=== PATIENT | female | born 1970 | race African-American/Black ===

== ENCOUNTER → 2017-07-08 | Outpatient (CLI) | payer OTHER ==
--- NOTE | 2017-07-09 09:06 | Diagnostic Imaging Report ---
Indication: Low back pain Technique: CT scan of the abdomen and pelvis was performed from the diaphragms to the symphysis pubis with intravenous contrast material only per specific request of the ordering physician.. 5 mm sections were generated. Axial, coronal, and sagittal images are presented. Dose: Total Dose Length Product - DLP [address] Dose Index - CTDIvol(s) 19.75 mGy. Automated exposure control was utilized for dose reduction. Comparison: None Findings: The liver is normal. Gallbladder is unremarkable. There is a focal low density lesion in the spleen measuring 1.2 cm, not further characterized. The pancreas is unremarkable. Adrenal glands appear normal. The kidneys are unremarkable. Aorta and inferior vena cava are normal caliber. Retroperitoneum is free of adenopathy. The appendix is normal. The bowel is otherwise normal. The uterus is considerably enlarged, measuring approximately 10 x 15 x 12 cm.. Multiple rim calcified masses are noted throughout the uterus consistent with calcified fibroids. The ovaries are difficult to identify. The remainder of the study is normal. Degenerative changes noted in the spine.. Impression: Enlarged uterus with multiple calcified fibroids. Normal appendix. Minimal degenerative change in the spine. Otherwise negative. The CT scanner at [facility] is accredited by the [employer] and the scans are performed using protocols designed to limit radiation exposure to as low as reasonably achievable to attain images of sufficient resolution adequate for diagnostic evaluation.
== END | disposition home or self-care (01) ==
LOC: CAT 13:01
DX: M54.5 Low back pain (principal); N85.2 Hypertrophy of uterus; D25.9 Leiomyoma of uterus, unspecified
CPT/HCPCS: 74177; Q9967

== ENCOUNTER 2018-11-20 19:47 | Observation (INO) | payer MEDICARE, OTHER ==
[~2018-11-20] VITALS: Ht 162.6 cm; Wt 104.8 kg
--- NOTE | 2018-11-20 22:15 | NUR ---
NURSE NOTES: RECEIVED REPORT FROM [facility]. PT CAME WITH EMS ON [facility]. PT IS AWAKE, AAOX4, ON ROOM AIR, NO ACUTE DISTRESS NOTED. PT C/O PAIN 10/10 ON RIGHT SIDE OF BODY. ORIENTED PT TO ROOM. SKIN IS INTACT. IV NOTED ON R FA 20G INTACT AND PATENT. RECEIVED ADMISSION ORDERS FROM . BED IS LOCKED AT THE LOWEST POSITION, BED ALARMS ACTIVE, SIDE RAILS UP X2 AND CALL LIGHT IS WITHIN REACH.
[2018-11-21] VITALS: BP 152/88
[2018-11-21] MEDS ORDERED: SERTRALINE HCL100 MG PO (01:04)
[2018-11-21] MEDS ORDERED: NORVASC10 MG ORAL (01:04)
[2018-11-21] MEDS ORDERED: HYDROCHLOROTHIA25 MG ORAL (01:04)
[2018-11-21] MEDS ORDERED: TRAZODONE HCL150 MG ORAL (01:04)
[2018-11-21] MEDS ORDERED: CLONAZEPAM1 M1 PO (01:04)
[2018-11-21] MEDS ORDERED: CLONIDINE HCL0.1 MG PO (01:04)
[2018-11-21] MEDS ORDERED: PROVENTIL HFA6.7 G1 IH (01:04)
[2018-11-21] MEDS ORDERED: METFORMIN HCL850 M1 ORAL (01:04)
[2018-11-21] MEDS ORDERED: LIPITOR80 MG ORAL (01:04)
[2018-11-21] MEDS ORDERED: METOPROLOL TART50 MG ORAL (01:04)
[2018-11-21] MEDS ORDERED: SYMBICORT2 PUFF1 INH (01:04)
[2018-11-21] MEDS ORDERED: GLUCOTROL5 MG ORAL (01:04)
[2018-11-21] MEDS ORDERED: BENADRYL25 M3 PO (01:04)
[2018-11-21] MEDS ORDERED: Albuterol 90mcg Inhaler 8gm INH PRN (01:15)
[2018-11-21] MEDS ORDERED: Hydromorphone 0.5mg/0.5ml inj IVP PRN (01:15)
[2018-11-21] MEDS ORDERED: TraZODone 50mg tab ORAL PRN (01:15)
[2018-11-21] MEDS: HYDROmorphone 1mg/ml Carpuject IVP PRN ×7 (01:33→22:48)
[2018-11-21] MEDS: DiphenhydrAMINE 50mg/ml Inj IVP PRN ×6 (02:22→22:47)
[2018-11-21 04:00] VITALS: BP 137/67
[2018-11-21 06:16] LABS: HEMATOCRIT 37.2 % (37.0-47.0); HEMOGLOBIN 11.4 G/DL (12.0-16.0); MEAN CORPUSCULAR VOLUME 72 FL (80-99); PLATELET COUNT 299 K/UL (150-450); RED BLOOD COUNT 5.15 M/UL (4.20-5.40)
[2018-11-21] MEDS ORDERED: GlipiZIDE 5mg tab ORAL SCH (06:30)
[2018-11-21] MEDS: Dexamethasone 4mg/ml vial IVP SCH ×3 (06:33→21:21)
[2018-11-21 06:37] LABS: INR 0.9 (0.9-1.1)
[2018-11-21 06:39] LABS: ANION GAP 14 mmol/L (5-15); BLOOD UREA NITROGEN 18 mg/dL (7-18); CALCIUM 9.6 MG/DL (8.5-10.1); CARBON DIOXIDE 24 MMOL/L (21-32); CHLORIDE 97 MMOL/L (98-107); CREATININE 0.9 MG/DL (0.55-1.30); PHOSPHORUS 2.8 MG/DL (2.5-4.9); POTASSIUM 4.2 MMOL/L (3.5-5.1); SODIUM 135 MMOL/L (136-145)
[2018-11-21 08:00] VITALS: BP 132/92
--- NOTE | 2018-11-21 08:05 | NUR ---
HAND-OFF: Report given to STEVEN CORTEZ.
[2018-11-21] MEDS: NovoLOG Insulin Flexpen SUBQ SCH ×4 (08:08→21:25)
--- NOTE | 2018-11-21 08:11 | NUR ---
NURSE NOTES: received report from Shalonda,STEVEN. xu in bed. alert. oriented. verbally responsive, no respiratory distress noted on room air. no pain at this time. IV on RFA intact. flushed. fall risk. skin intact. the bed in the lowest position. call light within reach. will provide plan of care.
[2018-11-21] MEDS: Atorvastatin 20mg tab ORAL SCH (09:00)
[2018-11-21] MEDS: Sertraline 50mg tab ORAL SCH (09:01)
[2018-11-21] MEDS: Metoprolol Tartrate 50mg tab ORAL SCH ×2 (09:01→21:26)
[2018-11-21 12:00] VITALS: BP 135/83
--- NOTE | 2018-11-21 12:02 | NUR ---
NURSE NOTES: seen by Dr. Naidu and received order pepcid 20mg po Daily. change of order of dilaudid. d/c previous ordrer. n/o dilaudid 1.5mg IVP PRN Q4hrs for severe pain. order noted and carried out.
--- NOTE | 2018-11-21 12:14 | NUR ---
NURSE NOTES: patient does not have order of DVT prophylaxis and MG level 1.7 this morning. notified cole Hmuphrey and received order of heparin 5000 SQ q12hrs for DVT ppx. Magnesium sulfate IVPB 1gm x2. order noted and carried out.
--- NOTE | 2018-11-21 12:38 | NUR ---
NURSE NOTES: received order from ana laura Martin to give benadryl 25mg IVP with dilaudid now.
--- NOTE | 2018-11-21 12:38 | NUR ---
NURSE NOTES: patient got administered dilaudid 1mg IVP at 1045 for pain. seen by Dr[address] galvan. patient c/o sever pain even after medication. received new order from Dr. galvan change dosage to 1.5mg IVP PRN Q4hrs for severe pain and ok to administer now as ordered.
--- NOTE | 2018-11-21 12:43 | Consultation ---
History of Present Illness General Date patient seen: Nov 21, 2018 Present Illness HPI 48 year old female with hx of DM, HTN, CAD, s/p stents was taken to [facility] with CC of right sided weakness, and headache. She was seen by stroke team at [facility] who ruled out acute CVA. there is a report of -spine MRI in the chart as well stating that she might have spinal stenosis. Allergies: Coded Allergies: IODINE AND IODIDE CONTAINING PRODUC (Verified Allergy, Severe, Anaphylaxis , 11/21/18) OLANZAPINE (Verified Allergy, Severe, Anaphylaxis, 11/21/18) THROAT SWELLING ASPIRIN (Verified Allergy, Intermediate, Hives, 11/21/18) BENZTROPINE (Verified Allergy, Intermediate, Hives, 11/21/18) ERYTHROMYCIN BASE (Verified Allergy, Intermediate, Hives, 11/21/18) KETOROLAC (Verified Allergy, Intermediate, Hives, 11/21/18) LOSARTAN (Verified Allergy, Intermediate, 11/21/18) ANGIOEDEMA NITROGLYCERIN (Verified Allergy, Intermediate, Hives, 11/21/18) PSEUDOEPHEDRINE (Verified Allergy, Intermediate, Hives, 11/21/18) SULFA (SULFONAMIDE ANTIBIOTICS) (Verified Allergy, Intermediate, Hives, 03/02) TERFENADINE (Verified Allergy, Intermediate, Hives, 11/21/18) TRAMADOL (Verified Allergy, Intermediate, Rash, 11/21/18) Medication History Scheduled Amlodipine Besylate (Norvasc), 10 MG ORAL DAILY, (Reported) Atorvastatin (Lipitor), 40 MG ORAL DAILY, (Reported) Budesonide/Formoterol Fumarate (Symbicort 160-4.5 Mcg Inhaler), 2 PUFFS INH BID, (Reported) Clonazepam (Clonazepam), 1 MG PO BID, (Reported) Diphenhydramine HCl (Benadryl), 75 MG PO DAILY, (Reported) Glipizide* (Glucotrol*), 5 MG ORAL BID, (Reported) Hydrochlorothiazide* (Hydrochlorothiazide*), 25 MG ORAL DAILY, (Reported) Metformin Hcl* (Metformin Hcl*), 850 MG ORAL BID, (Reported) Metoprolol Tartrate* (Metoprolol Tartrate*), 50 MG ORAL BID, (Reported) Sertraline Hcl* (Zoloft*), 150 MG PO DAILY, (Reported) Scheduled PRN Albuterol Sulfate (Proventil Hfa), 90 MCG IH Q4HR PRN for Shortness of Breath, ( Reported) Clonidine Hcl (Clonidine Hcl), 0.1 MG PO Q6HR PRN for For High Blood Pressure, ( Reported) Trazodone* (Trazodone*), 150 MG ORAL BEDTIME PRN for Restlessness, (Reported) Patient History Healthcare decision maker Resuscitation status Full Code Advanced Directive on File Past Medical/Surgical History Past Medical/Surgical History: (1) History of heart artery stent (2) COPD (chronic obstructive pulmonary disease) (3) Fibrosis of uterus (4) CAD (coronary artery disease) (5) History of TIA (transient ischemic attack) (6) Diabetes mellitus Physical Exam General Appearance: WD/WN, mild distress HEENT: normocephalic, atraumatic Neck: non-tender, supple Respiratory/Chest: chest wall non-tender, lungs clear, normal breath sounds Breasts: no masses Cardiovascular/Chest: normal peripheral pulses Abdomen: normal bowel sounds Genitourinary/Rectal: normal genital exam Extremities: normal range of motion Skin Exam: normal pigmentation Last 24 Hour Vital Signs Date Time Temp Pulse Resp B/P (MAP) Pulse Ox O2 Delivery O2 Flow Rate FiO2 11/21/18 12:00 99.0 87 16 135/83 (100) 98 11/21/18 09:24 92 20 98 Room Air 21 11/21/18 09:22 92 19 98 Room Air 21 11/21/18 09:20 92 19 98 Room Air 21 11/21/18 09:01 106 132/92 11/21/18 09:00 106 132/92 11/21/18 09:00 Room Air 11/21/18 08:00 98.5 106 17 132/92 (105) 99 11/21/18 04:00 98.1 82 18 137/67 (90) 99 11/21/18 00:00 98.2 90 20 152/88 (109) 99 11/20/18 23:14 Room Air Intake and Output 11/20/18 11/21/18 19:00 07:00 Intake Total 780 ml Balance 780 ml Intake Oral 780 ml # Voids 3 Laboratory Tests Test 11/21/18 05:40 White Blood Count 9.0 K/UL (4.8-10.8) Red Blood Count 5.15 M/UL (4.20-5.40) Hemoglobin 11.4 G/DL (12.0-16.0) L Hematocrit 37.2 % (37.0-47.0) Mean Corpuscular Volume 72 FL (80-99) L Mean Corpuscular Hemoglobin 22.2 PG (27.0-31.0) L Mean Corpuscular Hemoglobin Concent 30.8 G/DL (32.0-36.0) L Red Cell Distribution Width 16.0 % (11.6-14.8) H Platelet Count 299 K/UL (150-450) Mean Platelet Volume 7.3 FL (6.5-10.1) Neutrophils (%) (Auto) % (45.0-75.0) Lymphocytes (%) (Auto) % (20.0-45.0) Monocytes (%) (Auto) % (1.0-10.0) Eosinophils (%) (Auto) % (0.0-3.0) Basophils (%) (Auto) % (0.0-2.0) Prothrombin Time 9.6 SEC (9.30-11.50) Prothromb Time International Ratio 0.9 (0.9-1.1) Activated Partial Thromboplast Time 26 SEC (23-33) Sodium Level 135 MMOL/L (136-145) L Potassium Level 4.2 MMOL/L (3.5-5.1) Chloride Level 97 MMOL/L (98-107) L Carbon Dioxide Level 24 MMOL/L (21-32) Anion Gap 14 mmol/L (5-15) Blood Urea Nitrogen 18 mg/dL (7-18) Creatinine 0.9 MG/DL (0.55-1.30) Estimat Glomerular Filtration Rate > 60 mL/min (>60) Glucose Level 325 MG/DL (74-106) H Calcium Level 9.6 MG/DL (8.5-10.1) Phosphorus Level 2.8 MG/DL (2.5-4.9) Magnesium Level 1.7 MG/DL (1.8-2.4) L Height (Feet): 5 Height (Inches): 4.00 Weight (Pounds): 231 Medications Current Medications Medications (Trade) Dose Ordered Sig/Raymond Route PRN Reason Start Time Stop Time Status Last Admin Dose Admin Albuterol Sulfate (Proventil MDI) 2 puff Q4H PRN INH Shortness of Breath 11/21/18 01:15 12/21/18 01:14 Amlodipine Besylate (Norvasc) 10 mg DAILY ORAL 11/21/18 09:00 12/21/18 08:59 11/21/18 09:00 Atorvastatin Calcium (Lipitor) 40 mg DAILY ORAL 11/21/18 09:00 12/21/18 08:59 11/21/18 09:00 Budesonide/ Formoterol Fumarate (Symbicort 160/ 4.5) 2 puff BIDRT INH 11/21/18 10:00 12/21/18 09:59 11/21/18 09:22 Clonazepam (KlonoPIN) 1 mg Q12HR ORAL 11/21/18 09:00 11/28/18 08:59 11/21/18 09:01 Clonidine HCl (Catapres Tab) 0.1 mg Q6H PRN ORAL For High Blood Pressure 11/21/18 01:45 12/21/18 01:44 Dexamethasone Sodium Phosphate (Decadron 4mg/ml vial) 4 mg Q8HR IVP 11/21/18 06:00 12/21/18 05:59 11/21/18 06:33 Dextrose (Dextrose 50%) 25 ml Q30M PRN IV Hypoglycemia 11/21/18 01:15 12/21/18 01:14 Dextrose (Dextrose 50%) 50 ml Q30M PRN IV Hypoglycemia 11/21/18 01:15 12/21/18 01:14 Diphenhydramine HCl (Benadryl) 25 mg Q4H PRN IVP Itching 11/21/18 02:00 12/21/18 01:59 11/21/18 10:53 Famotidine (Pepcid) 20 mg DAILY ORAL 11/22/18 09:00 12/22/18 08:59 Famotidine (Pepcid) 20 mg ONCE ORAL 11/21/18 12:30 11/21/18 13:30 Heparin Sodium (Porcine) (Heparin 5000 units/ml) 5,000 units EVERY 12 HOURS SUBQ 11/21/18 21:00 12/21/18 20:59 Hydrochlorothiazide (Hydrodiuril) 25 mg DAILY ORAL 11/21/18 09:00 12/21/18 08:59 11/21/18 09:01 Hydromorphone HCl (Dilaudid) 0.5 mg Q4H PRN IVP Moderate Pain (Pain Scale 4-6) 11/21/18 01:15 11/28/18 01:14 Hydromorphone HCl (Dilaudid) 1.5 mg Q4H PRN IVP Severe Pain (Pain Scale 7-10) 11/21/18 13:15 11/28/18 01:14 Insulin Aspart (NovoLOG) BEFORE MEALS AND HS SUBQ 11/21/18 06:30 12/21/18 06:29 11/21/18 12:01 Magnesium Sulfate 100 ml @ 100 mls/hr Q1H IVPB 11/21/18 12:15 11/21/18 14:14 Metformin HCl (Glucophage) 850 mg BID@0630,1630 ORAL 11/21/18 06:30 12/21/18 06:29 11/21/18 06:33 Metoprolol Tartrate (Lopressor) 50 mg BID@0900,2100 ORAL 11/21/18 09:00 12/21/18 08:59 11/21/18 09:01 Ondansetron HCl (Zofran) 4 mg Q4H PRN IVP Nausea & Vomiting 11/21/18 01:15 12/21/18 01:14 11/21/18 09:07 Sertraline HCl (Zoloft) 150 mg DAILY ORAL 11/21/18 09:00 12/21/18 08:59 11/21/18 09:01 Trazodone HCl (Desyrel) 150 mg BEDTIME PRN ORAL Restlessness 11/21/18 01:15 12/21/18 01:14 Assessment/Plan Problem List: (1) Right sided weakness ICD Codes: R53.1 - Weakness SNOMED: 615999704 (2) COPD (chronic obstructive pulmonary disease) ICD Codes: J44.9 - Chronic obstructive pulmonary disease, unspecified SNOMED: 79583348 (3) Gonorrhea ICD Codes: A54.9 - Gonococcal infection, unspecified SNOMED: 24505058 (4) Spinal stenosis ICD Codes: M48.00 - Spinal stenosis, site unspecified SNOMED: 08900222 (5) History of heart artery stent ICD Codes: Z95.5 - Presence of coronary angioplasty implant and graft SNOMED: 00188599, 199832315 (6) Fibrosis of uterus ICD Codes: N85.8 - Other specified noninflammatory disorders of uterus SNOMED: 15826856 (7) CAD (coronary artery disease) ICD Codes: I25.10 - Atherosclerotic heart disease of [place] coronary artery without angina pectoris SNOMED: 11978005 (8) History of TIA (transient ischemic attack) ICD Codes: Z86.73 - Personal history of transient ischemic attack (TIA), and cerebral infarction without residual deficits SNOMED: 092326656 (9) Diabetes mellitus ICD Codes: E11.9 - Type 2 diabetes mellitus without complications SNOMED: 43826729 (10) History of hypertension ICD Codes: Z86.79 - Personal history of other diseases of the circulatory system SNOMED: 507333739 Assessment/Plan: Neuro evaluation pain management sliding scale diabetic diet monitor BP dvt prophylaxis ID evaluation for STD management Jaswinedr Naidu MD Nov 21, 2018 12:43
[2018-11-21] MEDS ORDERED: cefTRIAXone 1 GM in D5W 55 ML IVPB ONE (14:00)
[2018-11-21] MEDS ORDERED: metroNIDAZOLE 500mg tab ORAL SCH (14:00)
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
[2018-11-21] MEDS ORDERED: Fluconazole 100mg tab ORAL SCH (15:55)
[2018-11-21 16:00] VITALS: BP 139/79
[2018-11-21] MEDS ORDERED: Azithromycin 250mg tab ORAL SCH (16:00)
--- NOTE | 2018-11-21 17:58 | NUR ---
NURSE NOTES: patient Blood sugar was 402@1630. given novolog 14units as sliding scale and notified Dr. de leon. Dr will come to see the patient soon.
--- NOTE | 2018-11-21 18:30 | NUR ---
NURSE NOTES: seen by Dr. de leon and Dr. Salvador.
--- NOTE | 2018-11-21 18:35 | History & Physical ---
History and Physical History & Physicial Hebert Littlejohn MD Nov 21, 2018 18:35
--- NOTE | 2018-11-21 19:14 | NUR ---
CASE MANAGEMENT: REVIEW 48Y/F PRESENTED TO ED FROM HOME CC: RIGHT SIDED WEAKNESS . HEADACHE IS: SPINAL STENOSIS . COPD . CAD . DM T 99.0 HR 106 RR 19 BP 132/92 SAT 98% ROOM AIR NA 135 CHLOR 97 GLUCOSE 325 IS: AZITHROMYCIN PO X1 DIFLUCAN PO X1 CEFTRIAXONE IV X1 PATIENT ADMITTED TO MED/SURG UNIT 11/21/2018 DCP: PATIENT IS FROM HOME
--- NOTE | 2018-11-21 19:37 | NUR ---
HAND-OFF: Report given to STEVEN Humphries.
--- NOTE | 2018-11-21 19:38 | NUR ---
NURSE NOTES: Received patient in no apparent distress. A&OX4. IV site patent and intact. Remind patient collect urine sample. Bed in lowest position. Call light within reach. Will continue to monitor.
[2018-11-21 20:00] VITALS: BP 121/70
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
[2018-11-21] MEDS ORDERED: Levemir Flexpen SUBQ SCH (21:00)
[2018-11-21] MEDS: Heparin 5000 units/ml inj SUBQ SCH (21:23)
--- NOTE | 2018-11-21 21:45 | Consultation ---
DATE OF CONSULTATION: 11/21/2018 ENDOCRINOLOGY CONSULTATION CONSULTING PHYSICIAN: Arnel Guerra M.D. REFERRING PHYSICIAN: Hebert Littlejohn M.D. REASON FOR CONSULTATION: Diabetes management. HISTORY OF PRESENT ILLNESS: The patient is a 48-year-old female, , morbidly obese, with past medical history of diabetes, hypertension, coronary artery disease status post stent placement who was taken to [facility] in [facility] with chief complaint of right-sided weakness and headache. The patient was seen by Stroke Team at [facility] to rule out acute CVA and a spine MRI was done which showed cervical spine stenosis with cord compression. The patient was given dexamethasone which raised the glucose significantly. I was called to manage diabetes. Glucose is over 300 mg/dL without evidence of diabetic ketoacidosis. PAST MEDICAL HISTORY: 1. Diabetes. 2. Hypertension. 3. Coronary disease status post stent. 4. Neck pain. PAST SURGICAL HISTORY: None. FAMILY HISTORY: Diabetes. SOCIAL HISTORY: Denies active smoking, alcohol, or drug use. REVIEW OF SYSTEMS: A 12-point system was performed. The pertinent positives and negatives are mentioned in history of present illness. ALLERGIES: Allergies to medications are many: 1. Iodine. 2. Olanzapine. 3. Aspirin. 4. Benztropine. 5. Erythromycin. 6. Ketoralac. 7. Losartan. 8. Nitroglycerin. 9. Pseudoephedrine. 10. Sulfa. 11. Tramadol. LABORATORY VALUES: Sodium 135, potassium 4.2, chloride 97, bicarbonate 24, BUN 18, creatinine 0.9, glucose 325. WBC 9, hemoglobin 11, hematocrit 37, platelets of 299. PHYSICAL EXAMINATION: VITAL SIGNS: Blood pressure is 139/79, respiratory rate of 16, pulse rate of 78, temperature of 98. HEENT: Pupils reactive to light. Sclerae anicteric. NECK: No JVD. HEART: Regular. LUNGS: Clear. ABDOMEN: Positive bowel sounds. EXTREMITIES: No clubbing, cyanosis, or edema. DIAGNOSES: 1. Diabetes exacerbated by steroids. 2. Cervical spine stenosis. 3. Hypertension. PLAN: 1. Continue metformin 1000 mg b.i.d. 2. Add Levemir 24 units at bedtime. 3. Add NovoLog 8 units before each meal. 4. Diabetic diet. 5. NovoLog sliding scale before meals and at bedtime. 6. Further adjustment according to blood glucose values. 7. We will follow the patient during the hospital stay. Thank you, Dr. Littlejohn, for the courtesy of this consultation. Arnel Guerra M.D. DR: Jessie JOB#: [id number] CC: SOO
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
[2018-11-21 23:27] LABS: APPEARANCE,URINE CLEAR; BILIRUBIN, URINE NEGATIVE (NEGATIVE); COLOR,URINE PALE YELLOW; GLUCOSE, URINE (UA) 4+ (NEGATIVE); KETONES,URINE NEGATIVE (NEGATIVE); LEUKOCYTE ESTERASE ,URINE NEGATIVE (NEGATIVE); NITRITE,URINE NEGATIVE (NEGATIVE); PH,URINE 6 (4.5-8.0); PROTEIN,URINE NEGATIVE (NEGATIVE); UROBILINOGEN,URINE NORMAL MG/DL (0.0-1.0)
--- NOTE | 2018-11-21 23:59 | NUR ---
NURSE NOTES: Patient c/o itching, requested increase dose of Benadryl. Patient asking to have muscle relaxant medication. Call and left message to Dr. Littlejohn. Waiting a call back.
[2018-11-22] VITALS: BP 139/87
[2018-11-22] MEDS ORDERED: Cyclobenzaprine 10mg Tab ORAL PRN (01:15)
--- NOTE | 2018-11-22 01:16 | NUR ---
NURSE NOTES: Obtained order of increase Benadryl 50mg, Flexeril 10mg BID po prn, Nystatin cream for vaginal itching.
[2018-11-22] MEDS: DiphenhydrAMINE 50mg/ml Inj IVP PRN ×3 (03:03→13:25)
[2018-11-22] MEDS: HYDROmorphone 1mg/ml Carpuject IVP PRN ×3 (03:04→13:28)
[2018-11-22 04:00] VITALS: BP 153/92
[2018-11-22] MEDS ORDERED: NovoLOG Insulin Flexpen SUBQ SCH ×2 (06:30→11:50)
[2018-11-22] MEDS ORDERED: metFORMIN 500mg tab ORAL SCH (06:30)
[2018-11-22] MEDS: NovoLOG Insulin Flexpen SUBQ SCH ×2 (06:32→12:06)
--- NOTE | 2018-11-22 06:58 | General Progress Note ---
Assessment/Plan Problem List: (1) Spinal stenosis ICD Codes: M48.00 - Spinal stenosis, site unspecified SNOMED: 53685752 (2) Diabetes mellitus ICD Codes: E11.9 - Type 2 diabetes mellitus without complications SNOMED: 54428090 (3) History of TIA (transient ischemic attack) ICD Codes: Z86.73 - Personal history of transient ischemic attack (TIA), and cerebral infarction without residual deficits SNOMED: 856235715 (4) CAD (coronary artery disease) ICD Codes: I25.10 - Atherosclerotic heart disease of [place] coronary artery without angina pectoris SNOMED: 71276490 (5) Abnormal thyroid blood test ICD Codes: R79.89 - Other specified abnormal findings of blood chemistry SNOMED: 554180362, 358946445400047 Assessment/Plan: low TSH is most likely due to steroid effect no need for thyroid medications repeat TSH, free T4 in 2 weeks increase Levemir to 30 units qhs increase Novolog to 10 units ac tid continue NISS ac / hs continue Metformin 1000 mg bid Subjective Allergies: Coded Allergies: IODINE AND IODIDE CONTAINING PRODUC (Verified Allergy, Severe, Anaphylaxis , 11/21/18) OLANZAPINE (Verified Allergy, Severe, Anaphylaxis, 11/21/18) THROAT SWELLING ASPIRIN (Verified Allergy, Intermediate, Hives, 11/21/18) BENZTROPINE (Verified Allergy, Intermediate, Hives, 11/21/18) ERYTHROMYCIN BASE (Verified Allergy, Intermediate, Hives, 11/21/18) Tolerates Azithromycin KETOROLAC (Verified Allergy, Intermediate, Hives, 11/21/18) LOSARTAN (Verified Allergy, Intermediate, 11/21/18) ANGIOEDEMA NITROGLYCERIN (Verified Allergy, Intermediate, Hives, 11/21/18) PSEUDOEPHEDRINE (Verified Allergy, Intermediate, Hives, 11/21/18) SULFA (SULFONAMIDE ANTIBIOTICS) (Verified Allergy, Intermediate, Hives, 03/02) TERFENADINE (Verified Allergy, Intermediate, Hives, 11/21/18) TRAMADOL (Verified Allergy, Intermediate, Rash, 11/21/18) All Systems: reviewed and negative except above Subjective events noted Item Value Date Time Bedside Blood Glucose 275 mg/dl H 11/22/18 0633 Bedside Blood Glucose 253 mg/dl H 11/21/18 2125 Bedside Blood Glucose 402 mg/dl H 11/21/18 1714 Bedside Blood Glucose 300 mg/dl H 11/21/18 1201 Bedside Blood Glucose 300 mg/dl H 11/21/18 0808 Objective Last 24 Hour Vital Signs Date Time Temp Pulse Resp B/P (MAP) Pulse Ox O2 Delivery O2 Flow Rate FiO2 11/22/18 04:00 97.9 74 18 153/92 (112) 98 11/22/18 00:00 97.9 71 18 139/87 (104) 98 11/21/18 21:26 87 121/70 11/21/18 21:23 87 18 98 Room Air 21 11/21/18 21:20 87 18 98 Room Air 21 11/21/18 21:00 Room Air 11/21/18 20:00 97.7 87 17 121/70 (87) 99 11/21/18 16:00 98.0 78 16 139/79 (99) 97 11/21/18 12:00 99.0 87 16 135/83 (100) 98 11/21/18 09:24 92 20 98 Room Air 11/21/18 09:22 92 19 98 Room Air 11/21/18 09:20 92 19 98 Room Air 21 11/21/18 09:01 106 132/92 11/21/18 09:00 106 132/92 11/21/18 09:00 Room Air 11/21/18 08:00 98.5 106 17 132/92 (105) 99 Intake and Output 11/21/18 11/22/18 19:00 07:00 Intake Total 600 ml 1000 ml Balance 600 ml 1000 ml Intake Oral 400 ml 1000 ml IV Total 200 ml # Voids 3 Laboratory Tests 11/21/18 23:00: Urine Color Pale yellow, Urine Appearance Clear, Urine pH 6, Urine Specific [place] 1.010, Urine Protein Negative, Urine Glucose (UA) 4+H, Urine Ketones Negative, Urine Blood Negative, Urine Nitrite Negative, Urine Bilirubin Negative , Urine Urobilinogen Normal, Urine Leukocyte Esterase Negative, Chlamydia trachomatis RNA [Pending], Neisseria gonorrhoeae RNA [Pending] Height (Feet): 5 Height (Inches): 4.00 Weight (Pounds): 231 General Appearance: no apparent distress Neck: normal alignment Cardiovascular: normal rate Respiratory/Chest: lungs clear Abdomen: normal bowel sounds Pelvis: normal external exam Objective Current Medications Medications (Trade) Dose Ordered Sig/Raymond Route PRN Reason Start Time Stop Time Status Last Admin Dose Admin Albuterol Sulfate (Proventil MDI) 2 puff Q4H PRN INH Shortness of Breath 11/21/18 01:15 12/21/18 01:14 Amlodipine Besylate (Norvasc) 10 mg DAILY ORAL 11/21/18 09:00 12/21/18 08:59 11/21/18 09:00 Atorvastatin Calcium (Lipitor) 40 mg DAILY ORAL 11/21/18 09:00 12/21/18 08:59 11/21/18 09:00 Budesonide/ Formoterol Fumarate (Symbicort 160/ 4.5) 2 puff BIDRT INH 11/21/18 10:00 12/21/18 09:59 11/21/18 21:20 Clonazepam (KlonoPIN) 1 mg Q12HR ORAL 11/21/18 09:00 11/28/18 08:59 11/21/18 21:21 Clonidine HCl (Catapres Tab) 0.1 mg Q6H PRN ORAL For High Blood Pressure 11/21/18 01:45 12/21/18 01:44 Cyclobenzaprine HCl (Flexeril) 10 mg BIDPRN PRN ORAL Muscle Spasm 11/22/18 01:15 12/22/18 01:14 11/22/18 01:37 Dexamethasone Sodium Phosphate (Decadron 4mg/ml vial) 4 mg Q12HR IVP 11/21/18 21:00 12/21/18 05:59 11/21/18 21:21 Dextrose (Dextrose 50%) 25 ml Q30M PRN IV Hypoglycemia 11/21/18 18:30 12/21/18 18:29 Dextrose (Dextrose 50%) 50 ml Q30M PRN IV Hypoglycemia 11/21/18 18:30 12/21/18 18:29 Diphenhydramine HCl (Benadryl) 50 mg Q4H PRN IVP Itching 11/22/18 02:00 12/21/18 01:59 11/22/18 03:03 Famotidine (Pepcid) 20 mg DAILY ORAL 11/22/18 09:00 12/22/18 08:59 Heparin Sodium (Porcine) (Heparin 5000 units/ml) 5,000 units EVERY 12 HOURS SUBQ 11/21/18 21:00 12/21/18 20:59 11/21/18 21:23 Hydrochlorothiazide (Hydrodiuril) 25 mg DAILY ORAL 11/21/18 09:00 12/21/18 08:59 11/21/18 09:01 Hydromorphone HCl (Dilaudid) 0.5 mg Q4H PRN IVP Moderate Pain (Pain Scale 4-6) 11/21/18 01:15 11/28/18 01:14 Hydromorphone HCl (Dilaudid) 1.5 mg Q4H PRN IVP Severe Pain (Pain Scale 7-10) 11/21/18 13:15 11/28/18 01:14 11/22/18 03:04 Insulin Aspart (NovoLOG) BEFORE MEALS AND HS SUBQ 11/21/18 06:30 12/21/18 06:29 11/22/18 06:32 Insulin Aspart (NovoLOG) 8 units NOVOTIAC SUBQ 11/22/18 06:30 12/22/18 06:29 11/22/18 06:33 Insulin Detemir (Levemir) 24 units BEDTIME SUBQ 11/21/18 21:00 12/21/18 20:59 11/21/18 21:24 Magnesium Oxide (Mag-Ox 400mg) 400 mg THREE TIMES A DAY ORAL 11/22/18 09:00 12/22/18 08:59 Metformin HCl (Glucophage) 1,000 mg BID@0630,1630 ORAL 11/22/18 06:30 12/21/18 06:29 11/22/18 06:31 Metoprolol Tartrate (Lopressor) 50 mg BID@0900,2100 ORAL 11/21/18 09:00 12/21/18 08:59 11/21/18 21:26 Ondansetron HCl (Zofran) 4 mg Q4H PRN IVP Nausea & Vomiting 11/21/18 01:15 12/21/18 01:14 11/22/18 03:13 Sertraline HCl (Zoloft) 150 mg DAILY ORAL 11/21/18 09:00 12/21/18 08:59 11/21/18 09:01 Trazodone HCl (Desyrel) 150 mg BEDTIME PRN ORAL Restlessness 11/21/18 01:15 12/21/18 01:14 Arnel Guerra MD Nov 22, 2018 06:58
--- NOTE | 2018-11-22 07:37 | NUR ---
HAND-OFF: Report given to Miranda HARRIS.
--- NOTE | 2018-11-22 07:38 | NUR ---
NURSE NOTES: Patient alert x4, on room air, no sign of distress and shortness of breath; no sing of chest pain; NO IV ACCESS; will try to get IV access on patient; side rails up x2, breaks engaged, bed at lowest position; will keep monitoring.
[2018-11-22 08:00] VITALS: BP 126/62
[2018-11-22] MEDS: Metoprolol Tartrate 50mg tab ORAL SCH (08:41)
[2018-11-22] MEDS: Sertraline 50mg tab ORAL SCH (08:41)
[2018-11-22] MEDS: Atorvastatin 20mg tab ORAL SCH (08:41)
[2018-11-22] MEDS: Magnesium Oxide 400mg tab ORAL SCH ×2 (08:41→12:05)
[2018-11-22] MEDS: Heparin 5000 units/ml inj SUBQ SCH (08:43)
[2018-11-22] MEDS: Dexamethasone 4mg/ml vial IVP SCH (09:18)
--- NOTE | 2018-11-22 10:30 | NUR ---
Social Service Note Patient requested to speak with SW regarding transportation home. Patient states she would like to go to [facility] upon discharge. SW explained the process of transfer to another hospital. Patient states she doesn't have a PCP. SW inquired if patient required assistance in making a follow up appointment of patient's choice. Patient lives in [address] [address]. Patient declined SW assistance and stated she would make her own follow up arrangements and seek medical care elsewhere. SW will continue to be available as needed.
[2018-11-22] MEDS ORDERED: DIURIL25 MG ORAL (11:42)
[2018-11-22] MEDS ORDERED: CYCLOBENZAPRINE10 MG ORAL (11:42)
[2018-11-22] MEDS ORDERED: NORVASC10 MG ORAL (11:42)
[2018-11-22] MEDS ORDERED: DESYREL50 MG ORAL (11:42)
[2018-11-22] MEDS ORDERED: LEVEMIR FL100 UNIT/1 SUBQ (11:42)
[2018-11-22] MEDS ORDERED: GLUCOPHAGE500 MG ORAL (11:42)
[2018-11-22] MEDS ORDERED: LIPITOR20 MG ORAL (11:42)
[2018-11-22] MEDS ORDERED: ZOLOFT50 MG ORAL (11:42)
[2018-11-22] MEDS ORDERED: METOPROLOL TART50 MG ORAL (11:42)
[2018-11-22] MEDS ORDERED: ALBUTEROL SULF8.5 GM INH (11:42)
--- NOTE | 2018-11-22 11:45 | Pulmonology Progress Note ---
Assessment/Plan Problems: (1) Right sided weakness (2) COPD (chronic obstructive pulmonary disease) (3) Gonorrhea (4) Spinal stenosis (5) History of heart artery stent (6) Fibrosis of uterus (7) CAD (coronary artery disease) (8) History of TIA (transient ischemic attack) (9) Diabetes mellitus (10) History of hypertension Assessment/Plan neuro evaluation appreciated pt wants to go to [facility] symptomatic treatment monitor BP sliding scale, diabetic diet. dvt prophylaxis pt.ot evaluation. Subjective ROS Limited/Unobtainable: No Constitutional: Reports: no symptoms HEENT: Repors: no symptoms Respiratory: Reports: no symptoms Allergies: Coded Allergies: IODINE AND IODIDE CONTAINING PRODUC (Verified Allergy, Severe, Anaphylaxis , 11/21/18) OLANZAPINE (Verified Allergy, Severe, Anaphylaxis, 11/21/18) THROAT SWELLING ASPIRIN (Verified Allergy, Intermediate, Hives, 11/21/18) BENZTROPINE (Verified Allergy, Intermediate, Hives, 11/21/18) ERYTHROMYCIN BASE (Verified Allergy, Intermediate, Hives, 11/21/18) Tolerates Azithromycin KETOROLAC (Verified Allergy, Intermediate, Hives, 11/21/18) LOSARTAN (Verified Allergy, Intermediate, 11/21/18) ANGIOEDEMA NITROGLYCERIN (Verified Allergy, Intermediate, Hives, 11/21/18) PSEUDOEPHEDRINE (Verified Allergy, Intermediate, Hives, 11/21/18) SULFA (SULFONAMIDE ANTIBIOTICS) (Verified Allergy, Intermediate, Hives, 03/02) TERFENADINE (Verified Allergy, Intermediate, Hives, 11/21/18) TRAMADOL (Verified Allergy, Intermediate, Rash, 11/21/18) Objective Last 24 Hour Vital Signs Date Time Temp Pulse Resp B/P (MAP) Pulse Ox O2 Delivery O2 Flow Rate FiO2 11/22/18 10:02 98.1 11/22/18 09:00 Room Air 11/22/18 08:41 84 126/62 11/22/18 08:41 84 126/62 11/22/18 08:00 98.1 84 18 126/62 (83) 97 11/22/18 07:22 Room Air 21 11/22/18 07:22 Room Air 21 11/22/18 04:00 97.9 74 18 153/92 (112) 98 11/22/18 00:00 97.9 71 18 139/87 (104) 98 11/21/18 21:26 87 121/70 11/21/18 21:23 87 18 98 Room Air 21 11/21/18 21:20 87 18 98 Room Air 21 11/21/18 21:00 Room Air 11/21/18 20:00 97.7 87 17 121/70 (87) 99 11/21/18 16:00 98.0 78 16 139/79 (99) 97 11/21/18 12:00 99.0 87 16 135/83 (100) 98 Intake and Output 11/21/18 11/22/18 19:00 07:00 Intake Total 600 ml 1000 ml Balance 600 ml 1000 ml Intake Oral 400 ml 1000 ml IV Total 200 ml # Voids 3 General Appearance: WD/WN HEENT: normocephalic, atraumatic Respiratory/Chest: chest wall non-tender, lungs clear Cardiovascular: normal peripheral pulses, normal rate Abdomen: normal bowel sounds, soft, non tender Genitourinary: normal external genitalia Skin: no rash Laboratory Tests 11/21/18 23:00: Urine Color Pale yellow, Urine Appearance Clear, Urine pH 6, Urine Specific [place] 1.010, Urine Protein Negative, Urine Glucose (UA) 4+H, Urine Ketones Negative, Urine Blood Negative, Urine Nitrite Negative, Urine Bilirubin Negative , Urine Urobilinogen Normal, Urine Leukocyte Esterase Negative, Chlamydia trachomatis RNA [Pending], Neisseria gonorrhoeae RNA [Pending] 11/22/18 08:05: Total Protein (PEP) [Pending], Albumin (PEP) [Pending], Globulin (PEP) [Pending] , Albumin/Globulin Ratio [Pending], Olxzm-6-Odzvrahyf [Pending], Alpha-2- Globulins [Pending], Beta Globulins [Pending], Beta Gamma Globulin [Pending], PEP Abnormal Protein Bands [Pending], Protein Electrophoresis Interpret [Pending ], Vitamin D 25-Hydroxy [Pending], 25-Hydroxy Vitamin D2 [Pending], 25-Hydroxy Vitamin D3 [Pending], Rapid Plasma Reagin [Pending], HIV (1&2) Antibody Rapid Negative Current Medications Medications (Trade) Dose Ordered Sig/Raymond Route PRN Reason Start Time Stop Time Status Last Admin Dose Admin Albuterol Sulfate (Proventil MDI) 2 puff Q4H PRN INH Shortness of Breath 11/21/18 01:15 12/21/18 01:14 Amlodipine Besylate (Norvasc) 10 mg DAILY ORAL 11/21/18 09:00 12/21/18 08:59 11/22/18 08:41 Atorvastatin Calcium (Lipitor) 40 mg DAILY ORAL 11/21/18 09:00 12/21/18 08:59 11/22/18 08:41 Budesonide/ Formoterol Fumarate (Symbicort 160/ 4.5) 2 puff BIDRT INH 11/21/18 10:00 12/21/18 09:59 11/21/18 21:20 Clonazepam (KlonoPIN) 1 mg Q12HR ORAL 11/21/18 09:00 11/28/18 08:59 11/22/18 08:41 Clonidine HCl (Catapres Tab) 0.1 mg Q6H PRN ORAL For High Blood Pressure 11/21/18 01:45 12/21/18 01:44 Cyclobenzaprine HCl (Flexeril) 10 mg BIDPRN PRN ORAL Muscle Spasm 11/22/18 01:15 12/22/18 01:14 11/22/18 01:37 Dexamethasone Sodium Phosphate (Decadron 4mg/ml vial) 4 mg Q12HR IVP 11/21/18 21:00 12/21/18 05:59 11/22/18 09:18 Dextrose (Dextrose 50%) 25 ml Q30M PRN IV Hypoglycemia 11/21/18 18:30 12/21/18 18:29 Dextrose (Dextrose 50%) 50 ml Q30M PRN IV Hypoglycemia 11/21/18 18:30 12/21/18 18:29 Diphenhydramine HCl (Benadryl) 50 mg Q4H PRN IVP Itching 11/22/18 02:00 12/21/18 01:59 11/22/18 09:19 Famotidine (Pepcid) 20 mg DAILY ORAL 11/22/18 09:00 12/22/18 08:59 11/22/18 08:41 Heparin Sodium (Porcine) (Heparin 5000 units/ml) 5,000 units EVERY 12 HOURS SUBQ 11/21/18 21:00 12/21/18 20:59 11/22/18 08:43 Hydrochlorothiazide (Hydrodiuril) 25 mg DAILY ORAL 11/21/18 09:00 12/21/18 08:59 11/22/18 08:41 Hydromorphone HCl (Dilaudid) 0.5 mg Q4H PRN IVP Moderate Pain (Pain Scale 4-6) 11/21/18 01:15 11/28/18 01:14 Hydromorphone HCl (Dilaudid) 1.5 mg Q4H PRN IVP Severe Pain (Pain Scale 7-10) 11/21/18 13:15 11/28/18 01:14 11/22/18 09:32 Insulin Aspart (NovoLOG) BEFORE MEALS AND HS SUBQ 11/21/18 06:30 12/21/18 06:29 11/22/18 06:32 Insulin Aspart (NovoLOG) 10 units NOVOTIAC SUBQ 11/22/18 11:50 12/22/18 06:29 Insulin Detemir (Levemir) 30 units BEDTIME SUBQ 11/22/18 21:00 12/21/18 20:59 Magnesium Oxide (Mag-Ox 400mg) 400 mg THREE TIMES A DAY ORAL 11/22/18 09:00 12/22/18 08:59 11/22/18 08:41 Metformin HCl (Glucophage) 1,000 mg BID@0630,1630 ORAL 11/22/18 06:30 12/21/18 06:29 11/22/18 06:31 Metoprolol Tartrate (Lopressor) 50 mg BID@0900,2100 ORAL 11/21/18 09:00 12/21/18 08:59 11/22/18 08:41 Ondansetron HCl (Zofran) 4 mg Q4H PRN IVP Nausea & Vomiting 11/21/18 01:15 12/21/18 01:14 11/22/18 09:49 Sertraline HCl (Zoloft) 150 mg DAILY ORAL 11/21/18 09:00 12/21/18 08:59 11/22/18 08:41 Trazodone HCl (Desyrel) 150 mg BEDTIME PRN ORAL Restlessness 11/21/18 01:15 12/21/18 01:14 Jaswinder Naidu MD Nov 22, 2018 11:44
[2018-11-22 12:00] VITALS: BP 143/84
--- NOTE | 2018-11-22 15:16 | Internal Med Progress Note ---
Subjective Physician Name Hebert Littlejohn Attending Physician Hebert Littlejohn MD Current Medications Medications (Trade) Dose Ordered Sig/Raymond Route PRN Reason Start Time Stop Time Status Last Admin Dose Admin Albuterol Sulfate (Proventil MDI) 2 puff Q4H PRN INH Shortness of Breath 11/21/18 01:15 12/21/18 01:14 Amlodipine Besylate (Norvasc) 10 mg DAILY ORAL 11/21/18 09:00 12/21/18 08:59 11/22/18 08:41 Atorvastatin Calcium (Lipitor) 40 mg DAILY ORAL 11/21/18 09:00 12/21/18 08:59 11/22/18 08:41 Budesonide/ Formoterol Fumarate (Symbicort 160/ 4.5) 2 puff BIDRT INH 11/21/18 10:00 12/21/18 09:59 11/21/18 21:20 Clonazepam (KlonoPIN) 1 mg Q12HR ORAL 11/21/18 09:00 11/28/18 08:59 11/22/18 08:41 Clonidine HCl (Catapres Tab) 0.1 mg Q6H PRN ORAL For High Blood Pressure 11/21/18 01:45 12/21/18 01:44 Cyclobenzaprine HCl (Flexeril) 10 mg BIDPRN PRN ORAL Muscle Spasm 11/22/18 01:15 12/22/18 01:14 11/22/18 01:37 Dexamethasone Sodium Phosphate (Decadron 4mg/ml vial) 4 mg Q12HR IVP 11/21/18 21:00 12/21/18 05:59 11/22/18 09:18 Dextrose (Dextrose 50%) 25 ml Q30M PRN IV Hypoglycemia 11/21/18 18:30 12/21/18 18:29 Dextrose (Dextrose 50%) 50 ml Q30M PRN IV Hypoglycemia 11/21/18 18:30 12/21/18 18:29 Diphenhydramine HCl (Benadryl) 50 mg Q4H PRN IVP Itching 11/22/18 02:00 12/21/18 01:59 11/22/18 13:25 Famotidine (Pepcid) 20 mg DAILY ORAL 11/22/18 09:00 12/22/18 08:59 11/22/18 08:41 Heparin Sodium (Porcine) (Heparin 5000 units/ml) 5,000 units EVERY 12 HOURS SUBQ 11/21/18 21:00 12/21/18 20:59 11/22/18 08:43 Hydrochlorothiazide (Hydrodiuril) 25 mg DAILY ORAL 11/21/18 09:00 12/21/18 08:59 11/22/18 08:41 Hydromorphone HCl (Dilaudid) 0.5 mg Q4H PRN IVP Moderate Pain (Pain Scale 4-6) 11/21/18 01:15 11/28/18 01:14 Hydromorphone HCl (Dilaudid) 1.5 mg Q4H PRN IVP Severe Pain (Pain Scale 7-10) 11/21/18 13:15 11/28/18 01:14 11/22/18 13:28 Insulin Aspart (NovoLOG) BEFORE MEALS AND HS SUBQ 11/21/18 06:30 12/21/18 06:29 11/22/18 12:06 Insulin Aspart (NovoLOG) 10 units NOVOTIAC SUBQ 11/22/18 11:50 12/22/18 06:29 11/22/18 12:07 Insulin Detemir (Levemir) 30 units BEDTIME SUBQ 11/22/18 21:00 12/21/18 20:59 Magnesium Oxide (Mag-Ox 400mg) 400 mg THREE TIMES A DAY ORAL 11/22/18 09:00 12/22/18 08:59 11/22/18 12:05 Metformin HCl (Glucophage) 1,000 mg BID@0630,1630 ORAL 11/22/18 06:30 12/21/18 06:29 11/22/18 06:31 Metoprolol Tartrate (Lopressor) 50 mg BID@0900,2100 ORAL 11/21/18 09:00 12/21/18 08:59 11/22/18 08:41 Ondansetron HCl (Zofran) 4 mg Q4H PRN IVP Nausea & Vomiting 11/21/18 01:15 12/21/18 01:14 11/22/18 13:26 Sertraline HCl (Zoloft) 150 mg DAILY ORAL 11/21/18 09:00 12/21/18 08:59 11/22/18 08:41 Trazodone HCl (Desyrel) 150 mg BEDTIME PRN ORAL Restlessness 11/21/18 01:15 12/21/18 01:14 Allergies: Coded Allergies: IODINE AND IODIDE CONTAINING PRODUC (Verified Allergy, Severe, Anaphylaxis , 11/21/18) OLANZAPINE (Verified Allergy, Severe, Anaphylaxis, 11/21/18) THROAT SWELLING ASPIRIN (Verified Allergy, Intermediate, Hives, 11/21/18) BENZTROPINE (Verified Allergy, Intermediate, Hives, 11/21/18) ERYTHROMYCIN BASE (Verified Allergy, Intermediate, Hives, 11/21/18) Tolerates Azithromycin KETOROLAC (Verified Allergy, Intermediate, Hives, 11/21/18) LOSARTAN (Verified Allergy, Intermediate, 11/21/18) ANGIOEDEMA NITROGLYCERIN (Verified Allergy, Intermediate, Hives, 11/21/18) PSEUDOEPHEDRINE (Verified Allergy, Intermediate, Hives, 11/21/18) SULFA (SULFONAMIDE ANTIBIOTICS) (Verified Allergy, Intermediate, Hives, 03/02) TERFENADINE (Verified Allergy, Intermediate, Hives, 11/21/18) TRAMADOL (Verified Allergy, Intermediate, Rash, 11/21/18) Subjective awake, alert, responsive, NAD, Ambulating in hallway without any cane or Walker. Objective Last Vital Signs Date Time Temp Pulse Resp B/P (MAP) Pulse Ox O2 Delivery O2 Flow Rate FiO2 11/22/18 13:58 99.0 11/22/18 12:00 79 20 143/84 (103) 98 11/22/18 09:00 Room Air 11/22/18 07:22 21 Laboratory Tests Test 11/21/18 23:00 11/22/18 08:05 Urine Color Pale yellow Urine Appearance Clear Urine pH 6 (4.5-8.0) Urine Specific Hazel 1.010 (1.005-1.035) Urine Protein Negative (NEGATIVE) Urine Glucose (UA) 4+ (NEGATIVE) H Urine Ketones Negative (NEGATIVE) Urine Blood Negative (NEGATIVE) Urine Nitrite Negative (NEGATIVE) Urine Bilirubin Negative (NEGATIVE) Urine Urobilinogen Normal MG/DL (0.0-1.0) Urine Leukocyte Esterase Negative (NEGATIVE) Chlamydia trachomatis RNA Pending Neisseria gonorrhoeae RNA Pending Total Protein (PEP) Pending Albumin (PEP) Pending Globulin (PEP) Pending Albumin/Globulin Ratio Pending Iltef-9-Aznqvoqki Pending Wljtk-5-Nnmgcxglj Pending Beta Globulins Pending Beta Gamma Globulin Pending PEP Abnormal Protein Bands Pending Protein Electrophoresis Interpret Pending Vitamin D 25-Hydroxy Pending 25-Hydroxy Vitamin D2 Pending 25-Hydroxy Vitamin D3 Pending Rapid Plasma Reagin Pending HIV (1&2) Antibody Rapid Negative (NEGATIVE) Intake and Output 11/21/18 11/22/18 19:00 07:00 Intake Total 600 ml 1000 ml Balance 600 ml 1000 ml Intake Oral 400 ml 1000 ml IV Total 200 ml # Voids 3 Objective GENERAL: The patient is awake, responsive, and in no acute distress. HEAD AND NECK: Pupils are reactive to light. Extraocular movements are intact. Neck was supple. No JVD. LUNGS: Good air entry. No wheezing or rales. HEART: S1 and S2. Regular rhythm. No gallops. ABDOMEN: Soft, nondistended, and nontender. Morbid obese. No rebound tenderness. No fluid shift. EXTREMITIES: No cyanosis, clubbing, or edema. NEUROLOGIC: Cranial nerves II through XII grossly intact. Motor is 5/5 in all extremities. The patient has a right arm and leg minimally weakness than left side. No pronator shift. Gait is intact. RECTAL/GENITOURINARY: Refused and deferred. PSYCHIATRIC: Mood is anxious. Assessment/Plan Assessment/Plan LABORATORY DATA: Laboratory from [facility] from 11/19/2018, WBC of 6.1, hemoglobin 11, hematocrit 36, and platelets 309,000. Sodium 138, potassium 3.9, chloride 103, bicarbonate 22, BUN 20, and creatinine is 0.66. INR 0.8. Troponin less than 0.02. CT of the head, "stroke" on 11/19/2018. No significant abnormality. MRI of the brain, no acute infarction. MRA of the brain and neck on 11/19/2018, no flow-limiting stenosis, aneurysm, or dissection of the head and neck. MRI of the cervical spine showed the spinal stenosis with mild cord compression. MRI of C-spine on 11/20/2018 showed the cervical vertebral body are well aligned and the vertebral heights are well maintained. There is no acute fracture. No marrow replaced lesion identified. Degenerative signal involving the intervertebral disc throughout the cervical spine. There is [id number] loss of disc height from C4-C5 through C1 through C2 level accompanied by the discogenic marrow signal, severe loss of the disc height, acute changes of the corresponding vertebral endplate, loss of the disc height, and endplate discogenic marrow signal changes to the lesser degree noted at the C3-4. The spinal cord is normal in signal characterized at the craniocervical junction is within normal limits. The paravertebral soft tissue structures are unremarkable. Conclusion was severe multilevel cervical spondylosis and the finding of the C4-C5 and C6-C7 level have the worsening of the antrum. MRI of the brain and brain stem was no significant acute intracranial abnormality. Chest x-ray showed the lungs are clear. No pleural effusion. The cardiomediastinal silhouette is normal. ASSESSMENT: 1. Sudden right-sided weakness, most likely secondary to the severe multilevel cervical spondylitic lesion with broad disc ossification complex. 2. Diabetic type 2. 3. Hypertension. 4. Morbid obesity. 5. Dyslipidemia. 6. Coronary artery disease with history of stent placement. PLAN: On medical floor under observation. wean off Decadron. Follow up with Dr. aNidu from Pulmonary Critical Care and Infectious Disease consultation with Dr. Schmitt, and Dr. Guerra, in endocrine consultation. Discussed with the Neurosurgery at [facility]. Consider discharge the patient home today and F/U with the [facility] [place] at [facility]. Hebert Littlejohn M.D. Hebert Littlejohn MD Nov 22, 2018 15:16
--- NOTE | 2018-11-22 15:36 | NUR ---
NURSE NOTES: Patient discharged around 0320, patient was stable upon discharge; IV access and name tag removed upon discharge; MD's prescription for medications given to patient; printed material give; belonging lists crossed matched and patient and discharging nurse signed the paper. patient provided with 2 tokens. patient left the floor ambulating.
[2018-11-22] MEDS ORDERED: Levemir Flexpen SUBQ SCH (21:00)
--- NOTE | 2018-11-26 12:27 | NUR ---
*-* INSURANCE *-* ALL CLINICALS AND REVIEWS HAVE BEEN FAXED TO: [employer] F:[phone]
--- NOTE | 2018-11-28 09:29 | NUR ---
*-* INSURANCE *-* ALL CLINICALS AND REVIEWS HAVE BEEN FAXED TO:. [facility] F:[phone]
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
== END 2018-11-22 15:14 | disposition home or self-care (01) ==
LOC: 4E 22:05 → INTOOBSV 22:05
DX: M48.02 Spinal stenosis, cervical region (principal); G99.2 Myelopathy in diseases classified elsewhere; F25.9 Schizoaffective disorder, unspecified; I10 Essential (primary) hypertension; R20.8 Other disturbances of skin sensation
CPT/HCPCS: 36415 ×2; 80048; 81003; 82306; 82607; 82746; 83036; 83735; 84100; 84165; 84443; 85025; 85610; 85651; 85730; 86592; 86703; 87491; 87590; 94640 ×2; 94664; J0696; J1100 ×2; J1170 ×2; J1200 ×2; J1644 ×2; J1815; J2405 ×2; S5561; G0378

== ENCOUNTER 2019-02-06 15:20 | Emergency (ER) | payer MEDICARE, OTHER ==
[~2019-02-06] VITALS: Ht 162.6 cm; Wt 104.3 kg
[~2019-02-06 15:20] MED LIST: ALBUTEROL SULF8.5 GM INH; BENADRYL25 M3 PO; CLONAZEPAM1 M1 PO; CLONIDINE HCL0.1 MG PO; CYCLOBENZAPRINE10 MG ORAL; DESYREL50 MG ORAL; DIURIL25 MG ORAL; GLUCOPHAGE500 MG ORAL; GLUCOTROL5 MG ORAL; HYDROCHLOROTHIA25 MG ORAL; LEVEMIR FL100 UNIT/1 SUBQ; LIPITOR20 MG ORAL; LIPITOR80 MG ORAL; METFORMIN HCL850 M1 ORAL; METOPROLOL TART50 MG ORAL; NORVASC10 MG ORAL; PROVENTIL HFA6.7 G1 IH; SERTRALINE HCL100 MG PO; SYMBICORT2 PUFF1 INH; TRAZODONE HCL150 MG ORAL; ZOLOFT50 MG ORAL
--- NOTE | 2019-02-06 15:35 | NUR ---
ED Nurse Note: Patient walked into ED from home c/o diarrhea and having black stool for 2 days. patient also reports pelvic pain, as well as vaginal pain, rectal pain. patient is alert awake x4 ambulatory, breathing unlabored and even, speaking in full sentences.
--- NOTE | 2019-02-06 16:04 | Emergency Room Report ---
History of Present Illness General Chief Complaint: Diarrhea Source: Patient Present Illness HPI Disclaimer: Please note that this report is being documented using DRAGON technology. This can lead to erroneous entry secondary to incorrect interpretation by the dictating instrument. HPI: 48-year-old female with a history of CAD status post stenting x3 on Plavix , hypertension, hyperlipidemia, obesity, diabetes, TIA x3, COPD, asthma, GERD presents for evaluation of abdominal pain, vomiting, diarrhea, dysuria and dark stools. Symptoms began 3 to 4 days ago. Noted loose stools that were streaked with bright red blood and then a very dark jet black color. She then developed lower abdominal cramping and nonbloody emesis for the past 2 days. Denies fever , chills but notes fatigue. Denies shortness of breath or chest pain. She is complaining of lower pelvic pain and dysuria without hematuria. Denies vaginal bleeding or vaginal discharge. LMP was 3 weeks ago. Denies history of hemorrhoids. Denies pain with defecation. PMH: CAD, hypertension, hyperlipidemia, obesity, diabetes, TIA, COPD, asthma, GERD PSH: Stenting x3 Allergies: Aspirin, erythromycin, contrast dye, Toradol Social Hx: Former smoker, denies alcohol or drug use Allergies: Coded Allergies: IODINE AND IODIDE CONTAINING PRODUC (Verified Allergy, Severe, Anaphylaxis , 11/21/18) OLANZAPINE (Verified Allergy, Severe, Anaphylaxis, 11/21/18) THROAT SWELLING ASPIRIN (Verified Allergy, Intermediate, Hives, 11/21/18) BENZTROPINE (Verified Allergy, Intermediate, Hives, 11/21/18) ERYTHROMYCIN BASE (Verified Allergy, Intermediate, Hives, 11/21/18) Tolerates Azithromycin KETOROLAC (Verified Allergy, Intermediate, Hives, 11/21/18) LOSARTAN (Verified Allergy, Intermediate, 11/21/18) ANGIOEDEMA NITROGLYCERIN (Verified Allergy, Intermediate, Hives, 11/21/18) PSEUDOEPHEDRINE (Verified Allergy, Intermediate, Hives, 11/21/18) SULFA (SULFONAMIDE ANTIBIOTICS) (Verified Allergy, Intermediate, Hives, 03/02) TERFENADINE (Verified Allergy, Intermediate, Hives, 11/21/18) TRAMADOL (Verified Allergy, Intermediate, Rash, 11/21/18) Patient History Now: No Nursing Documentation-PMH Past Medical History: No History, Except For Hx Cardiac Problems: Yes Hx Hypertension: Yes Hx Asthma: Yes Hx COPD: Yes Hx Diabetes: Yes Hx Cancer: No Hx Gastrointestinal Problems: No Hx Neurological Problems: Yes Hx Transient Ischemic Attacks: Yes Hx Headaches: Yes Review of Systems All Other Systems: negative except mentioned in HPI Physical Exam Vital Signs Date Time Temp Pulse Resp B/P (MAP) Pulse Ox O2 Delivery O2 Flow Rate FiO2 02/06/19 15:28 98.4 115 19 113/77 (89) 99 Room Air General: Awake and alert, no acute distress HEENT: NC/AT. EOMI. PERRLA. Dry mucous membranes Neck: Supple, trachea midline Chest Wall: No tenderness, no deformity Cardiovascular: Tachycardic. S1 and S2 normal. No murmur appreciated Resp: Normal work of breathing. No cough, wheezing or crackles appreciated Abdomen: Abdomen is soft, nondistended, obese abdomen. Tender in the suprapubic region. No rebound. Cannot appreciate any masses. Brown formed stool in the rectal vault, no melena, no bright red bleeding. There is a small external hemorrhoid at the 4 o'clock position which is nonbleeding and nonthrombosed. FOBT is negative for occult blood Skin: Intact. No abrasions, laceration or rash over the exposed skin MSK: Normal tone and bulk. Moving all extremities. No obvious deformity. Neuro: Awake and alert. Mentating appropriately. Medical Decision Making Diagnostic Impression: Primary Impression: Abdominal pain, vomiting, and diarrhea ER Course Is a 48-year-old female with multiple comorbidities currently on Plavix for stent placed earlier this year presents for evaluation of abdominal pain, vomiting, diarrhea and melena for the past 3 days. Differential includes but is not limited to viral syndrome, gastroenteritis, GERD, peptic ulcer, cholecystitis, appendicitis, pyelonephritis, cystitis, urethritis, diverticulosis, diverticulitis. FOBT is negative for occult blood and the patient has formed stool in the colon. We will start IV fluids, antiemetics and check labs including urinalysis. Vital signs are stable. She is in no acute distress. Disposition depending on patient clinical condition and lab results. Laboratory Tests Test 02/06/19 17:15 02/06/19 18:23 White Blood Count 8.8 K/UL (4.8-10.8) Red Blood Count 4.57 M/UL (4.20-5.40) Hemoglobin 10.4 G/DL (12.0-16.0) L Hematocrit 34.2 % (37.0-47.0) L Mean Corpuscular Volume 75 FL (80-99) L Mean Corpuscular Hemoglobin 22.8 PG (27.0-31.0) L Mean Corpuscular Hemoglobin Concent 30.5 G/DL (32.0-36.0) L Red Cell Distribution Width 13.9 % (11.6-14.8) Platelet Count 196 K/UL (150-450) Mean Platelet Volume 7.2 FL (6.5-10.1) Neutrophils (%) (Auto) 72.2 % (45.0-75.0) Lymphocytes (%) (Auto) 22.6 % (20.0-45.0) Monocytes (%) (Auto) 3.6 % (1.0-10.0) Eosinophils (%) (Auto) 0.4 % (0.0-3.0) Basophils (%) (Auto) 1.2 % (0.0-2.0) Prothrombin Time 9.5 SEC (9.30-11.50) Prothrombin Time INR 0.9 (0.9-1.1) PTT 24 SEC (23-33) Sodium Level 136 MMOL/L (136-145) Potassium Level 4.0 MMOL/L (3.5-5.1) Chloride Level 102 MMOL/L (98-107) Carbon Dioxide Level 23 MMOL/L (21-32) Anion Gap 12 mmol/L (5-15) Blood Urea Nitrogen 21 mg/dL (7-18) H Creatinine 0.8 MG/DL (0.55-1.30) Estimate Glomerular Filtration Rate > 60 mL/min (>60) Glucose Level 238 MG/DL (74-106) H Calcium Level 8.7 MG/DL (8.5-10.1) Total Bilirubin 0.2 MG/DL (0.2-1.0) Aspartate Amino Transferase (AST) 14 U/L (15-37) L Alanine Aminotransferase (ALT) 21 U/L (12-78) Alkaline Phosphatase 75 U/L (46-116) Total Protein 6.1 G/DL (6.4-8.2) L Albumin 3.3 G/DL (3.4-5.0) L Globulin 2.8 g/dL Albumin/Globulin Ratio 1.2 (1.0-2.7) Lipase 283 U/L (73-393) Urine Color Pale yellow Urine Appearance Clear Urine pH 5 (4.5-8.0) Urine Specific [place] 1.020 (1.005-1.035) Urine Protein Negative (NEGATIVE) Urine Glucose (UA) 4+ (NEGATIVE) H Urine Ketones Negative (NEGATIVE) Urine Blood Negative (NEGATIVE) Urine Nitrite Negative (NEGATIVE) Urine Bilirubin Negative (NEGATIVE) Urine Urobilinogen Normal MG/DL (0.0-1.0) Urine Leukocyte Esterase Negative (NEGATIVE) Urine HCG, Qualitative Negative (NEGATIVE) Last Vital Signs Date Time Temp Pulse Resp B/P (MAP) Pulse Ox O2 Delivery O2 Flow Rate FiO2 02/06/19 15:28 98.4 115 19 113/77 (89) 99 Room Air Status: improved Reevaluation Impression Labs show slight anemia with a hemoglobin of 10.4 which is slightly microcytic with an MCV of 75. Electro lites are within normal limits. Renal function is normal with a creatinine 0.8. Glucose is elevated consistent with her diabetes but liver function studies are within normal limits. Urine does not appear infectious. The patient is feeling better and has not had no further episodes of vomiting or diarrhea while in the emergency department. Likely, this is a viral syndrome which should resolve in the next few days. She will be discharged home with Zofran. We discussed reasons to return to the emergency department as well as need to follow-up with her PMD within the next week for reevaluation. She understands and agrees with the treatment plan was discharged home. Disposition: HOME, SELF-CARE Condition: Improved Scripts Ondansetron Odt* (ZOFRAN ODT*) 4 Mg Tab.rapdis 4 MG BC EVERY 6 HOURS PRN for Nausea & Vomiting, #20 TAB 0 Refills Prov: Neal Batista MD 02/06/19 Neal Batista MD Feb 06, 2019 16:04
[2019-02-06] MEDS ORDERED: Morphine Sulfate 4mg/ml Inj (IV USE ONLY) IVP ONE (16:30)
--- NOTE | 2019-02-06 17:10 | NUR ---
ED Nurse Note: chemical lab supervisor on the bedside to draw lab
[2019-02-06] MEDS ORDERED: DiphenhydrAMINE 50mg/ml Inj IVP ONE (17:30)
[2019-02-06] MEDS ORDERED: Albuterol/Ipratropium 3ml neb HHN ONE (17:30)
[2019-02-06 17:35] LABS: BASOPHILS % (AUTO) 1.2 % (0.0-2.0); EOSINOPHILS % (AUTO) 0.4 % (0.0-3.0); HEMATOCRIT 34.2 % (37.0-47.0); HEMOGLOBIN 10.4 G/DL (12.0-16.0); LYMPHOCYTES % (AUTO) 22.6 % (20.0-45.0); MEAN CORPUSCULAR VOLUME 75 FL (80-99); MONOCYTES % (AUTO) 3.6 % (1.0-10.0); NEUTROPHILS % (AUTO) 72.2 % (45.0-75.0); PLATELET COUNT 196 K/UL (150-450); RED BLOOD COUNT 4.57 M/UL (4.20-5.40); RED CELL DISTRIBUTION WIDTH 13.9 % (11.6-14.8); WHITE BLOOD COUNT 8.8 K/UL (4.8-10.8)
[2019-02-06 17:43] LABS: INR 0.9 (0.9-1.1)
[2019-02-06 17:48] LABS: ANION GAP 12 mmol/L (5-15); BLOOD UREA NITROGEN 21 mg/dL (7-18); CALCIUM 8.7 MG/DL (8.5-10.1); CARBON DIOXIDE 23 MMOL/L (21-32); CHLORIDE 102 MMOL/L (98-107); CREATININE 0.8 MG/DL (0.55-1.30); SODIUM 136 MMOL/L (136-145)
[2019-02-06 17:52] LABS: ALANINE AMINOTRANSFERASE 21 U/L (12-78); ALBUMIN 3.3 G/DL (3.4-5.0); ALBUMIN/GLOBULIN RATIO 1.2 (1.0-2.7); ALKALINE PHOSPHATASE 75 U/L (46-116); ASPARTATE AMINO TRANSFERASE 14 U/L (15-37); BILIRUBIN,TOTAL 0.2 MG/DL (0.2-1.0)
--- NOTE | 2019-02-06 18:29 | NUR ---
ED Nurse Note: Urine sent to lab
[2019-02-06 18:37] LABS: APPEARANCE,URINE CLEAR; BILIRUBIN, URINE NEGATIVE (NEGATIVE); COLOR,URINE PALE YELLOW; GLUCOSE, URINE (UA) 4+ (NEGATIVE); KETONES,URINE NEGATIVE (NEGATIVE); LEUKOCYTE ESTERASE ,URINE NEGATIVE (NEGATIVE); NITRITE,URINE NEGATIVE (NEGATIVE); PH,URINE 5 (4.5-8.0); PROTEIN,URINE NEGATIVE (NEGATIVE); UROBILINOGEN,URINE NORMAL MG/DL (0.0-1.0)
[2019-02-06 18:48] VITALS: BP 106/69
--- NOTE | 2019-02-06 19:03 | NUR ---
HAND-OFF: Report given to Gabrielle HARRIS. notified to Dr. Batista that patient is asking for more pain medications.
--- NOTE | 2019-02-06 19:06 | NUR ---
ED Nurse Note: Received report from Mariah HARRIS. Patient seen sleeping in bed. No SOB. breathing even and unlabored. No c/o pain or any discomfort at this time. VSS.
[2019-02-06 19:11] VITALS: BP 112/78
[2019-02-06] MEDS ORDERED: ONDANSETRON ODT4 MG BC (19:37)
[2019-02-06] MEDS ORDERED: Morphine Sulfate 2mg/ml Inj(IV/IM USE ONLY) IVP ONE (19:45)
[2019-02-06 20:15] VITALS: BP 118/70
[2019-02-06 20:17] VITALS: BP 118/70
--- NOTE | 2019-02-06 20:17 | NUR ---
ED Nurse Note: Pt cleared by ERMD for discharge. DC instructions/prescription was given and explained to pt and verbalized understanding of teachings. All medical deviecs such as ID band and Iv line removed. Pt is AAO x4, ambulatory and left with all personal belongings.
== END 2019-02-06 20:17 | disposition home or self-care (01) ==
LOC: EMR 16:16
DX: R10.9 Unspecified abdominal pain (principal); R11.10 Vomiting, unspecified; R19.7 Diarrhea, unspecified; D64.9 Anemia, unspecified; E11.65 Type 2 diabetes mellitus with hyperglycemia; Z86.73 Personal history of transient ischemic attack (TIA), and cerebral infarction without residual deficits; I10 Essential (primary) hypertension; J44.9 Chronic obstructive pulmonary disease, unspecified; I25.10 Atherosclerotic heart disease of native coronary artery without angina pectoris; Z95.5 Presence of coronary angioplasty implant and graft; Z79.02 Long term (current) use of antithrombotics/antiplatelets; E78.5 Hyperlipidemia, unspecified; K21.9 Gastro-esophageal reflux disease without esophagitis; E66.9 Obesity, unspecified; Z68.39 Body mass index [BMI] 39.0-39.9, adult; Z88.6 Allergy status to analgesic agent; Z88.1 Allergy status to other antibiotic agents; Z91.041 Radiographic dye allergy status; Z88.2 Allergy status to sulfonamides; Z88.8 Allergy status to other drugs, medicaments and biological substances
CPT/HCPCS: 36415; 80053; 81003; 81025; 83690; 85025; 85610; 85730; 94640; 96361; 96374; 96375; 96376; 99284; J1200; J2270; J2405; J7620

== ENCOUNTER 2019-05-24 23:05 | Inpatient (IN) | payer MEDICARE, OTHER ==
[~2019-05-24] VITALS: Ht 162.6 cm; Wt 107.0 kg
[~2019-05-24 23:05] MED LIST changes: +ACETAMINOPHEN-1 EAC1 ORAL; +ACETAMINOPHEN-1 EAC2 ORAL; +ONDANSETRON ODT4 MG BC
--- NOTE | 2019-05-24 23:33 | NUR ---
ED Nurse Note: pt walked in c/o short of breath for past hour. pt states she has Hx COPD and CHF, used to be smoker but denies smoking anymore. noted pt audible wheezing with labored breathing and tachypnea. LS= mild wheezing noted at this time. pt also reports pain in chest, stefan legs and back pain at this time but denies nausea. ERMD at the bedside. safety measures in place, will cont monitor. sinus rhythm on diagnostic cardiac sonographer.
--- NOTE | 2019-05-24 23:49 | Emergency Room Report ---
History of Present Illness General Chief Complaint: Upper Respiratory Illness Source: Patient Present Illness HPI 48-year-old female presents with acute shortness of breath over the past 2 days with cough, wheezing, no aggravating or alleviating factor severity is moderate , constant she endorses some chest tightness, no pressure, severity is moderate and constant patient denies any fevers or chills, patient has a history of CHF, and COPD, no nausea no vomiting no fevers, no abdominal pain but she does endorse a lot of chest congestion. Allergies: Coded Allergies: IODINE AND IODIDE CONTAINING PRODUC (Verified Allergy, Severe, Anaphylaxis , 11/21/18) OLANZAPINE (Verified Allergy, Severe, Anaphylaxis, 11/21/18) THROAT SWELLING PROCHLORPERAZINE (Unverified Allergy, Severe, Shortness of Breath, ) ASPIRIN (Verified Allergy, Intermediate, Hives, 11/21/18) BENZTROPINE (Verified Allergy, Intermediate, Hives, 11/21/18) ERYTHROMYCIN BASE (Verified Allergy, Intermediate, Hives, 11/21/18) Tolerates Azithromycin KETOROLAC (Verified Allergy, Intermediate, Hives, 11/21/18) LOSARTAN (Verified Allergy, Intermediate, 11/21/18) ANGIOEDEMA NITROGLYCERIN (Verified Allergy, Intermediate, Hives, 11/21/18) PSEUDOEPHEDRINE (Verified Allergy, Intermediate, Hives, 11/21/18) SULFA (SULFONAMIDE ANTIBIOTICS) (Verified Allergy, Intermediate, Hives, 03/02) TERFENADINE (Verified Allergy, Intermediate, Hives, 11/21/18) TRAMADOL (Verified Allergy, Intermediate, Rash, 11/21/18) Patient History Past Medical History: see triage record Social History: Reports: smoking - Former smoker Last Menstrual Period: none Reviewed Nursing Documentation: PMH: Agreed; PSxH: Agreed Nursing Documentation-PMH Hx Cardiac Problems: Yes Hx Hypertension: Yes Hx Asthma: Yes Hx COPD: Yes Hx Diabetes: Yes Hx Cancer: No Hx Gastrointestinal Problems: No Hx Neurological Problems: Yes Hx Transient Ischemic Attacks: Yes - x4 Hx Headaches: Yes Review of Systems All Other Systems: negative except mentioned in HPI Physical Exam Vital Signs Date Time Temp Pulse Resp B/P (MAP) Pulse Ox O2 Delivery O2 Flow Rate FiO2 05/24/19 23:20 98.1 88 15 178/98 (124) 100 Room Air Sp02 EP Interpretation: reviewed, normal General Appearance: alert, mild distress Head: normocephalic, atraumatic Eyes: bilateral eye PERRL, bilateral eye EOMI ENT: uvula midline, moist mucus membranes Neck: supple, thyroid normal, supple/symm/no masses Respiratory: accessory muscle use, rales, wheezing Cardiovascular #1: normal peripheral pulses, regular rate, rhythm, no edema, no gallop, no murmur Gastrointestinal: non tender, soft, no guarding, no rebound Musculoskeletal: normal inspection Neurologic: alert, oriented x3 Psychiatric: mood/affect normal Skin: no rash, warm/dry Medical Decision Making Diagnostic Impression: Primary Impression: COPD exacerbation ER Course 48-year-old female presented with shortness of breath, chest tightness, differential diagnosis includes COPD exacerbation, CHF exacerbation, ACS Patient given duo nebs, steroids with significant improvement in breathing additionally patient improved with Lasix administration patient with possible mixed picture, patient admitted to Dr. Littlejohn for evaluation and management. Laboratory Tests Test 05/24/19 23:50 White Blood Count 6.5 K/UL (4.8-10.8) Red Blood Count 4.96 M/UL (4.20-5.40) Hemoglobin 11.0 G/DL (12.0-16.0) L Hematocrit 35.3 % (37.0-47.0) L Mean Corpuscular Volume 71 FL (80-99) L Mean Corpuscular Hemoglobin 22.2 PG (27.0-31.0) L Mean Corpuscular Hemoglobin Concent 31.2 G/DL (32.0-36.0) L Red Cell Distribution Width 16.3 % (11.6-14.8) H Platelet Count 246 K/UL (150-450) Mean Platelet Volume 8.3 FL (6.5-10.1) Neutrophils (%) (Auto) 68.9 % (45.0-75.0) Lymphocytes (%) (Auto) 22.8 % (20.0-45.0) Monocytes (%) (Auto) 6.4 % (1.0-10.0) Eosinophils (%) (Auto) 0.9 % (0.0-3.0) Basophils (%) (Auto) 1.0 % (0.0-2.0) Sodium Level 138 MMOL/L (136-145) Potassium Level 4.2 MMOL/L (3.5-5.1) Chloride Level 103 MMOL/L (98-107) Carbon Dioxide Level 26 MMOL/L (21-32) Anion Gap 9 mmol/L (5-15) Blood Urea Nitrogen 16 mg/dL (7-18) Creatinine 0.9 MG/DL (0.55-1.30) Estimate Glomerular Filtration Rate > 60 mL/min (>60) Glucose Level 358 MG/DL (74-106) H Calcium Level 9.0 MG/DL (8.5-10.1) Total Bilirubin 0.2 MG/DL (0.2-1.0) Aspartate Amino Transferase (AST) 25 U/L (15-37) Alanine Aminotransferase (ALT) 34 U/L (12-78) Alkaline Phosphatase 118 U/L (46-116) H Troponin I 0.000 ng/mL (0.000-0.056) Pro-B-Type Natriuretic Peptide 341 pg/mL (0-125) H Total Protein 7.2 G/DL (6.4-8.2) Albumin 3.3 G/DL (3.4-5.0) L Globulin 3.9 g/dL Albumin/Globulin Ratio 0.8 (1.0-2.7) L Lipase 236 U/L (73-393) Human Chorionic Gonadotropin, Quant 4 mIU/mL (1-6) EKG Diagnostic Results EKG Time: 23:20 EP Interpretation: NSR, rate 83, QTc 437, left axis deviation, no acute ST elevations Rhythm Strip Diag. Results Rhythm Strip Time: 23:49 EP Interpretation: yes Rate: 73 Rhythm: NSR, no PVC's, no ectopy Chest X-Ray Diagnostic Results Chest X-Ray Diagnostic Results : Chest X-Ray Ordered: Yes # of Views/Limited/Complete: 1 View Indication: Shortness of Breath EP Interpretation: Yes Interpretation: no consolidation, no effusion, no pneumothorax, no acute cardiopulmonary disease Impression: No acute disease Electronically Signed by: Deejay Palmer MD Last Vital Signs Date Time Temp Pulse Resp B/P (MAP) Pulse Ox O2 Delivery O2 Flow Rate FiO2 05/24/19 23:20 98.1 88 15 178/98 (124) 100 Room Air Disposition: ADMITTED INPATIENT Condition: Stable Deejay Palmer MD May 24, 2019 23:49
--- NOTE | 2019-05-24 23:50 | NUR ---
ED Nurse Note: blood specimen obtained and sent to lab. pt tolerated well.
[2019-05-24] MEDS: Albuterol ud Inhalation HHN SCH (23:57)
[2019-05-24] MEDS: Ipratropium 0.02% Inh Soln 2.5ml UD HHN SCH (23:57)
[2019-05-25] VITALS (7 sets, daily range): BP systolic 135–186; BP diastolic 70–110
[2019-05-25] MEDS ORDERED: Morphine Sulfate 4mg/ml Inj (IV USE ONLY) IVP ONE
[2019-05-25] MEDS ORDERED: DiphenhydrAMINE 50mg/ml Inj IVP ONE
--- NOTE | 2019-05-25 | Diagnostic Imaging Report ---
EXAM: XR Chest, 1 View CLINICAL HISTORY: SOB TECHNIQUE: Frontal view of the chest. Comparison: 04/08/2019 FINDINGS: Lungs: No consolidation or mass. Pleural space: No acute findings Heart: Unchanged. Bones/joints: No acute findings. IMPRESSION: No acute cardiopulmonary process.
[2019-05-25 00:06] LABS: EOSINOPHILS % (AUTO) 0.9 % (0.0-3.0); HEMATOCRIT 35.3 % (37.0-47.0); LYMPHOCYTES % (AUTO) 22.8 % (20.0-45.0); MEAN CORPUSCULAR VOLUME 71 FL (80-99); MONOCYTES % (AUTO) 6.4 % (1.0-10.0); NEUTROPHILS % (AUTO) 68.9 % (45.0-75.0); PLATELET COUNT 246 K/UL (150-450); RED BLOOD COUNT 4.96 M/UL (4.20-5.40); RED CELL DISTRIBUTION WIDTH 16.3 % (11.6-14.8); WHITE BLOOD COUNT 6.5 K/UL (4.8-10.8)
[2019-05-25] MEDS: Ipratropium 0.02% Inh Soln 2.5ml UD HHN SCH ×2 (00:06→00:11)
[2019-05-25] MEDS: Albuterol ud Inhalation HHN SCH ×2 (00:06→00:11)
[2019-05-25 00:17] LABS: ANION GAP 9 mmol/L (5-15); BLOOD UREA NITROGEN 16 mg/dL (7-18); CARBON DIOXIDE 26 MMOL/L (21-32); CHLORIDE 103 MMOL/L (98-107); CREATININE 0.9 MG/DL (0.55-1.30); POTASSIUM 4.2 MMOL/L (3.5-5.1); SODIUM 138 MMOL/L (136-145)
[2019-05-25 00:28] LABS: ALANINE AMINOTRANSFERASE 34 U/L (12-78); ALBUMIN 3.3 G/DL (3.4-5.0); ALBUMIN/GLOBULIN RATIO 0.8 (1.0-2.7); ALKALINE PHOSPHATASE 118 U/L (46-116); ASPARTATE AMINO TRANSFERASE 25 U/L (15-37); BILIRUBIN,TOTAL 0.2 MG/DL (0.2-1.0)
--- NOTE | 2019-05-25 00:28 | NUR ---
ED Nurse Note: pt provided with bedside commode and extra warm blankets. pt advised to notify staff if need assist, pt verbalized understanding.
--- NOTE | 2019-05-25 01:10 | NUR ---
ED Nurse Note: pt sleeping at this time, no sx distress noted, vss, will cont monitor. safety measures in place.
[2019-05-25] MEDS ORDERED: HYDRALAZINE HCL50 MG ORAL (01:59)
[2019-05-25] MEDS ORDERED: BANOPHEN25 MG PO (01:59)
[2019-05-25] MEDS ORDERED: ACETAMINOPHEN500 M5 ORAL (02:00)
[2019-05-25] MEDS ORDERED: DOCUSATE SODIU100 MG ORAL (02:01)
[2019-05-25] MEDS ORDERED: SYMBICORT 16010.2 G1 IH (02:01)
--- NOTE | 2019-05-25 02:20 | NUR ---
ED Nurse Note: pt admitted to tele RM 205 and transferred via fei, RN and electrocardiogram technician present during transport, pt sinus rhythm on core baker, report was given to STEVEN Yost and endorsed care, vss, iv intact and patent, med reconciliation done and sent to pharmacy, belongings sent w/ pt w/ completed list and pt decline to send valuables to safe and states she would like to keep them with her, pt reports breathing and pain is better.
--- NOTE | 2019-05-25 02:20 | NUR ---
NURSE NOTES: Transferred patient from ED, via gurney, by STEVEN Perez, in stable condition, AOx4, on O2 n/c @2 L, VSS, denies pain at this time, IV on left AC g22, asymptomatic, intact, belonging list checked&signed, bed low&locked, side rails upx2, call light within reach. Patient ambulates with steady gait. Dr. Littlejohn called for admission orders, awaiting call back. Will continue to monitor and reassess
[2019-05-25] MEDS ORDERED: LORazepam Inj 2mg/ml 1ml IV PRN (06:15)
[2019-05-25] MEDS ORDERED: Promethazine/Codeine 5ml UD ORAL PRN (06:15)
[2019-05-25] MEDS ORDERED: Albuterol/Ipratropium 3ml neb HHN PRN (06:15)
[2019-05-25] MEDS: Solu-MEDROL 125mg Inj IV SCH ×4 (06:42→17:54)
--- NOTE | 2019-05-25 07:10 | Consultation ---
History of Present Illness General Date patient seen: May 25, 2019 Chief Complaint: Upper Respiratory Illness Present Illness HPI 48-year-old female with pmhx of HTN, DM, COPD, CAD, spinal stenosis with 2 cardiac stents presented to ER with CC of productive cough of yellow sputum and chest pain. She says that she is also complaining of some edema in both her legs. . No fever no chills. Pt is admitted to telemetry for further management. Allergies: Coded Allergies: IODINE AND IODIDE CONTAINING PRODUC (Verified Allergy, Severe, Anaphylaxis , 11/21/18) OLANZAPINE (Verified Allergy, Severe, Anaphylaxis, 11/21/18) THROAT SWELLING PROCHLORPERAZINE (Unverified Allergy, Severe, Shortness of Breath, ) ASPIRIN (Verified Allergy, Intermediate, Hives, 11/21/18) BENZTROPINE (Verified Allergy, Intermediate, Hives, 11/21/18) ERYTHROMYCIN BASE (Verified Allergy, Intermediate, Hives, 11/21/18) Tolerates Azithromycin KETOROLAC (Verified Allergy, Intermediate, Hives, 11/21/18) LOSARTAN (Verified Allergy, Intermediate, 11/21/18) ANGIOEDEMA NITROGLYCERIN (Verified Allergy, Intermediate, Hives, 11/21/18) PSEUDOEPHEDRINE (Verified Allergy, Intermediate, Hives, 11/21/18) SULFA (SULFONAMIDE ANTIBIOTICS) (Verified Allergy, Intermediate, Hives, 03/02) TERFENADINE (Verified Allergy, Intermediate, Hives, 11/21/18) TRAMADOL (Verified Allergy, Intermediate, Rash, 11/21/18) Medication History Scheduled Acetaminophen (Acetaminophen), 500 MG ORAL Q4H, (Reported) Amlodipine Besylate (Norvasc), 10 MG ORAL DAILY Atorvastatin Calcium* (Lipitor*), 40 MG ORAL DAILY Budesonide/Formoterol Fumarate (Symbicort 160-4.5 Mcg Inhaler), 2 PUFFS INH BID, (Reported) Diphenhydramine HCl (Benadryl), 25 MG PO EVERY 8 HOURS Docusate Sodium* (Docusate Sodium*), 100 MG ORAL THREE TIMES A DAY, (Reported) Glipizide* (Glucotrol*), 5 MG ORAL BID, (Reported) Hydralazine Hcl* (Hydralazine Hcl*), 50 MG ORAL EVERY 8 HOURS, (Reported) Hydrochlorothiazide (Hydrochlorothiazide), 25 MG ORAL DAILY Insulin Detemir (Levemir Flexpen), 30 UNITS SUBQ BEDTIME Metformin Hcl* (Metformin Hcl*), 850 MG ORAL BID, (Reported) Metoprolol Tartrate* (Metoprolol Tartrate*), 50 MG ORAL BID@0900,2100 Sertraline Hcl* (Zoloft*), 150 MG ORAL DAILY Scheduled PRN Acetaminophen With Codeine (T#3) (Tylenol #3 Tab*), 1 TAB ORAL Q4H PRN Acetaminophen With Codeine (T#4) (Tylenol #4 Tab*), 1 TAB ORAL Q6H PRN Albuterol Sulfate* (Albuterol Sulfate Mdi*), 2 PUFF INH Q4H PRN Clonidine Hcl (Clonidine Hcl), 0.1 MG PO Q6HR PRN for For High Blood Pressure, ( Reported) Miscellaneous Medications Budesonide/Formoterol Fumarate (Symbicort 160-4.5 Mcg Inhaler), 1 PUFF IH, ( Reported) Diphenhydramine Hcl (Banophen), 25 MG PO, (Reported) Patient History Healthcare decision maker Resuscitation status Advanced Directive on File No Past Medical/Surgical History Past Medical/Surgical History: (1) History of heart artery stent (2) Moderate pulmonary arterial systolic hypertension (3) Morbid obesity (4) COPD (chronic obstructive pulmonary disease) (5) CAD (coronary artery disease) (6) History of TIA (transient ischemic attack) (7) Diabetes mellitus (8) Spinal stenosis Physical Exam General Appearance: WD/WN, overweight, obese Lines, tubes and drains: peripheral HEENT: normocephalic, atraumatic Neck: non-tender, normal alignment Respiratory/Chest: chest wall non-tender, lungs clear Breasts: no masses Cardiovascular/Chest: normal peripheral pulses Abdomen: normal bowel sounds, non tender Genitourinary/Rectal: normal genital exam, normal rectal exam Extremities: normal range of motion, non-tender Skin Exam: normal pigmentation Neurologic: it application administrator II-XII grossly normal Last 24 Hour Vital Signs Date Time Temp Pulse Resp B/P (MAP) Pulse Ox O2 Delivery O2 Flow Rate FiO2 05/25/19 04:12 97.5 75 18 155/93 (113) 98 05/25/19 04:00 67 05/25/19 03:01 Nasal Cannula 2.0 05/25/19 02:35 74 05/25/19 02:20 98.4 76 18 156/86 98 Room Air 05/25/19 01:44 98.2 86 20 163/70 98 Room Air 05/25/19 00:40 98.4 05/25/19 00:30 89 22 Room Air 05/25/19 00:29 98.1 89 22 173/110 100 Room Air 05/25/19 00:07 84 22 100 Room Air 21 77 22 100 05/24/19 23:57 75 18 100 Room Air 21 76 19 98 05/24/19 23:20 98.1 88 15 178/98 (124) 100 Room Air Intake and Output 05/24/19 05/25/19 18:59 06:59 Intake Total 590 ml Output Total 2 ml Balance 588 ml Intake Oral 540 ml IV Total 50 ml Output Urine Total 2 ml # Voids 6 # Bowel Movements 1 Laboratory Tests Test 05/24/19 23:50 White Blood Count 6.5 K/UL (4.8-10.8) Red Blood Count 4.96 M/UL (4.20-5.40) Hemoglobin 11.0 G/DL (12.0-16.0) L Hematocrit 35.3 % (37.0-47.0) L Mean Corpuscular Volume 71 FL (80-99) L Mean Corpuscular Hemoglobin 22.2 PG (27.0-31.0) L Mean Corpuscular Hemoglobin Concent 31.2 G/DL (32.0-36.0) L Red Cell Distribution Width 16.3 % (11.6-14.8) H Platelet Count 246 K/UL (150-450) Mean Platelet Volume 8.3 FL (6.5-10.1) Neutrophils (%) (Auto) 68.9 % (45.0-75.0) Lymphocytes (%) (Auto) 22.8 % (20.0-45.0) Monocytes (%) (Auto) 6.4 % (1.0-10.0) Eosinophils (%) (Auto) 0.9 % (0.0-3.0) Basophils (%) (Auto) 1.0 % (0.0-2.0) Sodium Level 138 MMOL/L (136-145) Potassium Level 4.2 MMOL/L (3.5-5.1) Chloride Level 103 MMOL/L (98-107) Carbon Dioxide Level 26 MMOL/L (21-32) Anion Gap 9 mmol/L (5-15) Blood Urea Nitrogen 16 mg/dL (7-18) Creatinine 0.9 MG/DL (0.55-1.30) Estimat Glomerular Filtration Rate > 60 mL/min (>60) Glucose Level 358 MG/DL (74-106) H Calcium Level 9.0 MG/DL (8.5-10.1) Total Bilirubin 0.2 MG/DL (0.2-1.0) Aspartate Amino Transf (AST/SGOT) 25 U/L (15-37) Alanine Aminotransferase (ALT/SGPT) 34 U/L (12-78) Alkaline Phosphatase 118 U/L (46-116) H Troponin I 0.000 ng/mL (0.000-0.056) Pro-B-Type Natriuretic Peptide 341 pg/mL (0-125) H Total Protein 7.2 G/DL (6.4-8.2) Albumin 3.3 G/DL (3.4-5.0) L Globulin 3.9 g/dL Albumin/Globulin Ratio 0.8 (1.0-2.7) L Lipase 236 U/L (73-393) Human Chorionic Gonadotropin, Quant 4 mIU/mL (1-6) Height (Feet): 5 Height (Inches): 4.00 Weight (Pounds): 230 Medications Current Medications Medications (Trade) Dose Ordered Sig/Raymond Route PRN Reason Start Time Stop Time Status Last Admin Dose Admin Albuterol/ Ipratropium (Albuterol/ Ipratropium) 3 ml Q4H PRN HHN dyspnea 05/25/19 06:15 05/30/19 06:14 Amlodipine Besylate (Norvasc) 10 mg DAILY ORAL 05/25/19 09:00 06/24/19 08:59 Dextrose (Dextrose 50%) 25 ml Q30M PRN IV Hypoglycemia 05/25/19 06:15 06/24/19 06:14 Dextrose (Dextrose 50%) 50 ml Q30M PRN IV Hypoglycemia 05/25/19 06:15 06/24/19 06:14 Heparin Sodium (Porcine) (Heparin 5000 units/ml) 5,000 units EVERY 12 HOURS SUBQ 05/25/19 09:00 06/24/19 08:59 Hydralazine HCl (Apresoline) 50 mg EVERY 8 HOURS ORAL 05/25/19 14:00 06/24/19 13:59 Hydrochlorothiazide (Hydrodiuril) 25 mg DAILY ORAL 05/25/19 09:00 06/24/19 08:59 Insulin Aspart (NovoLOG) BEFORE MEALS AND HS SUBQ 05/25/19 06:30 06/24/19 06:29 Lorazepam (Ativan 2mg/ml 1ml) 0.5 mg Q4H PRN IV For Anxiety 05/25/19 06:15 06/01/19 06:14 Methylprednisolone Sodium Succinate (Solu-MEDROL) 60 mg EVERY 6 HOURS IV 05/25/19 06:15 06/24/19 06:14 05/25/19 06:42 Metoprolol Tartrate (Lopressor) 50 mg BID@0900,2100 ORAL 05/25/19 09:00 06/24/19 08:59 Ondansetron HCl (Zofran) 4 mg Q6H PRN IVP Nausea & Vomiting 05/25/19 06:15 06/24/19 06:14 Piperacillin Sod/ Tazobactam Sod 3.375 gm/Dextrose 55 ml @ 13.75 mls/ hr EVERY 8 HOURS IVPB 05/25/19 08:00 06/01/19 07:59 Promethazine HCl/ Codeine (Phenergan with Codeine) 5 ml Q6H PRN ORAL cough 05/25/19 06:15 06/24/19 06:14 Sertraline HCl (Zoloft) 150 mg DAILY ORAL 05/25/19 09:00 06/24/19 08:59 Temazepam (Restoril) 15 mg HSPRN PRN ORAL Insomnia 05/25/19 06:15 06/01/19 06:14 Theophylline (Luis-Dur) 100 mg EVERY 12 HOURS ORAL 05/25/19 09:00 06/24/19 08:59 Assessment/Plan Problem List: (1) ACS (acute coronary syndrome) ICD Codes: I24.9 - Acute ischemic heart disease, unspecified SNOMED: 531767861 (2) COPD exacerbation ICD Codes: J44.1 - Chronic obstructive pulmonary disease with (acute) exacerbation SNOMED: 415054108 (3) History of TIA (transient ischemic attack) ICD Codes: Z86.73 - Personal history of transient ischemic attack (TIA), and cerebral infarction without residual deficits SNOMED: 737013023 (4) Acute bronchitis ICD Codes: J20.9 - Acute bronchitis, unspecified SNOMED: 20799569 (5) Moderate pulmonary arterial systolic hypertension ICD Codes: I27.21 - Secondary pulmonary arterial hypertension SNOMED: 48107564 (6) COPD (chronic obstructive pulmonary disease) ICD Codes: J44.9 - Chronic obstructive pulmonary disease, unspecified SNOMED: 25311929 (7) History of heart artery stent ICD Codes: Z95.5 - Presence of coronary angioplasty implant and graft SNOMED: 22068662, 263998452 (8) History of hypertension ICD Codes: Z86.79 - Personal history of other diseases of the circulatory system SNOMED: 367121993 (9) Diabetes mellitus ICD Codes: E11.9 - Type 2 diabetes mellitus without complications SNOMED: 93120296 (10) Morbid obesity ICD Codes: E66.01 - Morbid (severe) obesity due to excess calories SNOMED: 866572599 Assessment/Plan: respiratory treatment check sputum iv abx/ steroids symptomatic treatment sliding scale diabetic diet pt had recent Echo showing normal EF and moderated pulmonary HtN DVT prophylaxis. Jaswinder Naidu MD May 25, 2019 07:10
--- NOTE | 2019-05-25 07:34 | NUR ---
HAND-OFF: Report given to STEVEN Lau, patient in stable condition, plan of care endorsed.F/u with pharmacy regarding insulin pen
--- NOTE | 2019-05-25 07:41 | NUR ---
NURSE NOTES: Received report from STEVEN Yost. Pt in bed, awake, talkative, asking for pain medications, MD Naidu ordered medications, orders entered and waiting for Pharmacy verification, RN discussed plan of care with pt, bed in lowest position, call light within reach. Insulin due at 0630, no insulin pen available from Pharmacy
[2019-05-25] MEDS: NovoLOG Insulin Flexpen SUBQ SCH ×4 (07:47→21:51)
[2019-05-25] MEDS ORDERED: Piperacillin/Tazobactam 3.375 GM in D5W 55 ML IVPB SCH (08:00)
[2019-05-25] MEDS: DiphenhydrAMINE 50mg/ml Inj IVP PRN ×4 (08:40→22:01)
[2019-05-25] MEDS: Morphine Sulfate 4mg/ml Inj (IV USE ONLY) IVP PRN ×4 (08:43→22:00)
[2019-05-25] MEDS: Zosyn 3.375gm q8h **Extended infusion IVPB SCH ×4 (08:44→17:53)
[2019-05-25] MEDS: Sertraline 50mg tab ORAL SCH (08:46)
[2019-05-25] MEDS: Theophylline ER 100mg ORAL SCH ×2 (08:46→21:00)
[2019-05-25] MEDS: Metoprolol Tartrate 50mg tab ORAL SCH ×2 (08:47→21:47)
[2019-05-25] MEDS: Heparin 5000 units/ml inj SUBQ SCH ×2 (08:54→21:00)
--- NOTE | 2019-05-25 11:59 | NUR ---
NURSE NOTES: Pt was given Morphine 5mg IVP and Benadryl 50mg IVP at 0840, at reassessment pt state there was not change to pain level or decrease in itching. at 1150 pt as Addendum: 05/25/19 at 1204 by TA PACHECO RN NURSE NOTES: at 1150 pt asking for breakthrough pain medications and additional anti-itching medication. Pt is calm, in relaxed position, voice at normal volume, no s/s of pain or itching. RN notified Dr. Naidu of pt's request for additional medications
[2019-05-25] MEDS: HydrALAZINE 50mg tab ORAL SCH ×2 (13:22→21:48)
--- NOTE | 2019-05-25 15:34 | History & Physical ---
History and Physical History & Physicial Dictated for Int Med-DR Lozoya no. [id number] Peewee Logan MD May 25, 2019 15:34
--- NOTE | 2019-05-25 16:40 | NUR ---
NURSE NOTES: Spoke with Dr. Logan regarding pt HTN, stated he will order some medication for pt
--- NOTE | 2019-05-25 19:12 | NUR ---
HAND-OFF: Report given to STEVEN Yost.
--- NOTE | 2019-05-25 19:12 | NUR ---
NURSE NOTES: Received patient from STEVEN Lau, in stable condition, AOx4, on O2 n/c @2 L, VSS, denies pain at this time, IV on left AC g22,and right forearm g24 asymptomatic, intact, bed low&locked, side rails upx2, call light within reach. Patient ambulates with steady gait. Will continue to monitor and reassess
--- NOTE | 2019-05-25 19:45 | History and Physical Report ---
DATE OF ADMISSION: 05/25/2019 CHIEF COMPLAINT: The patient is a 48-year-old female, who presents with a chief complaint of shortness of breath. HISTORY OF PRESENT ILLNESS: The patient was admitted to [facility] in March of 2019. Please see history and physical and discharge summary dictated at that time. The patient presented to [facility] emergency room complaining of a two-day history of cough and wheezing. The patient also was experiencing chest tightness. The patient presented to [facility] emergency room. The patient was admitted with acute chronic obstructive pulmonary disease exacerbation. PAST MEDICAL HISTORY: Significant for, 1. Type 2 diabetes. 2. Hypertension. 3. Hypercholesterolemia. 4. Coronary artery disease, status post 2 stents placed in 2017. 5. Chronic obstructive pulmonary disease. 6. Asthma. 7. Depression. 8. Schizoaffective disorder. 9. Cervical spine stenosis with myelopathy. 10. Cerebrovascular disease, status post transient ischemic attack. PAST SURGICAL HISTORY: Significant for: 1. Total abdominal hysterectomy for uterine fibroids. 2. section. CURRENT MEDICATIONS: 1. Tylenol 650 mg p.o. q.6 hours p.r.n. 2. Tylenol No. 3 with codeine tablet p.o. q.4 hours p.r.n. 3. Albuterol sulfate HFA 2 puffs p.o. q.i.d. p.r.n. 4. Amlodipine 10 mg p.o. daily. 5. Lipitor 40 mg p.o. at bedtime. 6. Symbicort 160/4.5 two puffs p.o. twice daily. 7. Clonidine 0.1 mg p.o. q.6 hours p.r.n. 8. Glipizide 5 mg p.o. twice daily. 9. Hydralazine 50 mg p.o. q.8 hours. 10. Hydrochlorothiazide 25 mg p.o. daily. 11. Levemir 30 units subcutaneously at bedtime. 12. Metformin 850 mg p.o. twice daily. 13. Metoprolol 50 mg p.o. twice daily. 14. Zoloft 150 mg p.o. daily. ALLERGIES: 1. Aspirin. 2. Benztropine. 3. Erythromycin. 4. Iodine. 5. Ketorolac. 6. Losartan. 7. Nitroglycerin. 8. Olanzapine. 9. Prochlorperazine. 10. Pseudoephedrine. 11. Sulfa drugs. 12. Terfenadine. 13. Tramadol. SOCIAL HISTORY: The patient is single and lives alone. The patient admits to tobacco use of 1/2 pack per day. The patient denies alcohol use. PHYSICAL EXAMINATION: VITAL SIGNS: Temperature 98.4, respirations 20, pulse 86, blood pressure 163/70, and oxygen saturation 98% on room air. GENERAL: The patient is a well-developed and well-nourished obese female, in moderate respiratory distress. HEENT: Eyes, pupils are equal and responsive to light and accommodation. Extraocular movements are intact. NECK: Supple without lymphadenopathy. CHEST: Lungs are clear to auscultation bilaterally without wheezes or rales. CARDIOVASCULAR: Regular rhythm and rate. S1 and S2 are normal without murmurs, rubs, or gallops. ABDOMEN: Soft, nontender, and nondistended with positive bowel sounds. No evidence of hepatosplenomegaly. Currently, no rebound or guarding noted. EXTREMITIES: Negative for clubbing, cyanosis, or edema. RECTAL/GENITAL: Not performed. NEUROLOGIC: Cranial nerves II through XII are grossly intact without focal deficits. Motor strength is 5/5 bilaterally. Deep tendon reflexes is 2+ plantar. LABORATORY STUDIES: WBC 6.5, hemoglobin 11.0, hematocrit 35.3, platelets 246,000. Sodium 138, potassium 4.2, chloride 103, CO2 26, BUN 16, creatinine 0.9, and glucose 358. Troponin 0.0. BNP elevated at 341. Chest x-ray was reported as no acute cardiopulmonary process. ASSESSMENT: This is a 48-year-old female. 1. Shortness of breath. 2. Wheezing. 3. Chest pain. 4. Acute exacerbation of chronic obstructive pulmonary disease. 5. Diabetes type 2. 6. Hypertension. 7. Hypercholesterolemia. 8. Coronary artery disease. 9. Asthma. 10. Depression. 11. Schizoaffective disorder. 12. Cervical spine stenosis with myelopathy. 13. Cerebrovascular disease, status post transient ischemic attack. TREATMENT: 1. Shortness of breath/acute on chronic obstructive pulmonary disease exacerbation. A Pulmonary consultation has been obtained with Dr. Jaswinder Naidu. The patient has been placed empirically on intravenous Solu-Medrol. The patient has also been placed on intravenous Zosyn. We will follow recommendations of Pulmonary. 2. Diabetes type 2. The patient has been placed on a NovoLog sliding scale. 3. Hypertension. Continue amlodipine and metoprolol as above. 4. Hypercholesterolemia. Continue atorvastatin as above. 5. Coronary artery disease, status post stent placement. Continue aspirin 81 mg p.o. daily. 6. Depression. Continue Zoloft as above. 7. Schizoaffective disorder. 8. Cervical spine stenosis with myelopathy. 9. Cerebrovascular disease. Peewee Logan M.D. DR: KAY JOB#: [id number] CC:
[2019-05-26] VITALS: BP 145/90
[2019-05-26] MEDS: Zosyn 3.375gm q8h **Extended infusion IVPB SCH ×2 (01:00)
[2019-05-26] MEDS: DiphenhydrAMINE 50mg/ml Inj IVP PRN ×5 (02:56→21:07)
[2019-05-26] MEDS: Morphine Sulfate 4mg/ml Inj (IV USE ONLY) IVP PRN ×3 (02:57→11:39)
[2019-05-26] MEDS: HydrALAZINE 50mg tab ORAL SCH ×3 (06:00→21:21)
[2019-05-26] MEDS: NovoLOG Insulin Flexpen SUBQ SCH ×3 (06:01→21:20)
[2019-05-26] MEDS: Solu-MEDROL 125mg Inj IV SCH ×2 (06:06)
--- NOTE | 2019-05-26 06:55 | Pulmonology Progress Note ---
Assessment/Plan Problems: (1) ACS (acute coronary syndrome) (2) COPD exacerbation (3) History of TIA (transient ischemic attack) (4) Acute bronchitis (5) Moderate pulmonary arterial systolic hypertension (6) COPD (chronic obstructive pulmonary disease) (7) History of heart artery stent (8) History of hypertension (9) Diabetes mellitus (10) Morbid obesity Assessment/Plan taper steroids check sputum change abx to levofloxacin increase insulin coverage check electrolytes might go to med/surg Subjective ROS Limited/Unobtainable: No Interval Events: doing better Allergies: Coded Allergies: IODINE AND IODIDE CONTAINING PRODUC (Verified Allergy, Severe, Anaphylaxis , 11/21/18) OLANZAPINE (Verified Allergy, Severe, Anaphylaxis, 11/21/18) THROAT SWELLING PROCHLORPERAZINE (Unverified Allergy, Severe, Shortness of Breath, ) ASPIRIN (Verified Allergy, Intermediate, Hives, 11/21/18) BENZTROPINE (Verified Allergy, Intermediate, Hives, 11/21/18) ERYTHROMYCIN BASE (Verified Allergy, Intermediate, Hives, 11/21/18) Tolerates Azithromycin KETOROLAC (Verified Allergy, Intermediate, Hives, 11/21/18) LOSARTAN (Verified Allergy, Intermediate, 11/21/18) ANGIOEDEMA NITROGLYCERIN (Verified Allergy, Intermediate, Hives, 11/21/18) PSEUDOEPHEDRINE (Verified Allergy, Intermediate, Hives, 11/21/18) SULFA (SULFONAMIDE ANTIBIOTICS) (Verified Allergy, Intermediate, Hives, 03/02) TERFENADINE (Verified Allergy, Intermediate, Hives, 11/21/18) TRAMADOL (Verified Allergy, Intermediate, Rash, 11/21/18) Objective Last 24 Hour Vital Signs Date Time Temp Pulse Resp B/P (MAP) Pulse Ox O2 Delivery O2 Flow Rate FiO2 05/26/19 06:00 147/93 05/26/19 04:00 78 05/26/19 00:00 70 05/26/19 00:00 98.1 76 20 145/90 (108) 100 05/25/19 21:48 135/79 05/25/19 21:47 87 135/79 05/25/19 21:00 Room Air 05/25/19 20:43 98.4 101 20 135/79 (97) 98 05/25/19 20:00 89 05/25/19 20:00 70 18 98 Room Air 21 05/25/19 18:16 98.4 05/25/19 17:50 155/100 05/25/19 16:00 98.4 101 20 155/100 (118) 98 05/25/19 15:51 98 05/25/19 15:41 98.1 05/25/19 13:22 160/105 05/25/19 12:00 98.1 69 18 160/105 (123) 98 05/25/19 11:45 73 05/25/19 09:00 Room Air 05/25/19 08:48 68 20 99 Room Air 21 05/25/19 08:47 92 186/96 05/25/19 08:45 92 186/96 05/25/19 08:00 98.6 92 20 186/96 (126) 98 05/25/19 07:57 82 Intake and Output 05/25/19 05/26/19 19:00 07:00 Intake Total 1560 ml Balance 1560 ml Intake Oral 1560 ml # Voids 4 Objective General Appearance: obese Lines, tubes and drains: peripheral Respiratory/Chest: chest wall non-tender, scattered rhonchi Cardiovascular/Chest: normal peripheral pulses, normal rate Abdomen: normal bowel sounds, non tender Genitourinary/Rectal: normal genital exam, normal rectal exam Extremities: normal range of motion, non-tender Skin Exam: normal pigmentation Current Medications Medications (Trade) Dose Ordered Sig/Raymond Route PRN Reason Start Time Stop Time Status Last Admin Dose Admin Albuterol/ Ipratropium (Albuterol/ Ipratropium) 3 ml Q4H PRN HHN dyspnea 05/25/19 06:15 05/30/19 06:14 Amlodipine Besylate (Norvasc) 10 mg DAILY ORAL 05/25/19 09:00 06/24/19 08:59 05/25/19 08:45 Clonidine HCl (Catapres Tab) 0.1 mg Q4H PRN ORAL For High Blood Pressure 05/25/19 17:00 06/24/19 16:59 05/25/19 17:50 Dextrose (Dextrose 50%) 25 ml Q30M PRN IV Hypoglycemia 05/25/19 06:15 06/24/19 06:14 Dextrose (Dextrose 50%) 50 ml Q30M PRN IV Hypoglycemia 05/25/19 06:15 06/24/19 06:14 Diphenhydramine HCl (Benadryl) 50 mg Q4H PRN IVP Itching 05/25/19 16:00 06/24/19 07:44 05/26/19 02:56 Heparin Sodium (Porcine) (Heparin 5000 units/ml) 5,000 units EVERY 12 HOURS SUBQ 05/25/19 09:00 06/24/19 08:59 05/25/19 08:54 Hydralazine HCl (Apresoline) 50 mg EVERY 8 HOURS ORAL 05/25/19 14:00 06/24/19 13:59 05/26/19 06:00 Hydrochlorothiazide (Hydrodiuril) 25 mg DAILY ORAL 05/25/19 09:00 06/24/19 08:59 05/25/19 08:44 Insulin Aspart (NovoLOG) BEFORE MEALS AND HS SUBQ 05/25/19 06:30 06/24/19 06:29 05/26/19 06:01 Lorazepam (Ativan 2mg/ml 1ml) 0.5 mg Q4H PRN IV For Anxiety 05/25/19 06:15 06/01/19 06:14 Methylprednisolone Sodium Succinate (Solu-MEDROL) 60 mg EVERY 6 HOURS IV 05/25/19 06:15 06/24/19 06:14 05/26/19 06:06 Metoprolol Tartrate (Lopressor) 50 mg BID@0900,2100 ORAL 05/25/19 09:00 06/24/19 08:59 05/25/19 21:47 Morphine Sulfate (Morphine Sulfate) 5 mg Q4H PRN IVP For Pain 05/25/19 15:50 06/01/19 15:49 05/26/19 02:57 Ondansetron HCl (Zofran) 4 mg Q6H PRN IVP Nausea & Vomiting 05/25/19 06:15 06/24/19 06:14 05/25/19 22:32 Pantoprazole (Protonix) 40 mg DAILY ORAL 05/25/19 09:00 06/24/19 08:59 05/25/19 08:45 Piperacillin Sod/ Tazobactam Sod 3.375 gm/Sodium Chloride 110 ml @ 27.5 mls/hr Q8HR@0100,0900,1700 IVPB 05/25/19 09:00 06/01/19 08:59 05/25/19 17:53 Promethazine HCl/ Codeine (Phenergan with Codeine) 5 ml Q6H PRN ORAL cough 05/25/19 06:15 06/24/19 06:14 Sertraline HCl (Zoloft) 150 mg DAILY ORAL 05/25/19 09:00 06/24/19 08:59 Temazepam (Restoril) 15 mg HSPRN PRN ORAL Insomnia 05/25/19 06:15 06/01/19 06:14 05/25/19 21:56 Theophylline (Luis-Dur) 100 mg EVERY 12 HOURS ORAL 05/25/19 09:00 06/24/19 08:59 Jaswinder Naidu MD May 26, 2019 06:55
--- NOTE | 2019-05-26 07:21 | NUR ---
HAND-OFF: Report given to STEVEN Lau patient in stable condition, plan of care endorsed.
[2019-05-26 08:00] VITALS: BP 155/99
--- NOTE | 2019-05-26 08:00 | NUR ---
NURSE NOTES: Received report from STEVEN Yost. Pt A/Ox4. Respirations equal and unlabored. L AC 24g IV site intact and asymptomatic. Bed on lowest position, call light and bedside table within reach. PRN morphine and benadryl administered due to 10/10 pain and itching. Will continue to monitor and reassess.
[2019-05-26] MEDS: Metoprolol Tartrate 50mg tab ORAL SCH ×2 (09:00→21:05)
[2019-05-26] MEDS: Sertraline 50mg tab ORAL SCH (09:00)
[2019-05-26] MEDS: Theophylline ER 100mg ORAL SCH ×2 (09:00→21:00)
[2019-05-26] MEDS: Heparin 5000 units/ml inj SUBQ SCH ×2 (09:00→21:00)
[2019-05-26] MEDS ORDERED: NovoLOG Insulin Flexpen SUBQ SCH (11:30)
[2019-05-26 11:33] VITALS: BP 160/91
[2019-05-26] MEDS ORDERED: LORazepam Inj 2mg/ml 1ml IV PRN (15:06)
--- NOTE | 2019-05-26 15:06 | NUR ---
NURSE NOTES: HAND-OFF: Report given to STEVEN Tse. Pt transfered to [facility]- with all belongings.
[2019-05-26] MEDS ORDERED: Promethazine/Codeine 5ml UD ORAL PRN (15:07)
[2019-05-26] MEDS ORDERED: Albuterol/Ipratropium 3ml neb HHN PRN (15:07)
[2019-05-26] MEDS ORDERED: Morphine Sulfate 4mg/ml Inj (IV USE ONLY) IVP PRN (15:07)
--- NOTE | 2019-05-26 15:11 | NUR ---
NURSE NOTES: Spoke with Dr. Logan regarding pt's home medications metoprolol and Klonipin. As well as pt's request for Vagisil
--- NOTE | 2019-05-26 15:15 | NUR ---
NURSE NOTES: patient was transferred form Telemetry unit to [facility] under moises Humphrey. received report from STEVEN Lau. patient in bed. alert, oriented. verbally responsive. no respiratory distress noted. IV on left 2nd finger 24g saline lock intact. checked and counted belongings with patient. bed in the lowest position and locked. call light within reach. will continue to provide plan of care.
--- NOTE | 2019-05-26 15:18 | Internal Med Progress Note ---
Subjective Date of Service: May 26, 2019 Physician Name Peewee Logan Attending Physician Hebert Littlejohn MD Current Medications Medications (Trade) Dose Ordered Sig/Raymond Route PRN Reason Start Time Stop Time Status Last Admin Dose Admin Albuterol/ Ipratropium (Albuterol/ Ipratropium) 3 ml Q4H PRN HHN dyspnea 05/26/19 15:07 05/31/19 15:06 Amlodipine Besylate (Norvasc) 10 mg DAILY ORAL 05/27/19 09:00 06/24/19 08:59 Clonidine HCl (Catapres Tab) 0.1 mg Q4H PRN ORAL For High Blood Pressure 05/26/19 15:05 06/25/19 15:04 Dextrose (Dextrose 50%) 25 ml Q30M PRN IV Hypoglycemia 05/26/19 15:15 06/24/19 06:14 Dextrose (Dextrose 50%) 50 ml Q30M PRN IV Hypoglycemia 05/26/19 15:15 06/24/19 06:14 Diphenhydramine HCl (Benadryl) 50 mg Q4H PRN IVP Itching 05/26/19 15:06 06/25/19 15:05 Heparin Sodium (Porcine) (Heparin 5000 units/ml) 5,000 units EVERY 12 HOURS SUBQ 05/26/19 21:00 06/24/19 08:59 Hydralazine HCl (Apresoline) 50 mg EVERY 8 HOURS ORAL 05/26/19 22:00 06/24/19 13:59 Hydrochlorothiazide (Hydrodiuril) 25 mg DAILY ORAL 05/27/19 09:00 06/24/19 08:59 Insulin Aspart (NovoLOG) BEFORE MEALS AND HS SUBQ 05/26/19 16:30 06/24/19 06:29 Levofloxacin 100 ml @ 100 mls/hr Q24H IVPB 05/27/19 09:00 06/02/19 08:59 Lorazepam (Ativan 2mg/ml 1ml) 0.5 mg Q4H PRN IV For Anxiety 05/26/19 15:06 06/02/19 15:05 Methylprednisolone Sodium Succinate (Solu-MEDROL) 60 mg DAILY IV 05/27/19 09:00 06/26/19 08:59 Metoprolol Tartrate (Lopressor) 50 mg BID@0900,2100 ORAL 05/26/19 21:00 06/24/19 08:59 Morphine Sulfate (Morphine Sulfate) 5 mg Q4H PRN IVP For Pain 05/26/19 15:07 06/02/19 15:06 Ondansetron HCl (Zofran) 4 mg Q6H PRN IVP Nausea & Vomiting 05/26/19 15:07 06/25/19 15:06 Pantoprazole (Protonix) 40 mg DAILY ORAL 05/27/19 09:00 06/24/19 08:59 Sertraline HCl (Zoloft) 150 mg DAILY ORAL 05/27/19 09:00 06/24/19 08:59 Temazepam (Restoril) 15 mg HSPRN PRN ORAL Insomnia 05/26/19 15:08 06/02/19 15:07 Theophylline (Luis-Dur) 100 mg EVERY 12 HOURS ORAL 05/26/19 21:00 06/24/19 08:59 Allergies: Coded Allergies: IODINE AND IODIDE CONTAINING PRODUC (Verified Allergy, Severe, Anaphylaxis , 11/21/18) OLANZAPINE (Verified Allergy, Severe, Anaphylaxis, 11/21/18) THROAT SWELLING PROCHLORPERAZINE (Unverified Allergy, Severe, Shortness of Breath, ) ASPIRIN (Verified Allergy, Intermediate, Hives, 11/21/18) BENZTROPINE (Verified Allergy, Intermediate, Hives, 11/21/18) ERYTHROMYCIN BASE (Verified Allergy, Intermediate, Hives, 11/21/18) Tolerates Azithromycin KETOROLAC (Verified Allergy, Intermediate, Hives, 11/21/18) LOSARTAN (Verified Allergy, Intermediate, 11/21/18) ANGIOEDEMA NITROGLYCERIN (Verified Allergy, Intermediate, Hives, 11/21/18) PSEUDOEPHEDRINE (Verified Allergy, Intermediate, Hives, 11/21/18) SULFA (SULFONAMIDE ANTIBIOTICS) (Verified Allergy, Intermediate, Hives, 03/02) TERFENADINE (Verified Allergy, Intermediate, Hives, 11/21/18) TRAMADOL (Verified Allergy, Intermediate, Rash, 11/21/18) ROS Limited/Unobtainable: No Constitutional: Reports: no symptoms HEENT: Reports: no symptoms Cardiovascular: Reports: no symptoms Respiratory: Reports: cough, shortness of breath, wheezing Gastrointestinal/Abdominal: Reports: no symptoms Genitourinary: Reports: no symptoms Neurologic/Psychiatric: Reports: no symptoms Subjective 48 YO F admitted with shortness of breath and wheezing. Now acute COPD exacerbation. Cover for Int Med-DR Littlejohn Objective Last Vital Signs Date Time Temp Pulse Resp B/P (MAP) Pulse Ox O2 Delivery O2 Flow Rate FiO2 05/26/19 14:01 160/91 05/26/19 11:33 97.3 67 18 100 05/26/19 08:27 Room Air 05/25/19 20:00 21 05/25/19 03:01 2.0 Intake and Output 05/25/19 05/26/19 19:00 07:00 Intake Total 1560 ml Balance 1560 ml Intake Oral 1560 ml # Voids 4 Objective PHYSICAL EXAMINATION: GENERAL: The patient is a well-developed and well-nourished obese female, in moderate respiratory distress. HEENT: Eyes, pupils are equal and responsive to light and accommodation. Extraocular movements are intact. NECK: Supple without lymphadenopathy. CHEST: Lungs are clear to auscultation bilaterally without wheezes or rales. CARDIOVASCULAR: Regular rhythm and rate. S1 and S2 are normal without murmurs, rubs, or gallops. ABDOMEN: Soft, nontender, and nondistended with positive bowel sounds. No evidence of hepatosplenomegaly. Currently, no rebound or guarding noted. EXTREMITIES: Negative for clubbing, cyanosis, or edema. RECTAL/GENITAL: Not performed. NEUROLOGIC: Cranial nerves II through XII are grossly intact without focal deficits. Motor strength is 5/5 bilaterally. Deep tendon reflexes is 2+ plantar. Assessment/Plan Assessment/Plan ASSESSMENT: This is a 48-year-old female. 1. Shortness of breath. 2. Wheezing. 3. Chest pain. 4. Acute exacerbation of chronic obstructive pulmonary disease. 5. Diabetes type 2. 6. Hypertension. 7. Hypercholesterolemia. 8. Coronary artery disease. 9. Asthma. 10. Depression. 11. Schizoaffective disorder. 12. Cervical spine stenosis with myelopathy. 13. Cerebrovascular disease, status post transient ischemic attack. TREATMENT: 1. Shortness of breath/acute on chronic obstructive pulmonary disease exacerbation. A Pulmonary consultation has been obtained with Dr. Jaswinder Naidu. The patient has been placed empirically on intravenous Solu-Medrol. The patient has also been placed on intravenous Zosyn. We will follow recommendations of Pulmonary. 2. Diabetes type 2-uncontrolled due to solumedrol. The patient has been placed on a NovoLog sliding scale. Continue glipizide and metformin 3. Hypertension. Continue amlodipine and metoprolol as above. 4. Hypercholesterolemia. Continue atorvastatin as above. 5. Coronary artery disease, status post stent placement. Continue aspirin 81 mg p.o. daily. 6. Depression. Continue Zoloft as above. 7. Schizoaffective disorder. 8. Cervical spine stenosis with myelopathy. 9. Cerebrovascular disease. Peewee Logan MD May 26, 2019 15:18
[2019-05-26 16:00] VITALS: BP 146/70
[2019-05-26] MEDS: Furosemide 40mg tab ORAL SCH (16:56)
[2019-05-26] MEDS: GlipiZIDE 5mg tab ORAL SCH (16:57)
--- NOTE | 2019-05-26 19:15 | NUR ---
HAND-OFF: Report given to STEVEN Baeza.
--- NOTE | 2019-05-26 19:30 | NUR ---
NURSE NOTES: Patient received ambulated from the bathroom, steady gait. No signs of acute distress in room air. No IV access noted, per patient "it came off". New IV access to be restarted. Will monitor.
[2019-05-26 20:00] VITALS: BP 166/99
[2019-05-26 23:53] VITALS: BP 151/101
--- NOTE | 2019-05-27 | NUR ---
NURSE NOTES: Patient requested something for sleep. Offered restoril but patient prefers ambien. Call placed to Dr. Logan. Also requested nystatin powder for her perineal fungal rash. Awaiting call back. Addendum: 05/27/19 at 0108 by LUIGI CLARK RN RN No call back from Dr. Logan. Second call placed to Dr. Logan.
[2019-05-27] MEDS: DiphenhydrAMINE 50mg/ml Inj IVP PRN ×7 (02:08→22:08)
[2019-05-27 04:00] VITALS: BP 159/99
--- NOTE | 2019-05-27 04:00 | NUR ---
NURSE NOTES: Delayed administration of medication after being pulled out of pyxis: Pulled out IV medications (dilaudid, benadryl, zofran) and karishma them up in syringes. However, noticed patient's IV leaking when flushed with saline prior to administration of medication. It took longer for new IV access to be obtained, all the while drawn up medications are in the room guarded by RN. As soon as IV access was obtained. IV medications were given.
[2019-05-27] MEDS: GlipiZIDE 5mg tab ORAL SCH ×2 (06:00→16:43)
[2019-05-27] MEDS: HydrALAZINE 50mg tab ORAL SCH ×3 (06:01→21:27)
[2019-05-27] MEDS: NovoLOG Insulin Flexpen SUBQ SCH ×4 (06:02→21:30)
--- NOTE | 2019-05-27 07:21 | NUR ---
HAND-OFF: Report given to Emmanuel Krishnamurthy RN.
[2019-05-27 07:35] LABS: EOSINOPHILS % (AUTO) 0.1 % (0.0-3.0); HEMATOCRIT 37.8 % (37.0-47.0); HEMOGLOBIN 11.4 G/DL (12.0-16.0); LYMPHOCYTES % (AUTO) 26.9 % (20.0-45.0); MEAN CORPUSCULAR VOLUME 73 FL (80-99); MONOCYTES % (AUTO) 4.4 % (1.0-10.0); NEUTROPHILS % (AUTO) 67.6 % (45.0-75.0); PLATELET COUNT 267 K/UL (150-450); RED BLOOD COUNT 5.19 M/UL (4.20-5.40); RED CELL DISTRIBUTION WIDTH 13.7 % (11.6-14.8)
[2019-05-27 07:37] LABS: ANION GAP 9 mmol/L (5-15); BLOOD UREA NITROGEN 26 mg/dL (7-18); CARBON DIOXIDE 29 MMOL/L (21-32); CHLORIDE 98 MMOL/L (98-107); POTASSIUM 2.9 MMOL/L (3.5-5.1); SODIUM 136 MMOL/L (136-145)
[2019-05-27 08:00] VITALS: BP 157/96
--- NOTE | 2019-05-27 08:11 | NUR ---
NURSE NOTES: RN LEFT MESSAGE FOR DR BASHIR REGARDING POTASSIUM LEVEL 2.9 TODAY.
[2019-05-27] MEDS: Solu-MEDROL 125mg Inj IV SCH (08:27)
[2019-05-27] MEDS: Heparin 5000 units/ml inj SUBQ SCH ×2 (09:00→21:00)
[2019-05-27] MEDS: Furosemide 40mg tab ORAL SCH (09:00)
[2019-05-27] MEDS: Theophylline ER 100mg ORAL SCH ×2 (09:00→21:00)
[2019-05-27] MEDS: Sertraline 50mg tab ORAL SCH (09:00)
[2019-05-27] MEDS ORDERED: Solu-MEDROL 125mg Inj IV SCH (09:00)
[2019-05-27] MEDS: Metoprolol Tartrate 50mg tab ORAL SCH ×2 (09:32→21:27)
[2019-05-27 12:00] VITALS: BP 155/93
--- NOTE | 2019-05-27 13:25 | Pulmonology Progress Note ---
Assessment/Plan Problems: (1) COPD exacerbation (2) History of TIA (transient ischemic attack) (3) Acute bronchitis (4) Moderate pulmonary arterial systolic hypertension (5) COPD (chronic obstructive pulmonary disease) (6) History of heart artery stent (7) History of hypertension (8) Diabetes mellitus (9) Morbid obesity Assessment/Plan protonix and carafate for epigastric pain improving slowly check sputum change abx to levofloxacin increase insulin coverage check electrolytes might go to med/surg Subjective ROS Limited/Unobtainable: No Constitutional: Reports: no symptoms HEENT: Repors: no symptoms Respiratory: Reports: no symptoms Allergies: Coded Allergies: IODINE AND IODIDE CONTAINING PRODUC (Verified Allergy, Severe, Anaphylaxis , 11/21/18) OLANZAPINE (Verified Allergy, Severe, Anaphylaxis, 11/21/18) THROAT SWELLING PROCHLORPERAZINE (Unverified Allergy, Severe, Shortness of Breath, ) ASPIRIN (Verified Allergy, Intermediate, Hives, 11/21/18) BENZTROPINE (Verified Allergy, Intermediate, Hives, 11/21/18) ERYTHROMYCIN BASE (Verified Allergy, Intermediate, Hives, 11/21/18) Tolerates Azithromycin KETOROLAC (Verified Allergy, Intermediate, Hives, 11/21/18) LOSARTAN (Verified Allergy, Intermediate, 11/21/18) ANGIOEDEMA NITROGLYCERIN (Verified Allergy, Intermediate, Hives, 11/21/18) PSEUDOEPHEDRINE (Verified Allergy, Intermediate, Hives, 11/21/18) SULFA (SULFONAMIDE ANTIBIOTICS) (Verified Allergy, Intermediate, Hives, 03/02) TERFENADINE (Verified Allergy, Intermediate, Hives, 11/21/18) TRAMADOL (Verified Allergy, Intermediate, Rash, 11/21/18) Objective Last 24 Hour Vital Signs Date Time Temp Pulse Resp B/P (MAP) Pulse Ox O2 Delivery O2 Flow Rate FiO2 05/27/19 13:06 155/93 05/27/19 12:00 98.3 71 18 155/93 (113) 100 05/27/19 09:32 79 157/96 05/27/19 09:31 79 157/96 05/27/19 09:00 Room Air 05/27/19 08:03 80 18 97 Room Air 21 05/27/19 08:00 97.5 79 157/96 (116) 05/27/19 06:01 159/99 05/27/19 04:00 97.3 65 18 159/99 (119) 98 05/27/19 00:15 151/101 05/26/19 23:53 98.2 68 18 151/101 (118) 99 05/26/19 21:36 98.4 05/26/19 21:21 166/99 05/26/19 21:05 79 166/99 05/26/19 21:00 Room Air 05/26/19 20:07 73 18 97 Room Air 21 05/26/19 20:00 97.6 96 18 166/99 (121) 99 05/26/19 16:00 98.4 78 18 146/70 (95) 98 05/26/19 14:01 160/91 Intake and Output 05/26/19 05/27/19 19:00 07:00 Intake Total 1060 ml 800 ml Balance 1060 ml 800 ml Intake Oral 960 ml 800 ml IV Total 100 ml # Voids 7 3 # Bowel Movements 1 Objective General Appearance: obese Lines, tubes and drains: peripheral Respiratory/Chest: chest wall non-tender, scattered rhonchi Cardiovascular/Chest: normal peripheral pulses, normal rate Abdomen: normal bowel sounds, non tender Genitourinary/Rectal: normal genital exam, normal rectal exam Extremities: normal range of motion, non-tender Skin Exam: normal pigmentation Laboratory Tests 05/27/19 07:00: White Blood Count 11.0H, Red Blood Count 5.19, Hemoglobin 11.4L, Hematocrit 37.8 , Mean Corpuscular Volume 73L, Mean Corpuscular Hemoglobin 21.9L, Mean Corpuscular Hemoglobin Concent 30.0L, Red Cell Distribution Width 13.7, Platelet Count 267, Mean Platelet Volume 7.2, Neutrophils (%) (Auto) 67.6, Lymphocytes (%) (Auto) 26.9, Monocytes (%) (Auto) 4.4, Eosinophils (%) (Auto) 0.1, Basophils (%) (Auto) 1.0, Sodium Level 136, Potassium Level 2.9L, Chloride Level 98, Carbon Dioxide Level 29, Anion Gap 9, Blood Urea Nitrogen 26H, Creatinine 1.0, Estimat Glomerular Filtration Rate 59.2, Glucose Level 265H, Calcium Level 9.0 Current Medications Medications (Trade) Dose Ordered Sig/Raymond Route PRN Reason Start Time Stop Time Status Last Admin Dose Admin Albuterol/ Ipratropium (Albuterol/ Ipratropium) 3 ml Q4H PRN HHN dyspnea 05/26/19 15:07 05/31/19 15:06 Amlodipine Besylate (Norvasc) 10 mg DAILY ORAL 05/27/19 09:00 06/24/19 08:59 05/27/19 09:31 Clonazepam (KlonoPIN) 1 mg BIDPRN PRN ORAL For Anxiety 05/26/19 15:30 06/02/19 15:29 05/27/19 06:00 Clonidine HCl (Catapres Tab) 0.1 mg Q4H PRN ORAL For High Blood Pressure 05/26/19 15:05 06/25/19 15:04 05/27/19 00:15 Dextrose (Dextrose 50%) 25 ml Q30M PRN IV Hypoglycemia 05/26/19 15:15 06/24/19 06:14 Dextrose (Dextrose 50%) 50 ml Q30M PRN IV Hypoglycemia 05/26/19 15:15 06/24/19 06:14 Diphenhydramine HCl (Benadryl) 50 mg Q4H PRN IVP Itching 05/26/19 15:06 06/25/19 15:05 05/27/19 13:07 Furosemide (Lasix) 40 mg DAILY ORAL 05/26/19 15:15 06/25/19 15:14 05/26/19 16:56 Glipizide (Glucotrol) 5 mg BIAC ORAL 05/26/19 16:30 06/25/19 16:29 05/27/19 06:00 Heparin Sodium (Porcine) (Heparin 5000 units/ml) 5,000 units EVERY 12 HOURS SUBQ 05/26/19 21:00 06/24/19 08:59 Hydralazine HCl (Apresoline) 50 mg EVERY 8 HOURS ORAL 05/26/19 22:00 06/24/19 13:59 05/27/19 13:06 Hydrochlorothiazide (Hydrodiuril) 25 mg DAILY ORAL 05/27/19 09:00 06/24/19 08:59 05/27/19 08:29 Hydromorphone HCl (Dilaudid) 2 mg Q4H PRN IVP Severe Pain (Pain Scale 7-10) 05/26/19 16:00 06/02/19 15:59 05/27/19 13:07 Insulin Aspart (NovoLOG) BEFORE MEALS AND HS SUBQ 05/26/19 16:30 06/24/19 06:29 05/27/19 12:17 Levofloxacin 100 ml @ 100 mls/hr Q24H IVPB 05/27/19 09:00 06/02/19 08:59 05/27/19 09:34 Metformin HCl (Glucophage) 850 mg BIAC ORAL 05/26/19 16:30 06/25/19 16:29 05/27/19 06:00 Methylprednisolone Sodium Succinate (Solu-MEDROL) 60 mg DAILY IV 05/27/19 09:00 06/26/19 08:59 05/27/19 08:27 Metoprolol Tartrate (Lopressor) 50 mg BID@0900,2100 ORAL 05/26/19 21:00 06/24/19 08:59 05/27/19 09:32 Ondansetron HCl (Zofran) 4 mg Q6H PRN IVP Nausea & Vomiting 05/26/19 15:07 06/25/19 15:06 05/27/19 13:07 Pantoprazole (Protonix) 40 mg DAILY ORAL 05/27/19 09:00 06/24/19 08:59 05/27/19 08:28 Sertraline HCl (Zoloft) 150 mg DAILY ORAL 05/27/19 09:00 06/24/19 08:59 Temazepam (Restoril) 15 mg HSPRN PRN ORAL Insomnia 05/26/19 15:08 06/02/19 15:07 05/27/19 02:07 Theophylline (Luis-Dur) 100 mg EVERY 12 HOURS ORAL 05/26/19 21:00 06/24/19 08:59 Jaswinder Naidu MD May 27, 2019 13:24
--- NOTE | 2019-05-27 14:00 | NUR ---
NURSE NOTES: DR BASHIR WITH ORDER FOR K-DUR 40MEQ X1. RN ADMINISTERED ORDERED. PT IN NO APPARENT DISTRESS. WILL CONTINUE TO MONITOR.
[2019-05-27 16:00] VITALS: BP 132/79
[2019-05-27] MEDS: Sucralfate 1gm tab ORAL SCH ×2 (18:08→21:27)
--- NOTE | 2019-05-27 18:55 | Internal Med Progress Note ---
Subjective Date of Service: May 27, 2019 Physician Name Peewee Logan Attending Physician Hebert Littlejohn MD Current Medications Medications (Trade) Dose Ordered Sig/Raymond Route PRN Reason Start Time Stop Time Status Last Admin Dose Admin Albuterol/ Ipratropium (Albuterol/ Ipratropium) 3 ml Q4H PRN HHN dyspnea 05/26/19 15:07 05/31/19 15:06 Amlodipine Besylate (Norvasc) 10 mg DAILY ORAL 05/27/19 09:00 06/24/19 08:59 05/27/19 09:31 Clonazepam (KlonoPIN) 1 mg BIDPRN PRN ORAL For Anxiety 05/26/19 15:30 06/02/19 15:29 05/27/19 15:45 Clonidine HCl (Catapres Tab) 0.1 mg Q4H PRN ORAL For High Blood Pressure 05/26/19 15:05 06/25/19 15:04 05/27/19 00:15 Dextrose (Dextrose 50%) 25 ml Q30M PRN IV Hypoglycemia 05/26/19 15:15 06/24/19 06:14 Dextrose (Dextrose 50%) 50 ml Q30M PRN IV Hypoglycemia 05/26/19 15:15 06/24/19 06:14 Diphenhydramine HCl (Benadryl) 50 mg Q4H PRN IVP Itching 05/26/19 15:06 06/25/19 15:05 05/27/19 18:08 Furosemide (Lasix) 40 mg DAILY ORAL 05/26/19 15:15 06/25/19 15:14 05/26/19 16:56 Glipizide (Glucotrol) 5 mg BIAC ORAL 05/26/19 16:30 06/25/19 16:29 05/27/19 16:43 Heparin Sodium (Porcine) (Heparin 5000 units/ml) 5,000 units EVERY 12 HOURS SUBQ 05/26/19 21:00 06/24/19 08:59 Hydralazine HCl (Apresoline) 50 mg EVERY 8 HOURS ORAL 05/26/19 22:00 06/24/19 13:59 05/27/19 13:06 Hydrochlorothiazide (Hydrodiuril) 25 mg DAILY ORAL 05/27/19 09:00 06/24/19 08:59 05/27/19 08:29 Hydromorphone HCl (Dilaudid) 2 mg Q4H PRN IVP Severe Pain (Pain Scale 7-10) 05/26/19 16:00 06/02/19 15:59 05/27/19 18:09 Insulin Aspart (NovoLOG) BEFORE MEALS AND HS SUBQ 05/26/19 16:30 06/24/19 06:29 05/27/19 16:50 Levofloxacin 100 ml @ 100 mls/hr Q24H IVPB 05/27/19 09:00 06/02/19 08:59 05/27/19 09:34 Metformin HCl (Glucophage) 850 mg BIAC ORAL 05/26/19 16:30 06/25/19 16:29 05/27/19 16:43 Methylprednisolone Sodium Succinate (Solu-MEDROL) 60 mg DAILY IV 05/27/19 09:00 06/26/19 08:59 05/27/19 08:27 Metoprolol Tartrate (Lopressor) 50 mg BID@0900,2100 ORAL 05/26/19 21:00 06/24/19 08:59 05/27/19 09:32 Ondansetron HCl (Zofran) 4 mg Q6H PRN IVP Nausea & Vomiting 05/26/19 15:07 06/25/19 15:06 05/27/19 14:17 Pantoprazole (Protonix) 40 mg DAILY ORAL 05/27/19 09:00 06/24/19 08:59 05/27/19 08:28 Sertraline HCl (Zoloft) 150 mg DAILY ORAL 05/27/19 09:00 06/24/19 08:59 Sucralfate (Carafate) 1 gm FOUR TIMES A DAY ORAL 05/27/19 18:00 06/26/19 17:59 05/27/19 18:08 Temazepam (Restoril) 15 mg HSPRN PRN ORAL Insomnia 05/26/19 15:08 06/02/19 15:07 05/27/19 02:07 Theophylline (Luis-Dur) 100 mg EVERY 12 HOURS ORAL 05/26/19 21:00 06/24/19 08:59 Allergies: Coded Allergies: IODINE AND IODIDE CONTAINING PRODUC (Verified Allergy, Severe, Anaphylaxis , 11/21/18) OLANZAPINE (Verified Allergy, Severe, Anaphylaxis, 11/21/18) THROAT SWELLING PROCHLORPERAZINE (Unverified Allergy, Severe, Shortness of Breath, ) ASPIRIN (Verified Allergy, Intermediate, Hives, 11/21/18) BENZTROPINE (Verified Allergy, Intermediate, Hives, 11/21/18) ERYTHROMYCIN BASE (Verified Allergy, Intermediate, Hives, 11/21/18) Tolerates Azithromycin KETOROLAC (Verified Allergy, Intermediate, Hives, 11/21/18) LOSARTAN (Verified Allergy, Intermediate, 11/21/18) ANGIOEDEMA NITROGLYCERIN (Verified Allergy, Intermediate, Hives, 11/21/18) PSEUDOEPHEDRINE (Verified Allergy, Intermediate, Hives, 11/21/18) SULFA (SULFONAMIDE ANTIBIOTICS) (Verified Allergy, Intermediate, Hives, 03/02) TERFENADINE (Verified Allergy, Intermediate, Hives, 11/21/18) TRAMADOL (Verified Allergy, Intermediate, Rash, 11/21/18) ROS Limited/Unobtainable: No Constitutional: Reports: no symptoms HEENT: Reports: no symptoms Cardiovascular: Reports: no symptoms Respiratory: Reports: no symptoms Gastrointestinal/Abdominal: Reports: no symptoms Genitourinary: Reports: no symptoms Neurologic/Psychiatric: Reports: no symptoms Subjective 48 YO F admitted with shortness of breath and wheezing. Now acute COPD exacerbation. Cover for Int [place]-DR Littlejohn Objective Last Vital Signs Date Time Temp Pulse Resp B/P (MAP) Pulse Ox O2 Delivery O2 Flow Rate FiO2 05/27/19 16:00 97.9 72 19 132/79 (96) 97 05/27/19 09:00 Room Air 05/27/19 08:03 21 05/25/19 03:01 2.0 Laboratory Tests Test 05/27/19 07:00 White Blood Count 11.0 K/UL (4.8-10.8) H Red Blood Count 5.19 M/UL (4.20-5.40) Hemoglobin 11.4 G/DL (12.0-16.0) L Hematocrit 37.8 % (37.0-47.0) Mean Corpuscular Volume 73 FL (80-99) L Mean Corpuscular Hemoglobin 21.9 PG (27.0-31.0) L Mean Corpuscular Hemoglobin Concent 30.0 G/DL (32.0-36.0) L Red Cell Distribution Width 13.7 % (11.6-14.8) Platelet Count 267 K/UL (150-450) Mean Platelet Volume 7.2 FL (6.5-10.1) Neutrophils (%) (Auto) 67.6 % (45.0-75.0) Lymphocytes (%) (Auto) 26.9 % (20.0-45.0) Monocytes (%) (Auto) 4.4 % (1.0-10.0) Eosinophils (%) (Auto) 0.1 % (0.0-3.0) Basophils (%) (Auto) 1.0 % (0.0-2.0) Sodium Level 136 MMOL/L (136-145) Potassium Level 2.9 MMOL/L (3.5-5.1) L Chloride Level 98 MMOL/L (98-107) Carbon Dioxide Level 29 MMOL/L (21-32) Anion Gap 9 mmol/L (5-15) Blood Urea Nitrogen 26 mg/dL (7-18) H Creatinine 1.0 MG/DL (0.55-1.30) Estimat Glomerular Filtration Rate 59.2 mL/min (>60) Glucose Level 265 MG/DL (74-106) H Calcium Level 9.0 MG/DL (8.5-10.1) Intake and Output 05/26/19 05/27/19 19:00 07:00 Intake Total 1060 ml 800 ml Balance 1060 ml 800 ml Intake Oral 960 ml 800 ml IV Total 100 ml # Voids 7 3 # Bowel Movements 1 Objective PHYSICAL EXAMINATION: GENERAL: The patient is a well-developed and well-nourished obese female, in moderate respiratory distress. HEENT: Eyes, pupils are equal and responsive to light and accommodation. Extraocular movements are intact. NECK: Supple without lymphadenopathy. CHEST: Lungs are clear to auscultation bilaterally without wheezes or rales. CARDIOVASCULAR: Regular rhythm and rate. S1 and S2 are normal without murmurs, rubs, or gallops. ABDOMEN: Soft, nontender, and nondistended with positive bowel sounds. No evidence of hepatosplenomegaly. Currently, no rebound or guarding noted. EXTREMITIES: Negative for clubbing, cyanosis, or edema. RECTAL/GENITAL: Not performed. NEUROLOGIC: Cranial nerves II through XII are grossly intact without focal deficits. Motor strength is 5/5 bilaterally. Deep tendon reflexes is 2+ plantar. Assessment/Plan Assessment/Plan ASSESSMENT: This is a 48-year-old female. 1. Shortness of breath. 2. Wheezing. 3. Chest pain. 4. Acute exacerbation of chronic obstructive pulmonary disease. 5. Diabetes type 2. 6. Hypertension. 7. Hypercholesterolemia. 8. Coronary artery disease. 9. Asthma. 10. Depression. 11. Schizoaffective disorder. 12. Cervical spine stenosis with myelopathy. 13. Cerebrovascular disease, status post transient ischemic attack. TREATMENT: 1. Shortness of breath/acute on chronic obstructive pulmonary disease exacerbation. A Pulmonary consultation has been obtained with Dr. Jaswinder Naidu. The patient has been placed empirically on intravenous Solu-Medrol. The patient has also been placed on intravenous Zosyn. We will follow recommendations of Pulmonary. 2. Diabetes type 2-uncontrolled due to solumedrol. The patient has been placed on a NovoLog sliding scale. Continue glipizide and metformin 3. Hypertension. Continue amlodipine and metoprolol as above. 4. Hypercholesterolemia. Continue atorvastatin as above. 5. Coronary artery disease, status post stent placement. Continue aspirin 81 mg p.o. daily. 6. Depression. Continue Zoloft as above. 7. Schizoaffective disorder. 8. Cervical spine stenosis with myelopathy. 9. Cerebrovascular disease. Peewee Logan MD May 27, 2019 18:55
--- NOTE | 2019-05-27 19:39 | NUR ---
HAND-OFF: Report given to Fortino CLARK RN.
[2019-05-27 20:00] VITALS: BP 151/85
--- NOTE | 2019-05-27 20:00 | NUR ---
NURSE NOTES: Patient received ambulating around the room. No acute distress at this time, in room air. IV intact and patent. Will continue plan of care.
[2019-05-27] MEDS: Nystatin Powder 100,000 units/gm 15gm TOPIC SCH (21:26)
[2019-05-27] MEDS: Zolpidem 5mg tab ORAL PRN (21:31)
[2019-05-28] VITALS: BP 147/80
[2019-05-28] MEDS: DiphenhydrAMINE 50mg/ml Inj IVP PRN ×5 (03:54→20:26)
[2019-05-28 04:00] VITALS: BP 175/96
[2019-05-28] MEDS: GlipiZIDE 5mg tab ORAL SCH ×2 (06:15→16:48)
[2019-05-28] MEDS: NovoLOG Insulin Flexpen SUBQ SCH ×4 (06:16→21:18)
[2019-05-28] MEDS: HydrALAZINE 50mg tab ORAL SCH ×3 (06:24→21:16)
--- NOTE | 2019-05-28 07:21 | NUR ---
HAND-OFF: Report given to Khanh HARRIS.
--- NOTE | 2019-05-28 07:31 | NUR ---
NURSE NOTES: Received pt in bed, AAO x4. RA. c/o of pain and asking for pain med and benadryl. No s/s of distress. IV on R finger 24g noted, with SL. side rails x 2. Bed in the lowest and alarm on. Call light within reach. Will continue to monitor
[2019-05-28 08:00] VITALS: BP 131/86
[2019-05-28 08:12] LABS: BASOPHILS % (AUTO) 0.9 % (0.0-2.0); EOSINOPHILS % (AUTO) 0.1 % (0.0-3.0); HEMATOCRIT 40.1 % (37.0-47.0); HEMOGLOBIN 11.7 G/DL (12.0-16.0); LYMPHOCYTES % (AUTO) 22.8 % (20.0-45.0); MEAN CORPUSCULAR VOLUME 74 FL (80-99); MONOCYTES % (AUTO) 2.9 % (1.0-10.0); NEUTROPHILS % (AUTO) 73.3 % (45.0-75.0); PLATELET COUNT 297 K/UL (150-450); RED BLOOD COUNT 5.43 M/UL (4.20-5.40); RED CELL DISTRIBUTION WIDTH 13.8 % (11.6-14.8)
[2019-05-28] MEDS: Solu-MEDROL 125mg Inj IV SCH (08:12)
[2019-05-28] MEDS: Metoprolol Tartrate 50mg tab ORAL SCH ×2 (08:13→21:16)
[2019-05-28] MEDS: Furosemide 40mg tab ORAL SCH (08:13)
[2019-05-28] MEDS: Sucralfate 1gm tab ORAL SCH ×4 (08:14→21:16)
[2019-05-28] MEDS: Nystatin Powder 100,000 units/gm 15gm TOPIC SCH ×3 (08:16→18:00)
[2019-05-28 08:23] LABS: ANION GAP 10 mmol/L (5-15); BLOOD UREA NITROGEN 24 mg/dL (7-18); CALCIUM 9.1 MG/DL (8.5-10.1); CARBON DIOXIDE 29 MMOL/L (21-32); CHLORIDE 96 MMOL/L (98-107); POTASSIUM 3.4 MMOL/L (3.5-5.1); SODIUM 135 MMOL/L (136-145)
[2019-05-28] MEDS: Heparin 5000 units/ml inj SUBQ SCH ×2 (08:45→21:00)
[2019-05-28] MEDS: Sertraline 50mg tab ORAL SCH (08:45)
[2019-05-28] MEDS: Theophylline ER 100mg ORAL SCH ×2 (08:45→21:00)
[2019-05-28] MEDS: Analgesic Balm 15gm TOPIC SCH ×4 (10:53→21:19)
[2019-05-28 12:00] VITALS: BP 153/110
--- NOTE | 2019-05-28 13:49 | Pulmonology Progress Note ---
Assessment/Plan Problems: (1) COPD exacerbation (2) History of TIA (transient ischemic attack) (3) Acute bronchitis (4) Moderate pulmonary arterial systolic hypertension (5) COPD (chronic obstructive pulmonary disease) (6) History of heart artery stent (7) History of hypertension (8) Diabetes mellitus (9) Morbid obesity Assessment/Plan protonix and carafate for epigastric pain improving slowly check sputum, still pending change abx to levofloxacin increase insulin coverage check electrolytes Keep the same dose of solumedrol Subjective ROS Limited/Unobtainable: No Interval Events: still gets short of breath Allergies: Coded Allergies: IODINE AND IODIDE CONTAINING PRODUC (Verified Allergy, Severe, Anaphylaxis , 11/21/18) OLANZAPINE (Verified Allergy, Severe, Anaphylaxis, 11/21/18) THROAT SWELLING PROCHLORPERAZINE (Unverified Allergy, Severe, Shortness of Breath, ) ASPIRIN (Verified Allergy, Intermediate, Hives, 11/21/18) BENZTROPINE (Verified Allergy, Intermediate, Hives, 11/21/18) ERYTHROMYCIN BASE (Verified Allergy, Intermediate, Hives, 11/21/18) Tolerates Azithromycin KETOROLAC (Verified Allergy, Intermediate, Hives, 11/21/18) LOSARTAN (Verified Allergy, Intermediate, 11/21/18) ANGIOEDEMA NITROGLYCERIN (Verified Allergy, Intermediate, Hives, 11/21/18) PSEUDOEPHEDRINE (Verified Allergy, Intermediate, Hives, 11/21/18) SULFA (SULFONAMIDE ANTIBIOTICS) (Verified Allergy, Intermediate, Hives, 03/02) TERFENADINE (Verified Allergy, Intermediate, Hives, 11/21/18) TRAMADOL (Verified Allergy, Intermediate, Rash, 11/21/18) Objective Last 24 Hour Vital Signs Date Time Temp Pulse Resp B/P (MAP) Pulse Ox O2 Delivery O2 Flow Rate FiO2 05/28/19 13:15 153/110 05/28/19 12:00 98.1 76 18 153/110 (124) 98 05/28/19 09:00 Room Air 05/28/19 08:13 83 131/86 05/28/19 08:13 83 131/86 05/28/19 08:00 97.9 83 19 131/86 (101) 98 05/28/19 06:24 137/83 1/14/20 04:00 98.0 73 20 175/96 (122) 100 05/28/19 03:58 175/96 05/28/19 00:00 98.0 84 18 147/80 (102) 98 05/27/19 21:27 80 151/85 05/27/19 21:27 151/85 05/27/19 21:00 Room Air 05/27/19 20:05 77 18 95 Room Air 21 05/27/19 20:00 97.8 80 19 151/85 (107) 97 05/27/19 16:00 97.9 72 19 132/79 (96) 97 Intake and Output 05/27/19 05/28/19 19:00 07:00 Intake Total 900 ml 1000 ml Balance 900 ml 1000 ml Intake Oral 800 ml 1000 ml IV Total 100 ml # Voids 4 4 # Bowel Movements 1 1 Objective General Appearance: obese Lines, tubes and drains: peripheral Respiratory/Chest: chest wall non-tender, scattered rhonchi Cardiovascular/Chest: normal peripheral pulses, normal rate Abdomen: normal bowel sounds, non tender Genitourinary/Rectal: normal genital exam, normal rectal exam Extremities: normal range of motion, non-tender Skin Exam: normal pigmentation Laboratory Tests 05/28/19 07:50: White Blood Count 12.0H, Red Blood Count 5.43H, Hemoglobin 11.7L, Hematocrit 40.1, Mean Corpuscular Volume 74L, Mean Corpuscular Hemoglobin 21.6L, Mean Corpuscular Hemoglobin Concent 29.1L, Red Cell Distribution Width 13.8, Platelet Count 297, Mean Platelet Volume 7.0, Neutrophils (%) (Auto) 73.3, Lymphocytes (%) (Auto) 22.8, Monocytes (%) (Auto) 2.9, Eosinophils (%) (Auto) 0.1, Basophils (%) (Auto) 0.9, Sodium Level 135L, Potassium Level 3.4L, Chloride Level 96L, Carbon Dioxide Level 29, Anion Gap 10, Blood Urea Nitrogen 24H, Creatinine 1.0, Estimat Glomerular Filtration Rate 59.2, Glucose Level 315H , Calcium Level 9.1 Current Medications Medications (Trade) Dose Ordered Sig/Raymond Route PRN Reason Start Time Stop Time Status Last Admin Dose Admin Albuterol/ Ipratropium (Albuterol/ Ipratropium) 3 ml Q4H PRN HHN dyspnea 1/12/20 15:07 05/31/19 15:06 Amlodipine Besylate (Norvasc) 10 mg DAILY ORAL 05/27/19 09:00 06/24/19 08:59 05/28/19 08:13 Clonazepam (KlonoPIN) 1 mg BIDPRN PRN ORAL For Anxiety 05/26/19 15:30 06/02/19 15:29 05/28/19 06:26 Clonidine HCl (Catapres Tab) 0.1 mg Q4H PRN ORAL For High Blood Pressure 05/26/19 15:05 06/25/19 15:04 05/28/19 03:58 Dextrose (Dextrose 50%) 25 ml Q30M PRN IV Hypoglycemia 05/26/19 15:15 06/24/19 06:14 Dextrose (Dextrose 50%) 50 ml Q30M PRN IV Hypoglycemia 05/26/19 15:15 06/24/19 06:14 Diphenhydramine HCl (Benadryl) 50 mg Q4H PRN IVP Itching 05/26/19 15:06 06/25/19 15:05 05/28/19 13:16 Furosemide (Lasix) 40 mg DAILY ORAL 05/26/19 15:15 06/25/19 15:14 05/28/19 08:13 Glipizide (Glucotrol) 5 mg BIAC ORAL 05/26/19 16:30 06/25/19 16:29 05/28/19 06:15 Heparin Sodium (Porcine) (Heparin 5000 units/ml) 5,000 units EVERY 12 HOURS SUBQ 05/26/19 21:00 06/24/19 08:59 Hydralazine HCl (Apresoline) 50 mg EVERY 8 HOURS ORAL 05/26/19 22:00 06/24/19 13:59 05/28/19 13:15 Hydrochlorothiazide (Hydrodiuril) 25 mg DAILY ORAL 05/27/19 09:00 06/24/19 08:59 05/28/19 08:13 Hydromorphone HCl (Dilaudid) 2 mg Q4H PRN IVP Severe Pain (Pain Scale 7-10) 05/26/19 16:00 06/02/19 15:59 05/28/19 13:16 Insulin Aspart (NovoLOG) BEFORE MEALS AND HS SUBQ 05/26/19 16:30 06/24/19 06:29 05/28/19 13:13 Levofloxacin 100 ml @ 100 mls/hr Q24H IVPB 05/27/19 09:00 06/02/19 08:59 05/28/19 08:14 Menthol/Methyl Salicylate (Bengay) 1 applic FOUR TIMES A DAY TOPIC 05/28/19 10:00 06/27/19 09:59 05/28/19 13:18 Metformin HCl (Glucophage) 850 mg BIAC ORAL 05/26/19 16:30 06/25/19 16:29 05/28/19 06:15 Methylprednisolone Sodium Succinate (Solu-MEDROL) 60 mg DAILY IV 05/27/19 09:00 06/26/19 08:59 05/28/19 08:12 Metoprolol Tartrate (Lopressor) 50 mg BID@0900,2100 ORAL 05/26/19 21:00 06/24/19 08:59 05/28/19 08:13 Nystatin (Nystop Powder) 1 applic THREE TIMES A DAY TOPIC 05/27/19 20:00 06/26/19 19:59 05/28/19 13:24 Ondansetron HCl (Zofran) 4 mg Q6H PRN IVP Nausea & Vomiting 05/26/19 15:07 06/25/19 15:06 05/28/19 13:16 Pantoprazole (Protonix) 40 mg DAILY ORAL 05/27/19 09:00 06/24/19 08:59 05/28/19 08:13 Sertraline HCl (Zoloft) 150 mg DAILY ORAL 05/27/19 09:00 06/24/19 08:59 Sucralfate (Carafate) 1 gm FOUR TIMES A DAY ORAL 05/27/19 18:00 06/26/19 17:59 05/28/19 13:15 Theophylline (Luis-Dur) 100 mg EVERY 12 HOURS ORAL 05/26/19 21:00 06/24/19 08:59 Zolpidem Tartrate (Ambien) 5 mg HSPRN PRN ORAL Insomnia 05/27/19 19:00 06/03/19 18:59 05/27/19 21:31 Jaswinder Naidu MD May 28, 2019 13:49
[2019-05-28 16:00] VITALS: BP 156/89
--- NOTE | 2019-05-28 17:06 | Internal Med Progress Note ---
Subjective Date of Service: May 28, 2019 Physician Name Peewee Logan Attending Physician Hebert Littlejohn MD Current Medications Medications (Trade) Dose Ordered Sig/Raymond Route PRN Reason Start Time Stop Time Status Last Admin Dose Admin Albuterol/ Ipratropium (Albuterol/ Ipratropium) 3 ml Q4H PRN HHN dyspnea 05/26/19 15:07 05/31/19 15:06 Amlodipine Besylate (Norvasc) 10 mg DAILY ORAL 05/27/19 09:00 06/24/19 08:59 05/28/19 08:13 Clonazepam (KlonoPIN) 1 mg BIDPRN PRN ORAL For Anxiety 05/26/19 15:30 06/02/19 15:29 05/28/19 16:47 Clonidine HCl (Catapres Tab) 0.1 mg Q4H PRN ORAL For High Blood Pressure 05/26/19 15:05 06/25/19 15:04 05/28/19 03:58 Dextrose (Dextrose 50%) 25 ml Q30M PRN IV Hypoglycemia 05/26/19 15:15 06/24/19 06:14 Dextrose (Dextrose 50%) 50 ml Q30M PRN IV Hypoglycemia 05/26/19 15:15 06/24/19 06:14 Diphenhydramine HCl (Benadryl) 50 mg Q4H PRN IVP Itching 05/26/19 15:06 06/25/19 15:05 05/28/19 16:48 Furosemide (Lasix) 40 mg DAILY ORAL 05/26/19 15:15 06/25/19 15:14 05/28/19 08:13 Glipizide (Glucotrol) 5 mg BIAC ORAL 05/26/19 16:30 06/25/19 16:29 05/28/19 16:48 Heparin Sodium (Porcine) (Heparin 5000 units/ml) 5,000 units EVERY 12 HOURS SUBQ 05/26/19 21:00 06/24/19 08:59 Hydralazine HCl (Apresoline) 50 mg EVERY 8 HOURS ORAL 05/26/19 22:00 06/24/19 13:59 05/28/19 13:15 Hydrochlorothiazide (Hydrodiuril) 25 mg DAILY ORAL 05/27/19 09:00 06/24/19 08:59 05/28/19 08:13 Hydromorphone HCl (Dilaudid) 2 mg Q3H PRN IVP Severe Pain (Pain Scale 7-10) 05/28/19 16:00 06/04/19 15:59 05/28/19 16:47 Insulin Aspart (NovoLOG) BEFORE MEALS AND HS SUBQ 05/26/19 16:30 06/24/19 06:29 05/28/19 16:46 Levofloxacin 100 ml @ 100 mls/hr Q24H IVPB 05/27/19 09:00 06/02/19 08:59 05/28/19 08:14 Menthol/Methyl Salicylate (Bengay) 1 applic FOUR TIMES A DAY TOPIC 05/28/19 10:00 06/27/19 09:59 05/28/19 13:18 Metformin HCl (Glucophage) 850 mg BIAC ORAL 05/26/19 16:30 06/25/19 16:29 05/28/19 16:46 Methylprednisolone Sodium Succinate (Solu-MEDROL) 60 mg DAILY IV 05/27/19 09:00 06/26/19 08:59 05/28/19 08:12 Metoprolol Tartrate (Lopressor) 50 mg BID@0900,2100 ORAL 05/26/19 21:00 06/24/19 08:59 05/28/19 08:13 Nystatin (Nystop Powder) 1 applic THREE TIMES A DAY TOPIC 05/27/19 20:00 06/26/19 19:59 05/28/19 13:24 Ondansetron HCl (Zofran) 4 mg Q6H PRN IVP Nausea & Vomiting 05/26/19 15:07 06/25/19 15:06 05/28/19 13:16 Pantoprazole (Protonix) 40 mg DAILY ORAL 05/27/19 09:00 06/24/19 08:59 05/28/19 08:13 Sertraline HCl (Zoloft) 150 mg DAILY ORAL 05/27/19 09:00 06/24/19 08:59 Sucralfate (Carafate) 1 gm FOUR TIMES A DAY ORAL 05/27/19 18:00 06/26/19 17:59 05/28/19 13:15 Theophylline (Luis-Dur) 100 mg EVERY 12 HOURS ORAL 05/26/19 21:00 06/24/19 08:59 Zolpidem Tartrate (Ambien) 5 mg HSPRN PRN ORAL Insomnia 05/27/19 19:00 06/03/19 18:59 05/27/19 21:31 Allergies: Coded Allergies: IODINE AND IODIDE CONTAINING PRODUC (Verified Allergy, Severe, Anaphylaxis , 11/21/18) OLANZAPINE (Verified Allergy, Severe, Anaphylaxis, 11/21/18) THROAT SWELLING PROCHLORPERAZINE (Unverified Allergy, Severe, Shortness of Breath, ) ASPIRIN (Verified Allergy, Intermediate, Hives, 11/21/18) BENZTROPINE (Verified Allergy, Intermediate, Hives, 11/21/18) ERYTHROMYCIN BASE (Verified Allergy, Intermediate, Hives, 11/21/18) Tolerates Azithromycin KETOROLAC (Verified Allergy, Intermediate, Hives, 11/21/18) LOSARTAN (Verified Allergy, Intermediate, 11/21/18) ANGIOEDEMA NITROGLYCERIN (Verified Allergy, Intermediate, Hives, 11/21/18) PSEUDOEPHEDRINE (Verified Allergy, Intermediate, Hives, 11/21/18) SULFA (SULFONAMIDE ANTIBIOTICS) (Verified Allergy, Intermediate, Hives, 03/02) TERFENADINE (Verified Allergy, Intermediate, Hives, 11/21/18) TRAMADOL (Verified Allergy, Intermediate, Rash, 11/21/18) ROS Limited/Unobtainable: No Constitutional: Reports: no symptoms HEENT: Reports: no symptoms Cardiovascular: Reports: no symptoms Respiratory: Reports: shortness of breath, wheezing Gastrointestinal/Abdominal: Reports: no symptoms Genitourinary: Reports: no symptoms Neurologic/Psychiatric: Reports: no symptoms Subjective 48 YO F admitted with shortness of breath and wheezing. Now acute COPD exacerbation. Cover for Int Lebron-DR Littlejohn Objective Last Vital Signs Date Time Temp Pulse Resp B/P (MAP) Pulse Ox O2 Delivery O2 Flow Rate FiO2 05/28/19 16:00 97.7 72 20 156/89 (111) 99 05/28/19 09:00 Room Air 05/27/19 20:05 21 05/25/19 03:01 2.0 Laboratory Tests Test 05/28/19 07:50 White Blood Count 12.0 K/UL (4.8-10.8) H Red Blood Count 5.43 M/UL (4.20-5.40) H Hemoglobin 11.7 G/DL (12.0-16.0) L Hematocrit 40.1 % (37.0-47.0) Mean Corpuscular Volume 74 FL (80-99) L Mean Corpuscular Hemoglobin 21.6 PG (27.0-31.0) L Mean Corpuscular Hemoglobin Concent 29.1 G/DL (32.0-36.0) L Red Cell Distribution Width 13.8 % (11.6-14.8) Platelet Count 297 K/UL (150-450) Mean Platelet Volume 7.0 FL (6.5-10.1) Neutrophils (%) (Auto) 73.3 % (45.0-75.0) Lymphocytes (%) (Auto) 22.8 % (20.0-45.0) Monocytes (%) (Auto) 2.9 % (1.0-10.0) Eosinophils (%) (Auto) 0.1 % (0.0-3.0) Basophils (%) (Auto) 0.9 % (0.0-2.0) Sodium Level 135 MMOL/L (136-145) L Potassium Level 3.4 MMOL/L (3.5-5.1) L Chloride Level 96 MMOL/L (98-107) L Carbon Dioxide Level 29 MMOL/L (21-32) Anion Gap 10 mmol/L (5-15) Blood Urea Nitrogen 24 mg/dL (7-18) H Creatinine 1.0 MG/DL (0.55-1.30) Estimat Glomerular Filtration Rate 59.2 mL/min (>60) Glucose Level 315 MG/DL (74-106) H Calcium Level 9.1 MG/DL (8.5-10.1) Intake and Output 05/27/19 05/28/19 19:00 07:00 Intake Total 900 ml 1000 ml Balance 900 ml 1000 ml Intake Oral 800 ml 1000 ml IV Total 100 ml # Voids 4 4 # Bowel Movements 1 1 Objective PHYSICAL EXAMINATION: GENERAL: The patient is a well-developed and well-nourished obese female, in moderate respiratory distress. HEENT: Eyes, pupils are equal and responsive to light and accommodation. Extraocular movements are intact. NECK: Supple without lymphadenopathy. CHEST: Lungs are clear to auscultation bilaterally without wheezes or rales. CARDIOVASCULAR: Regular rhythm and rate. S1 and S2 are normal without murmurs, rubs, or gallops. ABDOMEN: Soft, nontender, and nondistended with positive bowel sounds. No evidence of hepatosplenomegaly. Currently, no rebound or guarding noted. EXTREMITIES: Negative for clubbing, cyanosis, or edema. RECTAL/GENITAL: Not performed. NEUROLOGIC: Cranial nerves II through XII are grossly intact without focal deficits. Motor strength is 5/5 bilaterally. Deep tendon reflexes is 2+ plantar. Assessment/Plan Assessment/Plan ASSESSMENT: This is a 48-year-old female. 1. Shortness of breath. 2. Wheezing. 3. Chest pain. 4. Acute exacerbation of chronic obstructive pulmonary disease. 5. Diabetes type 2. 6. Hypertension. 7. Hypercholesterolemia. 8. Coronary artery disease. 9. Asthma. 10. Depression. 11. Schizoaffective disorder. 12. Cervical spine stenosis with myelopathy. 13. Cerebrovascular disease, status post transient ischemic attack. TREATMENT: 1. Shortness of breath/acute on chronic obstructive pulmonary disease exacerbation. A Pulmonary consultation has been obtained with Dr. Jaswinder Naidu. The patient has been placed empirically on intravenous Solu-Medrol. D/C zosyn; start levaquin. We will follow recommendations of Pulmonary. 2. Diabetes type 2-uncontrolled due to solumedrol. The patient has been placed on a NovoLog sliding scale. Continue glipizide and metformin 3. Hypertension. Continue amlodipine and metoprolol as above. 4. Hypercholesterolemia. Continue atorvastatin as above. 5. Coronary artery disease, status post stent placement. Continue aspirin 81 mg p.o. daily. 6. Depression. Continue Zoloft as above. 7. Schizoaffective disorder. 8. Cervical spine stenosis with myelopathy. 9. Cerebrovascular disease. Peewee Logan MD May 28, 2019 17:05
[2019-05-28 20:00] VITALS: BP 155/91
--- NOTE | 2019-05-28 20:00 | NUR ---
NURSE NOTES: Received patient awake, alert, verbal, resting in bed , comfortable.
[2019-05-28] MEDS: Zolpidem 5mg tab ORAL PRN (21:16)
[2019-05-29] VITALS: BP 164/110
[2019-05-29] MEDS: DiphenhydrAMINE 50mg/ml Inj IVP PRN ×6 (00:32→20:38)
[2019-05-29 04:17] VITALS: BP 151/88
[2019-05-29] MEDS: HydrALAZINE 50mg tab ORAL SCH ×3 (05:35→20:36)
[2019-05-29] MEDS: GlipiZIDE 5mg tab ORAL SCH ×2 (05:35→17:00)
[2019-05-29] MEDS: NovoLOG Insulin Flexpen SUBQ SCH ×4 (05:36→20:37)
--- NOTE | 2019-05-29 07:17 | NUR ---
HAND-OFF: Report given to STEVEN Luque.
--- NOTE | 2019-05-29 07:20 | NUR ---
NURSE NOTES: Received patient from Radha RN in bed, AAO x4. RA. denies any pain at this time. No s/s of distress. IV isintact and patent SL. Bedside rails x 2. Bed in the lowest position, brakes engaged for safety and alarm on. Call light within reach. Will continue with the plan of care.
[2019-05-29 08:00] VITALS: BP 154/83
[2019-05-29] MEDS: Sucralfate 1gm tab ORAL SCH ×4 (08:24→20:32)
[2019-05-29] MEDS: Sertraline 50mg tab ORAL SCH (08:24)
[2019-05-29] MEDS: Theophylline ER 100mg ORAL SCH ×2 (08:25→20:32)
[2019-05-29] MEDS: Furosemide 40mg tab ORAL SCH (08:25)
[2019-05-29] MEDS: Metoprolol Tartrate 50mg tab ORAL SCH ×2 (08:25→20:32)
[2019-05-29] MEDS: Solu-MEDROL 125mg Inj IV SCH (08:26)
[2019-05-29] MEDS: Heparin 5000 units/ml inj SUBQ SCH ×2 (08:27→20:32)
[2019-05-29 09:06] LABS: BASOPHILS % (AUTO) 0.9 % (0.0-2.0); EOSINOPHILS % (AUTO) 0.1 % (0.0-3.0); HEMATOCRIT 40.2 % (37.0-47.0); HEMOGLOBIN 12.4 G/DL (12.0-16.0); LYMPHOCYTES % (AUTO) 21.8 % (20.0-45.0); MEAN CORPUSCULAR VOLUME 72 FL (80-99); MONOCYTES % (AUTO) 3.8 % (1.0-10.0); NEUTROPHILS % (AUTO) 73.5 % (45.0-75.0); PLATELET COUNT 279 K/UL (150-450); RED CELL DISTRIBUTION WIDTH 16.1 % (11.6-14.8); WHITE BLOOD COUNT 14.5 K/UL (4.8-10.8)
[2019-05-29 09:25] LABS: ANION GAP 11 mmol/L (5-15); BLOOD UREA NITROGEN 24 mg/dL (7-18); CALCIUM 9.6 MG/DL (8.5-10.1); CARBON DIOXIDE 29 MMOL/L (21-32); CHLORIDE 96 MMOL/L (98-107); CREATININE 1.1 MG/DL (0.55-1.30); POTASSIUM 3.9 MMOL/L (3.5-5.1); SODIUM 136 MMOL/L (136-145)
[2019-05-29] MEDS: Nystatin Powder 100,000 units/gm 15gm TOPIC SCH ×3 (11:35→18:21)
[2019-05-29] MEDS: Analgesic Balm 15gm TOPIC SCH ×4 (11:36→20:33)
--- NOTE | 2019-05-29 11:55 | NUR ---
*-* INSURANCE *-* ALL CLINICALS HAVE BEENF AXED TO: [employer] Pelay[employer] Ref# [id number] #[phone] fax#[phone]
[2019-05-29 12:00] VITALS: BP 156/92
--- NOTE | 2019-05-29 12:41 | Internal Med Progress Note ---
Subjective Date of Service: May 29, 2019 Physician Name Peewee Logan Attending Physician Hebert Littlejohn MD Current Medications Medications (Trade) Dose Ordered Sig/Raymond Route PRN Reason Start Time Stop Time Status Last Admin Dose Admin Albuterol/ Ipratropium (Albuterol/ Ipratropium) 3 ml Q4H PRN HHN dyspnea 05/26/19 15:07 05/31/19 15:06 Amlodipine Besylate (Norvasc) 10 mg DAILY ORAL 05/27/19 09:00 06/24/19 08:59 05/29/19 08:25 Clonazepam (KlonoPIN) 1 mg BIDPRN PRN ORAL For Anxiety 05/26/19 15:30 06/02/19 15:29 05/29/19 08:44 Clonidine HCl (Catapres Tab) 0.1 mg Q4H PRN ORAL For High Blood Pressure 05/26/19 15:05 06/25/19 15:04 05/28/19 23:29 Dextrose (Dextrose 50%) 25 ml Q30M PRN IV Hypoglycemia 05/26/19 15:15 06/24/19 06:14 Dextrose (Dextrose 50%) 50 ml Q30M PRN IV Hypoglycemia 05/26/19 15:15 06/24/19 06:14 Diphenhydramine HCl (Benadryl) 50 mg Q3H PRN IVP Itching 05/28/19 18:15 06/27/19 18:14 05/29/19 11:58 Furosemide (Lasix) 40 mg DAILY ORAL 05/26/19 15:15 06/25/19 15:14 05/29/19 08:25 Glipizide (Glucotrol) 5 mg BIAC ORAL 05/26/19 16:30 06/25/19 16:29 05/29/19 05:35 Heparin Sodium (Porcine) (Heparin 5000 units/ml) 5,000 units EVERY 12 HOURS SUBQ 05/26/19 21:00 06/24/19 08:59 05/29/19 08:27 Hydralazine HCl (Apresoline) 50 mg EVERY 8 HOURS ORAL 05/26/19 22:00 06/24/19 13:59 05/29/19 05:35 Hydrochlorothiazide (Hydrodiuril) 25 mg DAILY ORAL 05/27/19 09:00 06/24/19 08:59 05/29/19 08:25 Hydromorphone HCl (Dilaudid) 2 mg Q3H PRN IVP Severe Pain (Pain Scale 7-10) 05/28/19 16:00 06/04/19 15:59 05/29/19 11:58 Insulin Aspart (NovoLOG) BEFORE MEALS AND HS SUBQ 05/26/19 16:30 06/24/19 06:29 05/29/19 11:41 Levofloxacin 100 ml @ 100 mls/hr Q24H IVPB 05/27/19 09:00 06/02/19 08:59 05/29/19 10:15 Menthol/Methyl Salicylate (Bengay) 1 applic FOUR TIMES A DAY TOPIC 05/28/19 10:00 06/27/19 09:59 05/29/19 11:36 Metformin HCl (Glucophage) 850 mg BIAC ORAL 05/26/19 16:30 06/25/19 16:29 05/29/19 05:35 Methylprednisolone Sodium Succinate (Solu-MEDROL) 60 mg DAILY IV 05/27/19 09:00 06/26/19 08:59 05/29/19 08:26 Metoprolol Tartrate (Lopressor) 50 mg BID@0900,2100 ORAL 05/26/19 21:00 06/24/19 08:59 05/29/19 08:25 Nystatin (Nystop Powder) 1 applic THREE TIMES A DAY TOPIC 05/27/19 20:00 06/26/19 19:59 05/29/19 11:35 Ondansetron HCl (Zofran) 4 mg Q6H PRN IVP Nausea & Vomiting 05/26/19 15:07 06/25/19 15:06 05/29/19 11:56 Pantoprazole (Protonix) 40 mg DAILY ORAL 05/27/19 09:00 06/24/19 08:59 05/29/19 08:26 Sertraline HCl (Zoloft) 150 mg DAILY ORAL 05/27/19 09:00 06/24/19 08:59 05/29/19 08:24 Sucralfate (Carafate) 1 gm FOUR TIMES A DAY ORAL 05/27/19 18:00 06/26/19 17:59 05/29/19 08:24 Theophylline (Luis-Dur) 100 mg EVERY 12 HOURS ORAL 05/26/19 21:00 06/24/19 08:59 05/29/19 08:25 Zolpidem Tartrate (Ambien) 5 mg HSPRN PRN ORAL Insomnia 05/27/19 19:00 06/03/19 18:59 05/28/19 21:16 Allergies: Coded Allergies: IODINE AND IODIDE CONTAINING PRODUC (Verified Allergy, Severe, Anaphylaxis , 11/21/18) OLANZAPINE (Verified Allergy, Severe, Anaphylaxis, 11/21/18) THROAT SWELLING PROCHLORPERAZINE (Unverified Allergy, Severe, Shortness of Breath, ) ASPIRIN (Verified Allergy, Intermediate, Hives, 11/21/18) BENZTROPINE (Verified Allergy, Intermediate, Hives, 11/21/18) ERYTHROMYCIN BASE (Verified Allergy, Intermediate, Hives, 11/21/18) Tolerates Azithromycin KETOROLAC (Verified Allergy, Intermediate, Hives, 11/21/18) LOSARTAN (Verified Allergy, Intermediate, 11/21/18) ANGIOEDEMA NITROGLYCERIN (Verified Allergy, Intermediate, Hives, 11/21/18) PSEUDOEPHEDRINE (Verified Allergy, Intermediate, Hives, 11/21/18) SULFA (SULFONAMIDE ANTIBIOTICS) (Verified Allergy, Intermediate, Hives, 03/02) TERFENADINE (Verified Allergy, Intermediate, Hives, 11/21/18) TRAMADOL (Verified Allergy, Intermediate, Rash, 11/21/18) ROS Limited/Unobtainable: No Constitutional: Reports: no symptoms HEENT: Reports: no symptoms Cardiovascular: Reports: no symptoms Respiratory: Reports: shortness of breath, wheezing Gastrointestinal/Abdominal: Reports: no symptoms Genitourinary: Reports: no symptoms Neurologic/Psychiatric: Reports: no symptoms Subjective 48 YO F admitted with shortness of breath and wheezing. Now acute COPD exacerbation. Cover for Kanchan Diana-DR Littlejohn Objective Last Vital Signs Date Time Temp Pulse Resp B/P (MAP) Pulse Ox O2 Delivery O2 Flow Rate FiO2 05/29/19 09:00 Room Air 05/29/19 08:25 74 154/83 05/29/19 08:00 97.9 18 100 05/28/19 19:56 21 05/25/19 03:01 2.0 Laboratory Tests Test 05/29/19 08:15 White Blood Count 14.5 K/UL (4.8-10.8) H Red Blood Count 5.60 M/UL (4.20-5.40) H Hemoglobin 12.4 G/DL (12.0-16.0) Hematocrit 40.2 % (37.0-47.0) Mean Corpuscular Volume 72 FL (80-99) L Mean Corpuscular Hemoglobin 22.2 PG (27.0-31.0) L Mean Corpuscular Hemoglobin Concent 30.9 G/DL (32.0-36.0) L Red Cell Distribution Width 16.1 % (11.6-14.8) H Platelet Count 279 K/UL (150-450) Mean Platelet Volume 7.8 FL (6.5-10.1) Neutrophils (%) (Auto) 73.5 % (45.0-75.0) Lymphocytes (%) (Auto) 21.8 % (20.0-45.0) Monocytes (%) (Auto) 3.8 % (1.0-10.0) Eosinophils (%) (Auto) 0.1 % (0.0-3.0) Basophils (%) (Auto) 0.9 % (0.0-2.0) Sodium Level 136 MMOL/L (136-145) Potassium Level 3.9 MMOL/L (3.5-5.1) Chloride Level 96 MMOL/L (98-107) L Carbon Dioxide Level 29 MMOL/L (21-32) Anion Gap 11 mmol/L (5-15) Blood Urea Nitrogen 24 mg/dL (7-18) H Creatinine 1.1 MG/DL (0.55-1.30) Estimat Glomerular Filtration Rate 53.0 mL/min (>60) Glucose Level 326 MG/DL (74-106) H Calcium Level 9.6 MG/DL (8.5-10.1) Intake and Output 05/28/19 05/29/19 19:00 07:00 Intake Total 1460 ml 1000 ml Balance 1460 ml 1000 ml Intake Oral 1460 ml 1000 ml # Voids 8 6 # Bowel Movements 1 1 Objective PHYSICAL EXAMINATION: GENERAL: The patient is a well-developed and well-nourished obese female, in moderate respiratory distress. HEENT: Eyes, pupils are equal and responsive to light and accommodation. Extraocular movements are intact. NECK: Supple without lymphadenopathy. CHEST: Lungs are clear to auscultation bilaterally without wheezes or rales. CARDIOVASCULAR: Regular rhythm and rate. S1 and S2 are normal without murmurs, rubs, or gallops. ABDOMEN: Soft, nontender, and nondistended with positive bowel sounds. No evidence of hepatosplenomegaly. Currently, no rebound or guarding noted. EXTREMITIES: Negative for clubbing, cyanosis, or edema. RECTAL/GENITAL: Not performed. NEUROLOGIC: Cranial nerves II through XII are grossly intact without focal deficits. Motor strength is 5/5 bilaterally. Deep tendon reflexes is 2+ plantar. Assessment/Plan Assessment/Plan ASSESSMENT: This is a 48-year-old female. 1. Shortness of breath. 2. Wheezing. 3. Chest pain. 4. Acute exacerbation of chronic obstructive pulmonary disease. 5. Diabetes type 2. 6. Hypertension. 7. Hypercholesterolemia. 8. Coronary artery disease. 9. Asthma. 10. Depression. 11. Schizoaffective disorder. 12. Cervical spine stenosis with myelopathy. 13. Cerebrovascular disease, status post transient ischemic attack. TREATMENT: 1. Shortness of breath/acute on chronic obstructive pulmonary disease exacerbation. A Pulmonary consultation has been obtained with Dr. Jaswinder Naidu. The patient has been placed empirically on intravenous Solu-Medrol. ABX= levaquin. We will follow recommendations of Pulmonary. 2. Diabetes type 2-uncontrolled due to solumedrol. The patient has been placed on a NovoLog sliding scale. Continue glipizide and metformin 3. Hypertension. Continue amlodipine and metoprolol as above. 4. Hypercholesterolemia. Continue atorvastatin as above. 5. Coronary artery disease, status post stent placement. Continue aspirin 81 mg p.o. daily. 6. Depression. Continue Zoloft as above. 7. Schizoaffective disorder. 8. Cervical spine stenosis with myelopathy. 9. Cerebrovascular disease. Peewee Logan MD May 29, 2019 12:41
--- NOTE | 2019-05-29 12:54 | Pulmonology Progress Note ---
Assessment/Plan Problems: (1) COPD exacerbation (2) History of TIA (transient ischemic attack) (3) Acute bronchitis (4) Moderate pulmonary arterial systolic hypertension (5) COPD (chronic obstructive pulmonary disease) (6) Vaginitis (7) Morbid obesity (8) Diabetes mellitus (9) History of hypertension (10) History of heart artery stent Assessment/Plan protonix and carafate for epigastric pain improving slowly check sputum, still pending change abx to levofloxacin increase insulin coverage check electrolytes dc solumedrol Add monstat intravaginal suppository Subjective ROS Limited/Unobtainable: No Interval Events: upsert because of a in the family Allergies: Coded Allergies: IODINE AND IODIDE CONTAINING PRODUC (Verified Allergy, Severe, Anaphylaxis , 11/21/18) OLANZAPINE (Verified Allergy, Severe, Anaphylaxis, 11/21/18) THROAT SWELLING PROCHLORPERAZINE (Unverified Allergy, Severe, Shortness of Breath, ) ASPIRIN (Verified Allergy, Intermediate, Hives, 11/21/18) BENZTROPINE (Verified Allergy, Intermediate, Hives, 11/21/18) ERYTHROMYCIN BASE (Verified Allergy, Intermediate, Hives, 11/21/18) Tolerates Azithromycin KETOROLAC (Verified Allergy, Intermediate, Hives, 11/21/18) LOSARTAN (Verified Allergy, Intermediate, 11/21/18) ANGIOEDEMA NITROGLYCERIN (Verified Allergy, Intermediate, Hives, 11/21/18) PSEUDOEPHEDRINE (Verified Allergy, Intermediate, Hives, 11/21/18) SULFA (SULFONAMIDE ANTIBIOTICS) (Verified Allergy, Intermediate, Hives, 03/02) TERFENADINE (Verified Allergy, Intermediate, Hives, 11/21/18) TRAMADOL (Verified Allergy, Intermediate, Rash, 11/21/18) Objective Last 24 Hour Vital Signs Date Time Temp Pulse Resp B/P (MAP) Pulse Ox O2 Delivery O2 Flow Rate FiO2 05/29/19 09:00 Room Air 05/29/19 08:25 74 154/83 05/29/19 08:25 74 154/83 05/29/19 08:00 97.9 74 18 154/83 (106) 100 05/29/19 05:35 151/88 05/29/19 04:38 98.0 05/29/19 04:17 98.0 85 19 151/88 (109) 97 05/29/19 00:00 98.1 87 20 164/110 (128) 96 05/28/19 23:29 164/110 05/28/19 21:16 83 155/91 05/28/19 21:16 155/91 05/28/19 21:00 Room Air 05/28/19 20:00 97.8 83 19 155/91 (112) 96 05/28/19 19:56 76 18 97 Room Air 21 05/28/19 16:00 97.7 72 20 156/89 (111) 99 05/28/19 13:15 153/110 Intake and Output 05/28/19 05/29/19 19:00 07:00 Intake Total 1460 ml 1000 ml Balance 1460 ml 1000 ml Intake Oral 1460 ml 1000 ml # Voids 8 6 # Bowel Movements 1 1 Objective General Appearance: obese Lines, tubes and drains: peripheral Respiratory/Chest: chest wall non-tender, scattered rhonchi Cardiovascular/Chest: normal peripheral pulses, normal rate Abdomen: normal bowel sounds, non tender Genitourinary/Rectal: normal genital exam, normal rectal exam Extremities: normal range of motion, non-tender Skin Exam: normal pigmentation Laboratory Tests 05/29/19 08:15: White Blood Count 14.5H, Red Blood Count 5.60H, Hemoglobin 12.4, Hematocrit 40.2 , Mean Corpuscular Volume 72L, Mean Corpuscular Hemoglobin 22.2L, Mean Corpuscular Hemoglobin Concent 30.9L, Red Cell Distribution Width 16.1H, Platelet Count 279, Mean Platelet Volume 7.8, Neutrophils (%) (Auto) 73.5, Lymphocytes (%) (Auto) 21.8, Monocytes (%) (Auto) 3.8, Eosinophils (%) (Auto) 0.1, Basophils (%) (Auto) 0.9, Sodium Level 136, Potassium Level 3.9, Chloride Level 96L, Carbon Dioxide Level 29, Anion Gap 11, Blood Urea Nitrogen 24H, Creatinine 1.1, Estimat Glomerular Filtration Rate 53.0, Glucose Level 326H, Calcium Level 9.6 Current Medications Medications (Trade) Dose Ordered Sig/Raymond Route PRN Reason Start Time Stop Time Status Last Admin Dose Admin Albuterol/ Ipratropium (Albuterol/ Ipratropium) 3 ml Q4H PRN HHN dyspnea 05/26/19 15:07 05/31/19 15:06 Amlodipine Besylate (Norvasc) 10 mg DAILY ORAL 05/27/19 09:00 06/24/19 08:59 05/29/19 08:25 Clonazepam (KlonoPIN) 1 mg BIDPRN PRN ORAL For Anxiety 05/26/19 15:30 06/02/19 15:29 05/29/19 08:44 Clonidine HCl (Catapres Tab) 0.1 mg Q4H PRN ORAL For High Blood Pressure 05/26/19 15:05 06/25/19 15:04 05/28/19 23:29 Dextrose (Dextrose 50%) 25 ml Q30M PRN IV Hypoglycemia 05/26/19 15:15 06/24/19 06:14 Dextrose (Dextrose 50%) 50 ml Q30M PRN IV Hypoglycemia 05/26/19 15:15 06/24/19 06:14 Diphenhydramine HCl (Benadryl) 50 mg Q3H PRN IVP Itching 05/28/19 18:15 06/27/19 18:14 05/29/19 11:58 Furosemide (Lasix) 40 mg DAILY ORAL 05/26/19 15:15 06/25/19 15:14 05/29/19 08:25 Glipizide (Glucotrol) 5 mg BIAC ORAL 05/26/19 16:30 06/25/19 16:29 05/29/19 05:35 Heparin Sodium (Porcine) (Heparin 5000 units/ml) 5,000 units EVERY 12 HOURS SUBQ 05/26/19 21:00 06/24/19 08:59 05/29/19 08:27 Hydralazine HCl (Apresoline) 50 mg EVERY 8 HOURS ORAL 05/26/19 22:00 06/24/19 13:59 05/29/19 05:35 Hydrochlorothiazide (Hydrodiuril) 25 mg DAILY ORAL 05/27/19 09:00 06/24/19 08:59 05/29/19 08:25 Hydromorphone HCl (Dilaudid) 2 mg Q3H PRN IVP Severe Pain (Pain Scale 7-10) 05/28/19 16:00 06/04/19 15:59 05/29/19 11:58 Insulin Aspart (NovoLOG) BEFORE MEALS AND HS SUBQ 05/26/19 16:30 06/24/19 06:29 05/29/19 11:41 Levofloxacin 100 ml @ 100 mls/hr Q24H IVPB 05/27/19 09:00 06/02/19 08:59 05/29/19 10:15 Menthol/Methyl Salicylate (Bengay) 1 applic FOUR TIMES A DAY TOPIC 05/28/19 10:00 06/27/19 09:59 05/29/19 11:36 Metformin HCl (Glucophage) 850 mg BIAC ORAL 05/26/19 16:30 06/25/19 16:29 05/29/19 05:35 Methylprednisolone Sodium Succinate (Solu-MEDROL) 60 mg DAILY IV 05/27/19 09:00 06/26/19 08:59 05/29/19 08:26 Metoprolol Tartrate (Lopressor) 50 mg BID@0900,2100 ORAL 05/26/19 21:00 06/24/19 08:59 05/29/19 08:25 Nystatin (Nystop Powder) 1 applic THREE TIMES A DAY TOPIC 05/27/19 20:00 06/26/19 19:59 05/29/19 11:35 Ondansetron HCl (Zofran) 4 mg Q6H PRN IVP Nausea & Vomiting 05/26/19 15:07 06/25/19 15:06 05/29/19 11:56 Pantoprazole (Protonix) 40 mg DAILY ORAL 05/27/19 09:00 06/24/19 08:59 05/29/19 08:26 Sertraline HCl (Zoloft) 150 mg DAILY ORAL 05/27/19 09:00 06/24/19 08:59 05/29/19 08:24 Sucralfate (Carafate) 1 gm FOUR TIMES A DAY ORAL 05/27/19 18:00 06/26/19 17:59 05/29/19 08:24 Theophylline (Luis-Dur) 100 mg EVERY 12 HOURS ORAL 05/26/19 21:00 06/24/19 08:59 05/29/19 08:25 Zolpidem Tartrate (Ambien) 5 mg HSPRN PRN ORAL Insomnia 05/27/19 19:00 06/03/19 18:59 05/28/19 21:16 Jaswinder Naidu MD May 29, 2019 12:54
--- NOTE | 2019-05-29 15:33 | NUR ---
CASE MANAGEMENT: INITIAL REVIEW 48YR OLD FEMALE FROM HOME CC:UPPER RESP ILLNESS SI:CHRONIC OBSTRUCTIVE PULMONARY DISEASE EXACERBATION 98.1 89 22 173/110 100% ON RA H/H 11/35.3 BG 358 ALK-PHOS 118 BNP 341 IS:PREDNISONE PO X1 IV LASIX X1 PROVENTIL HHN X3 ATROVENT HHN X3 IV MORPHINE X1 IV BENADRYL X1 CHEST X-RAY \: 4E MED SURG UNIT CASE MANAGEMENT: REVIEW 05/26/2019 SI:CHRONIC OBSTRUCTIVE PULMONARY DISEASE EXACERBATION 98.2 80 18 155/99 98% ON RA% ON RA IS:HYDRALAZINE PO Q8HR CATAPRES Q4HR/PRN NORVASC PO QD HYDRODIURIL PO QD LOPRESSOR PO BID PROTONIX PO QD IV SOLU-MEDROL Q6HR NOVOLOG SQ AC&HS \: 4E MED SURG UNIT CASE MANAGEMENT: REVIEW 05/27/2019 SI:CHRONIC OBSTRUCTIVE PULMONARY DISEASE EXACERBATION 97.5 79 18 157/96 98% ON RA% ON RA WBC 11 K+ 2.9 BUN 26 BG 265 IS:IV LEVOFLOXACIN Q24HR KLONOPIN PO BID/PRN HYDRALAZINE PO QD CARAFATE PO QID CATAPRES Q4HR/PRN NORVASC PO QD HYDRODIURIL PO QD LOPRESSOR PO BID PROTONIX PO QD IV SOLU-MEDROL QD NOVOLOG SQ AC&HS METFORMIN PO BIAC GLIPIZIDE PO BIAC HEPARIN SQ BID FANG-DUR PO BID LASIX PO QD \: 4E MED SURG UNIT CASE MANAGEMENT: REVIEW 05/28/2019 SI:CHRONIC OBSTRUCTIVE PULMONARY DISEASE EXACERBATION 97.9 83 19 131/86 98% ON RA% ON RA WBC 12 RBC 5.43 Hgb 11.7 NA+ 135 K+3.4 BUN 24 BG 315 IS:IV LEVOFLOXACIN Q24HR KLONOPIN PO BID/PRN HYDRALAZINE PO QD CARAFATE PO QID CATAPRES Q4HR/PRN NORVASC PO QD HYDRODIURIL PO QD LOPRESSOR PO BID PROTONIX PO QD IV SOLU-MEDROL QD NOVOLOG SQ AC&HS METFORMIN PO BIAC GLIPIZIDE PO BIAC HEPARIN SQ BID FANG-DUR PO BID LASIX PO QD \: 4E MED SURG UNIT CASE MANAGEMENT: REVIEW 05/29/2019 SI:CHRONIC OBSTRUCTIVE PULMONARY DISEASE EXACERBATION 98.1 87 20 156/92 96% ON RA% ON RA CL- 96 BUN 24 BG 326 WBC 14.5 RBC 5.60 IS:IV LEVOFLOXACIN Q24HR KLONOPIN PO BID/PRN HYDRALAZINE PO QD CARAFATE PO QID CATAPRES Q4HR/PRN NORVASC PO QD HYDRODIURIL PO QD LOPRESSOR PO BID PROTONIX PO QD IV SOLU-MEDROL QD NOVOLOG SQ AC&HS METFORMIN PO BIAC GLIPIZIDE PO BIAC HEPARIN SQ BID FANG-DUR PO BID LASIX PO QD \: 4E MED SURG UNIT
[2019-05-29 16:00] VITALS: BP 151/79
--- NOTE | 2019-05-29 17:57 | Diagnostic Imaging Report ---
Indication: Pain, status post fall Technique: 2 views of the right tibia and fibula Comparison: none Findings: No acute fractures. No dislocations. The joint spaces are preserved. No radiopaque foreign body. There is some soft tissue edema Impression: No acute bony trauma This agrees with the preliminary interpretation provided overnight by [facility] service.
--- NOTE | 2019-05-29 18:16 | Diagnostic Imaging Report ---
Indications: Specimen template CT brain noncontrast Technique: Spiral acquisitions obtained through the brain. Angled axial and coronal 5 x 5 mm slices were reconstructed. Total dose length product 1363 mGycm. CTDI vol(s) 62 mGy. Dose reduction achieved using automated exposure control Comparison: None. Findings: No acute intracranial hemorrhage or edema. No mass effect nor midline shift. Normal good-white differentiation. Normal size ventricles and extra-axial CSF spaces. Intact calvarium. Visualized orbits and sinuses are unremarkable. The mastoids are clear Impression: Negative This agrees with the preliminary interpretation provided overnight by [facility] service. The CT scanner at [facility] is accredited by the [employer] and the scans are performed using protocols designed to limit radiation exposure to as low as reasonably achievable to attain images of sufficient resolution adequate for diagnostic evaluation.
--- NOTE | 2019-05-29 19:00 | NUR ---
HAND-OFF: Report given to Radha HARRIS. Endorsed plan of care.
--- NOTE | 2019-05-29 19:30 | NUR ---
NURSE NOTES: Received patient awake, alert, verbal, resting in bed, no SOB noted.
[2019-05-29 20:26] VITALS: BP 167/104
[2019-05-29] MEDS: Miconazole 200mg Supp VAGIN SCH (20:34)
[2019-05-29] MEDS: Zolpidem 5mg tab ORAL PRN (21:50)
[2019-05-30] MEDS: DiphenhydrAMINE 50mg/ml Inj IVP PRN ×7 (00:10→21:45)
[2019-05-30 00:23] VITALS: BP 123/69
[2019-05-30 04:00] VITALS: BP 154/90
[2019-05-30] MEDS: NovoLOG Insulin Flexpen SUBQ SCH ×4 (06:19→21:24)
[2019-05-30] MEDS: HydrALAZINE 50mg tab ORAL SCH ×3 (06:19→21:24)
[2019-05-30] MEDS: GlipiZIDE 5mg tab ORAL SCH ×2 (06:19→17:09)
--- NOTE | 2019-05-30 07:26 | NUR ---
HAND-OFF: Report given to Nicole Elliott RN. Left message to regarding high Blood Sugar-454 per [facility] protocol.Left message also to Dr. Logan regarding patient claiming she has progressive weakness on her right side of the body..
[2019-05-30 07:35] LABS: ANION GAP 12 mmol/L (5-15); BLOOD UREA NITROGEN 32 mg/dL (7-18); CALCIUM 9.8 MG/DL (8.5-10.1); CARBON DIOXIDE 28 MMOL/L (21-32); CHLORIDE 95 MMOL/L (98-107); CREATININE 1.1 MG/DL (0.55-1.30); POTASSIUM 3.8 MMOL/L (3.5-5.1); SODIUM 135 MMOL/L (136-145)
--- NOTE | 2019-05-30 07:39 | NUR ---
NURSE NOTES: Patient awake and alert,respirations unlabored.Patient sitting up in bed and eating breakfast.Call light within reach,bed alarm is on.Reinforce the importance for patient to call for assist before getting out of bed.
[2019-05-30 08:25] VITALS: BP 160/96
[2019-05-30] MEDS: Metoprolol Tartrate 50mg tab ORAL SCH ×2 (08:30→21:24)
[2019-05-30] MEDS: Heparin 5000 units/ml inj SUBQ SCH ×2 (08:34→21:00)
[2019-05-30] MEDS: Sertraline 50mg tab ORAL SCH (08:34)
[2019-05-30] MEDS: Theophylline ER 100mg ORAL SCH ×2 (08:34→21:00)
[2019-05-30] MEDS: Furosemide 40mg tab ORAL SCH (08:35)
[2019-05-30] MEDS: Analgesic Balm 15gm TOPIC SCH ×4 (08:38→21:24)
[2019-05-30] MEDS: Nystatin Powder 100,000 units/gm 15gm TOPIC SCH ×3 (08:38→15:09)
[2019-05-30] MEDS: Sucralfate 1gm tab ORAL SCH ×4 (08:43→21:24)
--- NOTE | 2019-05-30 12:00 | NUR ---
NURSE NOTES: Patient state her Iv was leaking,patient state when she gets her benadryl,the benadryl usually ledezma,after medications given r,notice patient dozing.patient refusing blood sugar check. at this time.will attempt to restart I V. IV removed,patient was touching I V and lifting up the tape.
--- NOTE | 2019-05-30 13:27 | Pulmonology Progress Note ---
Assessment/Plan Problems: (1) COPD exacerbation (2) History of TIA (transient ischemic attack) (3) Acute bronchitis (4) Moderate pulmonary arterial systolic hypertension (5) COPD (chronic obstructive pulmonary disease) (6) Vaginitis (7) Morbid obesity (8) Diabetes mellitus (9) History of hypertension (10) History of heart artery stent Assessment/Plan getting better improving slowly check sputum, still pending change abx to levofloxacin increase insulin coverage check electrolytes dc solumedrol Add monstat intravaginal suppository Subjective ROS Limited/Unobtainable: No Constitutional: Reports: no symptoms HEENT: Repors: no symptoms Respiratory: Reports: no symptoms Allergies: Coded Allergies: IODINE AND IODIDE CONTAINING PRODUC (Verified Allergy, Severe, Anaphylaxis , 11/21/18) OLANZAPINE (Verified Allergy, Severe, Anaphylaxis, 11/21/18) THROAT SWELLING PROCHLORPERAZINE (Unverified Allergy, Severe, Shortness of Breath, ) ASPIRIN (Verified Allergy, Intermediate, Hives, 11/21/18) BENZTROPINE (Verified Allergy, Intermediate, Hives, 11/21/18) ERYTHROMYCIN BASE (Verified Allergy, Intermediate, Hives, 11/21/18) Tolerates Azithromycin KETOROLAC (Verified Allergy, Intermediate, Hives, 11/21/18) LOSARTAN (Verified Allergy, Intermediate, 11/21/18) ANGIOEDEMA NITROGLYCERIN (Verified Allergy, Intermediate, Hives, 11/21/18) PSEUDOEPHEDRINE (Verified Allergy, Intermediate, Hives, 11/21/18) SULFA (SULFONAMIDE ANTIBIOTICS) (Verified Allergy, Intermediate, Hives, 03/02) TERFENADINE (Verified Allergy, Intermediate, Hives, 11/21/18) TRAMADOL (Verified Allergy, Intermediate, Rash, 11/21/18) Objective Last 24 Hour Vital Signs Date Time Temp Pulse Resp B/P (MAP) Pulse Ox O2 Delivery O2 Flow Rate FiO2 05/30/19 09:41 66 20 99 Room Air 21 05/30/19 09:34 Room Air 05/30/19 08:30 80 160/96 05/30/19 08:30 80 160/96 05/30/19 08:25 97.9 67 19 160/96 (117) 100 05/30/19 06:50 98.4 05/30/19 06:19 154/90 05/30/19 04:00 98.4 74 18 154/90 (111) 96 05/30/19 00:23 96.8 72 13 123/69 (87) 100 05/29/19 21:21 67 18 98 Room Air 21 05/29/19 21:00 Room Air 05/29/19 20:42 167/104 05/29/19 20:36 167/104 05/29/19 20:32 102 167/104 05/29/19 20:26 97.2 102 20 167/104 (125) 99 05/29/19 16:00 98.9 77 20 151/79 (103) 99 Intake and Output 05/29/19 05/30/19 18:59 06:59 Intake Total 1000 ml 1600 ml Balance 1000 ml 1600 ml Intake Oral 1000 ml 1600 ml # Voids 4 3 # Bowel Movements 1 Objective General Appearance: obese Lines, tubes and drains: peripheral Respiratory/Chest: chest wall non-tender, scattered rhonchi Cardiovascular/Chest: normal peripheral pulses, normal rate Abdomen: normal bowel sounds, non tender Genitourinary/Rectal: normal genital exam, normal rectal exam Extremities: normal range of motion, non-tender Skin Exam: normal pigmentation Laboratory Tests 05/30/19 04:04: Sodium Level 135L, Potassium Level 3.8, Chloride Level 95L, Carbon Dioxide Level 28, Anion Gap 12, Blood Urea Nitrogen 32H, Creatinine 1.1, Estimat Glomerular Filtration Rate 53.0, Glucose Level 413H, Calcium Level 9.8 Current Medications Medications (Trade) Dose Ordered Sig/Raymond Route PRN Reason Start Time Stop Time Status Last Admin Dose Admin Albuterol/ Ipratropium (Albuterol/ Ipratropium) 3 ml Q4H PRN HHN dyspnea 05/26/19 15:07 05/31/19 15:06 Amlodipine Besylate (Norvasc) 10 mg DAILY ORAL 05/27/19 09:00 06/24/19 08:59 05/30/19 08:30 Clonazepam (KlonoPIN) 1 mg BIDPRN PRN ORAL For Anxiety 05/26/19 15:30 06/02/19 15:29 05/30/19 06:19 Clonidine HCl (Catapres Tab) 0.1 mg Q4H PRN ORAL For High Blood Pressure 05/26/19 15:05 06/25/19 15:04 05/29/19 20:42 Dextrose (Dextrose 50%) 25 ml Q30M PRN IV Hypoglycemia 05/26/19 15:15 06/24/19 06:14 Dextrose (Dextrose 50%) 50 ml Q30M PRN IV Hypoglycemia 05/26/19 15:15 06/24/19 06:14 Diphenhydramine HCl (Benadryl) 50 mg Q3H PRN IVP Itching 05/28/19 18:15 06/27/19 18:14 05/30/19 10:26 Furosemide (Lasix) 40 mg DAILY ORAL 05/26/19 15:15 06/25/19 15:14 05/29/19 08:25 Glipizide (Glucotrol) 5 mg BIAC ORAL 05/26/19 16:30 06/25/19 16:29 05/30/19 06:19 Heparin Sodium (Porcine) (Heparin 5000 units/ml) 5,000 units EVERY 12 HOURS SUBQ 05/26/19 21:00 06/24/19 08:59 05/29/19 08:27 Hydralazine HCl (Apresoline) 50 mg EVERY 8 HOURS ORAL 05/26/19 22:00 06/24/19 13:59 05/30/19 06:19 Hydrochlorothiazide (Hydrodiuril) 25 mg DAILY ORAL 05/27/19 09:00 06/24/19 08:59 05/30/19 08:29 Hydromorphone HCl (Dilaudid) 2 mg Q3H PRN IVP Severe Pain (Pain Scale 7-10) 05/28/19 16:00 06/04/19 15:59 05/30/19 10:31 Insulin Aspart (NovoLOG) BEFORE MEALS AND HS SUBQ 05/26/19 16:30 06/24/19 06:29 05/30/19 06:19 Levofloxacin 100 ml @ 100 mls/hr Q24H IVPB 05/27/19 09:00 06/02/19 08:59 05/30/19 08:48 Menthol/Methyl Salicylate (Bengay) 1 applic FOUR TIMES A DAY TOPIC 05/28/19 10:00 06/27/19 09:59 05/30/19 08:38 Metformin HCl (Glucophage) 850 mg BIAC ORAL 05/26/19 16:30 06/25/19 16:29 05/30/19 06:19 Metoprolol Tartrate (Lopressor) 50 mg BID@0900,2100 ORAL 05/26/19 21:00 06/24/19 08:59 05/30/19 08:30 Miconazole Nitrate (Monistat) 200 mg BEDTIME VAGIN 05/29/19 21:00 06/28/19 20:59 05/29/19 20:34 Nystatin (Nystop Powder) 1 applic THREE TIMES A DAY TOPIC 05/27/19 20:00 06/26/19 19:59 05/30/19 08:38 Ondansetron HCl (Zofran) 4 mg Q6H PRN IVP Nausea & Vomiting 05/26/19 15:07 06/25/19 15:06 05/30/19 10:23 Pantoprazole (Protonix) 40 mg DAILY ORAL 05/27/19 09:00 06/24/19 08:59 05/30/19 08:30 Sertraline HCl (Zoloft) 150 mg DAILY ORAL 05/27/19 09:00 06/24/19 08:59 05/29/19 08:24 Sucralfate (Carafate) 1 gm FOUR TIMES A DAY ORAL 05/27/19 18:00 06/26/19 17:59 05/29/19 20:32 Theophylline (Luis-Dur) 100 mg EVERY 12 HOURS ORAL 05/26/19 21:00 06/24/19 08:59 05/29/19 08:25 Zolpidem Tartrate (Ambien) 5 mg HSPRN PRN ORAL Insomnia 05/27/19 19:00 06/03/19 18:59 05/29/19 21:50 Jaswinder Naidu MD May 30, 2019 13:27
--- NOTE | 2019-05-30 14:04 | NUR ---
NURSING VAULT MAKER NOTE: Mai, Charge Nurse on [facility] called to let me know that patient wanted to speak to me. When I went to patient's room in [address], her door was shut. I asked her to please keep her door open, as she fell yesterday. Patient showed me her arms, which both had some bruising. She said this was because the nurses couldn't start her IV. She then stated that since she doesn't have an IV, the nurses haven't been able to give her IV pain medication. I spoke to Nicole, primary RN. Patient a very difficult IV start. I asked a nurse with superior IV skills to restart her IV, and he was able to place IV in her right wrist. I asked patient to be very careful with IV site and nurse is going to wrap gauze around IV for protection. I then observed patient attempting to go to bathroom, unsteady on her feet. We obtained a bedside commode for her and I asked her to please not get up without assistance for her own safety. Patient agreed. I left my contact information with patient in the event that she has any further concerns.
[2019-05-30 16:00] VITALS: BP 136/84
--- NOTE | 2019-05-30 16:53 | NUR ---
BILLIARD TABLE ASSEMBLER NOTE SW was informed that pt requested to meet w/ SW. SW met w/ pt and assessed her needs. Pt presents as A&O 4x and pleasant. Pt states she currently resides w/ her family but she does not get adequate family support d/t their employment. Pt states her clothes are wet and she needs a long sleeve shirt and a bottom. Pt shares that MD recommended her for rehab upon DC. Pt states she is willing to accept such recommendation. SW assisted pt providing clothes as requested. SW encouraged pt to verbalize her needs/concerns/issue anytime. Pt verbalized understanding. Signed: 05/30/19 at 1657 by POLO SIMON <Co-Signature Required>
--- NOTE | 2019-05-30 18:50 | NUR ---
NURSE NOTES: Patient requesting pain medication and benadryl medication given as ordered. Will monitor,call light within reach.
--- NOTE | 2019-05-30 19:20 | Internal Med Progress Note ---
Subjective Date of Service: May 30, 2019 Physician Name Peewee Logan Attending Physician Hebert Littlejohn MD Current Medications Medications (Trade) Dose Ordered Sig/Raymond Route PRN Reason Start Time Stop Time Status Last Admin Dose Admin Albuterol/ Ipratropium (Albuterol/ Ipratropium) 3 ml Q4H PRN HHN dyspnea 05/26/19 15:07 05/31/19 15:06 Amlodipine Besylate (Norvasc) 10 mg DAILY ORAL 05/27/19 09:00 06/24/19 08:59 05/30/19 08:30 Clonazepam (KlonoPIN) 1 mg BIDPRN PRN ORAL For Anxiety 05/26/19 15:30 06/02/19 15:29 05/30/19 06:19 Clonidine HCl (Catapres Tab) 0.1 mg Q4H PRN ORAL For High Blood Pressure 05/26/19 15:05 06/25/19 15:04 05/29/19 20:42 Dextrose (Dextrose 50%) 25 ml Q30M PRN IV Hypoglycemia 05/26/19 15:15 06/24/19 06:14 Dextrose (Dextrose 50%) 50 ml Q30M PRN IV Hypoglycemia 05/26/19 15:15 06/24/19 06:14 Diphenhydramine HCl (Benadryl) 50 mg Q3H PRN IVP Itching 05/28/19 18:15 06/27/19 18:14 05/30/19 18:43 Furosemide (Lasix) 40 mg DAILY ORAL 05/26/19 15:15 06/25/19 15:14 05/29/19 08:25 Glipizide (Glucotrol) 5 mg BIAC ORAL 05/26/19 16:30 06/25/19 16:29 05/30/19 17:09 Heparin Sodium (Porcine) (Heparin 5000 units/ml) 5,000 units EVERY 12 HOURS SUBQ 05/26/19 21:00 06/24/19 08:59 05/29/19 08:27 Hydralazine HCl (Apresoline) 50 mg EVERY 8 HOURS ORAL 05/26/19 22:00 06/24/19 13:59 05/30/19 15:08 Hydrochlorothiazide (Hydrodiuril) 25 mg DAILY ORAL 05/27/19 09:00 06/24/19 08:59 05/30/19 08:29 Hydromorphone HCl (Dilaudid) 2 mg Q3H PRN IVP Severe Pain (Pain Scale 7-10) 05/28/19 16:00 06/04/19 15:59 05/30/19 18:49 Insulin Aspart (NovoLOG) BEFORE MEALS AND HS SUBQ 05/26/19 16:30 06/24/19 06:29 05/30/19 17:05 Levofloxacin (Levaquin) 500 mg DAILY ORAL 05/31/19 09:00 06/02/19 23:59 Menthol/Methyl Salicylate (Bengay) 1 applic FOUR TIMES A DAY TOPIC 05/28/19 10:00 06/27/19 09:59 05/30/19 15:43 Metformin HCl (Glucophage) 850 mg BIAC ORAL 05/26/19 16:30 06/25/19 16:29 05/30/19 17:09 Metoprolol Tartrate (Lopressor) 50 mg BID@0900,2100 ORAL 05/26/19 21:00 06/24/19 08:59 05/30/19 08:30 Miconazole Nitrate (Monistat) 200 mg BEDTIME VAGIN 05/29/19 21:00 06/28/19 20:59 05/29/19 20:34 Nystatin (Nystop Powder) 1 applic THREE TIMES A DAY TOPIC 05/27/19 20:00 06/26/19 19:59 05/30/19 15:09 Ondansetron HCl (Zofran) 4 mg Q6H PRN IVP Nausea & Vomiting 05/26/19 15:07 06/25/19 15:06 05/30/19 10:23 Pantoprazole (Protonix) 40 mg DAILY ORAL 05/27/19 09:00 06/24/19 08:59 05/30/19 08:30 Sertraline HCl (Zoloft) 150 mg DAILY ORAL 05/27/19 09:00 06/24/19 08:59 05/29/19 08:24 Sucralfate (Carafate) 1 gm FOUR TIMES A DAY ORAL 05/27/19 18:00 06/26/19 17:59 05/29/19 20:32 Theophylline (Luis-Dur) 100 mg EVERY 12 HOURS ORAL 05/26/19 21:00 06/24/19 08:59 05/29/19 08:25 Zolpidem Tartrate (Ambien) 5 mg HSPRN PRN ORAL Insomnia 05/27/19 19:00 06/03/19 18:59 05/29/19 21:50 Allergies: Coded Allergies: IODINE AND IODIDE CONTAINING PRODUC (Verified Allergy, Severe, Anaphylaxis , 11/21/18) OLANZAPINE (Verified Allergy, Severe, Anaphylaxis, 11/21/18) THROAT SWELLING PROCHLORPERAZINE (Unverified Allergy, Severe, Shortness of Breath, ) ASPIRIN (Verified Allergy, Intermediate, Hives, 11/21/18) BENZTROPINE (Verified Allergy, Intermediate, Hives, 11/21/18) ERYTHROMYCIN BASE (Verified Allergy, Intermediate, Hives, 11/21/18) Tolerates Azithromycin KETOROLAC (Verified Allergy, Intermediate, Hives, 11/21/18) LOSARTAN (Verified Allergy, Intermediate, 11/21/18) ANGIOEDEMA NITROGLYCERIN (Verified Allergy, Intermediate, Hives, 11/21/18) PSEUDOEPHEDRINE (Verified Allergy, Intermediate, Hives, 11/21/18) SULFA (SULFONAMIDE ANTIBIOTICS) (Verified Allergy, Intermediate, Hives, 03/02) TERFENADINE (Verified Allergy, Intermediate, Hives, 11/21/18) TRAMADOL (Verified Allergy, Intermediate, Rash, 11/21/18) ROS Limited/Unobtainable: No Constitutional: Reports: no symptoms HEENT: Reports: no symptoms Cardiovascular: Reports: no symptoms Respiratory: Reports: cough, shortness of breath Gastrointestinal/Abdominal: Reports: no symptoms Genitourinary: Reports: no symptoms Neurologic/Psychiatric: Reports: no symptoms Subjective 48 YO F admitted with shortness of breath and wheezing. Now acute COPD exacerbation. Cover for Int [facility]-DR Littlejohn Objective Last Vital Signs Date Time Temp Pulse Resp B/P (MAP) Pulse Ox O2 Delivery O2 Flow Rate FiO2 05/30/19 16:00 97.8 73 18 136/84 (101) 97 05/30/19 09:41 Room Air 21 05/25/19 03:01 2.0 Laboratory Tests Test 05/30/19 04:04 Sodium Level 135 MMOL/L (136-145) L Potassium Level 3.8 MMOL/L (3.5-5.1) Chloride Level 95 MMOL/L (98-107) L Carbon Dioxide Level 28 MMOL/L (21-32) Anion Gap 12 mmol/L (5-15) Blood Urea Nitrogen 32 mg/dL (7-18) H Creatinine 1.1 MG/DL (0.55-1.30) Estimat Glomerular Filtration Rate 53.0 mL/min (>60) Glucose Level 413 MG/DL (74-106) H Calcium Level 9.8 MG/DL (8.5-10.1) Intake and Output 05/29/19 05/30/19 19:00 07:00 Intake Total 1000 ml 1600 ml Balance 1000 ml 1600 ml Intake Oral 1000 ml 1600 ml # Voids 4 3 # Bowel Movements 1 Objective PHYSICAL EXAMINATION: GENERAL: The patient is a well-developed and well-nourished obese female, in moderate respiratory distress. HEENT: Eyes, pupils are equal and responsive to light and accommodation. Extraocular movements are intact. NECK: Supple without lymphadenopathy. CHEST: Lungs are clear to auscultation bilaterally without wheezes or rales. CARDIOVASCULAR: Regular rhythm and rate. S1 and S2 are normal without murmurs, rubs, or gallops. ABDOMEN: Soft, nontender, and nondistended with positive bowel sounds. No evidence of hepatosplenomegaly. Currently, no rebound or guarding noted. EXTREMITIES: Negative for clubbing, cyanosis, or edema. RECTAL/GENITAL: Not performed. NEUROLOGIC: Cranial nerves II through XII are grossly intact without focal deficits. Motor strength is 5/5 bilaterally. Deep tendon reflexes is 2+ plantar. Assessment/Plan Assessment/Plan ASSESSMENT: This is a 48-year-old female. 1. Shortness of breath. 2. Wheezing. 3. Chest pain. 4. Acute exacerbation of chronic obstructive pulmonary disease. 5. Diabetes type 2. 6. Hypertension. 7. Hypercholesterolemia. 8. Coronary artery disease. 9. Asthma. 10. Depression. 11. Schizoaffective disorder. 12. Cervical spine stenosis with myelopathy. 13. Cerebrovascular disease, status post transient ischemic attack. TREATMENT: 1. Shortness of breath/acute on chronic obstructive pulmonary disease exacerbation. A Pulmonary consultation has been obtained with Dr. Jaswinder Naidu. The patient has been placed empirically on intravenous Solu-Medrol. ABX= levaquin. We will follow recommendations of Pulmonary. 2. Diabetes type 2-uncontrolled due to solumedrol. The patient has been placed on a NovoLog sliding scale. Continue glipizide and metformin 3. Hypertension. Continue amlodipine and metoprolol as above. 4. Hypercholesterolemia. Continue atorvastatin as above. 5. Coronary artery disease, status post stent placement. Continue aspirin 81 mg p.o. daily. 6. Depression. Continue Zoloft as above. 7. Schizoaffective disorder. 8. Cervical spine stenosis with myelopathy. 9. Cerebrovascular disease. Peewee Logan MD May 30, 2019 19:20
--- NOTE | 2019-05-30 19:40 | NUR ---
HAND-OFF: Report given to LAUREN HARRIS.
--- NOTE | 2019-05-30 19:53 | NUR ---
NURSE NOTES: Pt is in bed, awake, alert and Verbal. No acute distress noted. Pt is in room ambulating. Pt is asked to be careful not to fall. Pt asked to remain in bed, but pt refuses to follow instructions. IV site in right wrist is covered with kirlex to prevent it from coming out. Pt instructed to not close the door. Fall precaution in place. Bed locked low in position side rails up and call light within reach. Bed alarm on. Pt asked to call for assistance before getting out of bed. Pt will be monitored.
[2019-05-30 20:00] VITALS: BP 142/87
[2019-05-30] MEDS: Miconazole 200mg Supp VAGIN SCH (21:24)
[2019-05-30] MEDS: Zolpidem 5mg tab ORAL PRN (21:24)
[2019-05-30] MEDS ORDERED: LORazepam 0.5mg tab ORAL PRN (23:15)
[2019-05-31] VITALS: BP 152/98
[2019-05-31] MEDS: DiphenhydrAMINE 50mg/ml Inj IVP PRN ×4 (01:01→13:28)
[2019-05-31 04:00] VITALS: BP 149/80
[2019-05-31] MEDS: GlipiZIDE 5mg tab ORAL SCH (06:06)
[2019-05-31] MEDS: HydrALAZINE 50mg tab ORAL SCH ×2 (06:06→13:28)
[2019-05-31] MEDS: NovoLOG Insulin Flexpen SUBQ SCH ×2 (06:08→12:23)
--- NOTE | 2019-05-31 06:43 | NUR ---
NURSE NOTES: Pt is in bed, awake. No acute distress noted. Vitas stable. Pt requires pain medication around the clock.
--- NOTE | 2019-05-31 07:30 | NUR ---
HAND-OFF: Report given to Dedrick Lynch RN.
--- NOTE | 2019-05-31 07:47 | NUR ---
NURSE NOTES: received report from STEVEN Casanova. patient in bed, alert. oriented, verbally responsive, no respiratory distress noted. IV on Rwist 24. intact. fall risk. yellow socks on. bed in the lowest position and locked. call light within reach. will continue to provide plan of care.
[2019-05-31 08:00] VITALS: BP 140/89
--- NOTE | 2019-05-31 08:21 | NUR ---
CASE MANAGEMENT: REVIEW 05/30/2019 SI:CHRONIC OBSTRUCTIVE PULMONARY DISEASE EXACERBATION 97.9 67 19 160/96 100% ON RA% ON RA NA+135 CL-95 BUN 32 BG 413 IS:KLONOPIN PO BID/PRN HYDRALAZINE PO QD CARAFATE PO QID CATAPRES Q4HR/PRN NORVASC PO QD HYDRODIURIL PO QD LOPRESSOR PO BID PROTONIX PO QD NOVOLOG SQ AC&HS METFORMIN PO BIAC GLIPIZIDE PO BIAC HEPARIN SQ BID FANG-DUR PO BID LASIX PO QD \: 4E MED SURG UNIT
[2019-05-31] MEDS: Heparin 5000 units/ml inj SUBQ SCH (09:00)
[2019-05-31] MEDS: Sertraline 50mg tab ORAL SCH (09:00)
[2019-05-31] MEDS: Theophylline ER 100mg ORAL SCH (09:00)
[2019-05-31] MEDS ORDERED: Levofloxacin 500mg tab ORAL SCH (09:00)
[2019-05-31] MEDS: Furosemide 40mg tab ORAL SCH (09:00)
[2019-05-31] MEDS: Sucralfate 1gm tab ORAL SCH ×2 (09:54→13:27)
[2019-05-31] MEDS: Metoprolol Tartrate 50mg tab ORAL SCH (09:55)
--- NOTE | 2019-05-31 10:39 | NUR ---
DISCHARGE PLANNING: PATIENT HAS BEEN ACCEPTED TO [facility] T: [id number] ROOM 3B SKILLED
[2019-05-31 12:00] VITALS: BP 153/86
[2019-05-31 12:08] LABS: ANION GAP 6 mmol/L (5-15); BLOOD UREA NITROGEN 24 mg/dL (7-18); CALCIUM 8.7 MG/DL (8.5-10.1); CARBON DIOXIDE 31 MMOL/L (21-32); CHLORIDE 98 MMOL/L (98-107); SODIUM 135 MMOL/L (136-145)
--- NOTE | 2019-05-31 12:36 | Pulmonology Progress Note ---
Assessment/Plan Problems: (1) COPD exacerbation (2) History of TIA (transient ischemic attack) (3) Acute bronchitis (4) Moderate pulmonary arterial systolic hypertension (5) COPD (chronic obstructive pulmonary disease) (6) Vaginitis (7) Morbid obesity (8) Diabetes mellitus (9) History of hypertension (10) History of heart artery stent Assessment/Plan getting better very slowly check sputum, still pending change abx to levofloxacin increase insulin coverage check electrolytes dc solumedrol Add monstat intravaginal suppository dc planning to a rehab facility Subjective ROS Limited/Unobtainable: No Interval Events: still coughing a lot Constitutional: Reports: no symptoms Allergies: Coded Allergies: IODINE AND IODIDE CONTAINING PRODUC (Verified Allergy, Severe, Anaphylaxis , 11/21/18) OLANZAPINE (Verified Allergy, Severe, Anaphylaxis, 11/21/18) THROAT SWELLING PROCHLORPERAZINE (Unverified Allergy, Severe, Shortness of Breath, ) ASPIRIN (Verified Allergy, Intermediate, Hives, 11/21/18) BENZTROPINE (Verified Allergy, Intermediate, Hives, 11/21/18) ERYTHROMYCIN BASE (Verified Allergy, Intermediate, Hives, 11/21/18) Tolerates Azithromycin KETOROLAC (Verified Allergy, Intermediate, Hives, 11/21/18) LOSARTAN (Verified Allergy, Intermediate, 11/21/18) ANGIOEDEMA NITROGLYCERIN (Verified Allergy, Intermediate, Hives, 11/21/18) PSEUDOEPHEDRINE (Verified Allergy, Intermediate, Hives, 11/21/18) SULFA (SULFONAMIDE ANTIBIOTICS) (Verified Allergy, Intermediate, Hives, 03/02) TERFENADINE (Verified Allergy, Intermediate, Hives, 11/21/18) TRAMADOL (Verified Allergy, Intermediate, Rash, 11/21/18) Objective Last 24 Hour Vital Signs Date Time Temp Pulse Resp B/P (MAP) Pulse Ox O2 Delivery O2 Flow Rate FiO2 05/31/19 09:55 71 140/89 05/31/19 09:55 71 140/89 05/31/19 09:00 Room Air 05/31/19 08:00 98.1 71 16 140/89 (106) 97 05/31/19 06:06 149/80 05/31/19 04:00 97.3 70 18 149/80 (103) 98 05/31/19 01:20 66 20 98 Room Air 21 05/31/19 00:00 97.5 72 18 152/98 (116) 99 05/30/19 21:24 81 142/87 05/30/19 21:24 142/87 05/30/19 21:00 Room Air 05/30/19 20:00 97.9 81 18 142/87 (105) 96 05/30/19 16:00 97.8 73 18 136/84 (101) 97 05/30/19 15:08 165/91 Intake and Output 05/30/19 05/31/19 19:00 07:00 Intake Total 1800 ml 1600 ml Balance 1800 ml 1600 ml Other 1800 ml 1600 ml # Voids 2 Objective General Appearance: obese Lines, tubes and drains: peripheral Respiratory/Chest: chest wall non-tender, scattered rhonchi Cardiovascular/Chest: normal peripheral pulses, normal rate Abdomen: normal bowel sounds, non tender Genitourinary/Rectal: normal genital exam, normal rectal exam Extremities: normal range of motion, non-tender Skin Exam: normal pigmentation Laboratory Tests 05/31/19 11:45: Sodium Level 135L, Potassium Level 4.0, Chloride Level 98, Carbon Dioxide Level 31, Anion Gap 6, Blood Urea Nitrogen 24H, Creatinine 1.0, Estimat Glomerular Filtration Rate 59.2, Glucose Level 148#H, Calcium Level 8.7 Current Medications Medications (Trade) Dose Ordered Sig/Raymond Route PRN Reason Start Time Stop Time Status Last Admin Dose Admin Albuterol/ Ipratropium (Albuterol/ Ipratropium) 3 ml Q4H PRN HHN dyspnea 05/26/19 15:07 05/31/19 15:06 Amlodipine Besylate (Norvasc) 10 mg DAILY ORAL 05/27/19 09:00 06/24/19 08:59 05/31/19 09:55 Clonazepam (KlonoPIN) 1 mg BIDPRN PRN ORAL For Anxiety 05/26/19 15:30 06/02/19 15:29 05/31/19 10:17 Dextrose (Dextrose 50%) 25 ml Q30M PRN IV Hypoglycemia 05/26/19 15:15 06/24/19 06:14 Dextrose (Dextrose 50%) 50 ml Q30M PRN IV Hypoglycemia 05/26/19 15:15 06/24/19 06:14 Diphenhydramine HCl (Benadryl) 50 mg Q3H PRN IVP Itching 05/28/19 18:15 06/27/19 18:14 05/31/19 09:57 Furosemide (Lasix) 40 mg DAILY ORAL 05/26/19 15:15 06/25/19 15:14 05/29/19 08:25 Glipizide (Glucotrol) 5 mg BIAC ORAL 05/26/19 16:30 06/25/19 16:29 05/31/19 06:06 Heparin Sodium (Porcine) (Heparin 5000 units/ml) 5,000 units EVERY 12 HOURS SUBQ 05/26/19 21:00 06/24/19 08:59 05/29/19 08:27 Hydralazine HCl (Apresoline) 50 mg EVERY 8 HOURS ORAL 05/26/19 22:00 06/24/19 13:59 05/31/19 06:06 Hydrochlorothiazide (Hydrodiuril) 25 mg DAILY ORAL 05/27/19 09:00 06/24/19 08:59 05/31/19 09:55 Hydromorphone HCl (Dilaudid) 2 mg Q3H PRN IVP Severe Pain (Pain Scale 7-10) 05/28/19 16:00 06/04/19 15:59 05/31/19 09:57 Insulin Aspart (NovoLOG) BEFORE MEALS AND HS SUBQ 05/26/19 16:30 06/24/19 06:29 05/31/19 12:23 Levofloxacin (Levaquin) 500 mg DAILY ORAL 05/31/19 09:00 06/02/19 23:59 05/31/19 09:55 Lorazepam (Ativan) 1 mg Q6H PRN ORAL For Anxiety 05/30/19 23:15 06/06/19 23:14 Menthol/Methyl Salicylate (Bengay) 1 applic FOUR TIMES A DAY TOPIC 05/28/19 10:00 06/27/19 09:59 05/30/19 21:24 Metformin HCl (Glucophage) 850 mg BIAC ORAL 05/26/19 16:30 06/25/19 16:29 05/31/19 06:06 Metoprolol Tartrate (Lopressor) 50 mg BID@0900,2100 ORAL 05/26/19 21:00 06/24/19 08:59 05/31/19 09:55 Miconazole Nitrate (Monistat) 200 mg BEDTIME VAGIN 05/29/19 21:00 06/28/19 20:59 05/30/19 21:24 Nystatin (Nystop Powder) 1 applic THREE TIMES A DAY TOPIC 05/27/19 20:00 06/26/19 19:59 05/30/19 15:09 Ondansetron HCl (Zofran) 4 mg Q6H PRN IVP Nausea & Vomiting 05/26/19 15:07 06/25/19 15:06 05/31/19 06:07 Pantoprazole (Protonix) 40 mg DAILY ORAL 05/27/19 09:00 06/24/19 08:59 05/31/19 09:55 Sertraline HCl (Zoloft) 150 mg DAILY ORAL 05/27/19 09:00 06/24/19 08:59 05/29/19 08:24 Sucralfate (Carafate) 1 gm FOUR TIMES A DAY ORAL 05/27/19 18:00 06/26/19 17:59 05/31/19 09:54 Theophylline (Luis-Dur) 100 mg EVERY 12 HOURS ORAL 05/26/19 21:00 06/24/19 08:59 05/29/19 08:25 Zolpidem Tartrate (Ambien) 5 mg HSPRN PRN ORAL Insomnia 05/27/19 19:00 06/03/19 18:59 05/30/19 21:24 Jaswinder Naidu MD May 31, 2019 12:36
[2019-05-31] MEDS ORDERED: CLONAZEPAM1 M2 ORAL (13:06)
[2019-05-31 13:28] VITALS: BP 153/86
[2019-05-31] MEDS: Nystatin Powder 100,000 units/gm 15gm TOPIC SCH (13:30)
[2019-05-31] MEDS: Analgesic Balm 15gm TOPIC SCH (13:30)
--- NOTE | 2019-05-31 14:00 | NUR ---
NURSE NOTES: gave patient report to natalie ho. spoke to STEVEN Ferrell protective signal operations supervisor.
--- NOTE | 2019-05-31 14:20 | NUR ---
NURSE NOTES: given patient report to Will Salcido. Spoke to Mariaelena,Commercial Escrow Officer.
--- NOTE | 2019-05-31 15:56 | NUR ---
P.T Note: late entry 1040 P.T evaluation completed and tx initiated. Please refer to P.T evaluation for current functional status.
--- NOTE | 2019-05-31 15:58 | NUR ---
NURSE NOTES: patient discharged to [facility] via ambulance [facility] with fair condition. no respiratory distress noted. no pain at this time. removed IV and ID band. provided dc packet. counted and checked belongings with patient and obtained sign. gave back home medications the patient brought upon admission.
--- NOTE | 2019-05-31 22:30 | Internal Med Progress Note ---
Subjective Physician Name Hebert Littlejohn Attending Physician Hebert Littlejohn MD Allergies: Coded Allergies: IODINE AND IODIDE CONTAINING PRODUC (Verified Allergy, Severe, Anaphylaxis , 11/21/18) OLANZAPINE (Verified Allergy, Severe, Anaphylaxis, 11/21/18) THROAT SWELLING PROCHLORPERAZINE (Unverified Allergy, Severe, Shortness of Breath, ) ASPIRIN (Verified Allergy, Intermediate, Hives, 11/21/18) BENZTROPINE (Verified Allergy, Intermediate, Hives, 11/21/18) ERYTHROMYCIN BASE (Verified Allergy, Intermediate, Hives, 11/21/18) Tolerates Azithromycin KETOROLAC (Verified Allergy, Intermediate, Hives, 11/21/18) LOSARTAN (Verified Allergy, Intermediate, 11/21/18) ANGIOEDEMA NITROGLYCERIN (Verified Allergy, Intermediate, Hives, 11/21/18) PSEUDOEPHEDRINE (Verified Allergy, Intermediate, Hives, 11/21/18) SULFA (SULFONAMIDE ANTIBIOTICS) (Verified Allergy, Intermediate, Hives, 03/02) TERFENADINE (Verified Allergy, Intermediate, Hives, 11/21/18) TRAMADOL (Verified Allergy, Intermediate, Rash, 11/21/18) Subjective Awake, alert, responsive, decreased shortness of breath, no nausea vomiting. Objective Last Vital Signs Date Time Temp Pulse Resp B/P (MAP) Pulse Ox O2 Delivery O2 Flow Rate FiO2 05/31/19 13:28 153/86 05/31/19 12:00 98.1 75 20 98 05/31/19 09:00 Room Air 05/31/19 01:20 21 05/25/19 03:01 2.0 Laboratory Tests Test 05/31/19 11:45 Sodium Level 135 MMOL/L (136-145) L Potassium Level 4.0 MMOL/L (3.5-5.1) Chloride Level 98 MMOL/L (98-107) Carbon Dioxide Level 31 MMOL/L (21-32) Anion Gap 6 mmol/L (5-15) Blood Urea Nitrogen 24 mg/dL (7-18) H Creatinine 1.0 MG/DL (0.55-1.30) Estimat Glomerular Filtration Rate 59.2 mL/min (>60) Glucose Level 148 MG/DL (74-106) #H Calcium Level 8.7 MG/DL (8.5-10.1) Intake and Output 05/30/19 05/31/19 19:00 07:00 Intake Total 1800 ml 1600 ml Balance 1800 ml 1600 ml Other 1800 ml 1600 ml # Voids 2 Objective Physical Exam General: No acute distress, awake and alert HEENT: NCAT, sclera anicteric, PERRL, EOMI. Neck: Supple, no significant jugular venous distention, Lungs: Fair inspiratory effort, positive scattered rhonchi. No Wheeze Heart: Regular rate and rhythm, normal S1/S2, no murmurs Abdomen: soft, nontender, nondistended. Normoactive bowel sounds. / Rectal: Refused and deferred. Extremities: No Cyanosis , clubbing or edema. Neuro: A&O x 3, Able to move all extremities Skin: warm, no rashes or lesions Psych: Normal mood and affect Assessment/Plan Assessment/Plan ASSESSMENT: This is a 48-year-old female. 1. Shortness of breath. 2. Wheezing. 3. Chest pain. 4. Acute exacerbation of chronic obstructive pulmonary disease. 5. Diabetes type 2. 6. Hypertension. 7. Hypercholesterolemia. 8. Coronary artery disease. 9. Asthma. 10. Depression. 11. Schizoaffective disorder. 12. Cervical spine stenosis with myelopathy. 13. Cerebrovascular disease, status post transient ischemic attack. TREATMENT: 1. Shortness of breath/acute on chronic obstructive pulmonary disease exacerbation. A Pulmonary consultation has been obtained with Dr. Jaswinder Naidu. The patient has been placed empirically on intravenous Solu-Medrol. ABX= levaquin. We will follow recommendations of Pulmonary. 2. Diabetes type 2-uncontrolled due to solumedrol. The patient has been placed on a NovoLog sliding scale. Continue glipizide and metformin 3. Hypertension. Continue amlodipine and metoprolol as above. 4. Hypercholesterolemia. Continue atorvastatin as above. 5. Coronary artery disease, status post stent placement. Continue aspirin 81 mg p.o. daily. 6. Depression. Continue Zoloft as above. 7. Schizoaffective disorder. 8. Cervical spine stenosis with myelopathy. 9. Cerebrovascular disease. [facility] today. Hebert Littlejohn MD May 31, 2019 22:30
--- NOTE | 2019-06-01 00:03 | Initial Psychiatric Evaluation ---
Psychiatry Consultation Psychiatry Consultation Chief Complaint: Upper Respiratory Illness Allergies: Coded Allergies: IODINE AND IODIDE CONTAINING PRODUC (Verified Allergy, Severe, Anaphylaxis , 11/21/18) OLANZAPINE (Verified Allergy, Severe, Anaphylaxis, 11/21/18) THROAT SWELLING PROCHLORPERAZINE (Unverified Allergy, Severe, Shortness of Breath, ) ASPIRIN (Verified Allergy, Intermediate, Hives, 11/21/18) BENZTROPINE (Verified Allergy, Intermediate, Hives, 11/21/18) ERYTHROMYCIN BASE (Verified Allergy, Intermediate, Hives, 11/21/18) Tolerates Azithromycin KETOROLAC (Verified Allergy, Intermediate, Hives, 11/21/18) LOSARTAN (Verified Allergy, Intermediate, 11/21/18) ANGIOEDEMA NITROGLYCERIN (Verified Allergy, Intermediate, Hives, 11/21/18) PSEUDOEPHEDRINE (Verified Allergy, Intermediate, Hives, 11/21/18) SULFA (SULFONAMIDE ANTIBIOTICS) (Verified Allergy, Intermediate, Hives, 03/02) TERFENADINE (Verified Allergy, Intermediate, Hives, 11/21/18) TRAMADOL (Verified Allergy, Intermediate, Rash, 11/21/18) Medication History Scheduled Acetaminophen (Acetaminophen), 500 MG ORAL Q4H, (Reported) Amlodipine Besylate (Norvasc), 10 MG ORAL DAILY Atorvastatin Calcium* (Lipitor*), 40 MG ORAL DAILY Budesonide/Formoterol Fumarate (Symbicort 160-4.5 Mcg Inhaler), 2 PUFFS INH BID, (Reported) Diphenhydramine HCl (Benadryl), 25 MG PO EVERY 8 HOURS Docusate Sodium* (Docusate Sodium*), 100 MG ORAL THREE TIMES A DAY, (Reported) Glipizide* (Glucotrol*), 5 MG ORAL BID, (Reported) Hydralazine Hcl* (Hydralazine Hcl*), 50 MG ORAL EVERY 8 HOURS, (Reported) Hydrochlorothiazide (Hydrochlorothiazide), 25 MG ORAL DAILY Insulin Detemir (Levemir Flexpen), 30 UNITS SUBQ BEDTIME Metformin Hcl* (Metformin Hcl*), 850 MG ORAL BID, (Reported) Metoprolol Tartrate* (Metoprolol Tartrate*), 50 MG ORAL BID@0900,2100 Sertraline Hcl* (Zoloft*), 150 MG ORAL DAILY Scheduled PRN Acetaminophen With Codeine (T#3) (Tylenol #3 Tab*), 1 TAB ORAL Q4H PRN Acetaminophen With Codeine (T#4) (Tylenol #4 Tab*), 1 TAB ORAL Q6H PRN Albuterol Sulfate* (Albuterol Sulfate Mdi*), 2 PUFF INH Q4H PRN Clonazepam (Clonazepam), 1 MG ORAL BIDPRN PRN Clonidine Hcl (Clonidine Hcl), 0.1 MG PO Q6HR PRN for For High Blood Pressure, ( Reported) Miscellaneous Medications Budesonide/Formoterol Fumarate (Symbicort 160-4.5 Mcg Inhaler), 1 PUFF IH, ( Reported) Diphenhydramine Hcl (Banophen), 25 MG PO, (Reported) Objective Data Height (Feet): 5 Height (Inches): 4.00 Weight (Pounds): 236 Assessment/Plan Diagnosis [place] I: MDD Neha Ospina MD Jun 01, 2019 00:03
--- NOTE | 2019-06-02 19:29 | Discharge Summary ---
Discharge Summary Discharge Summary _ DATE OF ADMISSION: 05/25/2019 DATE OF DISCHARGE: 05/31/2019 ADMITTING MD: Dr. Hebert Littlejohn DISCHARGED BY: Dr. Jaswinder Naidu CONSULTANTS: Dr. Jaswinder Ospina [facility] HOSPITAL COURSE: The patient is a 48-year-old female, who presented with chief complaint of shortness of breath. The patient had 2-day history of cough and wheezing. She also has chest tightness. She has medical history significant for type 2 diabetes, hypertension, hypercholesterolemia, coronary artery disease, status post 2 stents in 2017, COPD, asthma, depression, schizoaffective disorder, cervical spine stenosis with myelopathy and CVA. Upon evaluation at ED, blood work did not show any leukocytosis. Hemoglobin and hematocrit were stable. Electrolytes were stable. EKG showed normal sinus rhythm. Chest x-ray showed no acute cardiopulmonary process. Patient was given DuoNeb, and Lasix. She was admitted for evaluation of shortness of breath. She was treated empirically with Zosyn. She was given IV Solu-Medrol. Blood glucose was monitored. She was placed on NovoLog sliding scale. She was continued on amlodipine and metoprolol for blood pressure control. She was given a atorvastatin for cholesterol. She has history of depression and was continued on Zoloft. She had a recent echocardiogram that showed normal EF and moderate pulmonary hypertension. She complained of epigastric pain. She was given Protonix and Carafate. Antibiotic was changed to levofloxacin. She had slow improvement. Solu-Medrol was tapered slowly. She complained of vaginal itching and was given Monistat intravaginal suppository. Solu-Medrol was discontinued. She was eventually discharged to SNF. FINAL DIAGNOSES: Acute COPD exacerbation Acute bronchitis Moderate pulmonary arterial systolic hypertension Vaginitis Morbid obesity Type 2 diabetes Hypertension Hypercholesterolemia Coronary artery disease Asthma Major depressive disorder Schizoaffective disorder Cervical spine stenosis with myelopathy Cerebrovascular disease status post TIA DISPOSITION: Patient was discharged to a SNF. DISCHARGE MEDICATIONS: Refer to Discharge Medication List. I have been assigned to complete a discharge summary on this account, I was not involved with the patient's management.--DANN Rogers Jacqueline Robles NP Jun 02, 2019 19:28
== END 2019-05-31 15:57 | DRG 191 ==
LOC: EMR 23:19 → 2E 05-25 00:46 → EDBEDREQ 05-25 01:06 → 4E 05-26 15:05
DX: J44.1 Chronic obstructive pulmonary disease with (acute) exacerbation (principal); I24.9 Acute ischemic heart disease, unspecified; M50.00 Cervical disc disorder with myelopathy, unspecified cervical region; J20.9 Acute bronchitis, unspecified; E66.01 Morbid (severe) obesity due to excess calories; I27.20 Pulmonary hypertension, unspecified; Z88.6 Allergy status to analgesic agent; Z88.1 Allergy status to other antibiotic agents; Z88.2 Allergy status to sulfonamides; Z88.8 Allergy status to other drugs, medicaments and biological substances; E11.9 Type 2 diabetes mellitus without complications; I10 Essential (primary) hypertension; E78.00 Pure hypercholesterolemia, unspecified; F25.9 Schizoaffective disorder, unspecified; I25.10 Atherosclerotic heart disease of native coronary artery without angina pectoris; Z95.5 Presence of coronary angioplasty implant and graft; Z86.73 Personal history of transient ischemic attack (TIA), and cerebral infarction without residual deficits; M48.02 Spinal stenosis, cervical region; N76.0 Acute vaginitis; F32.9 Major depressive disorder, single episode, unspecified; Z68.39 Body mass index [BMI] 39.0-39.9, adult
CPT/HCPCS: 36415; 70450; 71045; 80048; 80053; 82962; 83690; 83880; 84484; 84702; 85025; 93005; 94664; 96374; 96375; 99285; J1815; J2405; J8499

== ENCOUNTER 2019-07-03 14:03 | Inpatient (IN) | payer MEDICARE, OTHER ==
[~2019-07-03] VITALS: Ht 162.6 cm; Wt 108.0 kg
[~2019-07-03 14:03] MED LIST changes: +ACETAMINOPHEN500 M5 ORAL; +BANOPHEN25 MG PO; +CLONAZEPAM1 M2 ORAL; +DOCUSATE SODIU100 MG ORAL; +HYDRALAZINE HCL50 MG ORAL; +SYMBICORT 16010.2 G1 IH
--- NOTE | 2019-07-03 14:20 | NUR ---
ED Nurse Note: Patient came to ED from home c/o new onset weakness over the paast half-hour and nausea pluse diarrhea. Patient has been feeling chest pain when coughing. Patient AxO x 4, no s/s of acute distress. Patient on the monitoring analyst, blood and urine sent to lab. 20 g IV started in right AC
[2019-07-03 14:30] VITALS: BP 153/84
--- NOTE | 2019-07-03 14:40 | Emergency Room Report ---
History of Present Illness General Chief Complaint: Stroke Symptoms Source: Patient Present Illness HPI Patient is a 48-year-old female presents after increased right-sided upper extremity pain and weakness. She had previous history of hypertension as well as previous history of transient ischemic attack. She reports having increased difficulty moving her right upper extremity as well as right-sided shoulder pain. She was seen by her home health nurse and was noted to have elevated blood pressure. Denies any vomiting or Diarrhea.She reports having increased right upper extremity weakness. Reports having prior history of poorly controlled hypertension. Allergies: Coded Allergies: IODINE AND IODIDE CONTAINING PRODUC (Verified Allergy, Severe, Anaphylaxis , 11/21/18) OLANZAPINE (Verified Allergy, Severe, Anaphylaxis, 11/21/18) THROAT SWELLING PROCHLORPERAZINE (Unverified Allergy, Severe, Shortness of Breath, ) ASPIRIN (Verified Allergy, Intermediate, Hives, 11/21/18) BENZTROPINE (Verified Allergy, Intermediate, Hives, 11/21/18) ERYTHROMYCIN BASE (Verified Allergy, Intermediate, Hives, 11/21/18) Tolerates Azithromycin KETOROLAC (Verified Allergy, Intermediate, Hives, 11/21/18) LOSARTAN (Verified Allergy, Intermediate, 11/21/18) ANGIOEDEMA NITROGLYCERIN (Verified Allergy, Intermediate, Hives, 11/21/18) PSEUDOEPHEDRINE (Verified Allergy, Intermediate, Hives, 11/21/18) SULFA (SULFONAMIDE ANTIBIOTICS) (Verified Allergy, Intermediate, Hives, 03/02) TERFENADINE (Verified Allergy, Intermediate, Hives, 11/21/18) TRAMADOL (Verified Allergy, Intermediate, Rash, 11/21/18) Patient History Past Medical History: see triage record Last Menstrual Period: 06/17/19 Now: No Reviewed Nursing Documentation: PMH: Agreed; PSxH: Agreed Nursing Documentation-PMH Past Medical History: No History, Except For Hx Cardiac Problems: Yes - CHF Hx Hypertension: Yes Hx Asthma: Yes Hx COPD: No Hx Diabetes: Yes Hx Cancer: No Hx Gastrointestinal Problems: No Hx Neurological Problems: Yes Hx Transient Ischemic Attacks: Yes - x4 Hx Headaches: Yes Review of Systems All Other Systems: negative except mentioned in HPI Physical Exam Vital Signs Date Time Temp Pulse Resp B/P (MAP) Pulse Ox O2 Delivery O2 Flow Rate FiO2 07/03/19 14:10 98.8 83 16 191/113 139 100 Sp02 EP Interpretation: reviewed, normal General Appearance: normal inspection, well appearing, no apparent distress, alert, GCS 15 Head: atraumatic ENT: normal ENT inspection, hearing grossly normal, normal voice Neck: normal inspection, full range of motion, supple, no bony tend Respiratory: normal inspection, lungs clear, normal breath sounds, no respiratory distress, no retraction, no wheezing Cardiovascular #1: regular rate, rhythm, no edema Gastrointestinal: normal inspection, normal bowel sounds, non tender, soft, no guarding, no hernia Genitourinary: no CVA tenderness Musculoskeletal: normal inspection, back normal, normal range of motion Neurologic: alert, motor strength/tone normal, fire investigation manager III-XII nml as tested, oriented x3, responsive, speech normal, no pronator, normal inspection Psychiatric: normal inspection, judgement/insight normal, mood/affect normal Skin: no rash Medical Decision Making Diagnostic Impression: Primary Impression: Diabetes mellitus Additional Impressions: Right sided weakness CHF exacerbation UTI (urinary tract infection) ER Course Patient presented for increased right-sided weakness. Differential diagnosis include was not limited to CVA, hypertensive crisis, peripheral vascular disease among others. Because of complexity of patient's case laboratory tests and imaging studies were ordered. EKG interpreted by me showed normal sinus rhythm with a left anterior fascicular block without acute ST or T wave changes. Patient was given labetalol for hypertension. She was also given medications for chronic pain. Patient was discussed with Dr. Littlejohn for inpatient management Labs Test 07/03/19 15:50 White Blood Count 5.8 K/UL (4.8-10.8) Red Blood Count 4.85 M/UL (4.20-5.40) Hemoglobin 10.9 G/DL (12.0-16.0) Hematocrit 34.5 % (37.0-47.0) Mean Corpuscular Volume 71 FL (80-99) Mean Corpuscular Hemoglobin 22.5 PG (27.0-31.0) Mean Corpuscular Hemoglobin Concent 31.6 G/DL (32.0-36.0) Red Cell Distribution Width 15.8 % (11.6-14.8) Platelet Count 234 K/UL (150-450) Mean Platelet Volume 6.5 FL (6.5-10.1) Neutrophils (%) (Auto) 51.0 % (45.0-75.0) Lymphocytes (%) (Auto) 38.7 % (20.0-45.0) Monocytes (%) (Auto) 7.3 % (1.0-10.0) Eosinophils (%) (Auto) 1.4 % (0.0-3.0) Basophils (%) (Auto) 1.5 % (0.0-2.0) Prothrombin Time 9.6 SEC (9.30-11.50) Prothromb Time International Ratio 0.9 (0.9-1.1) Activated Partial Thromboplast Time 27 SEC (23-33) Urine Color Pale yellow Urine Appearance Cloudy Urine pH 8 (4.5-8.0) Urine Specific [place] 1.010 (1.005-1.035) Urine Protein Negative (NEGATIVE) Urine Glucose (UA) Negative (NEGATIVE) Urine Ketones Negative (NEGATIVE) Urine Blood 3+ (NEGATIVE) Urine Nitrite Negative (NEGATIVE) Urine Bilirubin Negative (NEGATIVE) Urine Urobilinogen Normal MG/DL (0.0-1.0) Urine Leukocyte Esterase 3+ (NEGATIVE) Urine RBC 15-20 /HPF (0 - 2) Urine WBC 15-20 /HPF (0 - 2) Urine Squamous Epithelial Cells Many /LPF (NONE/OCC) Urine Bacteria Moderate /HPF (NONE) Urine HCG, Qualitative Negative (NEGATIVE) Sodium Level 143 MMOL/L (136-145) Potassium Level 3.2 MMOL/L (3.5-5.1) Chloride Level 103 MMOL/L (98-107) Carbon Dioxide Level 31 MMOL/L (21-32) Anion Gap 9 mmol/L (5-15) Blood Urea Nitrogen 9 mg/dL (7-18) Creatinine 0.7 MG/DL (0.55-1.30) Estimat Glomerular Filtration Rate > 60 mL/min (>60) Glucose Level 155 MG/DL (74-106) Calcium Level 9.2 MG/DL (8.5-10.1) Total Bilirubin 0.2 MG/DL (0.2-1.0) Aspartate Amino Transf (AST/SGOT) 23 U/L (15-37) Alanine Aminotransferase (ALT/SGPT) 26 U/L (12-78) Alkaline Phosphatase 75 U/L (46-116) Troponin I 0.007 ng/mL (0.000-0.056) Pro-B-Type Natriuretic Peptide 371 pg/mL (0-125) Total Protein 6.9 G/DL (6.4-8.2) Albumin 3.6 G/DL (3.4-5.0) Globulin 3.3 g/dL Albumin/Globulin Ratio 1.1 (1.0-2.7) Thyroid Stimulating Hormone (TSH) 0.436 uiU/mL (0.358-3.740) Last Vital Signs Date Time Temp Pulse Resp B/P (MAP) Pulse Ox O2 Delivery O2 Flow Rate FiO2 07/03/19 14:10 98.8 83 16 191/113 (139) 100 Status: improved Disposition: ADMITTED INPATIENT Condition: Stable Ben Wesley MD Jul 03, 2019 14:40
--- NOTE | 2019-07-03 14:42 | Diagnostic Imaging Report ---
Indications: Right-sided Technique: Spiral acquisitions obtained through the brain. Angled axial and coronal 5 x 5 mm slices were reconstructed. Total dose length product 1098 mGycm. CTDI vol(s) 53 mGy. Dose reduction achieved using automated exposure control Comparison: 05/29/2019 Findings: No acute intracranial hemorrhage or edema. No mass effect nor midline shift. Normal good-white differentiation. There is a tiny lacunar infarct in the left basal ganglia region and another in the anterior right lentiform nucleus, not evident previously. Intact calvarium. Visualized orbits and sinuses are unremarkable. The mastoids are clear. Impression: Negative for acute intracranial bleed or mass effect Bilateral basal ganglia lacunar infarcts, as described, appearing remote but not evident on prior study of 05/29/2019 Findings discussed by phone with Dr. Wesley in the emergency room at the time of interpretation The CT scanner at [facility] is accredited by the [employer] and the scans are performed using protocols designed to limit radiation exposure to as low as reasonably achievable to attain images of sufficient resolution adequate for diagnostic evaluation.
[2019-07-03] MEDS ORDERED: Labetalol 5mg/ml 20ml vial IV ONE (14:45)
[2019-07-03] MEDS ORDERED: Albuterol/Ipratropium 3ml neb HHN ONE (14:45)
[2019-07-03] MEDS ORDERED: LORazepam Inj 2mg/ml 1ml IV ONE (14:45)
[2019-07-03] MEDS ORDERED: FUROSEMIDE40 MG ORAL (15:36)
[2019-07-03] MEDS ORDERED: NORVASC10 MG ORAL (15:36)
[2019-07-03] MEDS ORDERED: KLONOPIN1 MG ORAL (15:36)
[2019-07-03] MEDS ORDERED: PLAVIX75 MG ORAL (15:36)
[2019-07-03] MEDS ORDERED: SYMBICORT 16010.2 G1 IH (15:36)
[2019-07-03 16:10] VITALS: BP 155/87
[2019-07-03 16:14] LABS: APPEARANCE,URINE CLOUDY; BILIRUBIN, URINE NEGATIVE (NEGATIVE); COLOR,URINE PALE YELLOW; GLUCOSE, URINE (UA) NEGATIVE (NEGATIVE); KETONES,URINE NEGATIVE (NEGATIVE); LEUKOCYTE ESTERASE ,URINE 3+ (NEGATIVE); NITRITE,URINE NEGATIVE (NEGATIVE); PH,URINE 8 (4.5-8.0); PROTEIN,URINE NEGATIVE (NEGATIVE); UROBILINOGEN,URINE NORMAL MG/DL (0.0-1.0)
[2019-07-03] MEDS ORDERED: DiphenhydrAMINE 25mg Tab ORAL ONE (16:15)
[2019-07-03 16:22] LABS: INR 0.9 (0.9-1.1)
[2019-07-03 16:25] LABS: BASOPHILS % (AUTO) 1.5 % (0.0-2.0); EOSINOPHILS % (AUTO) 1.4 % (0.0-3.0); HEMATOCRIT 34.5 % (37.0-47.0); HEMOGLOBIN 10.9 G/DL (12.0-16.0); LYMPHOCYTES % (AUTO) 38.7 % (20.0-45.0); MEAN CORPUSCULAR VOLUME 71 FL (80-99); MONOCYTES % (AUTO) 7.3 % (1.0-10.0); PLATELET COUNT 234 K/UL (150-450); RED BLOOD COUNT 4.85 M/UL (4.20-5.40); RED CELL DISTRIBUTION WIDTH 15.8 % (11.6-14.8); WHITE BLOOD COUNT 5.8 K/UL (4.8-10.8)
[2019-07-03 16:26] LABS: ANION GAP 9 mmol/L (5-15); BLOOD UREA NITROGEN 9 mg/dL (7-18); CALCIUM 9.2 MG/DL (8.5-10.1); CARBON DIOXIDE 31 MMOL/L (21-32); CHLORIDE 103 MMOL/L (98-107); CREATININE 0.7 MG/DL (0.55-1.30); POTASSIUM 3.2 MMOL/L (3.5-5.1); SODIUM 143 MMOL/L (136-145)
[2019-07-03 16:39] LABS: ALANINE AMINOTRANSFERASE 26 U/L (12-78); ALBUMIN 3.6 G/DL (3.4-5.0); ALBUMIN/GLOBULIN RATIO 1.1 (1.0-2.7); ALKALINE PHOSPHATASE 75 U/L (46-116); ASPARTATE AMINO TRANSFERASE 23 U/L (15-37); BILIRUBIN,TOTAL 0.2 MG/DL (0.2-1.0)
--- NOTE | 2019-07-03 17:30 | NUR ---
ED Nurse Note: Patient resting in bed, no s/s of acute distress.
[2019-07-03] MEDS ORDERED: cefTRIAXone 1 GM in NS 55 ML IVPB ONE (18:15)
[2019-07-03] MEDS ORDERED: Miralax 17gm pkt ORAL PRN (18:45)
[2019-07-03] MEDS ORDERED: Labetalol 5mg/ml 20ml vial IV PRN (18:45)
[2019-07-03] MEDS ORDERED: dilTIAZem HCl 25mg/5ml Inj IV PRN (18:45)
[2019-07-03] MEDS ORDERED: Albuterol/Ipratropium 3ml neb HHN PRN (18:45)
[2019-07-03 19:11] VITALS: BP 160/89
--- NOTE | 2019-07-03 19:20 | NUR ---
ED Nurse Note: pt received from STEVEN Portillo. pt is resting in bed, still c/o itching. pt received PO benadryl 2 hours ago, ERMD notified.
--- NOTE | 2019-07-03 19:33 | NUR ---
ED Nurse Note: report given to STEVEN Zapata
[2019-07-03 20:05] VITALS: BP 170/106
--- NOTE | 2019-07-03 20:05 | NUR ---
NURSE NOTES: Received report from Ashely RN, pt. in bed awake, A/O x's4- able to make needs known- no signs or symptoms of acute cardiac or respiratory distress noted, monitoring and evaluation advisor placed on patient, full body assessment done- skin intact, bed in lowest position and call light within easy reach, pt. aware to ask for assist and not to ambulate as her gait is unsteady and weak, pt. appears to be sating well on room air- no distress noted, pt. has bed christopher at bedside and within easy reach, pt. refusing to have me look through her belongings- charge nurse aware and at bedside when asked- pt. signed paper to refuse belongings to be checked, pt. states she does not have any form of medication with her at bedside, pt. teachign done and pt. oriented to room, RAC 20G IV intact and patent, safety measures continued, will continue with plan of care.
[2019-07-03] MEDS: Metoprolol Tartrate 50mg tab ORAL SCH (20:09)
[2019-07-03] MEDS: Heparin 5000 units/ml inj SUBQ SCH (20:09)
--- NOTE | 2019-07-03 20:24 | NUR ---
NURSE NOTES: left message for DR. Naidu, regarding new admission pt. asking for pain medications either dilaudid or morphine and Benadryl- awaiting for call back from doctor.
--- NOTE | 2019-07-03 20:48 | NUR ---
NURSE NOTES: per DR. Naidu- to prescribe Harlan 5/325 PO Q6hrs prn pain - pt. stating that Harlan does ot work for her- and is asking for Morphine- awaiting for call back from doctor.
--- NOTE | 2019-07-03 21:14 | NUR ---
NURSE NOTES: per DR. Madyson romero to give patient Morphine 4mg IV Q4hrs prn pain and Benadryl 25mg IV q4hrs prn itching- orders carried out.
[2019-07-03] MEDS: Morphine Sulfate 4mg/ml Inj (IV USE ONLY) IVP PRN (21:28)
[2019-07-03 21:29] VITALS: BP 171/94
[2019-07-03] MEDS: DiphenhydrAMINE 50mg/ml Inj IVP PRN (21:29)
[2019-07-03] MEDS: HydrALAZINE 50mg tab ORAL SCH (22:31)
[2019-07-04] VITALS (8 sets, daily range): BP systolic 139–162; BP diastolic 73–98
[2019-07-04] MEDS: Enalaprilat 2.5mg/2ml Inj IV PRN ×2 (00:23→16:35)
[2019-07-04] MEDS: DiphenhydrAMINE 50mg/ml Inj IVP PRN ×5 (01:44→22:27)
[2019-07-04] MEDS: Morphine Sulfate 4mg/ml Inj (IV USE ONLY) IVP PRN ×2 (01:44→06:19)
[2019-07-04 04:41] LABS: BASOPHILS % (AUTO) 2.1 % (0.0-2.0); EOSINOPHILS % (AUTO) 1.1 % (0.0-3.0); HEMATOCRIT 34.8 % (37.0-47.0); LYMPHOCYTES % (AUTO) 45.7 % (20.0-45.0); MEAN CORPUSCULAR VOLUME 71 FL (80-99); MONOCYTES % (AUTO) 8.8 % (1.0-10.0); NEUTROPHILS % (AUTO) 42.4 % (45.0-75.0); PLATELET COUNT 251 K/UL (150-450); RED BLOOD COUNT 4.88 M/UL (4.20-5.40); RED CELL DISTRIBUTION WIDTH 16.4 % (11.6-14.8); WHITE BLOOD COUNT 5.6 K/UL (4.8-10.8)
[2019-07-04] MEDS: HydrALAZINE 50mg tab ORAL SCH ×3 (05:00→22:37)
[2019-07-04 05:27] LABS: CHOLESTEROL 204 MG/DL (< 200); HDL CHOLESTEROL 66 MG/DL (40-60); TRIGLYCERIDES 118 MG/DL (30-150)
--- NOTE | 2019-07-04 07:04 | NUR ---
HAND-OFF: Report given to Mikie RN, pt. remains stable and no signs of distress noted- aware to f/u on abnormal am labs
--- NOTE | 2019-07-04 07:05 | NUR ---
NURSE NOTES: Received patient from STEVEN Zapata. Patient is in bed sleeping and easily arousable. Patient is aox4. Patient is on room air with no signs of distress at this time. Patient is showing SR on the monitor and no reports of arrhythmias from previous shift. patient has a RAC 20 g. Bed is locked, alarmed and in lowest position, Side rails x2, and call light is within reach. Will continue to monitor.
--- NOTE | 2019-07-04 08:00 | NUR ---
NURSE NOTES: Called MD and notified MD of K Level of 3.2. Md ordered KCL 40meq by mouth. Will carry out order.
[2019-07-04] MEDS: hydroCHLOROthiazide 25mg cap ORAL SCH (08:41)
[2019-07-04] MEDS: Metoprolol Tartrate 50mg tab ORAL SCH ×2 (08:42→20:05)
[2019-07-04] MEDS: Furosemide 40mg tab ORAL SCH ×2 (08:45→09:02)
[2019-07-04] MEDS: Atorvastatin 20mg tab ORAL SCH (08:47)
[2019-07-04] MEDS: Heparin 5000 units/ml inj SUBQ SCH ×2 (08:53→20:06)
--- NOTE | 2019-07-04 10:46 | Consultation ---
History of Present Illness General Date patient seen: Jul 04, 2019 Chief Complaint: Stroke Symptoms Present Illness HPI 48-year-old female with hx of HTN, DM, CAD, stented coronary artery, morbid obesity, TIA's, spinal stenosis presented to ER with CC of right-sided upper extremity pain and weakness. She reports having increased difficulty moving her right upper extremity as well as right-sided shoulder pain. She was seen by her home health nurse and was noted to have elevated blood pressure. .She reports having increased right upper extremity weakness. Her BP was 190/[address] of head showed recent bilateral lacunar infarcts. Allergies: Coded Allergies: IODINE AND IODIDE CONTAINING PRODUC (Verified Allergy, Severe, Anaphylaxis , 11/21/18) OLANZAPINE (Verified Allergy, Severe, Anaphylaxis, 11/21/18) THROAT SWELLING PROCHLORPERAZINE (Unverified Allergy, Severe, Shortness of Breath, ) ASPIRIN (Verified Allergy, Intermediate, Hives, 11/21/18) BENZTROPINE (Verified Allergy, Intermediate, Hives, 11/21/18) ERYTHROMYCIN BASE (Verified Allergy, Intermediate, Hives, 11/21/18) Tolerates Azithromycin KETOROLAC (Verified Allergy, Intermediate, Hives, 11/21/18) LOSARTAN (Verified Allergy, Intermediate, 11/21/18) ANGIOEDEMA NITROGLYCERIN (Verified Allergy, Intermediate, Hives, 11/21/18) PSEUDOEPHEDRINE (Verified Allergy, Intermediate, Hives, 11/21/18) SULFA (SULFONAMIDE ANTIBIOTICS) (Verified Allergy, Intermediate, Hives, 03/02) TERFENADINE (Verified Allergy, Intermediate, Hives, 11/21/18) TRAMADOL (Verified Allergy, Intermediate, Rash, 11/21/18) Medication History Scheduled Acetaminophen (Acetaminophen), 500 MG ORAL Q4H, (Reported) Amlodipine Besylate (Norvasc), 10 MG ORAL DAILY, (Reported) Atorvastatin Calcium* (Lipitor*), 40 MG ORAL DAILY Budesonide/Formoterol Fumarate (Symbicort 160-4.5 Mcg Inhaler), 2 PUFF IH TWICE A DAY, (Reported) Clonazepam* (Klonopin*), 1 MG ORAL DAILY, (Reported) Clopidogrel Bisulfate* (Plavix*), 75 MG ORAL DAILY, (Reported) Docusate Sodium* (Docusate Sodium*), 100 MG ORAL THREE TIMES A DAY, (Reported) Furosemide* (Lasix*), 40 MG ORAL DAILY, (Reported) Glipizide* (Glucotrol*), 5 MG ORAL BID, (Reported) Hydralazine Hcl* (Hydralazine Hcl*), 50 MG ORAL EVERY 8 HOURS, (Reported) Hydrochlorothiazide (Hydrochlorothiazide), 25 MG ORAL DAILY Insulin Detemir (Levemir Flexpen), 30 UNITS SUBQ BEDTIME Metformin Hcl* (Metformin Hcl*), 850 MG ORAL BID, (Reported) Metoprolol Tartrate* (Metoprolol Tartrate*), 50 MG ORAL BID@0900,2100 Scheduled PRN Albuterol Sulfate* (Albuterol Sulfate Mdi*), 2 PUFF INH Q4H PRN Clonidine Hcl (Clonidine Hcl), 0.1 MG PO Q6HR PRN for For High Blood Pressure, ( Reported) Miscellaneous Medications Diphenhydramine Hcl (Banophen), 25 MG PO, (Reported) Discontinued Medications Acetaminophen With Codeine (T#3) (Tylenol #3 Tab*), 1 TAB ORAL Q4H PRN Discontinued Reason: Therapy completed Acetaminophen With Codeine (T#4) (Tylenol #4 Tab*), 1 TAB ORAL Q6H PRN Discontinued Reason: Therapy completed Amlodipine Besylate (Norvasc), 10 MG ORAL DAILY Discontinued Reason: Therapy completed Budesonide/Formoterol Fumarate (Symbicort 160-4.5 Mcg Inhaler), 2 PUFFS INH BID, (Reported) Discontinued Reason: Therapy completed Budesonide/Formoterol Fumarate (Symbicort 160-4.5 Mcg Inhaler), 1 PUFF IH, ( Reported) Discontinued Reason: Therapy completed Clonazepam (Clonazepam), 1 MG ORAL BIDPRN PRN Discontinued Reason: Therapy completed Diphenhydramine HCl (Benadryl), 25 MG PO EVERY 8 HOURS Discontinued Reason: Therapy completed Sertraline Hcl* (Zoloft*), 150 MG ORAL DAILY Discontinued Reason: Therapy completed Patient History Healthcare decision maker Resuscitation status Full Code Advanced Directive on File No Past Medical/Surgical History Past Medical/Surgical History: (1) Spinal stenosis (2) Diabetes mellitus (3) History of hypertension (4) History of TIA (transient ischemic attack) (5) CAD (coronary artery disease) (6) Morbid obesity (7) Moderate pulmonary arterial systolic hypertension (8) Cardiac left ventricular ejection fraction greater than 40 percent (9) History of heart artery stent Review of Systems All Other Systems: negative except mentioned in HPI Physical Exam General Appearance: WD/WN, overweight Lines, tubes and drains: peripheral HEENT: normocephalic, atraumatic Neck: non-tender, supple Respiratory/Chest: chest wall non-tender, lungs clear Breasts: no masses Cardiovascular/Chest: normal peripheral pulses Abdomen: normal bowel sounds, non tender Genitourinary/Rectal: normal genital exam, normal rectal exam Extremities: normal range of motion, non-tender Neurologic: shoveler II-XII grossly normal Lymphatic: anterior cervical Last 24 Hour Vital Signs Date Time Temp Pulse Resp B/P (MAP) Pulse Ox O2 Delivery O2 Flow Rate FiO2 07/04/19 08:48 74 151/81 07/04/19 08:42 74 151/81 07/04/19 08:00 72 07/04/19 08:00 Room Air 07/04/19 06:49 97.5 07/04/19 06:09 76 158/73 (101) 07/04/19 05:00 140/77 07/04/19 04:00 97.5 64 20 140/77 (98) 100 07/04/19 04:00 Room Air 07/04/19 03:31 66 07/04/19 01:45 74 140/89 (106) 07/04/19 01:06 70 20 139/81 (100) 99 07/04/19 00:34 68 07/04/19 00:23 161/79 07/04/19 00:20 67 07/04/19 00:00 Room Air 07/04/19 00:00 97.7 64 20 161/79 (106) 99 07/03/19 23:26 64 07/03/19 22:31 169/89 07/03/19 21:29 171/94 (119) 07/03/19 20:26 Room Air 07/03/19 20:19 80 07/03/19 20:09 79 170/66 07/03/19 20:05 Room Air 07/03/19 20:05 97.5 79 20 170/106 (127) 98 07/03/19 19:40 98.7 84 18 160/89 98 Room Air 21 07/03/19 19:25 98.7 07/03/19 19:11 84 18 160/89 98 Room Air 07/03/19 16:10 98.2 88 20 155/87 99 Room Air 07/03/19 16:09 84 186/87 07/03/19 15:00 67 18 98 Room Air 21 78 20 98 07/03/19 14:30 98.0 84 20 153/84 100 Room Air 07/03/19 14:10 98.8 83 16 191/113 (139) 100 Intake and Output 07/03/19 07/04/19 19:00 07:00 Intake Total 0 ml Output Total 0 ml Balance 0 ml 0 ml Intake Oral 0 ml Output Urine Total 0 ml # Voids 2 # Bowel Movements 3 Laboratory Tests Test 07/03/19 15:50 07/04/19 03:10 White Blood Count 5.8 K/UL (4.8-10.8) 5.6 K/UL (4.8-10.8) Red Blood Count 4.85 M/UL (4.20-5.40) 4.88 M/UL (4.20-5.40) Hemoglobin 10.9 G/DL (12.0-16.0) L 11.0 G/DL (12.0-16.0) L Hematocrit 34.5 % (37.0-47.0) L 34.8 % (37.0-47.0) L Mean Corpuscular Volume 71 FL (80-99) L 71 FL (80-99) L Mean Corpuscular Hemoglobin 22.5 PG (27.0-31.0) L 22.5 PG (27.0-31.0) L Mean Corpuscular Hemoglobin Concent 31.6 G/DL (32.0-36.0) L 31.5 G/DL (32.0-36.0) L Red Cell Distribution Width 15.8 % (11.6-14.8) H 16.4 % (11.6-14.8) H Platelet Count 234 K/UL (150-450) 251 K/UL (150-450) Mean Platelet Volume 6.5 FL (6.5-10.1) 6.2 FL (6.5-10.1) L Neutrophils (%) (Auto) 51.0 % (45.0-75.0) 42.4 % (45.0-75.0) L Lymphocytes (%) (Auto) 38.7 % (20.0-45.0) 45.7 % (20.0-45.0) H Monocytes (%) (Auto) 7.3 % (1.0-10.0) 8.8 % (1.0-10.0) Eosinophils (%) (Auto) 1.4 % (0.0-3.0) 1.1 % (0.0-3.0) Basophils (%) (Auto) 1.5 % (0.0-2.0) 2.1 % (0.0-2.0) H Prothrombin Time 9.6 SEC (9.30-11.50) 10.2 SEC (9.30-11.50) Prothromb Time International Ratio 0.9 (0.9-1.1) 1.0 (0.9-1.1) Activated Partial Thromboplast Time 27 SEC (23-33) 30 SEC (23-33) Urine Color Pale yellow Urine Appearance Cloudy Urine pH 8 (4.5-8.0) Urine Specific [place] 1.010 (1.005-1.035) Urine Protein Negative (NEGATIVE) Urine Glucose (UA) Negative (NEGATIVE) Urine Ketones Negative (NEGATIVE) Urine Blood 3+ (NEGATIVE) H Urine Nitrite Negative (NEGATIVE) Urine Bilirubin Negative (NEGATIVE) Urine Urobilinogen Normal MG/DL (0.0-1.0) Urine Leukocyte Esterase 3+ (NEGATIVE) H Urine RBC 15-20 /HPF (0 - 2) H Urine WBC 15-20 /HPF (0 - 2) H Urine Squamous Epithelial Cells Many /LPF (NONE/OCC) H Urine Bacteria Moderate /HPF (NONE) H Urine HCG, Qualitative Negative (NEGATIVE) Sodium Level 143 MMOL/L (136-145) Potassium Level 3.2 MMOL/L (3.5-5.1) L Chloride Level 103 MMOL/L (98-107) Carbon Dioxide Level 31 MMOL/L (21-32) Anion Gap 9 mmol/L (5-15) Blood Urea Nitrogen 9 mg/dL (7-18) Creatinine 0.7 MG/DL (0.55-1.30) Estimat Glomerular Filtration Rate > 60 mL/min (>60) Glucose Level 155 MG/DL (74-106) H Calcium Level 9.2 MG/DL (8.5-10.1) Total Bilirubin 0.2 MG/DL (0.2-1.0) Aspartate Amino Transf (AST/SGOT) 23 U/L (15-37) Alanine Aminotransferase (ALT/SGPT) 26 U/L (12-78) Alkaline Phosphatase 75 U/L (46-116) Troponin I 0.007 ng/mL (0.000-0.056) 0.000 ng/mL (0.000-0.056) Pro-B-Type Natriuretic Peptide 371 pg/mL (0-125) H Total Protein 6.9 G/DL (6.4-8.2) Albumin 3.6 G/DL (3.4-5.0) Globulin 3.3 g/dL Albumin/Globulin Ratio 1.1 (1.0-2.7) Thyroid Stimulating Hormone (TSH) 0.436 uiU/mL (0.358-3.740) 0.892 uiU/mL (0.358-3.740) C-Reactive Protein, Quantitative < 0.4 mg/dL (0.00-0.90) Triglycerides Level 118 MG/DL (30-150) Cholesterol Level 204 MG/DL (< 200) H LDL Cholesterol 119 mg/dL (<100) H HDL Cholesterol 66 MG/DL (40-60) H Cholesterol/HDL Ratio 3.1 (3.3-4.4) L Microbiology Date/Time Source Procedure Growth Status 07/03/19 15:50 Urine,Clean Catch Urine Culture - Preliminary NO GROWTH Resulted Height (Feet): 5 Height (Inches): 4.00 Weight (Pounds): 220 Medications Current Medications Medications (Trade) Dose Ordered Sig/Raymond Route PRN Reason Start Time Stop Time Status Last Admin Dose Admin Acetaminophen (Tylenol) 650 mg Q4H PRN ORAL FEVER 07/03/19 18:45 08/02/19 18:44 Albuterol/ Ipratropium (Albuterol/ Ipratropium) 3 ml Q4H PRN HHN Shortness of Breath 07/03/19 18:45 07/08/19 18:44 Amlodipine Besylate (Norvasc) 10 mg DAILY ORAL 07/04/19 09:00 08/03/19 08:59 07/04/19 08:48 Atorvastatin Calcium (Lipitor) 40 mg DAILY ORAL 07/04/19 09:00 08/03/19 08:59 07/04/19 08:47 Dextrose (Dextrose 50%) 25 ml Q30M PRN IV Hypoglycemia 07/04/19 10:30 08/03/19 10:29 Dextrose (Dextrose 50%) 50 ml Q30M PRN IV Hypoglycemia 07/04/19 10:30 08/03/19 10:29 Diltiazem HCl (Cardizem) 10 mg Q1H PRN IV heart rate more than 120, 07/03/19 18:45 08/02/19 18:44 Diphenhydramine HCl (Benadryl) 25 mg Q4H PRN IVP Itching/ with morphine 07/03/19 21:30 08/02/19 21:29 07/04/19 06:19 Enalaprilat (Vasotec) 2.5 mg Q6H PRN IV sbp more than 160 07/03/19 18:45 08/02/19 18:44 07/04/19 00:23 Famotidine (Pepcid) 20 mg BID ORAL 07/04/19 11:00 08/03/19 10:59 Furosemide (Lasix) 40 mg DAILY ORAL 07/04/19 09:00 08/03/19 08:59 07/04/19 08:45 Heparin Sodium (Porcine) (Heparin 5000 units/ml) 5,000 units EVERY 12 HOURS SUBQ 07/03/19 21:00 08/02/19 20:59 07/04/19 08:53 Hydralazine HCl (Apresoline) 50 mg EVERY 8 HOURS ORAL 07/03/19 22:00 08/02/19 21:59 07/04/19 05:00 Hydrochlorothiazide (Hydrodiuril) 25 mg DAILY ORAL 07/04/19 09:00 08/03/19 08:59 07/04/19 08:41 Insulin Aspart (NovoLOG) BEFORE MEALS AND HS SUBQ 07/04/19 11:30 08/03/19 11:29 Labetalol HCl (Normodyne) 20 mg Q1H PRN IV sbp more than 160 07/03/19 18:45 08/02/19 18:44 Labetalol HCl (Normodyne) 200 mg Q12HR ORAL 07/04/19 10:30 08/03/19 10:29 UNV Metoprolol Tartrate (Lopressor) 50 mg Q12HR ORAL 07/03/19 21:00 08/02/19 20:59 07/04/19 08:42 Morphine Sulfate (Morphine Sulfate) 4 mg Q4H PRN IVP For Pain 07/03/19 21:30 07/10/19 21:29 07/04/19 06:19 Ondansetron HCl (Zofran) 4 mg Q6H PRN IVP Nausea & Vomiting 07/03/19 18:45 08/02/19 18:44 Pantoprazole (Protonix) 40 mg DAILY ORAL 07/04/19 09:00 08/03/19 08:59 07/04/19 08:40 Polyethylene Glycol (Miralax) 17 gm DAILYPRN PRN ORAL Constipation 07/03/19 18:45 08/02/19 18:44 Temazepam (Restoril) 15 mg HSPRN PRN ORAL Insomnia 07/03/19 18:45 07/10/19 18:44 Assessment/Plan Problem List: (1) Lacunar infarction ICD Codes: I63.81 - Other cerebral infarction due to occlusion or stenosis of small artery SNOMED: 861740255 (2) Uncontrolled hypertension ICD Codes: I10 - Essential (primary) hypertension SNOMED: 37363802, 03681830 (3) COPD (chronic obstructive pulmonary disease) ICD Codes: J44.9 - Chronic obstructive pulmonary disease, unspecified SNOMED: 70777572 (4) CAD (coronary artery disease) ICD Codes: I25.10 - Atherosclerotic heart disease of campo coronary artery without angina pectoris SNOMED: 59755938 (5) Diabetes mellitus ICD Codes: E11.9 - Type 2 diabetes mellitus without complications SNOMED: 34103794 (6) Moderate pulmonary arterial systolic hypertension ICD Codes: I27.21 - Secondary pulmonary arterial hypertension SNOMED: 65737339 (7) Morbid obesity ICD Codes: E66.01 - Morbid (severe) obesity due to excess calories SNOMED: 230647119 Assessment/Plan: frequent neuro check neurology evaluation MRI of brain bp control siding scale diabetic diet Rocephin for UTI pepcid symptomatic treatment Jaswinder Naidu MD Jul 04, 2019 10:46
[2019-07-04] MEDS: Labetalol 200mg tab ORAL SCH ×2 (11:29→21:22)
[2019-07-04] MEDS: NovoLOG Insulin Flexpen SUBQ SCH ×3 (11:45→20:09)
--- NOTE | 2019-07-04 13:40 | NUR ---
*-* INSURANCE *-* ALL CLINICALS HAVE BEEN FAXED TO: [employer] AT [phone] PENDING AUTH: [id number] /[facility] T: [phone] F: [phone] FAX CLINICALS TO: [phone]
--- NOTE | 2019-07-04 15:07 | NUR ---
CASE MANAGEMENT: INITIAL REVIEW 48 YO F ISRA FROM HOME CC: STROKE LIKE SYMPTOMS PMHx: CHF HTN ASTHMA DM CUMMINS SI;UNCONTROLLED HTN. LACUNAR INFARCT T 98.8 HR 83 RR 16 B/P 191/113 SATS 100% ON RA LABS: K 3.2 GLU 155 IS: LABETALOL IV X1 ATIVAN IV X1 TYLENOL PO X1 DUO NEB HHN X1 BENADRYL PO X1 CT HEAD Impression: Negative for acute intracranial bleed or mass effect PATIENT ADMITTED TO [facility] 07/03/2019 @ 4937 DCP: PATIENT TO BE DISCHARGED TO HOME ONCE MEDICALLY CLEARED PLAN OF CARE: 2D ECHO CARDIO EVAL Addendum: 07/04/19 at 1522 by Giovanna Chilel CM INTERQUAL MET
[2019-07-04] MEDS ORDERED: cefTRIAXone 1 GM in D5W 55 ML IVPB SCH (18:00)
--- NOTE | 2019-07-04 19:30 | NUR ---
NURSE NOTES: Received report from Mikie RN, pt. in bed awake, A/O x's4- able to make needs known- no signs or symptoms of acute cardiac or respiratory distress noted, double head machine operator on patient, bed in lowest position and call light within easy reach, bed locked in position, pt. aware to ask for assist and not to ambulate as her gait is unsteady and weak, pt. appears to be sating well on room air- no distress noted, pt. has bed christopher at bedside and within easy reach, RAC 20G IV not intact and leaking when flushed, will insert new IV, safety measures continued, will continue with plan of care.
--- NOTE | 2019-07-04 19:33 | NUR ---
HAND-OFF: Report given to STEVEN Zapata. Patient in stable condition.
--- NOTE | 2019-07-04 19:54 | History & Physical ---
History and Physical History & Physicial Dictated for Int Med-Dr Littlejohn no. [id number] Peewee Logan MD Jul 04, 2019 19:54
--- NOTE | 2019-07-04 19:54 | NUR ---
NURSE NOTES: pt. complaining she is having severe itching all over body from Rocephin IV medicine- left message for one time order for Benadryl with DR. Naidu- as pt. received Benadryl 2 hours ago with her pain medications.
--- NOTE | 2019-07-04 20:00 | NUR ---
NURSE NOTES: pharmacist Yobany notified pt. having severe itching to Rocephin - he will put medication on hold till we hear back from doctor.
--- NOTE | 2019-07-04 20:25 | NUR ---
NURSE NOTES: left message for DR. Littlejohn if we can get one time order for Benadryl as pt. has severe itching allergic reaction from Rocephin- per DR. Littlejohn can d/c Rocephin and put order for Benadryl 25mg po Q8hrs prn itching- per Pharmacist Yobany will put in Benadryl for only one time order as pt. has prn Benadryl IV
[2019-07-04] MEDS ORDERED: DiphenhydrAMINE 25mg Tab ORAL SCH (20:30)
--- NOTE | 2019-07-04 21:00 | History and Physical Report ---
DATE OF ADMISSION: 07/03/2019 CHIEF COMPLAINT: The patient is a 48-year-old female who presents with chief complaint of right-sided weakness. HISTORY OF PRESENT ILLNESS: The patient was admitted to [facility] in May 2019. Please see history and physical and discharge summary dictated at that time. The patient presented to [place] emergency room complaining of one-day history of right upper extremity weakness and right shoulder pain. The patient has a history of transient ischemic attack. The patient was concerned she may be having a stroke. The patient presented to [place] emergency room. The patient admitted with right upper extremity weakness to rule out acute cerebrovascular accident. REVIEW OF SYSTEMS: CONSTITUTIONAL: The patient denies weight loss or weight gain. The patient denies fevers or chills. HEENT: The patient denies ear or throat pain. The patient denies headache. CARDIOVASCULAR: The patient denies palpitations or chest pain. CHEST: The patient denies wheeze or shortness of breath. ABDOMEN: The patient denies nausea, vomiting, diarrhea, or constipation. GENITOURINARY: The patient denies dysuria or increased frequency of urination. NEUROMUSCULAR: The patient complains of right upper extremity weakness as above. The patient denies generalized weakness. PAST MEDICAL HISTORY: Significant for: 1. Type 2 diabetes. 2. Hypertension. 3. Hypercholesterolemia. 4. Coronary artery disease, status post two stents placed in 2016. 5. Chronic obstructive pulmonary disease. 6. Asthma. 7. Depression. 8. Schizoaffective disorder. 9. Cervical spine stenosis with myelopathy. 10. Cerebrovascular disease, status post transient ischemic attack. PAST SURGICAL HISTORY: Significant for: 1. Total abdominal hysterectomy secondary to uterine fibroids. 2. section. CURRENT MEDICATIONS: 1. Albuterol metered-dose inhaler two puffs p.o. q.i.d. p.r.n. 2. Amlodipine 10 mg p.o. daily. 3. Lipitor 20 mg p.o. daily. 4. Symbicort 160/4.5 two puffs p.o. twice daily. 5. Klonopin 1 mg p.o. daily. 6. Clonidine 0.1 mg p.o. q.6 hours p.r.n. 7. Plavix 75 mg p.o. daily. 8. Furosemide 40 mg p.o. daily. 9. Glipizide 5 mg p.o. twice daily. 10. Hydralazine 50 mg p.o. three times daily. 11. Hydrochlorothiazide 25 mg p.o. daily. 12. Levemir 30 units subcutaneously at bedtime. 13. Metformin 850 mg p.o. twice daily. 14. Metoprolol 50 mg p.o. twice daily. ALLERGIES: 1. Aspirin. 2. Benztropine. 3. Erythromycin. 4. Iodine. 5. Ketoralac. 6. Losartan. 7. Nitroglycerin. 8. Olanzapine. 9. Prochlorperazine. 10. Pseudoephedrine. SOCIAL HISTORY: The patient is single and lives alone. The patient admits to tobacco use pack per day. The patient denies alcohol use. PHYSICAL EXAMINATION: VITAL SIGNS: Temperature 97.7, respirations 20, pulse 73, blood pressure 162/78. GENERAL: The patient is well-developed and well-nourished obese female, no apparent distress. HEENT: Eyes, pupils are equal and responsive to light and accommodation. Extraocular movements are intact. NECK: Supple without lymphadenopathy. CHEST: Lungs are clear to auscultation bilaterally without wheezes or rales. CARDIOVASCULAR: Regular rate. S1 and S2 are normal without murmurs, rubs, or gallops. ABDOMEN: Soft, nontender, and nondistended. Positive bowel sounds. No evidence of hepatosplenomegaly. Currently, no rebound or guarding. EXTREMITIES: Negative for clubbing, cyanosis, or edema. RECTAL/GENITAL: Not performed. NEUROLOGIC: Cranial nerves II through XII are grossly intact without focal deficits. Motor strength is 5/5 bilaterally. Deep tendon reflexes are 2+ plantar. LABORATORY AND DIAGNOSTIC DATA: CT scan of the brain revealed bilateral basal ganglia lacunar infarcts new since May 29, 2019. WBC 5.8, hemoglobin 10.9, hematocrit 34.5 platelets 234,000. Sodium 143, potassium 3.2, chloride 103, CO2 31, BUN 9, creatinine 0.7, glucose 155. Troponin 0.007. ASSESSMENT: This is a 48-year-old female. 1. Right-sided weakness. 2. Cerebrovascular accident. 3. Diabetes type 2. 4. Hypertension. 5. Hypercholesteremia. 6. Coronary artery disease. 7. Chronic obstructive pulmonary disease. 8. Asthma. 9. Depression. 10. Schizoaffective disorder. 11. Cervical spine stenosis. 12. Cerebrovascular disease. TREATMENT: 1. Cerebrovascular accident. A CT scan of the brain revealed basal ganglia infarcts which were of indeterminate age. An MRI of the brain is pending. A Neurology consultation has been obtained with . We will follow recommendations of Neurology. 2. Diabetes type 2. NovoLog sliding scale has been instituted. 3. Hypertension. Continue amlodipine, clonidine, hydralazine, and hydrochlorothiazide as above. Continue metoprolol as above. 4. Hypercholesterolemia. Continue atorvastatin as above. 5. Coronary artery disease. 6. Chronic obstructive pulmonary disease. Continue Symbicort and albuterol as above. 7. Depression/schizoaffective disorder. 8. Cervical spine stenosis. 9. Cerebrovascular disease. Peewee Logan M.D. DR: Karime JOB#: [id number] CC:
--- NOTE | 2019-07-04 21:28 | NUR ---
NURSE NOTES: per DR. Littlejohn to order Keflex 500mg BID x 10 days PO- orders carried out- per pt. she is okay with Keflex. pt. asked for Azithromycin- per Doctor no azithromycin.
--- NOTE | 2019-07-04 22:00 | NUR ---
NURSE NOTES: pt. asked not to get out of bed as her gait is unsteady and getting IV pain medication and also b/p medication- pt. non- compliant- states she is okay and continues to ambulate.
[2019-07-05] VITALS: BP 179/107
--- NOTE | 2019-07-05 | NUR ---
NURSE NOTES: pt. asked not to get out of bed as her gait is unsteady and getting IV pain medication and also b/p medication- pt. non- compliant- states she is okay and continues to ambulate and feels silly using call light- explained teaching on fall risk- pt. continues to be non-compliant.
[2019-07-05] MEDS: Enalaprilat 2.5mg/2ml Inj IV PRN (00:55)
[2019-07-05] MEDS: DiphenhydrAMINE 50mg/ml Inj IVP PRN ×4 (02:40→20:39)
[2019-07-05 04:00] VITALS: BP 157/99
--- NOTE | 2019-07-05 04:00 | NUR ---
NURSE NOTES: unable to assess pts vital signs for 0400- pt. found in bathroom washing hair and wants to continue washing hair- pt. has unsteady gait and is aware of fall risk - but continues to be non-compliant.
--- NOTE | 2019-07-05 04:03 | NUR ---
NURSE NOTES: During rounds noted- pt. in bathroom- is aware to ask for assist due to unsteady gait -but pt. refusing to ask for assist- pt. asked not to get out of bed as her gait is unsteady and getting IV pain medication and also b/p medication- pt. non- compliant- states she is okay and continues to ambulate- explained teaching on fall risk- pt. continues to be non-compliant- charge nurse Matilde aware.
--- NOTE | 2019-07-05 04:58 | NUR ---
NURSE NOTES: report given to Julieta Clayton- pt.remains stable and no signs of distress noted.
--- NOTE | 2019-07-05 05:00 | NUR ---
HAND-OFF: Report given to Julieta Clayton- pt.remains stable and no signs of distress noted.
--- NOTE | 2019-07-05 05:05 | NUR ---
NURSE NOTES: Report received from JERRY HARRIS. No acute distress noted.Denies any pain at this time.
[2019-07-05] MEDS: NovoLOG Insulin Flexpen SUBQ SCH ×4 (06:24→20:49)
[2019-07-05] MEDS: HydrALAZINE 50mg tab ORAL SCH ×3 (06:24→21:00)
--- NOTE | 2019-07-05 07:52 | NUR ---
HAND-OFF: Report given to LEEANNE HARRIS, using SBAR.REMAINS STABLE IN CONDITION.
[2019-07-05 08:00] VITALS: BP 157/84
--- NOTE | 2019-07-05 08:09 | NUR ---
NURSE NOTES: recvd pt. Pt is AOX4, pt appears SR on ditch cleaner, pt is on room air with no sign of sob or acute resp distress. Pt has IV site that appears c/d/i and locked. Bed in lowest position, call light within reach, will continue with plan of care
[2019-07-05] MEDS: Heparin 5000 units/ml inj SUBQ SCH ×2 (09:04→20:39)
[2019-07-05] MEDS: Furosemide 40mg tab ORAL SCH (09:05)
[2019-07-05] MEDS: hydroCHLOROthiazide 25mg cap ORAL SCH (09:05)
[2019-07-05] MEDS: Labetalol 200mg tab ORAL SCH ×2 (09:06→20:37)
[2019-07-05] MEDS: Atorvastatin 20mg tab ORAL SCH (09:06)
[2019-07-05] MEDS: Metoprolol Tartrate 50mg tab ORAL SCH ×2 (09:07→20:37)
[2019-07-05] MEDS: Cephalexin 500mg cap ORAL SCH ×2 (09:07→20:36)
--- NOTE | 2019-07-05 11:56 | NUR ---
NURSE NOTES: Patient had infiltrated IV. Recvd one time order of dilaudid and zofran.
[2019-07-05 12:00] VITALS: BP 164/97
[2019-07-05] MEDS ORDERED: Albuterol/Ipratropium 3ml neb HHN PRN (12:45)
--- NOTE | 2019-07-05 12:55 | Pulmonology Progress Note ---
Assessment/Plan Problems: (1) Lacunar infarction (2) Uncontrolled hypertension (3) COPD (chronic obstructive pulmonary disease) (4) CAD (coronary artery disease) (5) Diabetes mellitus (6) Moderate pulmonary arterial systolic hypertension (7) Morbid obesity Assessment/Plan on Amlodipine 10 qd Hydralazine 50 q8 HCTZ 25 Lopressor 50 BID Labetolol 200 q 12 got 3 doses of enalapril IV in the last 24 hours., at midnight her BP was 170/ 100 will dc HCTZ, pt getting Lazis increase Hydralazine to 100 TID sliding scale cardio and neurology to see pt/ot respiratory treatment Subjective ROS Limited/Unobtainable: No Constitutional: Reports: no symptoms HEENT: Repors: no symptoms Respiratory: Reports: no symptoms Allergies: Coded Allergies: CEFTRIAXONE (Verified Allergy, Severe, Itching, 07/04/19) IODINE AND IODIDE CONTAINING PRODUC (Verified Allergy, Severe, Anaphylaxis , 11/21/18) OLANZAPINE (Verified Allergy, Severe, Anaphylaxis, 11/21/18) THROAT SWELLING PROCHLORPERAZINE (Unverified Allergy, Severe, Shortness of Breath, ) ASPIRIN (Verified Allergy, Intermediate, Hives, 11/21/18) BENZTROPINE (Verified Allergy, Intermediate, Hives, 11/21/18) ERYTHROMYCIN BASE (Verified Allergy, Intermediate, Hives, 11/21/18) Tolerates Azithromycin KETOROLAC (Verified Allergy, Intermediate, Hives, 11/21/18) LOSARTAN (Verified Allergy, Intermediate, 11/21/18) ANGIOEDEMA NITROGLYCERIN (Verified Allergy, Intermediate, Hives, 11/21/18) PSEUDOEPHEDRINE (Verified Allergy, Intermediate, Hives, 11/21/18) SULFA (SULFONAMIDE ANTIBIOTICS) (Verified Allergy, Intermediate, Hives, 03/02) TERFENADINE (Verified Allergy, Intermediate, Hives, 11/21/18) TRAMADOL (Verified Allergy, Intermediate, Rash, 11/21/18) Objective Last 24 Hour Vital Signs Date Time Temp Pulse Resp B/P (MAP) Pulse Ox O2 Delivery O2 Flow Rate FiO2 07/05/19 11:24 Room Air 07/05/19 09:58 98.0 07/05/19 09:07 85 157/84 07/05/19 09:06 85 157/84 07/05/19 09:05 85 157/84 07/05/19 08:00 98.0 80 18 157/84 (108) 98 07/05/19 08:00 85 07/05/19 08:00 Room Air 07/05/19 06:24 157/99 07/05/19 04:00 98.1 68 20 157/99 (118) 98 07/05/19 04:00 Room Air 07/05/19 03:30 67 07/05/19 01:02 77 07/05/19 00:55 179/107 07/05/19 00:52 85 07/05/19 00:00 98.3 64 20 179/107 (131) 100 07/05/19 00:00 Room Air 07/04/19 23:31 66 07/04/19 22:37 145/72 07/04/19 21:22 71 170/102 07/04/19 20:05 68 155/98 07/04/19 20:00 98.8 71 20 155/98 (117) 99 07/04/19 20:00 86 07/04/19 20:00 Room Air 07/04/19 16:35 182/105 07/04/19 16:00 Room Air 07/04/19 16:00 79 07/04/19 14:15 162/78 Intake and Output 07/04/19 07/05/19 19:00 07:00 Output Total 0 ml Balance 0 ml Output Urine Total 0 ml # Voids 3 3 # Bowel Movements 3 3 General Appearance: WD/WN HEENT: normocephalic, atraumatic Respiratory/Chest: chest wall non-tender, lungs clear Breasts: no masses Cardiovascular: normal peripheral pulses, no JVD Abdomen: soft, non tender Extremities: no clubbing Neurologic/Psychiatric: observer electrical prospecting II-XII grossly normal, abnormal gait Lymphatic: no neck adenopathy Microbiology Date/Time Source Procedure Growth Status 07/03/19 15:50 Urine,Clean Catch Urine Culture - Preliminary Mixed Gram Positive Organism Resulted Current Medications Medications (Trade) Dose Ordered Sig/Raymond Route PRN Reason Start Time Stop Time Status Last Admin Dose Admin Acetaminophen (Tylenol) 650 mg Q4H PRN ORAL FEVER 07/03/19 18:45 08/02/19 18:44 Albuterol/ Ipratropium (Albuterol/ Ipratropium) 3 ml Q4H PRN HHN Shortness of Breath 07/03/19 18:45 07/08/19 18:44 Amlodipine Besylate (Norvasc) 10 mg DAILY ORAL 07/04/19 09:00 08/03/19 08:59 07/05/19 09:05 Atorvastatin Calcium (Lipitor) 40 mg DAILY ORAL 07/04/19 09:00 08/03/19 08:59 07/05/19 09:06 Cephalexin (Keflex) 500 mg Q12HR ORAL 07/05/19 09:00 07/14/19 21:01 07/05/19 09:07 Dextrose (Dextrose 50%) 25 ml Q30M PRN IV Hypoglycemia 07/04/19 10:30 08/03/19 10:29 Dextrose (Dextrose 50%) 50 ml Q30M PRN IV Hypoglycemia 07/04/19 10:30 08/03/19 10:29 Diltiazem HCl (Cardizem) 10 mg Q1H PRN IV heart rate more than 120, 07/03/19 18:45 08/02/19 18:44 Diphenhydramine HCl (Benadryl) 50 mg Q4H PRN IVP Itching 07/04/19 19:45 08/03/19 19:44 07/05/19 12:11 Enalaprilat (Vasotec) 2.5 mg Q6H PRN IV sbp more than 160 07/03/19 18:45 08/02/19 18:44 07/05/19 00:55 Famotidine (Pepcid) 20 mg BID ORAL 07/04/19 11:00 08/03/19 10:59 07/05/19 09:07 Furosemide (Lasix) 40 mg DAILY ORAL 07/04/19 09:00 08/03/19 08:59 07/05/19 09:05 Heparin Sodium (Porcine) (Heparin 5000 units/ml) 5,000 units EVERY 12 HOURS SUBQ 07/03/19 21:00 08/02/19 20:59 07/05/19 09:04 Hydralazine HCl (Apresoline) 50 mg EVERY 8 HOURS ORAL 07/03/19 22:00 08/02/19 21:59 07/05/19 06:24 Hydrochlorothiazide (Hydrodiuril) 25 mg DAILY ORAL 07/04/19 09:00 08/03/19 08:59 07/05/19 09:05 Hydromorphone HCl (Dilaudid) 2 mg ONCE IM 07/05/19 12:00 07/05/19 13:00 07/05/19 12:18 Hydromorphone HCl (Dilaudid) 2 mg Q4H PRN IVP For Pain 07/04/19 11:15 07/11/19 11:14 07/05/19 09:05 Insulin Aspart (NovoLOG) BEFORE MEALS AND HS SUBQ 07/04/19 11:30 08/03/19 11:29 07/05/19 12:23 Labetalol HCl (Normodyne) 20 mg Q1H PRN IV sbp more than 160 07/03/19 18:45 08/02/19 18:44 Labetalol HCl (Normodyne) 200 mg Q12HR ORAL 07/04/19 11:00 08/03/19 10:59 07/05/19 09:06 Metoprolol Tartrate (Lopressor) 50 mg Q12HR ORAL 07/03/19 21:00 08/02/19 20:59 07/05/19 09:07 Ondansetron HCl (Zofran) 4 mg ONCE IVP 07/05/19 12:00 07/05/19 13:00 07/05/19 12:15 Ondansetron HCl (Zofran) 4 mg Q6H PRN IVP Nausea & Vomiting 07/03/19 18:45 08/02/19 18:44 07/05/19 09:04 Pantoprazole (Protonix) 40 mg DAILY ORAL 07/04/19 09:00 08/03/19 08:59 07/05/19 09:07 Polyethylene Glycol (Miralax) 17 gm DAILYPRN PRN ORAL Constipation 07/03/19 18:45 08/02/19 18:44 Temazepam (Restoril) 15 mg HSPRN PRN ORAL Insomnia 07/03/19 18:45 07/10/19 18:44 Jaswinder Naidu MD Jul 05, 2019 12:55
--- NOTE | 2019-07-05 13:37 | NUR ---
CASE MANAGEMENT: REVIEW 07/05/2019 SI:UNCONTROLLED HTN. LACUNAR INFARCT T 98 HR 80 RR 18 B/P 157/84 SATS 98% ON RA LABS: NONE TODAY IS: HYDRALAZINE PO Q8H NORVASC PO QD LASIX PO QD INSULIN ASPART SUBQ AC/HS LOPRESSOR PO Q12H KEFLEX PO Q12H SDU DCP: PATIENT TO BE DISCHARGED TO HOME ONCE MEDICALLY CLEARED PLAN OF CARE: 2D ECHO EF 65% sliding scale pt/ot
--- NOTE | 2019-07-05 13:45 | NUR ---
INSURANCE REVIEW FAXED TO [facility] REF# [id number] # [phone] FAX# [phone] REVIEWS/CLINICALS
[2019-07-05 16:00] VITALS: BP 148/91
--- NOTE | 2019-07-05 19:09 | Internal Med Progress Note ---
Subjective Date of Service: Jul 05, 2019 Physician Name Peewee Logan Attending Physician Hebert Littlejohn MD Current Medications Medications (Trade) Dose Ordered Sig/Raymond Route PRN Reason Start Time Stop Time Status Last Admin Dose Admin Acetaminophen (Tylenol) 650 mg Q4H PRN ORAL FEVER 07/03/19 18:45 08/02/19 18:44 Albuterol/ Ipratropium (Albuterol/ Ipratropium) 3 ml Q4H PRN HHN Shortness of Breath 07/05/19 12:45 07/10/19 12:44 Amlodipine Besylate (Norvasc) 10 mg DAILY ORAL 07/04/19 09:00 08/03/19 08:59 07/05/19 09:05 Atorvastatin Calcium (Lipitor) 40 mg DAILY ORAL 07/04/19 09:00 08/03/19 08:59 07/05/19 09:06 Cephalexin (Keflex) 500 mg Q12HR ORAL 07/05/19 09:00 07/14/19 21:01 07/05/19 09:07 Dextrose (Dextrose 50%) 25 ml Q30M PRN IV Hypoglycemia 07/04/19 10:30 08/03/19 10:29 Dextrose (Dextrose 50%) 50 ml Q30M PRN IV Hypoglycemia 07/04/19 10:30 08/03/19 10:29 Diltiazem HCl (Cardizem) 10 mg Q1H PRN IV heart rate more than 120, 07/03/19 18:45 08/02/19 18:44 Diphenhydramine HCl (Benadryl) 50 mg Q4H PRN IVP Itching 07/04/19 19:45 08/03/19 19:44 07/05/19 16:24 Enalaprilat (Vasotec) 2.5 mg Q6H PRN IV sbp more than 160 07/03/19 18:45 08/02/19 18:44 07/05/19 00:55 Famotidine (Pepcid) 20 mg BID ORAL 07/04/19 11:00 08/03/19 10:59 07/05/19 17:45 Furosemide (Lasix) 40 mg DAILY ORAL 07/04/19 09:00 08/03/19 08:59 07/05/19 09:05 Heparin Sodium (Porcine) (Heparin 5000 units/ml) 5,000 units EVERY 12 HOURS SUBQ 07/03/19 21:00 08/02/19 20:59 07/05/19 09:04 Hydralazine HCl (Apresoline) 100 mg EVERY 8 HOURS ORAL 07/05/19 14:00 08/02/19 21:59 07/05/19 14:18 Hydromorphone HCl (Dilaudid) 2 mg Q4H PRN IVP For Pain 07/04/19 11:15 07/11/19 11:14 07/05/19 16:24 Insulin Aspart (NovoLOG) BEFORE MEALS AND HS SUBQ 07/04/19 11:30 08/03/19 11:29 07/05/19 12:23 Labetalol HCl (Normodyne) 20 mg Q1H PRN IV sbp more than 160 07/03/19 18:45 08/02/19 18:44 Labetalol HCl (Normodyne) 200 mg Q12HR ORAL 07/04/19 11:00 08/03/19 10:59 07/05/19 09:06 Metoprolol Tartrate (Lopressor) 50 mg Q12HR ORAL 07/03/19 21:00 08/02/19 20:59 07/05/19 09:07 Ondansetron HCl (Zofran) 4 mg Q6H PRN IVP Nausea & Vomiting 07/03/19 18:45 08/02/19 18:44 07/05/19 09:04 Pantoprazole (Protonix) 40 mg DAILY ORAL 07/04/19 09:00 08/03/19 08:59 07/05/19 09:07 Polyethylene Glycol (Miralax) 17 gm DAILYPRN PRN ORAL Constipation 07/03/19 18:45 08/02/19 18:44 Temazepam (Restoril) 15 mg HSPRN PRN ORAL Insomnia 07/03/19 18:45 07/10/19 18:44 Allergies: Coded Allergies: CEFTRIAXONE (Verified Allergy, Severe, Itching, 07/04/19) IODINE AND IODIDE CONTAINING PRODUC (Verified Allergy, Severe, Anaphylaxis , 11/21/18) OLANZAPINE (Verified Allergy, Severe, Anaphylaxis, 11/21/18) THROAT SWELLING PROCHLORPERAZINE (Unverified Allergy, Severe, Shortness of Breath, ) ASPIRIN (Verified Allergy, Intermediate, Hives, 11/21/18) BENZTROPINE (Verified Allergy, Intermediate, Hives, 11/21/18) ERYTHROMYCIN BASE (Verified Allergy, Intermediate, Hives, 11/21/18) Tolerates Azithromycin KETOROLAC (Verified Allergy, Intermediate, Hives, 11/21/18) LOSARTAN (Verified Allergy, Intermediate, 11/21/18) ANGIOEDEMA NITROGLYCERIN (Verified Allergy, Intermediate, Hives, 11/21/18) PSEUDOEPHEDRINE (Verified Allergy, Intermediate, Hives, 11/21/18) SULFA (SULFONAMIDE ANTIBIOTICS) (Verified Allergy, Intermediate, Hives, 03/02) TERFENADINE (Verified Allergy, Intermediate, Hives, 11/21/18) TRAMADOL (Verified Allergy, Intermediate, Rash, 11/21/18) ROS Limited/Unobtainable: No Constitutional: Reports: weakness HEENT: Reports: no symptoms Cardiovascular: Reports: no symptoms Respiratory: Reports: no symptoms Gastrointestinal/Abdominal: Reports: no symptoms Genitourinary: Reports: no symptoms Neurologic/Psychiatric: Reports: no symptoms Subjective 48 YO F admitted with right sided weakness. Now cerebral vascular accident. Cover for Int Med-Dr Littlejohn Objective Last Vital Signs Date Time Temp Pulse Resp B/P (MAP) Pulse Ox O2 Delivery O2 Flow Rate FiO2 07/05/19 16:54 98.0 07/05/19 16:00 80 18 148/91 (110) 100 07/05/19 16:00 Room Air 07/03/19 19:40 21 Microbiology Date/Time Source Procedure Growth Status 07/03/19 15:50 Urine,Clean Catch Urine Culture - Preliminary Mixed Gram Positive Organism Resulted Intake and Output 07/04/19 07/05/19 19:00 07:00 Output Total 0 ml Balance 0 ml Output Urine Total 0 ml # Voids 3 3 # Bowel Movements 3 3 Objective PHYSICAL EXAMINATION: GENERAL: The patient is well-developed and well-nourished obese female, no apparent distress. HEENT: Eyes, pupils are equal and responsive to light and accommodation. Extraocular movements are intact. NECK: Supple without lymphadenopathy. CHEST: Lungs are clear to auscultation bilaterally without wheezes or rales. CARDIOVASCULAR: Regular rate. S1 and S2 are normal without murmurs, rubs, or gallops. ABDOMEN: Soft, nontender, and nondistended. Positive bowel sounds. No evidence of hepatosplenomegaly. Currently, no rebound or guarding. EXTREMITIES: Negative for clubbing, cyanosis, or edema. RECTAL/GENITAL: Not performed. NEUROLOGIC: Cranial nerves II through XII are grossly intact without focal deficits. Motor strength is 5/5 bilaterally. Deep tendon reflexes are 2+ plantar. Assessment/Plan Assessment/Plan ASSESSMENT: This is a 48-year-old female. 1. Right-sided weakness. 2. Cerebrovascular accident. 3. Diabetes type 2. 4. Hypertension. 5. Hypercholesteremia. 6. Coronary artery disease. 7. Chronic obstructive pulmonary disease. 8. Asthma. 9. Depression. 10. Schizoaffective disorder. 11. Cervical spine stenosis. 12. Cerebrovascular disease. TREATMENT: 1. Cerebrovascular accident. A CT scan of the brain revealed basal ganglia infarcts which were of indeterminate age. An MRI of the brain is pending. A Neurology consultation has been obtained with . We will follow recommendations of Neurology. 2. Diabetes type 2. NovoLog sliding scale has been instituted. 3. Hypertension. Continue amlodipine, clonidine, hydralazine, and hydrochlorothiazide as above. Continue metoprolol as above. 4. Hypercholesterolemia. Continue atorvastatin as above. 5. Coronary artery disease. 6. Chronic obstructive pulmonary disease. Continue Symbicort and albuterol as above. 7. Depression/schizoaffective disorder. 8. Cervical spine stenosis. 9. Cerebrovascular disease Peewee Logan MD Jul 05, 2019 19:09
--- NOTE | 2019-07-05 19:20 | NUR ---
NURSE NOTES: Received patient from STEVEN Schmitt. Patient is aaox4, vss, with no acute distress. Patient is cooperative, and well groomed. Patient is on a regular diet, awake overnight monitor, with left upper arm 22g. Skin is intact. Patients ambulates with steady gait. Bed at its lowest position call light in reach. Will continue to monitor.
--- NOTE | 2019-07-05 20:30 | NUR ---
NURSE NOTES: IV line infiltrated and medication was waisted.
--- NOTE | 2019-07-05 20:40 | NUR ---
NURSE NOTES: Patient's IV infiltrated after administering pain medication. Will waste drawn medication with charge nurse.
--- NOTE | 2019-07-05 20:42 | NUR ---
NURSE NOTES: Patients IV site is enlarged, cold, and hard underneath the skin. No sign of infection noted. Patient educated on infiltration and medication administration. Patent denies receiving any pain medications due to infiltration and demands more medication. Diphenhydramine was not administered although Dilated was.
--- NOTE | 2019-07-05 23:00 | NUR ---
NURSE NOTES: Patient ambulated to the nurses station to demand the charge nurse to approve more pain medications. Patient ambulated safely back to bed.
[2019-07-06] VITALS: BP 165/95
[2019-07-06] MEDS: DiphenhydrAMINE 50mg/ml Inj IVP PRN ×6 (00:43→22:37)
--- NOTE | 2019-07-06 02:00 | NUR ---
NURSE NOTES: Patient resting with no complaints. No acute distress.
[2019-07-06 06:00] VITALS: BP 154/75
[2019-07-06] MEDS: HydrALAZINE 50mg tab ORAL SCH ×3 (06:05→21:13)
[2019-07-06] MEDS: NovoLOG Insulin Flexpen SUBQ SCH ×4 (06:13→21:17)
--- NOTE | 2019-07-06 07:25 | NUR ---
NURSE NOTES: Received report from Don RN/ Pt in bed awake and oriented x4 and able to make needs known. IV site in right hand 24G SL patent and asymptomatic running with TKO. On contact isolation for VRE rectum. Side railsx2 up for safety. Will continue to plan of care.
--- NOTE | 2019-07-06 07:25 | NUR ---
HAND-OFF: Report given to STEVEN De Souza.
[2019-07-06 08:00] VITALS: BP_SYST 124; BP_SYST 140; BP_DIAS 70; BP_DIAS 97
[2019-07-06] MEDS: Labetalol 200mg tab ORAL SCH ×2 (09:00→21:13)
[2019-07-06] MEDS: Heparin 5000 units/ml inj SUBQ SCH ×2 (09:00→21:00)
[2019-07-06] MEDS: Cephalexin 500mg cap ORAL SCH ×2 (10:19→21:12)
[2019-07-06] MEDS: Atorvastatin 20mg tab ORAL SCH (10:20)
[2019-07-06] MEDS: Metoprolol Tartrate 50mg tab ORAL SCH ×2 (10:20→21:13)
[2019-07-06] MEDS: Furosemide 40mg tab ORAL SCH (10:20)
--- NOTE | 2019-07-06 11:47 | Pulmonology Progress Note ---
Assessment/Plan Assessment/Plan ASSESSMENT Right-sided weakness CVA-bilateral basal ganglia lacunar infarcts- acute vs subacute Cerebrovascular disease with history of TIA Hypertension with initial HTN urgency - resolved CHF Asthma DM Hyperlipidemia Anemia Schizoaffective disorder PLAN OF CARE tele CT head noted: bilateral basal ganglia lacunar infarcts appeared remote , but not evident on prior study 05/29/2019 MRI brain pending neuro eval carotid duplex lipid panel noted, continue statin TSH WNL allergic to ASA, consider start Plavix after MRI - per neuro recs BP management with CCB , hydralazine and beta-joey ( noted 2 dif BB metoprolol and labetalol, will stop metoprolol and continue Labetalol, discussed with pharmacist) Echo with pEF O2 HHN PRN continue daily maintenance diuretic dose , monitor volumes DVT , GI prophylaxis monitor H&H with goal to keep hemoglobin above 7 BS management with SSI case discussed and evaluated by supervising physician Subjective Allergies: Coded Allergies: CEFTRIAXONE (Verified Allergy, Severe, Itching, 07/04/19) IODINE AND IODIDE CONTAINING PRODUC (Verified Allergy, Severe, Anaphylaxis , 11/21/18) OLANZAPINE (Verified Allergy, Severe, Anaphylaxis, 11/21/18) THROAT SWELLING PROCHLORPERAZINE (Unverified Allergy, Severe, Shortness of Breath, ) ASPIRIN (Verified Allergy, Intermediate, Hives, 11/21/18) BENZTROPINE (Verified Allergy, Intermediate, Hives, 11/21/18) ERYTHROMYCIN BASE (Verified Allergy, Intermediate, Hives, 11/21/18) Tolerates Azithromycin KETOROLAC (Verified Allergy, Intermediate, Hives, 11/21/18) LOSARTAN (Verified Allergy, Intermediate, 11/21/18) ANGIOEDEMA NITROGLYCERIN (Verified Allergy, Intermediate, Hives, 11/21/18) PSEUDOEPHEDRINE (Verified Allergy, Intermediate, Hives, 11/21/18) SULFA (SULFONAMIDE ANTIBIOTICS) (Verified Allergy, Intermediate, Hives, 03/02) TERFENADINE (Verified Allergy, Intermediate, Hives, 11/21/18) TRAMADOL (Verified Allergy, Intermediate, Rash, 11/21/18) Subjective BP stabilized still RS weakness MRI pending Objective Last 24 Hour Vital Signs Date Time Temp Pulse Resp B/P (MAP) Pulse Ox O2 Delivery O2 Flow Rate FiO2 07/06/19 10:21 80 124/70 07/06/19 10:20 80 124/70 07/06/19 09:00 80 124/70 07/06/19 08:00 98.1 80 17 124/70 (88) 99 07/06/19 08:00 79 07/06/19 08:00 Room Air 07/06/19 06:32 98.0 07/06/19 06:05 154/75 07/06/19 06:00 97.6 72 18 154/75 (101) 100 07/06/19 04:00 Room Air 07/06/19 02:37 84 07/06/19 00:00 72 07/06/19 00:00 Room Air 07/06/19 00:00 97.0 68 19 165/95 (118) 100 07/05/19 21:00 136/94 07/05/19 20:37 89 136/94 07/05/19 20:37 89 136/94 07/05/19 20:00 Room Air 07/05/19 20:00 69 07/05/19 16:00 98.1 80 18 148/91 (110) 100 07/05/19 16:00 87 07/05/19 16:00 Room Air 07/05/19 14:18 164/97 07/05/19 12:48 98.0 07/05/19 12:00 86 07/05/19 12:00 97.3 79 18 164/97 (119) 100 Intake and Output 07/05/19 07/06/19 19:00 07:00 Intake Total 600 ml 275 ml Balance 600 ml 275 ml Intake Oral 600 ml 275 ml # Voids 3 5 # Bowel Movements 3 4 General Appearance: no acute distress, other - obese AA female HEENT: normocephalic, atraumatic, anicteric, mucous membranes moist, PERRL Respiratory/Chest: lungs clear, no respiratory distress, no accessory muscle use Cardiovascular: normal peripheral pulses, no JVD, tachycardia Abdomen: normal bowel sounds, soft, non tender - obese Extremities: other - trace edema BLE Neurologic/Psychiatric: alert, oriented x 3, responsive, other - mototr strength 4/5 RUE, and bilat LE Musculoskeletal: normal muscle bulk Microbiology Date/Time Source Procedure Growth Status 07/03/19 15:50 Urine,Clean Catch Urine Culture - Final Mixed Gram Positive Organism Complete Current Medications Medications (Trade) Dose Ordered Sig/Raymond Route PRN Reason Start Time Stop Time Status Last Admin Dose Admin Acetaminophen (Tylenol) 650 mg Q4H PRN ORAL FEVER 07/03/19 18:45 08/02/19 18:44 Albuterol/ Ipratropium (Albuterol/ Ipratropium) 3 ml Q4H PRN HHN Shortness of Breath 07/05/19 12:45 07/10/19 12:44 Amlodipine Besylate (Norvasc) 10 mg DAILY ORAL 07/04/19 09:00 08/03/19 08:59 07/06/19 10:21 Atorvastatin Calcium (Lipitor) 40 mg DAILY ORAL 07/04/19 09:00 08/03/19 08:59 07/06/19 10:20 Cephalexin (Keflex) 500 mg Q12HR ORAL 07/05/19 09:00 07/14/19 21:01 07/06/19 10:19 Dextrose (Dextrose 50%) 25 ml Q30M PRN IV Hypoglycemia 07/04/19 10:30 08/03/19 10:29 Dextrose (Dextrose 50%) 50 ml Q30M PRN IV Hypoglycemia 07/04/19 10:30 08/03/19 10:29 Diltiazem HCl (Cardizem) 10 mg Q1H PRN IV heart rate more than 120, 07/03/19 18:45 08/02/19 18:44 Diphenhydramine HCl (Benadryl) 50 mg Q4H PRN IVP Itching 07/04/19 19:45 08/03/19 19:44 07/06/19 10:18 Enalaprilat (Vasotec) 2.5 mg Q6H PRN IV sbp more than 160 07/03/19 18:45 08/02/19 18:44 07/05/19 00:55 Famotidine (Pepcid) 20 mg BID ORAL 07/04/19 11:00 08/03/19 10:59 07/06/19 10:21 Furosemide (Lasix) 40 mg DAILY ORAL 07/04/19 09:00 08/03/19 08:59 07/06/19 10:20 Heparin Sodium (Porcine) (Heparin 5000 units/ml) 5,000 units EVERY 12 HOURS SUBQ 07/03/19 21:00 08/02/19 20:59 07/05/19 20:39 Hydralazine HCl (Apresoline) 100 mg EVERY 8 HOURS ORAL 07/05/19 14:00 08/02/19 21:59 07/06/19 06:05 Hydromorphone HCl (Dilaudid) 2 mg Q4H PRN IVP For Pain 07/04/19 11:15 07/11/19 11:14 07/06/19 10:23 Insulin Aspart (NovoLOG) BEFORE MEALS AND HS SUBQ 07/04/19 11:30 08/03/19 11:29 07/06/19 06:13 Labetalol HCl (Normodyne) 20 mg Q1H PRN IV sbp more than 160 07/03/19 18:45 08/02/19 18:44 Labetalol HCl (Normodyne) 200 mg Q12HR ORAL 07/04/19 11:00 08/03/19 10:59 07/05/19 20:37 Metoprolol Tartrate (Lopressor) 50 mg Q12HR ORAL 07/03/19 21:00 08/02/19 20:59 07/06/19 10:20 Ondansetron HCl (Zofran) 4 mg Q6H PRN IVP Nausea & Vomiting 07/03/19 18:45 08/02/19 18:44 07/06/19 02:16 Pantoprazole (Protonix) 40 mg DAILY ORAL 07/04/19 09:00 08/03/19 08:59 07/05/19 09:07 Polyethylene Glycol (Miralax) 17 gm DAILYPRN PRN ORAL Constipation 07/03/19 18:45 08/02/19 18:44 Temazepam (Restoril) 15 mg HSPRN PRN ORAL Insomnia 07/03/19 18:45 07/10/19 18:44 Ebony Solares BRICKMASON Jul 06, 2019 11:47
[2019-07-06 11:53] VITALS: BP 159/87
--- NOTE | 2019-07-06 12:12 | Diagnostic Imaging Report ---
EXAM: US Duplex Bilateral Extracranial Arteries CLINICAL HISTORY: CVA TECHNIQUE: Real-time duplex ultrasound scan of the extracranial arteries integrating B-mode two-dimensional vascular structure, Doppler spectral analysis and color flow Doppler imaging. COMPARISON: No relevant prior studies available. FINDINGS: Right common carotid artery: Unremarkable. No occlusion or significant stenosis on color flow and spectral Doppler imaging. Right internal carotid artery: Unremarkable. No occlusion or significant stenosis on color flow and spectral Doppler imaging. Right external carotid artery: Unremarkable. No occlusion or significant stenosis on color flow and spectral Doppler imaging. Right vertebral artery: Unremarkable. Antegrade flow. Right ICA/CCA ratio: Unremarkable. Within normal limits. Left common carotid artery: Unremarkable. No occlusion or significant stenosis on color flow and spectral Doppler imaging. Left internal carotid artery: Unremarkable. No occlusion or significant stenosis on color flow and spectral Doppler imaging. Left external carotid artery: Unremarkable. No occlusion or significant stenosis on color flow and spectral Doppler imaging. Left vertebral artery: Unremarkable. Antegrade flow. Left ICA/CCA ratio: Unremarkable. Within normal limits. CAROTID STENOSIS REFERENCE USING SRU CRITERIA: Mild - <50% stenosis. ICA PSV is less than 125 cm/second and plaque or intimal thickening is visible. Moderate - 50-69% stenosis. ICA PSV is 125 to 230 cm/second and plaque is visible. Severe - 70-94% stenosis. ICA PSV is more than 230 cm/second and visible plaque with lumen narrowing is seen. Near occlusion - 95-99% stenosis. ICA PSV is variable and significant plaque with luminal narrowing is seen. Occluded - 100% stenosis. No flow identified. IMPRESSION: Normal duplex ultrasound of the neck.
--- NOTE | 2019-07-06 15:46 | Internal Med Progress Note ---
Subjective Date of Service: Jul 06, 2019 Physician Name Peewee Logan Attending Physician Hebert Littlejohn MD Current Medications Medications (Trade) Dose Ordered Sig/Raymond Route PRN Reason Start Time Stop Time Status Last Admin Dose Admin Acetaminophen (Tylenol) 650 mg Q4H PRN ORAL FEVER 07/03/19 18:45 08/02/19 18:44 Albuterol/ Ipratropium (Albuterol/ Ipratropium) 3 ml Q4H PRN HHN Shortness of Breath 07/05/19 12:45 07/10/19 12:44 Amlodipine Besylate (Norvasc) 10 mg DAILY ORAL 07/04/19 09:00 08/03/19 08:59 07/06/19 10:21 Atorvastatin Calcium (Lipitor) 40 mg DAILY ORAL 07/04/19 09:00 08/03/19 08:59 07/06/19 10:20 Cephalexin (Keflex) 500 mg Q12HR ORAL 07/05/19 09:00 07/14/19 21:01 07/06/19 10:19 Dextrose (Dextrose 50%) 25 ml Q30M PRN IV Hypoglycemia 07/04/19 10:30 08/03/19 10:29 Dextrose (Dextrose 50%) 50 ml Q30M PRN IV Hypoglycemia 07/04/19 10:30 08/03/19 10:29 Diltiazem HCl (Cardizem) 10 mg Q1H PRN IV heart rate more than 120, 07/03/19 18:45 08/02/19 18:44 Diphenhydramine HCl (Benadryl) 50 mg Q4H PRN IVP Itching 07/04/19 19:45 08/03/19 19:44 07/06/19 14:25 Enalaprilat (Vasotec) 2.5 mg Q6H PRN IV sbp more than 160 07/03/19 18:45 08/02/19 18:44 07/05/19 00:55 Famotidine (Pepcid) 20 mg BID ORAL 07/04/19 11:00 08/03/19 10:59 07/06/19 10:21 Furosemide (Lasix) 40 mg DAILY ORAL 07/04/19 09:00 08/03/19 08:59 07/06/19 10:20 Heparin Sodium (Porcine) (Heparin 5000 units/ml) 5,000 units EVERY 12 HOURS SUBQ 07/03/19 21:00 08/02/19 20:59 07/05/19 20:39 Hydralazine HCl (Apresoline) 100 mg EVERY 8 HOURS ORAL 07/05/19 14:00 08/02/19 21:59 07/06/19 14:23 Hydromorphone HCl (Dilaudid) 2 mg Q4H PRN IVP For Pain 07/04/19 11:15 07/11/19 11:14 07/06/19 14:24 Insulin Aspart (NovoLOG) BEFORE MEALS AND HS SUBQ 07/04/19 11:30 08/03/19 11:29 07/06/19 06:13 Labetalol HCl (Normodyne) 20 mg Q1H PRN IV sbp more than 160 07/03/19 18:45 08/02/19 18:44 Labetalol HCl (Normodyne) 200 mg Q12HR ORAL 07/04/19 11:00 08/03/19 10:59 07/05/19 20:37 Metoprolol Tartrate (Lopressor) 50 mg Q12HR ORAL 07/03/19 21:00 08/02/19 20:59 07/06/19 10:20 Ondansetron HCl (Zofran) 4 mg Q6H PRN IVP Nausea & Vomiting 07/03/19 18:45 08/02/19 18:44 07/06/19 14:23 Pantoprazole (Protonix) 40 mg DAILY ORAL 07/04/19 09:00 08/03/19 08:59 07/05/19 09:07 Polyethylene Glycol (Miralax) 17 gm DAILYPRN PRN ORAL Constipation 07/03/19 18:45 08/02/19 18:44 Temazepam (Restoril) 15 mg HSPRN PRN ORAL Insomnia 07/03/19 18:45 07/10/19 18:44 Allergies: Coded Allergies: CEFTRIAXONE (Verified Allergy, Severe, Itching, 07/04/19) IODINE AND IODIDE CONTAINING PRODUC (Verified Allergy, Severe, Anaphylaxis , 11/21/18) OLANZAPINE (Verified Allergy, Severe, Anaphylaxis, 11/21/18) THROAT SWELLING PROCHLORPERAZINE (Unverified Allergy, Severe, Shortness of Breath, ) ASPIRIN (Verified Allergy, Intermediate, Hives, 11/21/18) BENZTROPINE (Verified Allergy, Intermediate, Hives, 11/21/18) ERYTHROMYCIN BASE (Verified Allergy, Intermediate, Hives, 11/21/18) Tolerates Azithromycin KETOROLAC (Verified Allergy, Intermediate, Hives, 11/21/18) LOSARTAN (Verified Allergy, Intermediate, 11/21/18) ANGIOEDEMA NITROGLYCERIN (Verified Allergy, Intermediate, Hives, 11/21/18) PSEUDOEPHEDRINE (Verified Allergy, Intermediate, Hives, 11/21/18) SULFA (SULFONAMIDE ANTIBIOTICS) (Verified Allergy, Intermediate, Hives, 03/02) TERFENADINE (Verified Allergy, Intermediate, Hives, 11/21/18) TRAMADOL (Verified Allergy, Intermediate, Rash, 11/21/18) ROS Limited/Unobtainable: No Constitutional: Reports: weakness HEENT: Reports: no symptoms Cardiovascular: Reports: no symptoms Respiratory: Reports: no symptoms Gastrointestinal/Abdominal: Reports: no symptoms Genitourinary: Reports: no symptoms Neurologic/Psychiatric: Reports: no symptoms Subjective 48 YO F admitted with right sided weakness. Now cerebral vascular accident. Cover for Int Med-Dr Littlejohn. PAM Objective Last Vital Signs Date Time Temp Pulse Resp B/P (MAP) Pulse Ox O2 Delivery O2 Flow Rate FiO2 07/06/19 14:23 159/87 07/06/19 12:00 Room Air 07/06/19 12:00 75 07/06/19 11:53 97.2 17 98 07/03/19 19:40 21 Microbiology Date/Time Source Procedure Growth Status 07/03/19 15:50 Urine,Clean Catch Urine Culture - Final Mixed Gram Positive Organism Complete Intake and Output 07/05/19 07/06/19 19:00 07:00 Intake Total 600 ml 275 ml Balance 600 ml 275 ml Intake Oral 600 ml 275 ml # Voids 3 5 # Bowel Movements 3 4 Objective PHYSICAL EXAMINATION: GENERAL: The patient is well-developed and well-nourished obese female, no apparent distress. HEENT: Eyes, pupils are equal and responsive to light and accommodation. Extraocular movements are intact. NECK: Supple without lymphadenopathy. CHEST: Lungs are clear to auscultation bilaterally without wheezes or rales. CARDIOVASCULAR: Regular rate. S1 and S2 are normal without murmurs, rubs, or gallops. ABDOMEN: Soft, nontender, and nondistended. Positive bowel sounds. No evidence of hepatosplenomegaly. Currently, no rebound or guarding. EXTREMITIES: Negative for clubbing, cyanosis, or edema. RECTAL/GENITAL: Not performed. NEUROLOGIC: Cranial nerves II through XII are grossly intact without focal deficits. Motor strength is 5/5 bilaterally. Deep tendon reflexes are 2+ plantar. Assessment/Plan Assessment/Plan ASSESSMENT: This is a 48-year-old female. 1. Right-sided weakness. 2. Cerebrovascular accident. 3. Diabetes type 2. 4. Hypertension. 5. Hypercholesteremia. 6. Coronary artery disease. 7. Chronic obstructive pulmonary disease. 8. Asthma. 9. Depression. 10. Schizoaffective disorder. 11. Cervical spine stenosis. 12. Cerebrovascular disease. TREATMENT: 1. Cerebrovascular accident. A CT scan of the brain revealed basal ganglia infarcts which were of indeterminate age. An MRI of the brain is pending. A Neurology consultation has been obtained with Dr. Foster . We will follow recommendations of Neurology. 2. Diabetes type 2. NovoLog sliding scale has been instituted. 3. Hypertension. Continue amlodipine, clonidine, hydralazine, and hydrochlorothiazide as above. Continue metoprolol as above. 4. Hypercholesterolemia. Continue atorvastatin as above. 5. Coronary artery disease. 6. Chronic obstructive pulmonary disease. Continue Symbicort and albuterol as above. 7. Depression/schizoaffective disorder. 8. Cervical spine stenosis. 9. Cerebrovascular disease Peewee Logan MD Jul 06, 2019 15:46
[2019-07-06 16:00] VITALS: BP 145/84
--- NOTE | 2019-07-06 16:06 | NUR ---
NURSE NOTES: Made Dr. Logan aware of MRI of brain rescheduled to monday07/08/19.
--- NOTE | 2019-07-06 16:16 | NUR ---
NURSE NOTES: Made Dr. Logan aware of the patient having diarrhea x5 today and 5 times yesterday
[2019-07-06] MEDS ORDERED: Tubing IV Secondary IV ONE (16:26)
[2019-07-06] MEDS ORDERED: NS 275ml ONE ×2 (16:26→16:40)
[2019-07-06] MEDS ORDERED: Fluconazole 150mg tab ORAL SCH (18:00)
--- NOTE | 2019-07-06 19:41 | NUR ---
HAND-OFF: Report given to Matilde HARRIS. Pt remains stable.
--- NOTE | 2019-07-06 19:45 | NUR ---
NURSE NOTES: Report received from MAREK HARRIS.Patient awake oriented. no acute distress noted. Denies any pain at this time. SR on pet care attendant. vss. Afebrile.call light in reach. will continue plan of care.
[2019-07-06 20:00] VITALS: BP 140/80
[2019-07-06] MEDS ORDERED: Albuterol/Ipratropium 3ml neb HHN PRN (20:29)
[2019-07-06] MEDS ORDERED: Miralax 17gm pkt ORAL PRN (20:31)
--- NOTE | 2019-07-06 20:40 | NUR ---
TRANSFER TO FLOOR: Patient transferred to Room 406-1 via wheelchair. Report given to LUIGI RN using SBAR. Checked Belongings and medications given to RN.No acute distress upon transfer.
[2019-07-06] MEDS ORDERED: dilTIAZem HCl 25mg/5ml Inj IV PRN (20:45)
[2019-07-06] MEDS ORDERED: Labetalol 5mg/ml 20ml vial IV PRN (20:45)
--- NOTE | 2019-07-06 20:45 | NUR ---
NURSE NOTES: Patient arrived from SDU via wheelchair. Patient is ambulatory with steady gait. All belongings verified with patient at bedside. Oriented to new room and unit. Call light provided for patient. Yellow socks provided for patient. Instructed to call for assistance. Verbalized understanding. Will continue plan of care.
[2019-07-06] MEDS ORDERED: Enalaprilat 2.5mg/2ml Inj IV PRN (20:55)
[2019-07-07] VITALS: BP 153/103
[2019-07-07 03:43] VITALS: BP 139/69
[2019-07-07] MEDS: DiphenhydrAMINE 50mg/ml Inj IVP PRN ×4 (03:53→21:23)
--- NOTE | 2019-07-07 06:00 | NUR ---
NURSE NOTES: Patient asked for pain medication and benadryl. While flushing IV, noted leaking. Attempted to restart new IV access, unsuccessful, multiple RNs attempted with patient's consent, still unsuccessful. Dilaudid and benadryl were already drawn into syringe. Medication wasted and witness by another RN. ICU unable to attempt IV access at this time. Offered patient that RN can call MD for subcutaneous or intramuscular injection for pain medication; patient refused and stated that she will wait for AM shift to start her IV. Charge nurse made aware.
[2019-07-07] MEDS: HydrALAZINE 50mg tab ORAL SCH ×3 (06:05→21:19)
[2019-07-07] MEDS: NovoLOG Insulin Flexpen SUBQ SCH ×4 (06:11→21:00)
--- NOTE | 2019-07-07 07:05 | NUR ---
HAND-OFF: Report given to Johnie HARRIS.
--- NOTE | 2019-07-07 07:11 | NUR ---
NURSE NOTES: Received report from Aryan, Patient sleeping on right side, on room air, respirations at 15 breaths per minute, bed in lowest position, call light within reach, no IV access. Aryan indicated that she tried to place an IV for over 1.5 hours without success. I have notified Mai, charge nurse.
[2019-07-07 08:00] VITALS: BP 150/82
[2019-07-07 08:15] LABS: BASOPHILS % (AUTO) 2.2 % (0.0-2.0); HEMATOCRIT 33.8 % (37.0-47.0); HEMOGLOBIN 10.6 G/DL (12.0-16.0); LYMPHOCYTES % (AUTO) 28.6 % (20.0-45.0); MEAN CORPUSCULAR VOLUME 71 FL (80-99); MONOCYTES % (AUTO) 10.1 % (1.0-10.0); NEUTROPHILS % (AUTO) 57.1 % (45.0-75.0); PLATELET COUNT 218 K/UL (150-450); RED BLOOD COUNT 4.73 M/UL (4.20-5.40); RED CELL DISTRIBUTION WIDTH 16.1 % (11.6-14.8); WHITE BLOOD COUNT 5.7 K/UL (4.8-10.8)
[2019-07-07 08:19] LABS: ANION GAP 8 mmol/L (5-15); BLOOD UREA NITROGEN 19 mg/dL (7-18); CALCIUM 9.5 MG/DL (8.5-10.1); CARBON DIOXIDE 28 MMOL/L (21-32); CHLORIDE 103 MMOL/L (98-107); CREATININE 0.7 MG/DL (0.55-1.30); SODIUM 138 MMOL/L (136-145)
[2019-07-07] MEDS: Labetalol 200mg tab ORAL SCH ×2 (09:18→21:19)
[2019-07-07] MEDS: Cephalexin 500mg cap ORAL SCH ×2 (09:18→21:19)
[2019-07-07] MEDS: Furosemide 40mg tab ORAL SCH (09:18)
[2019-07-07] MEDS: Metoprolol Tartrate 50mg tab ORAL SCH ×2 (09:19→21:19)
[2019-07-07] MEDS: Atorvastatin 20mg tab ORAL SCH (09:19)
[2019-07-07] MEDS: Heparin 5000 units/ml inj SUBQ SCH ×2 (09:20→21:00)
--- NOTE | 2019-07-07 10:30 | Pulmonology Progress Note ---
Assessment/Plan Assessment/Plan ASSESSMENT Right-sided weakness Cerebrovascular disease with hx of TIA Bilateral basal ganglia lacunar infarcts -acute vs subacute Hypertension with initial HTN urgency - resolved CHF Asthma DM Hyperlipidemia Anemia Schizoaffective disorder PLAN OF CARE tele CT head noted: bilateral basal ganglia lacunar infarcts appeared remote , but not evident on prior study 05/29/2019 MRI brain pending neuro eval pending carotid duplex unremarkable lipid panel noted, continue statin , allergic to ASA, consider to add Plavix - per neuro recs ; after MRI TSH WNL BP management with CCB , hydralazine and beta-joey Echo with pEF O2 HHN PRN continue daily maintenance diuretic dose , monitor volumes DVT , GI prophylaxis monitor H&H with goal to keep hemoglobin above 7 BS management with SSI case discussed and evaluated by supervising physician Subjective Allergies: Coded Allergies: CEFTRIAXONE (Verified Allergy, Severe, Itching, 07/04/19) IODINE AND IODIDE CONTAINING PRODUC (Verified Allergy, Severe, Anaphylaxis , 11/21/18) OLANZAPINE (Verified Allergy, Severe, Anaphylaxis, 11/21/18) THROAT SWELLING PROCHLORPERAZINE (Unverified Allergy, Severe, Shortness of Breath, ) ASPIRIN (Verified Allergy, Intermediate, Hives, 11/21/18) BENZTROPINE (Verified Allergy, Intermediate, Hives, 11/21/18) ERYTHROMYCIN BASE (Verified Allergy, Intermediate, Hives, 11/21/18) Tolerates Azithromycin KETOROLAC (Verified Allergy, Intermediate, Hives, 11/21/18) LOSARTAN (Verified Allergy, Intermediate, 11/21/18) ANGIOEDEMA NITROGLYCERIN (Verified Allergy, Intermediate, Hives, 11/21/18) PSEUDOEPHEDRINE (Verified Allergy, Intermediate, Hives, 11/21/18) SULFA (SULFONAMIDE ANTIBIOTICS) (Verified Allergy, Intermediate, Hives, 03/02) TERFENADINE (Verified Allergy, Intermediate, Hives, 11/21/18) TRAMADOL (Verified Allergy, Intermediate, Rash, 11/21/18) Subjective BP stabilized still c/o RS weakness , no new weakness, MRI pending carotid unremarkable Objective Last 24 Hour Vital Signs Date Time Temp Pulse Resp B/P (MAP) Pulse Ox O2 Delivery O2 Flow Rate FiO2 07/07/19 09:19 82 150/82 07/07/19 09:19 82 150/82 07/07/19 09:18 82 150/82 07/07/19 08:00 97.7 82 20 150/82 (104) 99 07/07/19 06:05 139/69 07/07/19 03:43 97.5 78 20 139/69 (92) 99 07/07/19 00:00 97.3 78 20 153/103 (120) 99 07/06/19 21:13 80 140/80 07/06/19 21:13 80 140/80 07/06/19 21:13 140/80 07/06/19 20:00 Room Air 07/06/19 20:00 98.1 80 20 140/80 (100) 98 07/06/19 16:00 78 07/06/19 16:00 Room Air 07/06/19 16:00 98.0 76 17 145/84 (104) 100 07/06/19 14:23 159/87 07/06/19 12:00 Room Air 07/06/19 12:00 75 07/06/19 11:53 97.2 66 17 159/87 (111) 98 Intake and Output 07/06/19 07/07/19 19:00 07:00 Intake Total 400 ml 800 ml Balance 400 ml 800 ml Intake Oral 400 ml 800 ml # Voids 3 3 # Bowel Movements 10 Objective General Appearance: no acute distress, obese AA female HEENT: normocephalic, atraumatic, anicteric, mucous membranes moist, PERRL Respiratory/Chest: lungs clear, no respiratory distress, no accessory muscle use Cardiovascular: normal peripheral pulses, no JVD, normal rate Abdomen: normal bowel sounds, soft, non tender - obese Extremities: trace edema BLE Neurologic/Psychiatric: alert, oriented x 3, responsive, decreased strength RUE 4/5 and BLE 4/5 Musculoskeletal: normal muscle bulk Laboratory Tests 07/07/19 06:45: White Blood Count 5.7, Red Blood Count 4.73, Hemoglobin 10.6L, Hematocrit 33.8L , Mean Corpuscular Volume 71L, Mean Corpuscular Hemoglobin 22.4L, Mean Corpuscular Hemoglobin Concent 31.4L, Red Cell Distribution Width 16.1H, Platelet Count 218, Mean Platelet Volume 6.8, Neutrophils (%) (Auto) 57.1, Lymphocytes (%) (Auto) 28.6, Monocytes (%) (Auto) 10.1H, Eosinophils (%) (Auto) 2.0, Basophils (%) (Auto) 2.2H, Sodium Level 138, Potassium Level 4.0, Chloride Level 103, Carbon Dioxide Level 28, Anion Gap 8, Blood Urea Nitrogen 19H, Creatinine 0.7, Estimat Glomerular Filtration Rate > 60, Glucose Level 186H, Calcium Level 9.5 Current Medications Medications (Trade) Dose Ordered Sig/Raymond Route PRN Reason Start Time Stop Time Status Last Admin Dose Admin Acetaminophen (Tylenol) 650 mg Q4H PRN ORAL FEVER 07/06/19 20:28 08/05/19 20:27 Albuterol/ Ipratropium (Albuterol/ Ipratropium) 3 ml Q4H PRN HHN Shortness of Breath 07/06/19 20:29 07/11/19 20:28 Amlodipine Besylate (Norvasc) 10 mg DAILY ORAL 07/07/19 09:00 08/03/19 08:59 07/07/19 09:19 Atorvastatin Calcium (Lipitor) 40 mg DAILY ORAL 07/07/19 09:00 08/03/19 08:59 07/07/19 09:19 Cephalexin (Keflex) 500 mg Q12HR ORAL 07/06/19 21:00 07/14/19 21:01 07/07/19 09:18 Dextrose (Dextrose 50%) 25 ml Q30M PRN IV Hypoglycemia 07/06/19 20:30 08/03/19 10:29 Dextrose (Dextrose 50%) 50 ml Q30M PRN IV Hypoglycemia 07/06/19 20:30 08/03/19 10:29 Diphenhydramine HCl (Benadryl) 50 mg Q4H PRN IVP Itching 07/06/19 20:29 08/05/19 20:28 07/06/19 22:37 Enalaprilat (Vasotec) 2.5 mg Q6H PRN IV sbp more than 160 07/06/19 20:55 08/05/19 20:54 Famotidine (Pepcid) 20 mg BID ORAL 07/07/19 09:00 08/03/19 10:59 07/07/19 09:18 Furosemide (Lasix) 40 mg DAILY ORAL 07/07/19 09:00 08/03/19 08:59 07/07/19 09:18 Heparin Sodium (Porcine) (Heparin 5000 units/ml) 5,000 units EVERY 12 HOURS SUBQ 07/06/19 21:00 08/02/19 20:59 07/07/19 09:20 Hydralazine HCl (Apresoline) 100 mg EVERY 8 HOURS ORAL 07/06/19 22:00 08/02/19 21:59 07/07/19 06:05 Hydromorphone HCl (Dilaudid) 2 mg Q4H PRN IVP For Pain 07/06/19 20:30 07/13/19 20:29 07/06/19 22:37 Insulin Aspart (NovoLOG) BEFORE MEALS AND HS SUBQ 07/06/19 22:00 08/03/19 21:59 07/07/19 06:11 Labetalol HCl (Normodyne) 200 mg Q12HR ORAL 07/06/19 21:00 08/03/19 10:59 07/07/19 09:18 Metoprolol Tartrate (Lopressor) 50 mg Q12HR ORAL 07/06/19 21:00 08/02/19 20:59 07/07/19 09:19 Ondansetron HCl (Zofran) 4 mg Q6H PRN IVP Nausea & Vomiting 07/06/19 20:31 08/05/19 20:30 07/06/19 22:37 Pantoprazole (Protonix) 40 mg DAILY ORAL 07/07/19 09:00 08/03/19 08:59 07/07/19 09:18 Polyethylene Glycol (Miralax) 17 gm DAILYPRN PRN ORAL Constipation 07/06/19 20:31 08/05/19 20:30 Temazepam (Restoril) 15 mg HSPRN PRN ORAL Insomnia 07/06/19 20:31 07/13/19 20:30 Ebony Solares SPEECH CLINICIAN Jul 07, 2019 10:30
[2019-07-07] MEDS ORDERED: Gadavist 7.5mMol/7.5ml vial IV PRN (11:45)
[2019-07-07 12:00] VITALS: BP 128/71
--- NOTE | 2019-07-07 15:00 | Internal Med Progress Note ---
Subjective Date of Service: Jul 07, 2019 Physician Name Peewee Logan Attending Physician Hebert iLttlejohn MD Current Medications Medications (Trade) Dose Ordered Sig/Raymond Route PRN Reason Start Time Stop Time Status Last Admin Dose Admin Acetaminophen (Tylenol) 650 mg Q4H PRN ORAL FEVER 07/06/19 20:28 08/05/19 20:27 Albuterol/ Ipratropium (Albuterol/ Ipratropium) 3 ml Q4H PRN HHN Shortness of Breath 07/06/19 20:29 07/11/19 20:28 Amlodipine Besylate (Norvasc) 10 mg DAILY ORAL 07/07/19 09:00 08/03/19 08:59 07/07/19 09:19 Atorvastatin Calcium (Lipitor) 40 mg DAILY ORAL 07/07/19 09:00 08/03/19 08:59 07/07/19 09:19 Cephalexin (Keflex) 500 mg Q12HR ORAL 07/06/19 21:00 07/14/19 21:01 07/07/19 09:18 Dextrose (Dextrose 50%) 25 ml Q30M PRN IV Hypoglycemia 07/06/19 20:30 08/03/19 10:29 Dextrose (Dextrose 50%) 50 ml Q30M PRN IV Hypoglycemia 07/06/19 20:30 08/03/19 10:29 Diphenhydramine HCl (Benadryl) 50 mg Q4H PRN IVP Itching 07/06/19 20:29 08/05/19 20:28 07/07/19 13:15 Enalaprilat (Vasotec) 2.5 mg Q6H PRN IV sbp more than 160 07/06/19 20:55 08/05/19 20:54 Famotidine (Pepcid) 20 mg BID ORAL 07/07/19 09:00 08/03/19 10:59 07/07/19 09:18 Furosemide (Lasix) 40 mg DAILY ORAL 07/07/19 09:00 08/03/19 08:59 07/07/19 09:18 Gadobutrol (Gadavist) 7.5 mmol NOW PRN IV Radiology Procedure 07/07/19 11:45 07/11/19 11:45 Heparin Sodium (Porcine) (Heparin 5000 units/ml) 5,000 units EVERY 12 HOURS SUBQ 07/06/19 21:00 08/02/19 20:59 07/07/19 09:20 Hydralazine HCl (Apresoline) 100 mg EVERY 8 HOURS ORAL 07/06/19 22:00 08/02/19 21:59 07/07/19 14:05 Hydromorphone HCl (Dilaudid) 2 mg Q4H PRN IVP For Pain 07/06/19 20:30 07/13/19 20:29 07/07/19 13:15 Insulin Aspart (NovoLOG) BEFORE MEALS AND HS SUBQ 07/06/19 22:00 08/03/19 21:59 07/07/19 12:30 Labetalol HCl (Normodyne) 200 mg Q12HR ORAL 07/06/19 21:00 08/03/19 10:59 07/07/19 09:18 Metoprolol Tartrate (Lopressor) 50 mg Q12HR ORAL 07/06/19 21:00 08/02/19 20:59 07/07/19 09:19 Ondansetron HCl (Zofran) 4 mg Q6H PRN IVP Nausea & Vomiting 07/06/19 20:31 08/05/19 20:30 07/07/19 13:15 Pantoprazole (Protonix) 40 mg DAILY ORAL 07/07/19 09:00 08/03/19 08:59 07/07/19 09:18 Polyethylene Glycol (Miralax) 17 gm DAILYPRN PRN ORAL Constipation 07/06/19 20:31 08/05/19 20:30 Temazepam (Restoril) 15 mg HSPRN PRN ORAL Insomnia 07/06/19 20:31 07/13/19 20:30 Allergies: Coded Allergies: CEFTRIAXONE (Verified Allergy, Severe, Itching, 07/04/19) IODINE AND IODIDE CONTAINING PRODUC (Verified Allergy, Severe, Anaphylaxis , 11/21/18) OLANZAPINE (Verified Allergy, Severe, Anaphylaxis, 11/21/18) THROAT SWELLING PROCHLORPERAZINE (Unverified Allergy, Severe, Shortness of Breath, ) ASPIRIN (Verified Allergy, Intermediate, Hives, 11/21/18) BENZTROPINE (Verified Allergy, Intermediate, Hives, 11/21/18) ERYTHROMYCIN BASE (Verified Allergy, Intermediate, Hives, 11/21/18) Tolerates Azithromycin KETOROLAC (Verified Allergy, Intermediate, Hives, 11/21/18) LOSARTAN (Verified Allergy, Intermediate, 11/21/18) ANGIOEDEMA NITROGLYCERIN (Verified Allergy, Intermediate, Hives, 11/21/18) PSEUDOEPHEDRINE (Verified Allergy, Intermediate, Hives, 11/21/18) SULFA (SULFONAMIDE ANTIBIOTICS) (Verified Allergy, Intermediate, Hives, 03/02) TERFENADINE (Verified Allergy, Intermediate, Hives, 11/21/18) TRAMADOL (Verified Allergy, Intermediate, Rash, 11/21/18) ROS Limited/Unobtainable: No Constitutional: Reports: weakness HEENT: Reports: no symptoms Cardiovascular: Reports: no symptoms Respiratory: Reports: no symptoms Gastrointestinal/Abdominal: Reports: no symptoms Genitourinary: Reports: no symptoms Neurologic/Psychiatric: Reports: no symptoms Subjective 48 YO F admitted with right sided weakness. Now cerebral vascular accident. Cover for Int [place]-Dr Littlejohn. Objective Last Vital Signs Date Time Temp Pulse Resp B/P (MAP) Pulse Ox O2 Delivery O2 Flow Rate FiO2 07/07/19 14:05 128/71 07/07/19 13:45 97.7 07/07/19 12:00 85 20 99 07/07/19 09:00 Room Air 07/03/19 19:40 21 Laboratory Tests Test 07/07/19 06:45 White Blood Count 5.7 K/UL (4.8-10.8) Red Blood Count 4.73 M/UL (4.20-5.40) Hemoglobin 10.6 G/DL (12.0-16.0) L Hematocrit 33.8 % (37.0-47.0) L Mean Corpuscular Volume 71 FL (80-99) L Mean Corpuscular Hemoglobin 22.4 PG (27.0-31.0) L Mean Corpuscular Hemoglobin Concent 31.4 G/DL (32.0-36.0) L Red Cell Distribution Width 16.1 % (11.6-14.8) H Platelet Count 218 K/UL (150-450) Mean Platelet Volume 6.8 FL (6.5-10.1) Neutrophils (%) (Auto) 57.1 % (45.0-75.0) Lymphocytes (%) (Auto) 28.6 % (20.0-45.0) Monocytes (%) (Auto) 10.1 % (1.0-10.0) H Eosinophils (%) (Auto) 2.0 % (0.0-3.0) Basophils (%) (Auto) 2.2 % (0.0-2.0) H Sodium Level 138 MMOL/L (136-145) Potassium Level 4.0 MMOL/L (3.5-5.1) Chloride Level 103 MMOL/L (98-107) Carbon Dioxide Level 28 MMOL/L (21-32) Anion Gap 8 mmol/L (5-15) Blood Urea Nitrogen 19 mg/dL (7-18) H Creatinine 0.7 MG/DL (0.55-1.30) Estimat Glomerular Filtration Rate > 60 mL/min (>60) Glucose Level 186 MG/DL (74-106) H Calcium Level 9.5 MG/DL (8.5-10.1) Intake and Output 07/06/19 07/07/19 19:00 07:00 Intake Total 400 ml 800 ml Balance 400 ml 800 ml Intake Oral 400 ml 800 ml # Voids 3 3 # Bowel Movements 10 Objective PHYSICAL EXAMINATION: GENERAL: The patient is well-developed and well-nourished obese female, no apparent distress. HEENT: Eyes, pupils are equal and responsive to light and accommodation. Extraocular movements are intact. NECK: Supple without lymphadenopathy. CHEST: Lungs are clear to auscultation bilaterally without wheezes or rales. CARDIOVASCULAR: Regular rate. S1 and S2 are normal without murmurs, rubs, or gallops. ABDOMEN: Soft, nontender, and nondistended. Positive bowel sounds. No evidence of hepatosplenomegaly. Currently, no rebound or guarding. EXTREMITIES: Negative for clubbing, cyanosis, or edema. RECTAL/GENITAL: Not performed. NEUROLOGIC: Cranial nerves II through XII are grossly intact without focal deficits. Motor strength is 5/5 bilaterally. Deep tendon reflexes are 2+ plantar. Assessment/Plan Assessment/Plan ASSESSMENT: This is a 48-year-old female. 1. Right-sided weakness. 2. Cerebrovascular accident. 3. Diabetes type 2. 4. Hypertension. 5. Hypercholesteremia. 6. Coronary artery disease. 7. Chronic obstructive pulmonary disease. 8. Asthma. 9. Depression. 10. Schizoaffective disorder. 11. Cervical spine stenosis. 12. Cerebrovascular disease. TREATMENT: 1. Cerebrovascular accident. A CT scan of the brain revealed basal ganglia infarcts which were of indeterminate age. An MRI of the brain is pending. A Neurology consultation has been obtained with Dr. Foster . We will follow recommendations of Neurology. 2. Diabetes type 2. NovoLog sliding scale has been instituted. 3. Hypertension. Continue amlodipine, clonidine, hydralazine, and hydrochlorothiazide as above. Continue metoprolol as above. 4. Hypercholesterolemia. Continue atorvastatin as above. 5. Coronary artery disease. 6. Chronic obstructive pulmonary disease. Continue Symbicort and albuterol as above. 7. Depression/schizoaffective disorder. 8. Cervical spine stenosis. 9. Cerebrovascular disease Peewee Logan MD Jul 07, 2019 15:00
[2019-07-07 16:00] VITALS: BP 135/88
--- NOTE | 2019-07-07 18:21 | NUR ---
NURSE NOTES: Left message with Ashlyn at message service for Dr. Peewee Logan notifying that patient wishes to switch from Dilaudid to Morphine.
--- NOTE | 2019-07-07 19:16 | NUR ---
HAND-OFF: Report given to Aryan Upton RN. Patient in supine position, on room air, respirations 16 breaths per minute, pain treated with Dilaudid, bed in lowest position, call light within reach.
[2019-07-07 20:00] VITALS: BP 138/84
--- NOTE | 2019-07-07 20:00 | NUR ---
NURSE NOTES: Patient received ambulating around the room. IV on right upper arm and left upper arm. Patient claims that her new IV on left upper arm is not working because she does not feel her medications going in and requested for it to be removed. IV flushed and no infiltration noted but patient still insisted for it to be removed and asked for another IV access.Charge nurse made aware. Multiple attempts made by CRN and other RN's in the morning were unsuccessful. Charge nurse called supervisor type bar and segment to ask ICU for IV assist. ICU nurse will come up and re-start an IV for patient.
[2019-07-08] MEDS: DiphenhydrAMINE 50mg/ml Inj IVP PRN ×6 (01:56→23:19)
--- NOTE | 2019-07-08 02:15 | Consultation ---
DATE OF CONSULTATION: 07/07/2019 NEUROLOGIC CONSULTATION CONSULTING PHYSICIAN: Primo Foster M.D. CHIEF COMPLAINT: This is the fifth [facility] admission for this 48-year-old right-handed woman who was brought in with right-sided weakness. See the previous report. She has a previous history of type 2 diabetes, hypertension, hyperlipidemia, coronary artery disease status post stent placement in September 2016, chronic obstructive pulmonary disease, depression, schizoaffective disorder, . The patient was bought at this time for chest pain weakness. The patient was admitted on 11/20/2018 and discharged on 11/22/2018 after a fall and dragging her right side when she was walking. Apparently, she had transient ischemic attack before and had the angiogram in June 2018 at [facility]. She was initially on Plavix, but was discontinued because of anemia and she had an extensive workup at [facility] including CT scan of the brain as well as MRI of the brain and she was found to have cervical spine stenosis with cord compression at C4 through . She was ruled out for acute stroke and was transferred to [facility]. She had a low TSH and was nonreactive for syphilis serology in HIV screening. Her sugar was over 300,. Because of the patient's weakness, she is getting cervical spine adhesion. The patient was discharged but was admitted on April 08, 2019 and discharged on April 12, 2019 for congestive heart failure. She was also admitted on May 25, 2019 for COPD exacerbation and discharged on May 31, 2019. The patient was discharged on clonidine, hydralazine, hydrochlorothiazide, metformin, metoprolol, sertraline, acetaminophen, and amlodipine. The patient was then brought here on 07/03/2019 with complaints of right-sided weakness. The patient was concerned that she may be having a stroke. The patient was anemic and low indices, had a normal platelet count and normal white count. Urinalysis revealed that she had urinary tract infection, 15 to 20 white blood cells, and moderate bacteria. Urine culture revealed mixed gram-positive organism. The patient had elevated cholesterol over 200 with high LDL cholesterol. TSH is 0.892. BUN was slightly elevated. The glucose was 186 yesterday. Troponins were negative. The patient had a head CT scan on 05/29/2019, which was normal. However, CT scan of her head on 07/03/2019 revealed bilateral basal ganglia lacunar infarctions on 05/29/2019. The patient had a duplex scan on 07/05/2019 of the carotid and vertebral artery. Impression is normal duplex ultrasound of the neck. The PT and PTT were normal. The patient's blood pressure has been elevated at 150/82 today and it was 185/98 on 07/04/2019. No chest x-ray was done. The patient was also placed on Protonix, Zofran, Lopressor, temazepam, labetalol p.r.n., NovoLog, Dilaudid, and furosemide. The patient had an echocardiogram on 07/03/2019. She had mild left ventricular hypertrophy, moderate mitral regurgitation, and elevated peak right ventricular systolic pressure consistent with mild pulmonary hypertension. There is also mitral annulus and aortic root calcification. The patient essentially cannot give a history. She was lethargic and wanted to sleep, lying in bed, and very cooperative. There is no known family history of neurologic disease. apparently was complaining of right upper extremity weakness on admission. PAST MEDICAL HISTORY/PAST MEDICAL ILLNESSES: See above. ALLERGIES: She is allergic to multiple medicines, see the chart. They will not tell me which ones they are. MEDICATIONS: She is on albuterol, amlodipine, Lipitor, Symbicort, Klonopin, clonidine, Plavix, furosemide, glipizide, hydralazine, hydrochlorothiazide, Levemir, metformin, and metoprolol. SOCIAL HISTORY: The patient apparently lives alone. HABITS: The patient does not smoke . She denies any alcohol or illegal drug use. SURGERIES: Total abdominal hysterectomy for uterine fibroids and . REVIEW OF SYSTEMS: Essentially cannot be obtained. PHYSICAL EXAMINATION: GENERAL: She is a well-developed, very obese woman, lying in bed, lethargic, little difficult to arouse. VITAL SIGNS: Blood pressure is 162/78, pulse is 79 and regular, respiration rate appears to be about 18. HEENT: Examination of the head is grossly intact. NECK: Supple. Carotids are +1. There are no bruits. LUNGS: Appear to be clear to auscultation. CARDIOVASCULAR: The patient had a normal S1 and S2 is probably physiologically split. There is no S3, S4, murmurs, or rubs appreciated. ABDOMEN: The abdomen is obese. Bowel sounds intact. No tenderness, masses, or organomegaly appreciated. BACK: There is no tenderness to percussion or muscle spasm. EXTREMITIES: were intact. NEUROLOGIC EXAMINATION: MENTAL STATUS: This patient is alert and lethargic. She can follow some commands and squeeze my hand on the other side, stick out her tongue, smile, follow my finger. Orientation, she knew her name. She knew where she was. She thought it was July 08, did not known the day. She could spell world forwards, but on spelling it backwards spelled it "dlor." Language function, spoken speech was slightly slurred of low volume and decreased output. There is no obvious paraphasias. CRANIAL NERVE II: Visual enriquez appeared to be intact to confrontation. CRANIAL NERVES III, IV, AND : Horizontal extraocular motility is full. Pupils were about 6 mm, round, light and reactive. CRANIAL NERVE V: Corneal sensation appeared to be intact bilaterally. CRANIAL NERVE VII: Facial strength appeared to be intact bilaterally. CRANIAL NERVE VIII: Auditory acuity is partially intact bilaterally. CRANIAL NERVES IX AND X: Gag was slightly decreased bilaterally. CRANIAL NERVE XI: Sternocleidomastoid strength is 5/5. CRANIAL NERVE XII: Tongue protrudes in the midline without fasciculations or atrophy. MUSCULOSKELETAL: Muscle bulk is probably normal. Tone is normal to decrease. Strength is difficult to evaluate she has more strength on the left at least 4+/5 and on the right move her legs for me. Reflexes are trace in the upper extremities, 0 at the knees and ankles She had down going toes on the right side and downgoing toes on the left side in testing for Babinski response. COORDINATION: [id number] was impaired bilaterally. GAIT AND STATION: Could not be tested. SENSORY EXAMINATION: She did not react to deep pain in all four extremities. IMPRESSION: This patient may have new strokes and she also had cord compression in the past obtained MRIs of the cervical spine and her brain. The weakness on the right may be due to cord compression, which was noted in the past. Strokes appeared to be new. The review of CT scan does not show any obvious strokes or noted on the new CT scan including the lacunar strokes. As treatment is concerned, it is very difficult. Obviously, her blood pressure has to be treated aggressively and she has a lot of cord compression. She has to see a neurosurgeon or orthopedic spine surgeon and otherwise she might be a surgical candidate. Her anemia should be explored and it appears that she probably has iron-deficiency anemia given the low indices. The cause of which is unclear, but should be treated, so she can be placed on antiplatelet agents. PLAN: 1. MRI scan of the brain and MRI scan of the cervical spinal cord. 2. I will speak . Thank you for this interesting case. Primo Foster MD DR: YAMILE JOB#: [id number] CC: SOO
[2019-07-08] MEDS: HydrALAZINE 50mg tab ORAL SCH ×3 (05:54→22:00)
[2019-07-08] MEDS: NovoLOG Insulin Flexpen SUBQ SCH ×4 (05:58→20:33)
[2019-07-08 06:34] LABS: BASOPHILS % (AUTO) 1.8 % (0.0-2.0); EOSINOPHILS % (AUTO) 1.5 % (0.0-3.0); HEMATOCRIT 35.5 % (37.0-47.0); HEMOGLOBIN 11.2 G/DL (12.0-16.0); LYMPHOCYTES % (AUTO) 27.4 % (20.0-45.0); MEAN CORPUSCULAR VOLUME 73 FL (80-99); MONOCYTES % (AUTO) 10.2 % (1.0-10.0); NEUTROPHILS % (AUTO) 59.2 % (45.0-75.0); PLATELET COUNT 253 K/UL (150-450); RED BLOOD COUNT 4.89 M/UL (4.20-5.40); RED CELL DISTRIBUTION WIDTH 16.8 % (11.6-14.8)
[2019-07-08 06:54] LABS: ANION GAP 10 mmol/L (5-15); BLOOD UREA NITROGEN 30 mg/dL (7-18); CALCIUM 10.2 MG/DL (8.5-10.1); CARBON DIOXIDE 28 MMOL/L (21-32); CHLORIDE 105 MMOL/L (98-107); CREATININE 1.3 MG/DL (0.55-1.30); POTASSIUM 4.5 MMOL/L (3.5-5.1); SODIUM 143 MMOL/L (136-145)
--- NOTE | 2019-07-08 06:58 | NUR ---
NURSE NOTES: Received report from Aryan Upton RN. Patient in supine position, sleeping, respirations at 15 breaths per minute, on room air, bed in lowest position, call light within reach, in no apparent distress.
--- NOTE | 2019-07-08 07:00 | NUR ---
HAND-OFF: Report given to Johnie HARRIS.
[2019-07-08 08:00] VITALS: BP 118/69
--- NOTE | 2019-07-08 08:48 | NUR ---
07/08..PT SPOKE TO DEISI ULYSSES, REFUSING MRI EXAMS. BOTH MERCHANT MARINER DAVID AND STEVEN VALERO ARE AWARE. TJB 08:30
[2019-07-08] MEDS: Heparin 5000 units/ml inj SUBQ SCH ×2 (09:00→20:33)
[2019-07-08] MEDS: Labetalol 200mg tab ORAL SCH ×2 (09:48→20:27)
[2019-07-08] MEDS: Atorvastatin 20mg tab ORAL SCH (09:49)
[2019-07-08] MEDS: Cephalexin 500mg cap ORAL SCH ×2 (09:49→20:28)
[2019-07-08] MEDS: Furosemide 40mg tab ORAL SCH (09:49)
[2019-07-08] MEDS: Metoprolol Tartrate 50mg tab ORAL SCH ×2 (09:50→20:28)
--- NOTE | 2019-07-08 10:41 | Cardiac Electrophysiology PN ---
Subjective Subjective [id number] Objective Last 24 Hour Vital Signs Date Time Temp Pulse Resp B/P (MAP) Pulse Ox O2 Delivery O2 Flow Rate FiO2 07/08/19 10:31 97.9 07/08/19 09:50 79 118/69 07/08/19 09:50 79 118/69 07/08/19 09:48 79 118/69 07/08/19 08:00 97.9 79 18 118/69 (85) 99 07/08/19 05:54 129/73 07/07/19 21:19 82 138/84 07/07/19 21:19 82 138/84 07/07/19 21:19 138/84 07/07/19 21:00 Room Air 07/07/19 20:00 98.5 82 20 138/84 (102) 99 07/07/19 16:00 98.9 83 20 135/88 (104) 99 07/07/19 14:05 128/71 07/07/19 12:00 97.7 85 20 128/71 (90) 99 Intake and Output 07/07/19 07/08/19 19:00 07:00 Intake Total 480 ml Balance 480 ml Intake Oral 480 ml # Voids 3 3 Laboratory Tests Test 07/08/19 06:05 White Blood Count 7.0 K/UL (4.8-10.8) Red Blood Count 4.89 M/UL (4.20-5.40) Hemoglobin 11.2 G/DL (12.0-16.0) L Hematocrit 35.5 % (37.0-47.0) L Mean Corpuscular Volume 73 FL (80-99) L Mean Corpuscular Hemoglobin 22.9 PG (27.0-31.0) L Mean Corpuscular Hemoglobin Concent 31.5 G/DL (32.0-36.0) L Red Cell Distribution Width 16.8 % (11.6-14.8) H Platelet Count 253 K/UL (150-450) Mean Platelet Volume 7.0 FL (6.5-10.1) Neutrophils (%) (Auto) 59.2 % (45.0-75.0) Lymphocytes (%) (Auto) 27.4 % (20.0-45.0) Monocytes (%) (Auto) 10.2 % (1.0-10.0) H Eosinophils (%) (Auto) 1.5 % (0.0-3.0) Basophils (%) (Auto) 1.8 % (0.0-2.0) Sodium Level 143 MMOL/L (136-145) Potassium Level 4.5 MMOL/L (3.5-5.1) Chloride Level 105 MMOL/L (98-107) Carbon Dioxide Level 28 MMOL/L (21-32) Anion Gap 10 mmol/L (5-15) Blood Urea Nitrogen 30 mg/dL (7-18) H Creatinine 1.3 MG/DL (0.55-1.30) # Estimat Glomerular Filtration Rate 43.7 mL/min (>60) Glucose Level 166 MG/DL (74-106) H Calcium Level 10.2 MG/DL (8.5-10.1) H Shiva Larson MD Jul 08, 2019 10:41
[2019-07-08 12:00] VITALS: BP 147/81
--- NOTE | 2019-07-08 14:00 | Pulmonology Progress Note ---
Assessment/Plan Problems: (1) Lacunar infarction (2) Uncontrolled hypertension (3) COPD (chronic obstructive pulmonary disease) (4) CAD (coronary artery disease) (5) Diabetes mellitus (6) Moderate pulmonary arterial systolic hypertension (7) Morbid obesity Assessment/Plan add Clonipine on Amlodipine 10 qd Hydralazine 50 q8 HCTZ 25 Lopressor 50 BID Labetolol 200 q 12 got 3 doses of enalapril IV in the last 24 hours., at midnight her BP was 170/ 100 increase Hydralazine to 100 TID sliding scale cardio and neurology to see pt/ot respiratory treatment Subjective ROS Limited/Unobtainable: No Constitutional: Reports: no symptoms HEENT: Repors: no symptoms Respiratory: Reports: no symptoms Allergies: Coded Allergies: CEFTRIAXONE (Verified Allergy, Severe, Itching, 07/04/19) IODINE AND IODIDE CONTAINING PRODUC (Verified Allergy, Severe, Anaphylaxis , 11/21/18) OLANZAPINE (Verified Allergy, Severe, Anaphylaxis, 11/21/18) THROAT SWELLING PROCHLORPERAZINE (Unverified Allergy, Severe, Shortness of Breath, ) ASPIRIN (Verified Allergy, Intermediate, Hives, 11/21/18) BENZTROPINE (Verified Allergy, Intermediate, Hives, 11/21/18) ERYTHROMYCIN BASE (Verified Allergy, Intermediate, Hives, 11/21/18) Tolerates Azithromycin KETOROLAC (Verified Allergy, Intermediate, Hives, 11/21/18) LOSARTAN (Verified Allergy, Intermediate, 11/21/18) ANGIOEDEMA NITROGLYCERIN (Verified Allergy, Intermediate, Hives, 11/21/18) PSEUDOEPHEDRINE (Verified Allergy, Intermediate, Hives, 11/21/18) SULFA (SULFONAMIDE ANTIBIOTICS) (Verified Allergy, Intermediate, Hives, 03/02) TERFENADINE (Verified Allergy, Intermediate, Hives, 11/21/18) TRAMADOL (Verified Allergy, Intermediate, Rash, 11/21/18) Objective Last 24 Hour Vital Signs Date Time Temp Pulse Resp B/P (MAP) Pulse Ox O2 Delivery O2 Flow Rate FiO2 07/08/19 10:31 97.9 07/08/19 09:50 79 118/69 07/08/19 09:50 79 118/69 07/08/19 09:48 79 118/69 07/08/19 09:00 Room Air 07/08/19 08:00 97.9 79 18 118/69 (85) 99 07/08/19 05:54 129/73 07/07/19 21:19 82 138/84 07/07/19 21:19 82 138/84 07/07/19 21:19 138/84 07/07/19 21:00 Room Air 07/07/19 20:00 98.5 82 20 138/84 (102) 99 07/07/19 16:00 98.9 83 20 135/88 (104) 99 07/07/19 14:05 128/71 Intake and Output 07/07/19 07/08/19 19:00 07:00 Intake Total 480 ml Balance 480 ml Intake Oral 480 ml # Voids 3 3 General Appearance: WD/WN HEENT: normocephalic, atraumatic Respiratory/Chest: chest wall non-tender, lungs clear Cardiovascular: normal peripheral pulses, normal rate Abdomen: normal bowel sounds, soft, non tender Genitourinary: normal external genitalia Neurologic/Psychiatric: 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 head II-XII grossly normal Laboratory Tests 07/08/19 06:05: White Blood Count 7.0, Red Blood Count 4.89, Hemoglobin 11.2L, Hematocrit 35.5L , Mean Corpuscular Volume 73L, Mean Corpuscular Hemoglobin 22.9L, Mean Corpuscular Hemoglobin Concent 31.5L, Red Cell Distribution Width 16.8H, Platelet Count 253, Mean Platelet Volume 7.0, Neutrophils (%) (Auto) 59.2, Lymphocytes (%) (Auto) 27.4, Monocytes (%) (Auto) 10.2H, Eosinophils (%) (Auto) 1.5, Basophils (%) (Auto) 1.8, Sodium Level 143, Potassium Level 4.5, Chloride Level 105, Carbon Dioxide Level 28, Anion Gap 10, Blood Urea Nitrogen 30H, Creatinine 1.3#, Estimat Glomerular Filtration Rate 43.7, Glucose Level 166H, Calcium Level 10.2H Current Medications Medications (Trade) Dose Ordered Sig/Raymond Route PRN Reason Start Time Stop Time Status Last Admin Dose Admin Acetaminophen (Tylenol) 650 mg Q4H PRN ORAL FEVER 07/06/19 20:28 08/05/19 20:27 Albuterol/ Ipratropium (Albuterol/ Ipratropium) 3 ml Q4H PRN HHN Shortness of Breath 07/06/19 20:29 07/11/19 20:28 Amlodipine Besylate (Norvasc) 10 mg DAILY ORAL 07/07/19 09:00 08/03/19 08:59 07/08/19 09:50 Atorvastatin Calcium (Lipitor) 40 mg DAILY ORAL 07/07/19 09:00 08/03/19 08:59 07/08/19 09:49 Cephalexin (Keflex) 500 mg Q12HR ORAL 07/06/19 21:00 07/14/19 21:01 07/08/19 09:49 Dextrose (Dextrose 50%) 25 ml Q30M PRN IV Hypoglycemia 07/06/19 20:30 08/03/19 10:29 Dextrose (Dextrose 50%) 50 ml Q30M PRN IV Hypoglycemia 07/06/19 20:30 08/03/19 10:29 Diphenhydramine HCl (Benadryl) 50 mg Q4H PRN IVP Itching 07/06/19 20:29 08/05/19 20:28 07/08/19 10:00 Enalaprilat (Vasotec) 2.5 mg Q6H PRN IV sbp more than 160 07/06/19 20:55 08/05/19 20:54 Famotidine (Pepcid) 20 mg BID ORAL 07/07/19 09:00 08/03/19 10:59 07/08/19 09:49 Gadobutrol (Gadavist) 7.5 mmol NOW PRN IV Radiology Procedure 07/07/19 11:45 07/11/19 11:45 Heparin Sodium (Porcine) (Heparin 5000 units/ml) 5,000 units EVERY 12 HOURS SUBQ 07/06/19 21:00 08/02/19 20:59 07/07/19 09:20 Hydralazine HCl (Apresoline) 100 mg EVERY 8 HOURS ORAL 07/06/19 22:00 08/02/19 21:59 07/08/19 05:54 Hydromorphone HCl (Dilaudid) 2 mg Q4H PRN IVP For Pain 07/06/19 20:30 07/13/19 20:29 07/08/19 10:01 Insulin Aspart (NovoLOG) BEFORE MEALS AND HS SUBQ 07/06/19 22:00 08/03/19 21:59 07/08/19 05:58 Labetalol HCl (Normodyne) 200 mg Q12HR ORAL 07/06/19 21:00 08/03/19 10:59 07/08/19 09:48 Metoprolol Tartrate (Lopressor) 50 mg Q12HR ORAL 07/06/19 21:00 08/02/19 20:59 07/08/19 09:50 Ondansetron HCl (Zofran) 4 mg Q6H PRN IVP Nausea & Vomiting 07/06/19 20:31 08/05/19 20:30 07/08/19 05:58 Pantoprazole (Protonix) 40 mg DAILY ORAL 07/07/19 09:00 08/03/19 08:59 07/08/19 09:50 Polyethylene Glycol (Miralax) 17 gm DAILYPRN PRN ORAL Constipation 07/06/19 20:31 08/05/19 20:30 Temazepam (Restoril) 15 mg HSPRN PRN ORAL Insomnia 07/06/19 20:31 07/13/19 20:30 Jaswinder Naidu MD Jul 08, 2019 14:00
--- NOTE | 2019-07-08 15:30 | NUR ---
CASE MANAGEMENT:REVIEW SI;CVA. RT SIDED WEAKNESS. COPD. CERVICAL SPINE STENOSIS. 97.6 79 16 147/81 99% on ra BUN 30 CA 10.2 IS;DUO NEB HHN Q4 HRS PRN DILAUDID IN Q4 HRS PRN LABETALOL PO Q12 HRS KEFLEX PO Q12 HRS LOPRESSOR PO Q12 HRS HYDRALAZINE PO Q8 HRS MED SURG STATUS PLAN;PT/OT BRAIN MRI DCP;FROM HOME WHEN MEDICALLY CLEARED
[2019-07-08 16:00] VITALS: BP 107/60
--- NOTE | 2019-07-08 16:15 | Consultation ---
DATE OF CONSULTATION: 07/08/2019 CARDIOLOGY CONSULTATION CONSULTING PHYSICIAN: Shiva Larson M.D. REFERRING PHYSICIAN: Hebert Littlejohn M.D. REASON FOR CONSULTATION: Management of hypertension and coronary artery disease. HISTORY OF PRESENT ILLNESS: The patient is a 48-year-old lady, I am quite familiar from multiple previous hospitalizations. The patient has history of hypertension, diabetes, hyperlipidemia, history of coronary artery disease with prior stents at [facility] in 2017. Cardiac catheterization by ct last year at [facility] showed no acute occlusion. The patient was admitted on July 03, complaining of right-sided weakness. The patient was also evaluated by Neurology as the patient also has history of CVA and TIA and history of cervical stenosis. REVIEW OF SYSTEMS: Review of systems was negative other than what was mentioned in the history of present illness. PAST MEDICAL HISTORY: As mentioned above. FAMILY HISTORY: Noncontributory. MEDICATIONS: Per reconciliation. PHYSICAL EXAMINATION: VITAL SIGNS: Blood pressure of 118/69, pulse 79, respiratory rate 18, and temperature 97.9. HEAD AND NECK: No JVD. LUNGS: Clear. CARDIOVASCULAR: Regular S1 and S2 with no gallop or murmur. ABDOMEN: Soft. EXTREMITIES: No pitting edema. LABORATORY AND DIAGNOSTIC DATA: Labs show white count of 7, hemoglobin 11.2, hematocrit 35.5, and platelet count is 253. Sodium is 142, potassium 4.5, BUN of 30, creatinine 1.3, and glucose of 166. Her troponin is negative. ASSESSMENT AND PLAN: 1. Coronary artery disease with history of prior stent 2017. Cardiac catheterization by ct last year showed no stenosis. Continue medical therapy, at this time with Lipitor 40 mg daily and metoprolol 50 mg b.i.d., add aspirin to her medical regimen. Her troponins are also negative. An echocardiogram showed normal left ventricular systolic function with EF of 65%. 2. Hypertension. Continue amlodipine 10 mg daily, hydralazine 100 mg every 8 hours, Lasix 40 mg daily. The patient on p.r.n. IV Vasotec. 3. Right-sided weakness in the patient with history of prior CVA. CT of the brain showed basal ganglia infarct of indeterminate age. MRI of the brain is pending further evaluation by Dr. Foster. 4. Diabetes. 5. Hyperlipidemia. 6. COPD. 7. Schizoaffective disorder. 8. History of cervical spinal stenosis. Thank you very much, Dr. Littlejohn, for allowing me to participate in the care of this patient. Please do not hesitate to contact me for any questions regarding my evaluation. Shiva Larson M.D. DR: AKIRA JOB#: [id number] CC:
[2019-07-08 16:56] LABS: APPEARANCE,URINE CLEAR; BILIRUBIN, URINE NEGATIVE (NEGATIVE); COLOR,URINE PALE YELLOW; GLUCOSE, URINE (UA) NEGATIVE (NEGATIVE); KETONES,URINE NEGATIVE (NEGATIVE); LEUKOCYTE ESTERASE ,URINE NEGATIVE (NEGATIVE); NITRITE,URINE NEGATIVE (NEGATIVE); PH,URINE 5 (4.5-8.0); PROTEIN,URINE NEGATIVE (NEGATIVE); UROBILINOGEN,URINE NORMAL MG/DL (0.0-1.0)
--- NOTE | 2019-07-08 18:23 | NUR ---
NURSE NOTES: Patient is wearing eyeglass frames without lenses. I asked if she wore the glasses for looks and she replied, "Yes".
--- NOTE | 2019-07-08 18:32 | NUR ---
NURSE NOTES: Left message with Selina at answering service for Dr. Hebert Littlejohn regarding patient no longer has IV access and asked if IV meds could be switched to IM, Subcutaneous, or oral.
--- NOTE | 2019-07-08 18:33 | NUR ---
NURSE NOTES: Noted patient has no lenses in her glasses frames. Patient acknowledged she did not have nay prior to coming to the hospital.
--- NOTE | 2019-07-08 19:30 | NUR ---
NURSE NOTES: Patient was ambulating in the room, alert and oriented x4, for IV insertion. Will try later. Not in acute respiratory distress. Bed in lowest and lock engaged. Will continue to monitor.
--- NOTE | 2019-07-08 19:49 | NUR ---
HAND-OFF: Report given to Pretty Perera RN. Patient laying on right side, watching television, awake and alert, bed in lowest position, call light within reach, pain treated with Dilaudid, no IV access, left message with Dr. Littlejohn's answering service. Patient on room air, saturating at 100 percent.
--- NOTE | 2019-07-08 19:49 | Internal Med Progress Note ---
Subjective Date of Service: Jul 08, 2019 Physician Name Peewee Logan Attending Physician Hebert Littlejohn MD Current Medications Medications (Trade) Dose Ordered Sig/Raymond Route PRN Reason Start Time Stop Time Status Last Admin Dose Admin Acetaminophen (Tylenol) 650 mg Q4H PRN ORAL FEVER 07/06/19 20:28 08/05/19 20:27 Albuterol/ Ipratropium (Albuterol/ Ipratropium) 3 ml Q4H PRN HHN Shortness of Breath 07/06/19 20:29 07/11/19 20:28 Amlodipine Besylate (Norvasc) 10 mg DAILY ORAL 07/07/19 09:00 08/03/19 08:59 07/08/19 09:50 Atorvastatin Calcium (Lipitor) 40 mg DAILY ORAL 07/07/19 09:00 08/03/19 08:59 07/08/19 09:49 Cephalexin (Keflex) 500 mg Q12HR ORAL 07/06/19 21:00 07/14/19 21:01 07/08/19 09:49 Clonidine HCl (Catapres Tab) 0.1 mg EVERY 8 HOURS ORAL 07/08/19 14:00 08/07/19 13:59 07/08/19 14:07 Dextrose (Dextrose 50%) 25 ml Q30M PRN IV Hypoglycemia 07/06/19 20:30 08/03/19 10:29 Dextrose (Dextrose 50%) 50 ml Q30M PRN IV Hypoglycemia 07/06/19 20:30 08/03/19 10:29 Diphenhydramine HCl (Benadryl) 50 mg Q4H PRN IVP Itching 07/06/19 20:29 08/05/19 20:28 07/08/19 18:08 Enalaprilat (Vasotec) 2.5 mg Q6H PRN IV sbp more than 160 07/06/19 20:55 08/05/19 20:54 Famotidine (Pepcid) 20 mg BID ORAL 07/07/19 09:00 08/03/19 10:59 07/08/19 17:24 Gadobutrol (Gadavist) 7.5 mmol NOW PRN IV Radiology Procedure 07/07/19 11:45 07/11/19 11:45 Heparin Sodium (Porcine) (Heparin 5000 units/ml) 5,000 units EVERY 12 HOURS SUBQ 07/06/19 21:00 08/02/19 20:59 07/07/19 09:20 Hydralazine HCl (Apresoline) 100 mg EVERY 8 HOURS ORAL 07/06/19 22:00 08/02/19 21:59 07/08/19 14:05 Hydromorphone HCl (Dilaudid) 2 mg Q4H PRN IVP For Pain 07/06/19 20:30 07/13/19 20:29 07/08/19 18:07 Insulin Aspart (NovoLOG) BEFORE MEALS AND HS SUBQ 07/06/19 22:00 08/03/19 21:59 07/08/19 17:29 Labetalol HCl (Normodyne) 200 mg Q12HR ORAL 07/06/19 21:00 08/03/19 10:59 07/08/19 09:48 Metoprolol Tartrate (Lopressor) 50 mg Q12HR ORAL 07/06/19 21:00 08/02/19 20:59 07/08/19 09:50 Ondansetron HCl (Zofran) 4 mg Q6H PRN IVP Nausea & Vomiting 07/06/19 20:31 08/05/19 20:30 07/08/19 14:06 Pantoprazole (Protonix) 40 mg DAILY ORAL 07/07/19 09:00 08/03/19 08:59 07/08/19 09:50 Polyethylene Glycol (Miralax) 17 gm DAILYPRN PRN ORAL Constipation 07/06/19 20:31 08/05/19 20:30 Temazepam (Restoril) 15 mg HSPRN PRN ORAL Insomnia 07/06/19 20:31 07/13/19 20:30 Allergies: Coded Allergies: CEFTRIAXONE (Verified Allergy, Severe, Itching, 07/04/19) IODINE AND IODIDE CONTAINING PRODUC (Verified Allergy, Severe, Anaphylaxis , 11/21/18) OLANZAPINE (Verified Allergy, Severe, Anaphylaxis, 11/21/18) THROAT SWELLING PROCHLORPERAZINE (Unverified Allergy, Severe, Shortness of Breath, ) ASPIRIN (Verified Allergy, Intermediate, Hives, 11/21/18) BENZTROPINE (Verified Allergy, Intermediate, Hives, 11/21/18) ERYTHROMYCIN BASE (Verified Allergy, Intermediate, Hives, 11/21/18) Tolerates Azithromycin KETOROLAC (Verified Allergy, Intermediate, Hives, 11/21/18) LOSARTAN (Verified Allergy, Intermediate, 11/21/18) ANGIOEDEMA NITROGLYCERIN (Verified Allergy, Intermediate, Hives, 11/21/18) PSEUDOEPHEDRINE (Verified Allergy, Intermediate, Hives, 11/21/18) SULFA (SULFONAMIDE ANTIBIOTICS) (Verified Allergy, Intermediate, Hives, 03/02) TERFENADINE (Verified Allergy, Intermediate, Hives, 11/21/18) TRAMADOL (Verified Allergy, Intermediate, Rash, 11/21/18) ROS Limited/Unobtainable: No Constitutional: Reports: no symptoms HEENT: Reports: no symptoms Cardiovascular: Reports: no symptoms Respiratory: Reports: no symptoms Gastrointestinal/Abdominal: Reports: no symptoms Genitourinary: Reports: no symptoms Neurologic/Psychiatric: Reports: no symptoms Subjective 48 YO F admitted with right sided weakness. Now cerebral vascular accident. Cover for Int Med-Dr Littlejohn. Patient refused MRI of brain Objective Last Vital Signs Date Time Temp Pulse Resp B/P (MAP) Pulse Ox O2 Delivery O2 Flow Rate FiO2 07/08/19 18:37 97.5 07/08/19 16:00 76 16 107/60 (76) 100 07/08/19 09:00 Room Air 07/03/19 19:40 21 Laboratory Tests Test 07/08/19 06:05 07/08/19 15:00 White Blood Count 7.0 K/UL (4.8-10.8) Red Blood Count 4.89 M/UL (4.20-5.40) Hemoglobin 11.2 G/DL (12.0-16.0) L Hematocrit 35.5 % (37.0-47.0) L Mean Corpuscular Volume 73 FL (80-99) L Mean Corpuscular Hemoglobin 22.9 PG (27.0-31.0) L Mean Corpuscular Hemoglobin Concent 31.5 G/DL (32.0-36.0) L Red Cell Distribution Width 16.8 % (11.6-14.8) H Platelet Count 253 K/UL (150-450) Mean Platelet Volume 7.0 FL (6.5-10.1) Neutrophils (%) (Auto) 59.2 % (45.0-75.0) Lymphocytes (%) (Auto) 27.4 % (20.0-45.0) Monocytes (%) (Auto) 10.2 % (1.0-10.0) H Eosinophils (%) (Auto) 1.5 % (0.0-3.0) Basophils (%) (Auto) 1.8 % (0.0-2.0) Sodium Level 143 MMOL/L (136-145) Potassium Level 4.5 MMOL/L (3.5-5.1) Chloride Level 105 MMOL/L (98-107) Carbon Dioxide Level 28 MMOL/L (21-32) Anion Gap 10 mmol/L (5-15) Blood Urea Nitrogen 30 mg/dL (7-18) H Creatinine 1.3 MG/DL (0.55-1.30) # Estimat Glomerular Filtration Rate 43.7 mL/min (>60) Glucose Level 166 MG/DL (74-106) H Calcium Level 10.2 MG/DL (8.5-10.1) H Urine Color Pale yellow Urine Appearance Clear Urine pH 5 (4.5-8.0) Urine Specific [place] 1.015 (1.005-1.035) Urine Protein Negative (NEGATIVE) Urine Glucose (UA) Negative (NEGATIVE) Urine Ketones Negative (NEGATIVE) Urine Blood Negative (NEGATIVE) Urine Nitrite Negative (NEGATIVE) Urine Bilirubin Negative (NEGATIVE) Urine Urobilinogen Normal MG/DL (0.0-1.0) Urine Leukocyte Esterase Negative (NEGATIVE) Intake and Output 07/07/19 07/08/19 19:00 07:00 Intake Total 480 ml Balance 480 ml Intake Oral 480 ml # Voids 3 3 Objective PHYSICAL EXAMINATION: GENERAL: The patient is well-developed and well-nourished obese female, no apparent distress. HEENT: Eyes, pupils are equal and responsive to light and accommodation. Extraocular movements are intact. NECK: Supple without lymphadenopathy. CHEST: Lungs are clear to auscultation bilaterally without wheezes or rales. CARDIOVASCULAR: Regular rate. S1 and S2 are normal without murmurs, rubs, or gallops. ABDOMEN: Soft, nontender, and nondistended. Positive bowel sounds. No evidence of hepatosplenomegaly. Currently, no rebound or guarding. EXTREMITIES: Negative for clubbing, cyanosis, or edema. RECTAL/GENITAL: Not performed. NEUROLOGIC: Cranial nerves II through XII are grossly intact without focal deficits. Motor strength is 5/5 bilaterally. Deep tendon reflexes are 2+ plantar. Assessment/Plan Assessment/Plan ASSESSMENT: This is a 48-year-old female. 1. Right-sided weakness. 2. Cerebrovascular accident. 3. Diabetes type 2. 4. Hypertension. 5. Hypercholesteremia. 6. Coronary artery disease. 7. Chronic obstructive pulmonary disease. 8. Asthma. 9. Depression. 10. Schizoaffective disorder. 11. Cervical spine stenosis. 12. Cerebrovascular disease. TREATMENT: 1. Cerebrovascular accident. A CT scan of the brain revealed basal ganglia infarcts which were of indeterminate age. Patient refused MRI of the brain. A Neurology consultation has been obtained with Dr. Foster . We will follow recommendations of Neurology. 2. Diabetes type 2. NovoLog sliding scale has been instituted. 3. Hypertension. Continue amlodipine, clonidine, hydralazine, and hydrochlorothiazide as above. Continue metoprolol as above. 4. Hypercholesterolemia. Continue atorvastatin as above. 5. Coronary artery disease. 6. Chronic obstructive pulmonary disease. Continue Symbicort and albuterol as above. 7. Depression/schizoaffective disorder. 8. Cervical spine stenosis. 9. Cerebrovascular disease 10. Discharge planning Peewee Logan MD Jul 08, 2019 19:49
[2019-07-08 20:00] VITALS: BP 162/85
--- NOTE | 2019-07-08 23:00 | NUR ---
NURSE NOTES: IV was inserted on right hand by charge nurse successfully. Will medicate as ordered.
[2019-07-09 04:00] VITALS: BP 142/78
[2019-07-09] MEDS: HydrALAZINE 50mg tab ORAL SCH ×3 (06:10→22:00)
[2019-07-09] MEDS: DiphenhydrAMINE 50mg/ml Inj IVP PRN ×4 (06:12→21:58)
[2019-07-09] MEDS: NovoLOG Insulin Flexpen SUBQ SCH ×5 (06:35→21:00)
--- NOTE | 2019-07-09 07:39 | NUR ---
HAND-OFF: Report given to STEVEN Jean.
--- NOTE | 2019-07-09 07:49 | NUR ---
NURSE NOTES: Patient awake, alert x4; on room air, no sing of distress and shortness of breath; no sing of chest pain; IV Right-Hand 24G, flushes well; side rails up x2, breaks engaged, bed at lowest position; call light within reach; will keep monitoring.
[2019-07-09 08:00] VITALS: BP 135/82
[2019-07-09] MEDS: Metoprolol Tartrate 50mg tab ORAL SCH ×2 (08:37→21:00)
[2019-07-09] MEDS: Cephalexin 500mg cap ORAL SCH ×2 (08:37→21:00)
[2019-07-09] MEDS: Labetalol 200mg tab ORAL SCH ×2 (08:37→21:00)
[2019-07-09] MEDS: Atorvastatin 20mg tab ORAL SCH (08:37)
[2019-07-09] MEDS: Heparin 5000 units/ml inj SUBQ SCH ×2 (08:39→21:00)
[2019-07-09] MEDS ORDERED: D5 1/2NS 1000ml IV ONE (08:49)
[2019-07-09] MEDS ORDERED: Tubing IV Secondary IV ONE (08:49)
--- NOTE | 2019-07-09 08:49 | NUR ---
INSURANCE REVIEW FAXED TO [facility] REF# [id number] # [phone] FAX# [phone] REVIEWS/CLINICALS Addendum: 07/09/19 at 1113 by VITO BLANCA CM JIMMY:MAURO P: [phone]
[2019-07-09 09:48] LABS: BASOPHILS % (AUTO) 5.3 % (0.0-2.0); EOSINOPHILS % (AUTO) 1.7 % (0.0-3.0); HEMATOCRIT 38.7 % (37.0-47.0); MEAN CORPUSCULAR VOLUME 71 FL (80-99); MONOCYTES % (AUTO) 8.5 % (1.0-10.0); NEUTROPHILS % (AUTO) 50.5 % (45.0-75.0); PLATELET COUNT 204 K/UL (150-450); RED BLOOD COUNT 5.42 M/UL (4.20-5.40); RED CELL DISTRIBUTION WIDTH 17.3 % (11.6-14.8); WHITE BLOOD COUNT 4.8 K/UL (4.8-10.8)
[2019-07-09 09:55] LABS: ANION GAP 12 mmol/L (5-15); BLOOD UREA NITROGEN 25 mg/dL (7-18); CALCIUM 10.1 MG/DL (8.5-10.1); CARBON DIOXIDE 27 MMOL/L (21-32); CHLORIDE 100 MMOL/L (98-107); CREATININE 0.8 MG/DL (0.55-1.30); POTASSIUM 4.1 MMOL/L (3.5-5.1); SODIUM 139 MMOL/L (136-145)
--- NOTE | 2019-07-09 10:57 | NUR ---
*-*DISCHARGE PLANNING*-* PATIENT HAS BEEN REFERRED TO: [facility] P:[phone] F:[phone] *-*CLINICALS FAXED*-*
--- NOTE | 2019-07-09 11:12 | NUR ---
NCM:MAURO P: [phone]
--- NOTE | 2019-07-09 11:12 | NUR ---
NCM:MAURO P: [phone]
[2019-07-09 12:00] VITALS: BP_SYST 135; BP_SYST 136; BP_DIAS 82; BP_DIAS 87
--- NOTE | 2019-07-09 12:28 | Cardiac Electrophysiology PN ---
Assessment/Plan Assessment/Plan 1. Coronary artery disease with history of prior stent 2017. Cardiac catheterization by me last year showed no stenosis. Continue medical therapy with Lipitor 40 mg daily and metoprolol 50 mg b.i.d. and aspirin Her troponins are also negative. Echocardiogram showed normal left ventricular systolic function with EF of 65%. 2. Hypertension. Continue amlodipine 10 mg daily, hydralazine 100 mg every 8 hours, Lasix 40 mg daily. The patient on p.r.n. IV Vasotec. 3. Right-sided weakness in the patient with history of prior CVA. CT of the brain showed basal ganglia infarct of indeterminate age. MRI of the brain is pending further evaluation by Dr. Foster. 4. Diabetes. 5. Hyperlipidemia. 6. COPD. 7. Schizoaffective disorder. 8. History of cervical spinal stenosis. Subjective Subjective Alert in NAD. Off tele Objective Last 24 Hour Vital Signs Date Time Temp Pulse Resp B/P (MAP) Pulse Ox O2 Delivery O2 Flow Rate FiO2 07/09/19 09:00 Room Air 07/09/19 08:38 83 135/82 07/09/19 08:37 83 135/82 07/09/19 08:37 83 135/82 07/09/19 08:00 97.9 83 20 135/82 (99) 100 07/09/19 06:10 130/71 07/09/19 06:10 130/71 07/09/19 04:00 98.2 78 18 142/78 (99) 99 07/08/19 22:00 108/62 07/08/19 22:00 108/62 07/08/19 21:00 Room Air 07/08/19 20:28 83 162/85 07/08/19 20:27 83 162/85 07/08/19 20:00 98.1 83 18 162/85 (110) 100 07/08/19 18:37 97.5 07/08/19 16:00 97.5 76 16 107/60 (76) 100 07/08/19 14:07 147/81 07/08/19 14:05 147/81 Intake and Output 07/08/19 07/09/19 19:00 07:00 Intake Total 1000 ml 780 ml Balance 1000 ml 780 ml Intake Oral 1000 ml 780 ml # Voids 5 2 # Bowel Movements 1 Laboratory Tests Test 07/08/19 15:00 07/09/19 08:35 Urine Color Pale yellow Urine Appearance Clear Urine pH 5 (4.5-8.0) Urine Specific [place] 1.015 (1.005-1.035) Urine Protein Negative (NEGATIVE) Urine Glucose (UA) Negative (NEGATIVE) Urine Ketones Negative (NEGATIVE) Urine Blood Negative (NEGATIVE) Urine Nitrite Negative (NEGATIVE) Urine Bilirubin Negative (NEGATIVE) Urine Urobilinogen Normal MG/DL (0.0-1.0) Urine Leukocyte Esterase Negative (NEGATIVE) White Blood Count 4.8 K/UL (4.8-10.8) Red Blood Count 5.42 M/UL (4.20-5.40) H Hemoglobin 12.0 G/DL (12.0-16.0) Hematocrit 38.7 % (37.0-47.0) Mean Corpuscular Volume 71 FL (80-99) L Mean Corpuscular Hemoglobin 22.1 PG (27.0-31.0) L Mean Corpuscular Hemoglobin Concent 31.0 G/DL (32.0-36.0) L Red Cell Distribution Width 17.3 % (11.6-14.8) H Platelet Count 204 K/UL (150-450) Mean Platelet Volume 8.0 FL (6.5-10.1) Neutrophils (%) (Auto) 50.5 % (45.0-75.0) Lymphocytes (%) (Auto) 34.0 % (20.0-45.0) Monocytes (%) (Auto) 8.5 % (1.0-10.0) Eosinophils (%) (Auto) 1.7 % (0.0-3.0) Basophils (%) (Auto) 5.3 % (0.0-2.0) H Sodium Level 139 MMOL/L (136-145) Potassium Level 4.1 MMOL/L (3.5-5.1) Chloride Level 100 MMOL/L (98-107) Carbon Dioxide Level 27 MMOL/L (21-32) Anion Gap 12 mmol/L (5-15) Blood Urea Nitrogen 25 mg/dL (7-18) H Creatinine 0.8 MG/DL (0.55-1.30) Estimat Glomerular Filtration Rate > 60 mL/min (>60) Glucose Level 215 MG/DL (74-106) H Calcium Level 10.1 MG/DL (8.5-10.1) Objective HEAD AND NECK: No JVD. LUNGS: Clear. CARDIOVASCULAR: Regular S1 and S2 with no gallop or murmur. ABDOMEN: Soft. EXTREMITIES: No pitting edema. Shiva Larson MD Jul 09, 2019 12:28
--- NOTE | 2019-07-09 13:55 | Pulmonology Progress Note ---
Assessment/Plan Problems: (1) Lacunar infarction (2) Uncontrolled hypertension (3) COPD (chronic obstructive pulmonary disease) (4) CAD (coronary artery disease) (5) Diabetes mellitus (6) Moderate pulmonary arterial systolic hypertension (7) Morbid obesity Assessment/Plan add Clonipine on Amlodipine 10 qd Hydralazine 50 q8 HCTZ 25 Lopressor 50 BID Labetolol 200 q 12 increase Hydralazine to 100 TID sliding scale cardio and neurology to see pt/ot Pain management called Neuro evaluation appreciated, MRI of brain and Cspine ordered Subjective ROS Limited/Unobtainable: No Constitutional: Reports: no symptoms HEENT: Repors: no symptoms Allergies: Coded Allergies: CEFTRIAXONE (Verified Allergy, Severe, Itching, 07/04/19) IODINE AND IODIDE CONTAINING PRODUC (Verified Allergy, Severe, Anaphylaxis , 11/21/18) OLANZAPINE (Verified Allergy, Severe, Anaphylaxis, 11/21/18) THROAT SWELLING PROCHLORPERAZINE (Unverified Allergy, Severe, Shortness of Breath, ) ASPIRIN (Verified Allergy, Intermediate, Hives, 11/21/18) BENZTROPINE (Verified Allergy, Intermediate, Hives, 11/21/18) ERYTHROMYCIN BASE (Verified Allergy, Intermediate, Hives, 11/21/18) Tolerates Azithromycin KETOROLAC (Verified Allergy, Intermediate, Hives, 11/21/18) LOSARTAN (Verified Allergy, Intermediate, 11/21/18) ANGIOEDEMA NITROGLYCERIN (Verified Allergy, Intermediate, Hives, 11/21/18) PSEUDOEPHEDRINE (Verified Allergy, Intermediate, Hives, 11/21/18) SULFA (SULFONAMIDE ANTIBIOTICS) (Verified Allergy, Intermediate, Hives, 03/02) TERFENADINE (Verified Allergy, Intermediate, Hives, 11/21/18) TRAMADOL (Verified Allergy, Intermediate, Rash, 11/21/18) Objective Last 24 Hour Vital Signs Date Time Temp Pulse Resp B/P (MAP) Pulse Ox O2 Delivery O2 Flow Rate FiO2 07/09/19 13:26 136/87 07/09/19 13:19 136/87 07/09/19 12:59 97.9 07/09/19 12:00 80.0 80 20 136/87 (103) 99 80 07/09/19 09:00 Room Air 2/25/20 08:38 83 135/82 07/09/19 08:37 83 135/82 07/09/19 08:37 83 135/82 07/09/19 08:00 97.9 83 20 135/82 (99) 100 07/09/19 06:10 130/71 07/09/19 06:10 130/71 07/09/19 04:00 98.2 78 18 142/78 (99) 99 07/08/19 22:00 108/62 07/08/19 22:00 108/62 07/08/19 21:00 Room Air 07/08/19 20:28 83 162/85 07/08/19 20:27 83 162/85 07/08/19 20:00 98.1 83 18 162/85 (110) 100 07/08/19 16:00 97.5 76 16 107/60 (76) 100 07/08/19 14:07 147/81 07/08/19 14:05 147/81 Intake and Output 07/08/19 07/09/19 19:00 07:00 Intake Total 1000 ml 780 ml Balance 1000 ml 780 ml Intake Oral 1000 ml 780 ml # Voids 5 2 # Bowel Movements 1 General Appearance: WD/WN HEENT: normocephalic, atraumatic Respiratory/Chest: chest wall non-tender, lungs clear Cardiovascular: normal peripheral pulses, normal rate Abdomen: normal bowel sounds, no mass Extremities: no clubbing Skin: no rash Laboratory Tests 07/08/19 15:00: Urine Color Pale yellow, Urine Appearance Clear, Urine pH 5, Urine Specific [place] 1.015, Urine Protein Negative, Urine Glucose (UA) Negative, Urine Ketones Negative, Urine Blood Negative, Urine Nitrite Negative, Urine Bilirubin Negative, Urine Urobilinogen Normal, Urine Leukocyte Esterase Negative 07/09/19 08:35: White Blood Count 4.8, Red Blood Count 5.42H, Hemoglobin 12.0, Hematocrit 38.7, Mean Corpuscular Volume 71L, Mean Corpuscular Hemoglobin 22.1L, Mean Corpuscular Hemoglobin Concent 31.0L, Red Cell Distribution Width 17.3H, Platelet Count 204, Mean Platelet Volume 8.0, Neutrophils (%) (Auto) 50.5, Lymphocytes (%) (Auto) 34.0, Monocytes (%) (Auto) 8.5, Eosinophils (%) (Auto) 1.7, Basophils (%) (Auto) 5.3H, Sodium Level 139, Potassium Level 4.1, Chloride Level 100, Carbon Dioxide Level 27, Anion Gap 12, Blood Urea Nitrogen 25H, Creatinine 0.8, Estimat Glomerular Filtration Rate > 60, Glucose Level 215H, Calcium Level 10.1 Current Medications Medications (Trade) Dose Ordered Sig/Raymond Route PRN Reason Start Time Stop Time Status Last Admin Dose Admin Acetaminophen (Tylenol) 650 mg Q4H PRN ORAL FEVER 07/06/19 20:28 08/05/19 20:27 Albuterol/ Ipratropium (Albuterol/ Ipratropium) 3 ml Q4H PRN HHN Shortness of Breath 07/06/19 20:29 07/11/19 20:28 Amlodipine Besylate (Norvasc) 10 mg DAILY ORAL 07/07/19 09:00 08/03/19 08:59 07/09/19 08:38 Atorvastatin Calcium (Lipitor) 40 mg DAILY ORAL 07/07/19 09:00 08/03/19 08:59 07/09/19 08:37 Cephalexin (Keflex) 500 mg Q12HR ORAL 07/06/19 21:00 07/14/19 21:01 07/09/19 08:37 Clonidine HCl (Catapres Tab) 0.1 mg EVERY 8 HOURS ORAL 07/08/19 14:00 08/07/19 13:59 07/09/19 13:19 Dextrose (Dextrose 50%) 25 ml Q30M PRN IV Hypoglycemia 07/06/19 20:30 08/03/19 10:29 Dextrose (Dextrose 50%) 50 ml Q30M PRN IV Hypoglycemia 07/06/19 20:30 08/03/19 10:29 Diphenhydramine HCl (Benadryl) 50 mg Q4H PRN IVP Itching 07/06/19 20:29 08/05/19 20:28 07/09/19 12:27 Enalaprilat (Vasotec) 2.5 mg Q6H PRN IV sbp more than 160 07/06/19 20:55 08/05/19 20:54 Famotidine (Pepcid) 20 mg BID ORAL 07/07/19 09:00 08/03/19 10:59 07/09/19 08:38 Gadobutrol (Gadavist) 7.5 mmol NOW PRN IV Radiology Procedure 07/07/19 11:45 07/11/19 11:45 Heparin Sodium (Porcine) (Heparin 5000 units/ml) 5,000 units EVERY 12 HOURS SUBQ 07/06/19 21:00 08/02/19 20:59 07/07/19 09:20 Hydralazine HCl (Apresoline) 100 mg EVERY 8 HOURS ORAL 07/06/19 22:00 08/02/19 21:59 07/09/19 13:26 Hydromorphone HCl (Dilaudid) 2 mg Q4H PRN IVP For Pain 07/06/19 20:30 07/13/19 20:29 07/09/19 12:29 Insulin Aspart (NovoLOG) BEFORE MEALS AND HS SUBQ 07/06/19 22:00 08/03/19 21:59 07/09/19 13:24 Labetalol HCl (Normodyne) 200 mg Q12HR ORAL 07/06/19 21:00 08/03/19 10:59 07/09/19 08:37 Metoprolol Tartrate (Lopressor) 50 mg Q12HR ORAL 07/06/19 21:00 08/02/19 20:59 07/09/19 08:37 Ondansetron HCl (Zofran) 4 mg Q6H PRN IVP Nausea & Vomiting 07/06/19 20:31 08/05/19 20:30 07/09/19 12:26 Pantoprazole (Protonix) 40 mg DAILY ORAL 07/07/19 09:00 08/03/19 08:59 07/09/19 08:37 Polyethylene Glycol (Miralax) 17 gm DAILYPRN PRN ORAL Constipation 07/06/19 20:31 08/05/19 20:30 Temazepam (Restoril) 15 mg HSPRN PRN ORAL Insomnia 07/06/19 20:31 07/13/19 20:30 Jaswinder Naidu MD Jul 09, 2019 13:55
--- NOTE | 2019-07-09 14:26 | NUR ---
NURSE NOTES: I received an order from MD Naidu to call MD Foster to come and see patient. I called the office of MD Foster and spoke with Du regarding this matter. Du said she will let MD Foster know.
--- NOTE | 2019-07-09 14:29 | NUR ---
RD ASSESSMENT & RECOMMENDATIONS SEE CARE ACTIVITY FOR COMPLETE ASSESSMENT DAILY ESTIMATED NEEDS: Needs based on cardiac, obesity, DM/ 68kg abw 23-25 kcals/kg 6861-3531 total kcals 1-1.5 g protein/kg 68-102 g total protein 25-30 mL/kg 9625-1830 total fluid mLs NUTRITION DIAGNOSIS: Decreased sodium and fat/cholesterol intake needs R/T cardiac hx and obesity as evidenced by h/o coronary artery disease with prior stent, CVA, HTN, and hyperlipidemia w/ elev cholesterol (204) and LDL (119), w/ BMI >40. [facility] RECOMMENDATIONS: CCHO LOW, CARDIAC ADDITIONAL RECOMMENDATIONS: * Standing wt for accurate CBW * A1C for eval of glycemic control . .
--- NOTE | 2019-07-09 17:14 | NUR ---
CASE MANAGEMENT:REVIEW SI;CVA. RT SIDED WEAKNESS. COPD. CERVICAL SPINE STENOSIS. 97.9 83 20 142/78 99% ON RA BUN 25 CA 10.2 IS;DUO NEB HHN Q4 HRS PRN DILAUDID IN Q4 HRS PRN LABETALOL PO Q12 HRS KEFLEX PO Q12 HRS LOPRESSOR PO Q12 HRS HYDRALAZINE PO Q8 HRS MED SURG STATUS DCP;FROM HOME
--- NOTE | 2019-07-09 17:39 | Internal Med Progress Note ---
Subjective Date of Service: Jul 09, 2019 Physician Name Peewee Logan Attending Physician Hebert Littlejohn MD Current Medications Medications (Trade) Dose Ordered Sig/Raymond Route PRN Reason Start Time Stop Time Status Last Admin Dose Admin Acetaminophen (Tylenol) 650 mg Q4H PRN ORAL FEVER 07/06/19 20:28 08/05/19 20:27 Albuterol/ Ipratropium (Albuterol/ Ipratropium) 3 ml Q4H PRN HHN Shortness of Breath 07/06/19 20:29 07/11/19 20:28 Amlodipine Besylate (Norvasc) 10 mg DAILY ORAL 07/07/19 09:00 08/03/19 08:59 07/09/19 08:38 Atorvastatin Calcium (Lipitor) 40 mg DAILY ORAL 07/07/19 09:00 08/03/19 08:59 07/09/19 08:37 Cephalexin (Keflex) 500 mg Q12HR ORAL 07/06/19 21:00 07/14/19 21:01 07/09/19 08:37 Clonidine HCl (Catapres Tab) 0.1 mg EVERY 8 HOURS ORAL 07/08/19 14:00 08/07/19 13:59 07/09/19 13:19 Dextrose (Dextrose 50%) 25 ml Q30M PRN IV Hypoglycemia 07/06/19 20:30 08/03/19 10:29 Dextrose (Dextrose 50%) 50 ml Q30M PRN IV Hypoglycemia 07/06/19 20:30 08/03/19 10:29 Diphenhydramine HCl (Benadryl) 50 mg Q4H PRN IVP Itching 07/06/19 20:29 08/05/19 20:28 07/09/19 16:33 Enalaprilat (Vasotec) 2.5 mg Q6H PRN IV sbp more than 160 07/06/19 20:55 08/05/19 20:54 Famotidine (Pepcid) 20 mg BID ORAL 07/07/19 09:00 08/03/19 10:59 07/09/19 08:38 Gadobutrol (Gadavist) 7.5 mmol NOW PRN IV Radiology Procedure 07/07/19 11:45 07/11/19 11:45 Heparin Sodium (Porcine) (Heparin 5000 units/ml) 5,000 units EVERY 12 HOURS SUBQ 07/06/19 21:00 08/02/19 20:59 07/07/19 09:20 Hydralazine HCl (Apresoline) 100 mg EVERY 8 HOURS ORAL 07/06/19 22:00 08/02/19 21:59 07/09/19 13:26 Hydromorphone HCl (Dilaudid) 2 mg Q4H PRN IVP For Pain 07/06/19 20:30 07/13/19 20:29 07/09/19 16:35 Insulin Aspart (NovoLOG) BEFORE MEALS AND HS SUBQ 07/06/19 22:00 08/03/19 21:59 07/09/19 13:24 Labetalol HCl (Normodyne) 200 mg Q12HR ORAL 07/06/19 21:00 08/03/19 10:59 07/09/19 08:37 Metoprolol Tartrate (Lopressor) 50 mg Q12HR ORAL 07/06/19 21:00 08/02/19 20:59 07/09/19 08:37 Ondansetron HCl (Zofran) 4 mg Q6H PRN IVP Nausea & Vomiting 07/06/19 20:31 08/05/19 20:30 07/09/19 12:26 Pantoprazole (Protonix) 40 mg DAILY ORAL 07/07/19 09:00 08/03/19 08:59 07/09/19 08:37 Polyethylene Glycol (Miralax) 17 gm DAILYPRN PRN ORAL Constipation 07/06/19 20:31 08/05/19 20:30 Temazepam (Restoril) 15 mg HSPRN PRN ORAL Insomnia 07/06/19 20:31 07/13/19 20:30 Allergies: Coded Allergies: CEFTRIAXONE (Verified Allergy, Severe, Itching, 07/04/19) IODINE AND IODIDE CONTAINING PRODUC (Verified Allergy, Severe, Anaphylaxis , 11/21/18) OLANZAPINE (Verified Allergy, Severe, Anaphylaxis, 11/21/18) THROAT SWELLING PROCHLORPERAZINE (Unverified Allergy, Severe, Shortness of Breath, ) ASPIRIN (Verified Allergy, Intermediate, Hives, 11/21/18) BENZTROPINE (Verified Allergy, Intermediate, Hives, 11/21/18) ERYTHROMYCIN BASE (Verified Allergy, Intermediate, Hives, 11/21/18) Tolerates Azithromycin KETOROLAC (Verified Allergy, Intermediate, Hives, 11/21/18) LOSARTAN (Verified Allergy, Intermediate, 11/21/18) ANGIOEDEMA NITROGLYCERIN (Verified Allergy, Intermediate, Hives, 11/21/18) PSEUDOEPHEDRINE (Verified Allergy, Intermediate, Hives, 11/21/18) SULFA (SULFONAMIDE ANTIBIOTICS) (Verified Allergy, Intermediate, Hives, 03/02) TERFENADINE (Verified Allergy, Intermediate, Hives, 11/21/18) TRAMADOL (Verified Allergy, Intermediate, Rash, 11/21/18) ROS Limited/Unobtainable: No Constitutional: Reports: no symptoms HEENT: Reports: no symptoms Cardiovascular: Reports: no symptoms Respiratory: Reports: no symptoms Gastrointestinal/Abdominal: Reports: no symptoms Genitourinary: Reports: no symptoms Neurologic/Psychiatric: Reports: no symptoms Subjective 48 YO F admitted with right sided weakness. Now cerebral vascular accident. Cover for Int Med-Dr Littlejohn. Patient refused MRI of brain Objective Last Vital Signs Date Time Temp Pulse Resp B/P (MAP) Pulse Ox O2 Delivery O2 Flow Rate FiO2 07/09/19 17:05 97.9 07/09/19 13:26 136/87 07/09/19 12:00 80 20 99 80 07/09/19 09:00 Room Air 07/03/19 19:40 21 Laboratory Tests Test 07/09/19 08:35 White Blood Count 4.8 K/UL (4.8-10.8) Red Blood Count 5.42 M/UL (4.20-5.40) H Hemoglobin 12.0 G/DL (12.0-16.0) Hematocrit 38.7 % (37.0-47.0) Mean Corpuscular Volume 71 FL (80-99) L Mean Corpuscular Hemoglobin 22.1 PG (27.0-31.0) L Mean Corpuscular Hemoglobin Concent 31.0 G/DL (32.0-36.0) L Red Cell Distribution Width 17.3 % (11.6-14.8) H Platelet Count 204 K/UL (150-450) Mean Platelet Volume 8.0 FL (6.5-10.1) Neutrophils (%) (Auto) 50.5 % (45.0-75.0) Lymphocytes (%) (Auto) 34.0 % (20.0-45.0) Monocytes (%) (Auto) 8.5 % (1.0-10.0) Eosinophils (%) (Auto) 1.7 % (0.0-3.0) Basophils (%) (Auto) 5.3 % (0.0-2.0) H Sodium Level 139 MMOL/L (136-145) Potassium Level 4.1 MMOL/L (3.5-5.1) Chloride Level 100 MMOL/L (98-107) Carbon Dioxide Level 27 MMOL/L (21-32) Anion Gap 12 mmol/L (5-15) Blood Urea Nitrogen 25 mg/dL (7-18) H Creatinine 0.8 MG/DL (0.55-1.30) Estimat Glomerular Filtration Rate > 60 mL/min (>60) Glucose Level 215 MG/DL (74-106) H Calcium Level 10.1 MG/DL (8.5-10.1) Intake and Output 07/08/19 07/09/19 19:00 07:00 Intake Total 1000 ml 780 ml Balance 1000 ml 780 ml Intake Oral 1000 ml 780 ml # Voids 5 2 # Bowel Movements 1 Objective PHYSICAL EXAMINATION: GENERAL: The patient is well-developed and well-nourished obese female, no apparent distress. HEENT: Eyes, pupils are equal and responsive to light and accommodation. Extraocular movements are intact. NECK: Supple without lymphadenopathy. CHEST: Lungs are clear to auscultation bilaterally without wheezes or rales. CARDIOVASCULAR: Regular rate. S1 and S2 are normal without murmurs, rubs, or gallops. ABDOMEN: Soft, nontender, and nondistended. Positive bowel sounds. No evidence of hepatosplenomegaly. Currently, no rebound or guarding. EXTREMITIES: Negative for clubbing, cyanosis, or edema. RECTAL/GENITAL: Not performed. NEUROLOGIC: Cranial nerves II through XII are grossly intact without focal deficits. Motor strength is 5/5 bilaterally. Deep tendon reflexes are 2+ plantar. Assessment/Plan Assessment/Plan ASSESSMENT: This is a 48-year-old female. 1. Right-sided weakness. 2. Cerebrovascular accident. 3. Diabetes type 2. 4. Hypertension. 5. Hypercholesteremia. 6. Coronary artery disease. 7. Chronic obstructive pulmonary disease. 8. Asthma. 9. Depression. 10. Schizoaffective disorder. 11. Cervical spine stenosis. 12. Cerebrovascular disease. TREATMENT: 1. Cerebrovascular accident. A CT scan of the brain revealed basal ganglia infarcts which were of indeterminate age. Patient refused MRI of the brain. A Neurology consultation has been obtained with Dr. Foster . We will follow recommendations of Neurology. 2. Diabetes type 2. NovoLog sliding scale has been instituted. 3. Hypertension. Continue amlodipine, clonidine, hydralazine, and hydrochlorothiazide as above. Continue metoprolol as above. 4. Hypercholesterolemia. Continue atorvastatin as above. 5. Coronary artery disease. 6. Chronic obstructive pulmonary disease. Continue Symbicort and albuterol as above. 7. Depression/schizoaffective disorder. 8. Cervical spine stenosis. 9. Cerebrovascular disease 10. Discharge planning: SNF vs acute rehab Peewee Logan MD Jul 09, 2019 17:39
--- NOTE | 2019-07-09 18:30 | NUR ---
NURSE NOTES: Tried to get IV access on patient; several attempts done; will try with Vein finder.
--- NOTE | 2019-07-09 19:30 | NUR ---
NURSE NOTES: Patient sitting on chair in the room, anxious about her IV. Will try later. Will continue to monitor.
--- NOTE | 2019-07-09 19:38 | NUR ---
HAND-OFF: Report given to STEVEN Hunter. Vein finder in room; incoming nurse indorsed with the situation of IV.
[2019-07-09 20:00] VITALS: BP 148/69
--- NOTE | 2019-07-09 22:30 | NUR ---
NURSE NOTES: IV inserted on left upper arm successfully. Will medicate as ordered.
[2019-07-10] VITALS: BP 110/61
[2019-07-10 05:00] VITALS: BP 163/98
[2019-07-10] MEDS: HydrALAZINE 50mg tab ORAL SCH ×3 (05:48→22:00)
[2019-07-10] MEDS: DiphenhydrAMINE 50mg/ml Inj IVP PRN ×4 (05:50→20:38)
--- NOTE | 2019-07-10 06:22 | NUR ---
NURSE NOTES: Patient's blood sugar is 150 this am. She refused to take the Novolog she wants the insulin coverage after she eats. Will endorse to AM shift.
--- NOTE | 2019-07-10 07:07 | NUR ---
HAND-OFF: Report given to STEVEN Jean.
--- NOTE | 2019-07-10 07:29 | NUR ---
NURSE NOTES: Patient awake, alert x4; on room air, no sing of distress, no sign of shortness of breath; no sing of chest pain; IV Left Upper Arm 24G flushes well; patient ambulatory; side rails up x2, breaks engaged, bed at lowest position; call light within reach; will keep monitoring.
[2019-07-10 08:00] VITALS: BP 123/74
--- NOTE | 2019-07-10 08:29 | Consultation ---
History of Present Illness General Date patient seen: Jul 10, 2019 Time patient seen: 07:00 - am Chief Complaint: Neck pain Referring physician: Evangelista Reason for Consultation: Pain Management Present Illness HPI Patient is a known patient from previous hospital admissions and has been admitted under the care of Dr. Logan due to Hypertension. She continues to have chronic severe neck pain with pain into her arms which is worse with movement. Was started on Dilaudid 2mg IV Q4H as needed with minimal relief due to this we were consulted so patient has adequate pain control while here in the hospital. She also is being r/o for CVA by neurologist. Allergies: Coded Allergies: CEFTRIAXONE (Verified Allergy, Severe, Itching, 07/04/19) IODINE AND IODIDE CONTAINING PRODUC (Verified Allergy, Severe, Anaphylaxis , 11/21/18) OLANZAPINE (Verified Allergy, Severe, Anaphylaxis, 11/21/18) THROAT SWELLING PROCHLORPERAZINE (Unverified Allergy, Severe, Shortness of Breath, ) ASPIRIN (Verified Allergy, Intermediate, Hives, 11/21/18) BENZTROPINE (Verified Allergy, Intermediate, Hives, 11/21/18) ERYTHROMYCIN BASE (Verified Allergy, Intermediate, Hives, 11/21/18) Tolerates Azithromycin KETOROLAC (Verified Allergy, Intermediate, Hives, 11/21/18) LOSARTAN (Verified Allergy, Intermediate, 11/21/18) ANGIOEDEMA NITROGLYCERIN (Verified Allergy, Intermediate, Hives, 11/21/18) PSEUDOEPHEDRINE (Verified Allergy, Intermediate, Hives, 11/21/18) SULFA (SULFONAMIDE ANTIBIOTICS) (Verified Allergy, Intermediate, Hives, 03/02) TERFENADINE (Verified Allergy, Intermediate, Hives, 11/21/18) TRAMADOL (Verified Allergy, Intermediate, Rash, 11/21/18) Medication History Scheduled Acetaminophen (Acetaminophen), 500 MG ORAL Q4H, (Reported) Amlodipine Besylate (Norvasc), 10 MG ORAL DAILY, (Reported) Atorvastatin Calcium* (Lipitor*), 40 MG ORAL DAILY Budesonide/Formoterol Fumarate (Symbicort 160-4.5 Mcg Inhaler), 2 PUFF IH TWICE A DAY, (Reported) Clonazepam* (Klonopin*), 1 MG ORAL DAILY, (Reported) Clopidogrel Bisulfate* (Plavix*), 75 MG ORAL DAILY, (Reported) Docusate Sodium* (Docusate Sodium*), 100 MG ORAL THREE TIMES A DAY, (Reported) Furosemide* (Lasix*), 40 MG ORAL DAILY, (Reported) Glipizide* (Glucotrol*), 5 MG ORAL BID, (Reported) Hydralazine Hcl* (Hydralazine Hcl*), 50 MG ORAL EVERY 8 HOURS, (Reported) Hydrochlorothiazide (Hydrochlorothiazide), 25 MG ORAL DAILY Insulin Detemir (Levemir Flexpen), 30 UNITS SUBQ BEDTIME Metformin Hcl* (Metformin Hcl*), 850 MG ORAL BID, (Reported) Metoprolol Tartrate* (Metoprolol Tartrate*), 50 MG ORAL BID@0900,2100 Scheduled PRN Albuterol Sulfate* (Albuterol Sulfate Mdi*), 2 PUFF INH Q4H PRN Clonidine Hcl (Clonidine Hcl), 0.1 MG PO Q6HR PRN for For High Blood Pressure, ( Reported) Miscellaneous Medications Diphenhydramine Hcl (Banophen), 25 MG PO, (Reported) Discontinued Medications Acetaminophen With Codeine (T#3) (Tylenol #3 Tab*), 1 TAB ORAL Q4H PRN Discontinued Reason: Therapy completed Acetaminophen With Codeine (T#4) (Tylenol #4 Tab*), 1 TAB ORAL Q6H PRN Discontinued Reason: Therapy completed Amlodipine Besylate (Norvasc), 10 MG ORAL DAILY Discontinued Reason: Therapy completed Budesonide/Formoterol Fumarate (Symbicort 160-4.5 Mcg Inhaler), 2 PUFFS INH BID, (Reported) Discontinued Reason: Therapy completed Budesonide/Formoterol Fumarate (Symbicort 160-4.5 Mcg Inhaler), 1 PUFF IH, ( Reported) Discontinued Reason: Therapy completed Clonazepam (Clonazepam), 1 MG ORAL BIDPRN PRN Discontinued Reason: Therapy completed Diphenhydramine HCl (Benadryl), 25 MG PO EVERY 8 HOURS Discontinued Reason: Therapy completed Sertraline Hcl* (Zoloft*), 150 MG ORAL DAILY Discontinued Reason: Therapy completed Patient History Healthcare decision maker Resuscitation status Full Code Advanced Directive on File No Past Medical/Surgical History Past Medical/Surgical History: (1) CAD (coronary artery disease) (2) COPD (chronic obstructive pulmonary disease) (3) ACS (acute coronary syndrome) (4) Acute bronchitis (5) Morbid obesity (6) Moderate pulmonary arterial systolic hypertension (7) Cardiac left ventricular ejection fraction greater than 40 percent (8) Uncontrolled hypertension Review of Systems Constitutional: Reports: weakness Eye: Reports: no symptoms ENT: Reports: no symptoms Respiratory: Reports: no symptoms Cardiovascular: Reports: no symptoms Gastrointestinal: Reports: no symptoms Genitourinary: Reports: no symptoms Musculoskeletal: Reports: muscle stiffness Skin: Reports: no symptoms Psychiatric: Reports: no symptoms Neurological: Reports: no symptoms Endocrine: Reports: no symptoms Hematologic/Lymphatic: Reports: no symptoms Physical Exam General Appearance: no apparent distress, alert HEENT: PERRL Neck: normal alignment, supple Respiratory/Chest: lungs clear, normal breath sounds Cardiovascular/Chest: normal rate, regular rhythm Abdomen: non tender, soft Extremities: non-tender, normal inspection Skin Exam: warm/dry, cyanotic Neurologic: alert, oriented x 3 Musculoskeletal: normal muscle bulk Last 24 Hour Vital Signs Date Time Temp Pulse Resp B/P (MAP) Pulse Ox O2 Delivery O2 Flow Rate FiO2 07/10/19 05:48 163/98 07/10/19 05:48 163/98 07/10/19 05:00 97.8 90 18 163/98 (119) 98 07/10/19 00:00 97.8 69 20 110/61 (77) 96 07/09/19 22:00 110/61 07/09/19 22:00 110/61 07/09/19 21:00 Room Air 07/09/19 21:00 67 148/69 07/09/19 21:00 67 148/69 07/09/19 20:00 97.0 67 18 148/69 (95) 99 07/09/19 17:05 97.9 07/09/19 13:26 136/87 07/09/19 13:19 136/87 07/09/19 12:00 80.0 80 20 136/87 (103) 99 80 07/09/19 09:00 Room Air 07/09/19 08:38 83 135/82 07/09/19 08:37 83 135/82 07/09/19 08:37 83 135/82 Intake and Output 07/09/19 07/10/19 19:00 07:00 Intake Total 500 ml Balance 500 ml Intake Oral 500 ml # Voids 8 3 # Bowel Movements 1 Laboratory Tests Test 07/09/19 08:35 White Blood Count 4.8 K/UL (4.8-10.8) Red Blood Count 5.42 M/UL (4.20-5.40) H Hemoglobin 12.0 G/DL (12.0-16.0) Hematocrit 38.7 % (37.0-47.0) Mean Corpuscular Volume 71 FL (80-99) L Mean Corpuscular Hemoglobin 22.1 PG (27.0-31.0) L Mean Corpuscular Hemoglobin Concent 31.0 G/DL (32.0-36.0) L Red Cell Distribution Width 17.3 % (11.6-14.8) H Platelet Count 204 K/UL (150-450) Mean Platelet Volume 8.0 FL (6.5-10.1) Neutrophils (%) (Auto) 50.5 % (45.0-75.0) Lymphocytes (%) (Auto) 34.0 % (20.0-45.0) Monocytes (%) (Auto) 8.5 % (1.0-10.0) Eosinophils (%) (Auto) 1.7 % (0.0-3.0) Basophils (%) (Auto) 5.3 % (0.0-2.0) H Sodium Level 139 MMOL/L (136-145) Potassium Level 4.1 MMOL/L (3.5-5.1) Chloride Level 100 MMOL/L (98-107) Carbon Dioxide Level 27 MMOL/L (21-32) Anion Gap 12 mmol/L (5-15) Blood Urea Nitrogen 25 mg/dL (7-18) H Creatinine 0.8 MG/DL (0.55-1.30) Estimat Glomerular Filtration Rate > 60 mL/min (>60) Glucose Level 215 MG/DL (74-106) H Calcium Level 10.1 MG/DL (8.5-10.1) Height (Feet): 5 Height (Inches): 4.00 Weight (Pounds): 236 Medications Current Medications Medications (Trade) Dose Ordered Sig/Raymond Route PRN Reason Start Time Stop Time Status Last Admin Dose Admin Acetaminophen (Tylenol) 650 mg Q4H PRN ORAL FEVER 07/06/19 20:28 08/05/19 20:27 Albuterol/ Ipratropium (Albuterol/ Ipratropium) 3 ml Q4H PRN HHN Shortness of Breath 07/06/19 20:29 07/11/19 20:28 Amlodipine Besylate (Norvasc) 10 mg DAILY ORAL 07/07/19 09:00 08/03/19 08:59 07/09/19 08:38 Atorvastatin Calcium (Lipitor) 40 mg DAILY ORAL 07/07/19 09:00 08/03/19 08:59 07/09/19 08:37 Cephalexin (Keflex) 500 mg Q12HR ORAL 07/06/19 21:00 07/14/19 21:01 07/09/19 21:00 Clonidine HCl (Catapres Tab) 0.1 mg EVERY 8 HOURS ORAL 07/08/19 14:00 08/07/19 13:59 07/10/19 05:48 Dextrose (Dextrose 50%) 25 ml Q30M PRN IV Hypoglycemia 07/06/19 20:30 08/03/19 10:29 Dextrose (Dextrose 50%) 50 ml Q30M PRN IV Hypoglycemia 07/06/19 20:30 08/03/19 10:29 Diphenhydramine HCl (Benadryl) 50 mg Q4H PRN IVP Itching 07/06/19 20:29 08/05/19 20:28 07/10/19 05:50 Enalaprilat (Vasotec) 2.5 mg Q6H PRN IV sbp more than 160 07/06/19 20:55 08/05/19 20:54 Famotidine (Pepcid) 20 mg BID ORAL 07/07/19 09:00 08/03/19 10:59 07/09/19 17:44 Gadobutrol (Gadavist) 7.5 mmol NOW PRN IV Radiology Procedure 07/07/19 11:45 07/11/19 11:45 Heparin Sodium (Porcine) (Heparin 5000 units/ml) 5,000 units EVERY 12 HOURS SUBQ 07/06/19 21:00 08/02/19 20:59 07/07/19 09:20 Hydralazine HCl (Apresoline) 100 mg EVERY 8 HOURS ORAL 07/06/19 22:00 08/02/19 21:59 07/10/19 05:48 Hydromorphone HCl (Dilaudid) 2 mg Q4H PRN IVP For Pain 07/06/19 20:30 07/13/19 20:29 07/10/19 05:50 Insulin Aspart (NovoLOG) BEFORE MEALS AND HS SUBQ 07/06/19 22:00 08/03/19 21:59 07/09/19 17:45 Labetalol HCl (Normodyne) 200 mg Q12HR ORAL 07/06/19 21:00 08/03/19 10:59 07/09/19 21:00 Metoprolol Tartrate (Lopressor) 50 mg Q12HR ORAL 07/06/19 21:00 08/02/19 20:59 07/09/19 21:00 Ondansetron HCl (Zofran) 4 mg Q6H PRN IVP Nausea & Vomiting 07/06/19 20:31 08/05/19 20:30 07/10/19 05:50 Pantoprazole (Protonix) 40 mg DAILY ORAL 07/07/19 09:00 08/03/19 08:59 07/09/19 08:37 Polyethylene Glycol (Miralax) 17 gm DAILYPRN PRN ORAL Constipation 07/06/19 20:31 08/05/19 20:30 Temazepam (Restoril) 15 mg HSPRN PRN ORAL Insomnia 07/06/19 20:31 07/13/19 20:30 Assessment/Plan Assessment/Plan: (1) Cervical DDD (2) Cervical Spondylosis (3) Cervical Herniated disc (4) Cervical Radiculopathy (5) Cervical Spinal stenosis We will continued the Dilaudid and start Percocet 10/325mg PO 1 tab Q6H PRN breakthrough pain. D/w Dr. Infante and he concurred. Davin Herrera Jul 10, 2019 08:29
--- NOTE | 2019-07-10 08:55 | Cardiac Electrophysiology PN ---
Assessment/Plan Assessment/Plan 1. Coronary artery disease with history of prior stent 2017. Cardiac catheterization by me last year showed no stenosis. Continue Lipitor 40 mg daily and metoprolol 50 mg b.i.d. and aspirin Her troponins are also negative. Echocardiogram showed normal left ventricular systolic function with EF of 65%. 2. Hypertension. Continue amlodipine 10 mg daily, hydralazine 100 mg every 8 hours, Lopressor 50 bid and Clonidine 0.1 q 8hr. Off Lasix . DC Labetalol as already on Lopressor The patient on p.r.n. IV Vasotec. 3. Right-sided weakness in the patient with history of prior CVA. CT of the brain showed basal ganglia infarct of indeterminate age. MRI of the brain pending by Dr. Foster. 4. Diabetes. 5. Hyperlipidemia. 6. COPD. 7. Schizoaffective disorder. 8. History of cervical spinal stenosis. Subjective Subjective Alert in NAD.Says has no appetite. Objective Last 24 Hour Vital Signs Date Time Temp Pulse Resp B/P (MAP) Pulse Ox O2 Delivery O2 Flow Rate FiO2 07/10/19 05:48 163/98 07/10/19 05:48 163/98 07/10/19 05:00 97.8 90 18 163/98 (119) 98 07/10/19 00:00 97.8 69 20 110/61 (77) 96 07/09/19 22:00 110/61 07/09/19 22:00 110/61 07/09/19 21:00 Room Air 07/09/19 21:00 67 148/69 07/09/19 21:00 67 148/69 07/09/19 20:00 97.0 67 18 148/69 (95) 99 07/09/19 17:05 97.9 07/09/19 13:26 136/87 07/09/19 13:19 136/87 07/09/19 12:00 80.0 80 20 136/87 (103) 99 80 07/09/19 09:00 Room Air Intake and Output 07/09/19 07/10/19 19:00 07:00 Intake Total 500 ml Balance 500 ml Intake Oral 500 ml # Voids 8 3 # Bowel Movements 1 Objective HEAD AND NECK: No JVD. LUNGS: Clear. CARDIOVASCULAR: Regular S1 and S2 with no gallop or murmur. ABDOMEN: Soft. EXTREMITIES: No pitting edema. Shiva Larson MD Jul 10, 2019 08:55
[2019-07-10] MEDS: Heparin 5000 units/ml inj SUBQ SCH ×2 (09:00→21:00)
[2019-07-10] MEDS: Cephalexin 500mg cap ORAL SCH ×2 (09:02→21:54)
[2019-07-10] MEDS: Metoprolol Tartrate 50mg tab ORAL SCH ×2 (09:02→21:54)
[2019-07-10] MEDS: Atorvastatin 20mg tab ORAL SCH (09:03)
[2019-07-10] MEDS: NovoLOG Insulin Flexpen SUBQ SCH ×4 (09:04→21:00)
--- NOTE | 2019-07-10 10:30 | Progress Note ---
DATE: 07/09/2019 SUBJECTIVE: The patient is now more awake and alert and walking along the floor. The patient complains of headaches, which she states she had before. She also complains of right-sided weakness and some chest pain. She also complains of some numbness in the right side of the body. OBJECTIVE: VITAL SIGNS: Last blood pressure is 136/87, heart rate 87, temperature is 97.8 degrees. Pulse is 80 and regular. MENTAL STATUS: Orientation, 07/09/2019. Place, she knew she is at [facility]. Person, she is oriented to person. She could spell world forwards and backwards. No right and left confusion. Language functions are basically intact without paraphasias. CRANIAL NERVE EXAMINATION: CRANIAL NERVE II: Visual enriquez are grossly intact. CRANIAL NERVES III, IV, AND : Extraocular motility is full without complaints of diplopia. CRANIAL NERVE V: Decreased sensation to fine touch. CRANIAL NERVE VII: . CRANIAL NERVE VIII: Auditory acuity is intact bilaterally to whisper. CRANIAL NERVES IX AND X: Gag is intact bilaterally. CRANIAL NERVE XI: Sternocleidomastoid strength is 5/5. CRANIAL NERVE XII: Tongue protrudes in the midline without fasciculations or atrophy. MUSCLE EXAMINATION: Muscle bulk and tone are normal. Strength is probably 5/5 , 5-/5 in the right upper extremity, 4+/5 in the right lower extremity, . REFLEXES: Trace in the upper extremities ankles with probable downgoing toes bilaterally. COORDINATION: [id number] is intact. GAIT AND STATION: The patient has a little bit. She can tandem walk. Heel and toe walk are decreased. SENSORY EXAMINATION: Pinprick and fine touch decreased in the right side of the body. Proprioception is intact. IMPRESSION: but the patient will have an MRI scan of brain and cervical spine. If she has significant cord compression, she need to see Neurosurgery for further evaluation. Otherwise, the patient's blood pressure will need to be controlled. putting her on antiplatelet drugs. should be corrected the patient's anemia if possible. PLAN: 1. Try to correct the patient's anemia. 2. MRI scanning of the brain and cervical spine without contrast. 3. . Primo Foster MD DR: Lesia JOB#: [id number] CC:
[2019-07-10 12:00] VITALS: BP 146/90
--- NOTE | 2019-07-10 12:47 | NUR ---
NURSE NOTES: Patient is asking to get break through pain medication Percocet 10/325 after one hour Dilaudid 2mg given. I communicated the matter to [employer] [employer] DANN Herrera ordered patient can get Percocet 10/325 after one hour to one and 1/2 of the pain medications given.
--- NOTE | 2019-07-10 13:22 | Pulmonology Progress Note ---
Assessment/Plan Problems: (1) Lacunar infarction (2) Uncontrolled hypertension (3) COPD (chronic obstructive pulmonary disease) (4) CAD (coronary artery disease) (5) Diabetes mellitus (6) Moderate pulmonary arterial systolic hypertension (7) Morbid obesity Assessment/Plan on Clonipine on Amlodipine 10 qd Hydralazine 50 q8 HCTZ 25 Lopressor 50 BID Labetolol 200 q 12 increase Hydralazine to 100 TID sliding scale cardio and neurology to see pt/ot Pain management called Neuro evaluation appreciated, MRI of brain and Cspine ordered, still pending Subjective ROS Limited/Unobtainable: No Constitutional: Reports: no symptoms HEENT: Repors: no symptoms Respiratory: Reports: no symptoms Allergies: Coded Allergies: CEFTRIAXONE (Verified Allergy, Severe, Itching, 07/04/19) IODINE AND IODIDE CONTAINING PRODUC (Verified Allergy, Severe, Anaphylaxis , 11/21/18) OLANZAPINE (Verified Allergy, Severe, Anaphylaxis, 11/21/18) THROAT SWELLING PROCHLORPERAZINE (Unverified Allergy, Severe, Shortness of Breath, ) ASPIRIN (Verified Allergy, Intermediate, Hives, 11/21/18) BENZTROPINE (Verified Allergy, Intermediate, Hives, 11/21/18) ERYTHROMYCIN BASE (Verified Allergy, Intermediate, Hives, 11/21/18) Tolerates Azithromycin KETOROLAC (Verified Allergy, Intermediate, Hives, 11/21/18) LOSARTAN (Verified Allergy, Intermediate, 11/21/18) ANGIOEDEMA NITROGLYCERIN (Verified Allergy, Intermediate, Hives, 11/21/18) PSEUDOEPHEDRINE (Verified Allergy, Intermediate, Hives, 11/21/18) SULFA (SULFONAMIDE ANTIBIOTICS) (Verified Allergy, Intermediate, Hives, 03/02) TERFENADINE (Verified Allergy, Intermediate, Hives, 11/21/18) TRAMADOL (Verified Allergy, Intermediate, Rash, 11/21/18) Objective Last 24 Hour Vital Signs Date Time Temp Pulse Resp B/P (MAP) Pulse Ox O2 Delivery O2 Flow Rate FiO2 07/10/19 12:06 98.1 07/10/19 12:00 97.1 72 18 146/90 (108) 98 07/10/19 09:02 73 123/74 07/10/19 09:02 73 123/74 07/10/19 09:00 Room Air 07/10/19 08:00 98.1 73 18 123/74 (90) 96 07/10/19 05:48 163/98 07/10/19 05:48 163/98 07/10/19 05:00 97.8 90 18 163/98 (119) 98 07/10/19 00:00 97.8 69 20 110/61 (77) 96 07/09/19 22:00 110/61 07/09/19 22:00 110/61 07/09/19 21:00 Room Air 07/09/19 21:00 67 148/69 07/09/19 21:00 67 148/69 07/09/19 20:00 97.0 67 18 148/69 (95) 99 07/09/19 17:05 97.9 07/09/19 13:26 136/87 Intake and Output 07/09/19 07/10/19 19:00 07:00 Intake Total 500 ml Balance 500 ml Intake Oral 500 ml # Voids 8 3 # Bowel Movements 1 Objective going to have MRI of brain and c-spine General Appearance: WD/WN HEENT: normocephalic, anicteric Respiratory/Chest: lungs clear, chest wall tender Cardiovascular: regular rhythm Abdomen: normal bowel sounds, no scars Current Medications Medications (Trade) Dose Ordered Sig/Raymond Route PRN Reason Start Time Stop Time Status Last Admin Dose Admin Acetaminophen (Tylenol) 650 mg Q4H PRN ORAL FEVER 07/06/19 20:28 08/05/19 20:27 Albuterol/ Ipratropium (Albuterol/ Ipratropium) 3 ml Q4H PRN HHN Shortness of Breath 07/06/19 20:29 07/11/19 20:28 Amlodipine Besylate (Norvasc) 10 mg DAILY ORAL 07/07/19 09:00 08/03/19 08:59 07/10/19 09:02 Atorvastatin Calcium (Lipitor) 40 mg DAILY ORAL 07/07/19 09:00 08/03/19 08:59 07/10/19 09:03 Cephalexin (Keflex) 500 mg Q12HR ORAL 07/06/19 21:00 07/14/19 21:01 07/10/19 09:02 Clonidine HCl (Catapres Tab) 0.1 mg EVERY 8 HOURS ORAL 07/08/19 14:00 08/07/19 13:59 07/10/19 05:48 Dextrose (Dextrose 50%) 25 ml Q30M PRN IV Hypoglycemia 07/06/19 20:30 08/03/19 10:29 Dextrose (Dextrose 50%) 50 ml Q30M PRN IV Hypoglycemia 07/06/19 20:30 08/03/19 10:29 Diphenhydramine HCl (Benadryl) 50 mg Q4H PRN IVP Itching 07/06/19 20:29 08/05/19 20:28 07/10/19 11:35 Enalaprilat (Vasotec) 2.5 mg Q6H PRN IV sbp more than 160 07/06/19 20:55 08/05/19 20:54 Famotidine (Pepcid) 20 mg BID ORAL 07/07/19 09:00 08/03/19 10:59 07/10/19 09:02 Gadobutrol (Gadavist) 7.5 mmol NOW PRN IV Radiology Procedure 07/07/19 11:45 07/11/19 11:45 Heparin Sodium (Porcine) (Heparin 5000 units/ml) 5,000 units EVERY 12 HOURS SUBQ 07/06/19 21:00 08/02/19 20:59 07/07/19 09:20 Hydralazine HCl (Apresoline) 100 mg EVERY 8 HOURS ORAL 07/06/19 22:00 08/02/19 21:59 07/10/19 05:48 Hydromorphone HCl (Dilaudid) 2 mg Q4H PRN IVP severe pain 07/10/19 11:30 07/13/19 11:29 07/10/19 11:36 Insulin Aspart (NovoLOG) BEFORE MEALS AND HS SUBQ 07/06/19 22:00 08/03/19 21:59 07/10/19 09:04 Metoprolol Tartrate (Lopressor) 50 mg Q12HR ORAL 07/06/19 21:00 08/02/19 20:59 07/10/19 09:02 Ondansetron HCl (Zofran) 4 mg Q6H PRN IVP Nausea & Vomiting 07/06/19 20:31 08/05/19 20:30 07/10/19 05:50 Oxycodone/ Acetaminophen (Percocet 10/325) 1 tab Q6H PRN ORAL Severe Breakthru Pain (>7) 07/10/19 09:00 07/17/19 08:59 07/10/19 12:58 Pantoprazole (Protonix) 40 mg DAILY ORAL 07/07/19 09:00 08/03/19 08:59 07/10/19 09:02 Polyethylene Glycol (Miralax) 17 gm DAILYPRN PRN ORAL Constipation 07/06/19 20:31 08/05/19 20:30 Temazepam (Restoril) 15 mg HSPRN PRN ORAL Insomnia 07/06/19 20:31 07/13/19 20:30 Jaswinder Naidu MD Jul 10, 2019 13:22
--- NOTE | 2019-07-10 13:25 | Internal Med Progress Note ---
Subjective Date of Service: Jul 10, 2019 Physician Name Peewee Logan Attending Physician Hebert Littlejohn MD Current Medications Medications (Trade) Dose Ordered Sig/Raymond Route PRN Reason Start Time Stop Time Status Last Admin Dose Admin Acetaminophen (Tylenol) 650 mg Q4H PRN ORAL FEVER 07/06/19 20:28 08/05/19 20:27 Albuterol/ Ipratropium (Albuterol/ Ipratropium) 3 ml Q4H PRN HHN Shortness of Breath 07/06/19 20:29 07/11/19 20:28 Amlodipine Besylate (Norvasc) 10 mg DAILY ORAL 07/07/19 09:00 08/03/19 08:59 07/10/19 09:02 Atorvastatin Calcium (Lipitor) 40 mg DAILY ORAL 07/07/19 09:00 08/03/19 08:59 07/10/19 09:03 Cephalexin (Keflex) 500 mg Q12HR ORAL 07/06/19 21:00 07/14/19 21:01 07/10/19 09:02 Clonidine HCl (Catapres Tab) 0.1 mg EVERY 8 HOURS ORAL 07/08/19 14:00 08/07/19 13:59 07/10/19 05:48 Dextrose (Dextrose 50%) 25 ml Q30M PRN IV Hypoglycemia 07/06/19 20:30 08/03/19 10:29 Dextrose (Dextrose 50%) 50 ml Q30M PRN IV Hypoglycemia 07/06/19 20:30 08/03/19 10:29 Diphenhydramine HCl (Benadryl) 50 mg Q4H PRN IVP Itching 07/06/19 20:29 08/05/19 20:28 07/10/19 11:35 Enalaprilat (Vasotec) 2.5 mg Q6H PRN IV sbp more than 160 07/06/19 20:55 08/05/19 20:54 Famotidine (Pepcid) 20 mg BID ORAL 07/07/19 09:00 08/03/19 10:59 07/10/19 09:02 Gadobutrol (Gadavist) 7.5 mmol NOW PRN IV Radiology Procedure 07/07/19 11:45 07/11/19 11:45 Heparin Sodium (Porcine) (Heparin 5000 units/ml) 5,000 units EVERY 12 HOURS SUBQ 07/06/19 21:00 08/02/19 20:59 07/07/19 09:20 Hydralazine HCl (Apresoline) 100 mg EVERY 8 HOURS ORAL 07/06/19 22:00 08/02/19 21:59 07/10/19 05:48 Hydromorphone HCl (Dilaudid) 2 mg Q4H PRN IVP severe pain 07/10/19 11:30 07/13/19 11:29 07/10/19 11:36 Insulin Aspart (NovoLOG) BEFORE MEALS AND HS SUBQ 07/06/19 22:00 08/03/19 21:59 07/10/19 09:04 Metoprolol Tartrate (Lopressor) 50 mg Q12HR ORAL 07/06/19 21:00 08/02/19 20:59 07/10/19 09:02 Ondansetron HCl (Zofran) 4 mg Q6H PRN IVP Nausea & Vomiting 07/06/19 20:31 08/05/19 20:30 07/10/19 05:50 Oxycodone/ Acetaminophen (Percocet 10/325) 1 tab Q6H PRN ORAL Severe Breakthru Pain (>7) 07/10/19 09:00 07/17/19 08:59 07/10/19 12:58 Pantoprazole (Protonix) 40 mg DAILY ORAL 07/07/19 09:00 08/03/19 08:59 07/10/19 09:02 Polyethylene Glycol (Miralax) 17 gm DAILYPRN PRN ORAL Constipation 07/06/19 20:31 08/05/19 20:30 Temazepam (Restoril) 15 mg HSPRN PRN ORAL Insomnia 07/06/19 20:31 07/13/19 20:30 Allergies: Coded Allergies: CEFTRIAXONE (Verified Allergy, Severe, Itching, 07/04/19) IODINE AND IODIDE CONTAINING PRODUC (Verified Allergy, Severe, Anaphylaxis , 11/21/18) OLANZAPINE (Verified Allergy, Severe, Anaphylaxis, 11/21/18) THROAT SWELLING PROCHLORPERAZINE (Unverified Allergy, Severe, Shortness of Breath, ) ASPIRIN (Verified Allergy, Intermediate, Hives, 11/21/18) BENZTROPINE (Verified Allergy, Intermediate, Hives, 11/21/18) ERYTHROMYCIN BASE (Verified Allergy, Intermediate, Hives, 11/21/18) Tolerates Azithromycin KETOROLAC (Verified Allergy, Intermediate, Hives, 11/21/18) LOSARTAN (Verified Allergy, Intermediate, 11/21/18) ANGIOEDEMA NITROGLYCERIN (Verified Allergy, Intermediate, Hives, 11/21/18) PSEUDOEPHEDRINE (Verified Allergy, Intermediate, Hives, 11/21/18) SULFA (SULFONAMIDE ANTIBIOTICS) (Verified Allergy, Intermediate, Hives, 03/02) TERFENADINE (Verified Allergy, Intermediate, Hives, 11/21/18) TRAMADOL (Verified Allergy, Intermediate, Rash, 11/21/18) ROS Limited/Unobtainable: No Constitutional: Reports: no symptoms HEENT: Reports: no symptoms Cardiovascular: Reports: no symptoms Respiratory: Reports: no symptoms Gastrointestinal/Abdominal: Reports: no symptoms Genitourinary: Reports: no symptoms Neurologic/Psychiatric: Reports: no symptoms Subjective 48 YO F admitted with right sided weakness. Now cerebral vascular accident. Cover for [facility] Med-Dr Littlejohn. Patient agreed to MRI of brain Objective Last Vital Signs Date Time Temp Pulse Resp B/P (MAP) Pulse Ox O2 Delivery O2 Flow Rate FiO2 07/10/19 12:06 98.1 07/10/19 12:00 72 18 146/90 (108) 98 07/10/19 09:00 Room Air 07/03/19 19:40 21 Intake and Output 07/09/19 07/10/19 19:00 07:00 Intake Total 500 ml Balance 500 ml Intake Oral 500 ml # Voids 8 3 # Bowel Movements 1 Objective PHYSICAL EXAMINATION: GENERAL: The patient is well-developed and well-nourished obese female, no apparent distress. HEENT: Eyes, pupils are equal and responsive to light and accommodation. Extraocular movements are intact. NECK: Supple without lymphadenopathy. CHEST: Lungs are clear to auscultation bilaterally without wheezes or rales. CARDIOVASCULAR: Regular rate. S1 and S2 are normal without murmurs, rubs, or gallops. ABDOMEN: Soft, nontender, and nondistended. Positive bowel sounds. No evidence of hepatosplenomegaly. Currently, no rebound or guarding. EXTREMITIES: Negative for clubbing, cyanosis, or edema. RECTAL/GENITAL: Not performed. NEUROLOGIC: Cranial nerves II through XII are grossly intact without focal deficits. Motor strength is 5/5 bilaterally. Deep tendon reflexes are 2+ plantar. Assessment/Plan Assessment/Plan ASSESSMENT: This is a 48-year-old female. 1. Right-sided weakness. 2. Cerebrovascular accident. 3. Diabetes type 2. 4. Hypertension. 5. Hypercholesteremia. 6. Coronary artery disease. 7. Chronic obstructive pulmonary disease. 8. Asthma. 9. Depression. 10. Schizoaffective disorder. 11. Cervical spine stenosis. 12. Cerebrovascular disease. TREATMENT: 1. Cerebrovascular accident. A CT scan of the brain revealed basal ganglia infarcts which were of indeterminate age. Patient agreed to MRI of the brain. A Neurology consultation has been obtained with Dr. Foster . We will follow recommendations of Neurology. 2. Diabetes type 2. NovoLog sliding scale has been instituted. 3. Hypertension. Continue amlodipine, clonidine, hydralazine, and hydrochlorothiazide as above. Continue metoprolol as above. 4. Hypercholesterolemia. Continue atorvastatin as above. 5. Coronary artery disease. 6. Chronic obstructive pulmonary disease. Continue Symbicort and albuterol as above. 7. Depression/schizoaffective disorder. 8. Cervical spine stenosis. 9. Cerebrovascular disease 10. Discharge planning: SNF vs acute rehab Peewee Logan MD Jul 10, 2019 13:25
--- NOTE | 2019-07-10 14:53 | NUR ---
MRI BRAIN AND MRI CERVICAL COMPLETED.
--- NOTE | 2019-07-10 15:15 | NUR ---
CASE MANAGEMENT:REVIEW SI;LACUNAR INFARCTION. UNCONTROLLED HTN. COPD. 98.1 73 18 146/90 96% ON RA NO LABS AVAILABLE IS;DUO NEB HHN Q4 HRS VASOTEC IV Q6 HRS PRN SBP >160 KEFLEX PO Q12 HRS NORVASC PO QD PROTONIX PO QD MED SURG STATUS DCP;FROM HOME
--- NOTE | 2019-07-10 15:19 | Diagnostic Imaging Report ---
Indication: Right-sided weakness Technique: The head was imaged in a 1.5 Natalie magnet. Sequences obtained include sagittal and axial T1 FLAIR, axial T2 fast spin echo with fat saturation, axial T2* GRE, axial T2 FLAIR, diffusion and ADC map. Comparison: None Findings: The size, contour, and configuration of the sulci, ventricles, and basal cisterns appear normal. Rodas-white differentiation is normal. There are tiny cystic foci within the basal ganglia bilaterally. These are probably normal perivascular spaces (Virchow-Chay). There is no restricted diffusion. There is no mass effect, midline shift, edema, or hemorrhage. There are no abnormal extra-axial or intra-axial fluid collections. The corpus callosum is unremarkable. The brainstem and cerebellum are unremarkable. The sella is unremarkable. Bone marrow signal within the visualized osseous structures appears age appropriate and unremarkable otherwise. Impression: Negative MRI brain without contrast.
[2019-07-10 16:00] VITALS: BP 137/85
--- NOTE | 2019-07-10 16:15 | Diagnostic Imaging Report ---
Indication: Neck pain Technique: MRI examination of the cervical spine was performed in a 1.5 Natalie magnet. Sequences obtained include sagittal and axial T1 and T2 fast spin echo, and sagittal STIR. Comparison: none Findings: C1-2: Unremarkable C2-3: Unremarkable. C3-4: Disc desiccation and narrowing and concentric disc bulge are demonstrated. There is bilateral foraminal stenosis moderate to severe in degree. There is no central stenosis. C4-5: Disc desiccation and narrowing, circumferential endplate osteophytes demonstrated. There is moderate narrowing of the central canal and lateral recesses. There is moderate bilateral foraminal stenosis. C5-6: Concentric disc bulge, circumferential vertebral endplate osteophytes and uncovertebral and facet arthropathy noted. Stenosis of the central canal and moderate to severe foraminal stenosis demonstrated. C6-7: Similar findings with circumferential concentric disc bulge, narrowing and desiccation of the disc with diminished height noted. Stenosis of the central canal and mild bilateral foraminal stenosis demonstrated. C7-T1: Diminished disc height, concentric disc bulge noted. Narrowing of the central canal bilateral foraminal stenosis demonstrated. Bone marrow signal normal. There is loss of cervical lordosis with relatively straight appearing cervical spine which may be due to muscle spasm. No gross abnormalities of the spinal cord identified. Soft tissues are unremarkable. There is diminished image quality on this examination with decreased [id number] ratio and resolution. IMPRESSION: Degenerative disease involving the cervical spine with multilevel disc disease, facet and uncovertebral arthropathy. Multilevel central stenosis and narrowing of the neural foramen as described
--- NOTE | 2019-07-10 19:30 | NUR ---
NURSE NOTES: RECEIVED PATIENT FROM STEVEN TAI. PATIENT IS AWAKE, AAOX4, ON ROOM AIR, NO ACUTE DISTRESS NOTED. IV ON LEFT AC INTACT AND PATENT. SKIN IS INTACT. BED IS LOCKED AND LOW, BED ALARMS ACTIVE, SIDE RAILS UP X2 AND CALL LIGHT IS WITHIN REACH. WILL CONTINUE TO MONITOR.
--- NOTE | 2019-07-10 19:33 | NUR ---
HAND-OFF: Report given to STEVEN Thomas.
[2019-07-10 20:00] VITALS: BP 128/79
[2019-07-11] VITALS: BP 129/81
[2019-07-11 04:00] VITALS: BP 107/64
[2019-07-11] MEDS: DiphenhydrAMINE 50mg/ml Inj IVP PRN ×3 (05:06→15:21)
[2019-07-11] MEDS: HydrALAZINE 50mg tab ORAL SCH ×2 (06:00→14:23)
[2019-07-11] MEDS: NovoLOG Insulin Flexpen SUBQ SCH ×2 (06:57→11:30)
--- NOTE | 2019-07-11 07:38 | NUR ---
NURSE NOTES: received report from Shalonda,RN. patient in bed. A&Ox4, verbally responsive. no respiratory distress noted. generalized pain. IV on right shoulder 24g. saline lock. intact. ambulatory. bed in the lowest position and locked. call light within reach. will continue to provide plan of care.
--- NOTE | 2019-07-11 07:50 | NUR ---
HAND-OFF: Report given to STEVEN CORTEZ.
[2019-07-11 08:00] VITALS: BP 148/90
[2019-07-11] MEDS: Cephalexin 500mg cap ORAL SCH (08:12)
[2019-07-11] MEDS: Atorvastatin 20mg tab ORAL SCH (08:12)
[2019-07-11] MEDS: Metoprolol Tartrate 50mg tab ORAL SCH (08:12)
[2019-07-11] MEDS: Heparin 5000 units/ml inj SUBQ SCH (08:15)
--- NOTE | 2019-07-11 09:07 | General Progress Note ---
Assessment/Plan Assessment/Plan: (1) Cervical DDD (2) Cervical Spondylosis (3) Cervical Herniated disc (4) Cervical Radiculopathy (5) Cervical Spinal stenosis Pt will continued the Dilaudid and Percocet. Recommend Neurosurgeon consult as per medication nurse. D/w Dr. Infante and he concurred. Subjective Date patient seen: Jul 11, 2019 Time patient seen: 07:45 - am Allergies: Coded Allergies: CEFTRIAXONE (Verified Allergy, Severe, Itching, 07/04/19) IODINE AND IODIDE CONTAINING PRODUC (Verified Allergy, Severe, Anaphylaxis , 11/21/18) OLANZAPINE (Verified Allergy, Severe, Anaphylaxis, 11/21/18) THROAT SWELLING PROCHLORPERAZINE (Unverified Allergy, Severe, Shortness of Breath, ) ASPIRIN (Verified Allergy, Intermediate, Hives, 11/21/18) BENZTROPINE (Verified Allergy, Intermediate, Hives, 11/21/18) ERYTHROMYCIN BASE (Verified Allergy, Intermediate, Hives, 11/21/18) Tolerates Azithromycin KETOROLAC (Verified Allergy, Intermediate, Hives, 11/21/18) LOSARTAN (Verified Allergy, Intermediate, 11/21/18) ANGIOEDEMA NITROGLYCERIN (Verified Allergy, Intermediate, Hives, 11/21/18) PSEUDOEPHEDRINE (Verified Allergy, Intermediate, Hives, 11/21/18) SULFA (SULFONAMIDE ANTIBIOTICS) (Verified Allergy, Intermediate, Hives, 03/02) TERFENADINE (Verified Allergy, Intermediate, Hives, 11/21/18) TRAMADOL (Verified Allergy, Intermediate, Rash, 11/21/18) Subjective Constitutional: Reports: weakness Eye: Reports: no symptoms ENT: Reports: no symptoms Respiratory: Reports: no symptoms Cardiovascular: Reports: no symptoms Gastrointestinal: Reports: no symptoms Genitourinary: Reports: no symptoms Musculoskeletal: Reports: muscle stiffness Skin: Reports: no symptoms Psychiatric: Reports: no symptoms Neurological: Reports: no symptoms Endocrine: Reports: no symptoms Hematologic/Lymphatic: Reports: no symptoms Subjective Patient reports that the pain has been tolerated on the Percocet and Dilaudid. Has requested 5 doses of the Dilaudid and 3 doses of the Percocet in the last 24hrs. She has no new complaints at this time. Objective Last 24 Hour Vital Signs Date Time Temp Pulse Resp B/P (MAP) Pulse Ox O2 Delivery O2 Flow Rate FiO2 07/11/19 08:13 69 148/90 07/11/19 08:12 69 148/90 07/11/19 08:00 97.5 69 20 148/90 (109) 100 07/11/19 06:00 107/64 07/11/19 06:00 107/64 07/11/19 04:00 98.8 90 20 107/64 (78) 98 07/11/19 00:00 97.7 74 18 129/81 (97) 99 07/10/19 22:00 131/82 07/10/19 22:00 131/82 07/10/19 21:54 67 131/82 07/10/19 21:00 Room Air 07/10/19 20:00 97.2 67 18 128/79 (95) 100 07/10/19 16:49 98.1 07/10/19 16:00 97.6 69 18 137/85 (102) 99 07/10/19 15:17 146/90 07/10/19 15:17 146/90 07/10/19 13:28 98.1 07/10/19 12:00 97.1 72 18 146/90 (108) 98 Intake and Output 07/10/19 07/11/19 19:00 07:00 Intake Total 600 ml 240 ml Balance 600 ml 240 ml Intake Oral 600 ml 240 ml # Voids 3 2 Height (Feet): 5 Height (Inches): 4.00 Weight (Pounds): 238 Objective General Appearance: no apparent distress, alert HEENT: PERRL Neck: normal alignment, supple Respiratory/Chest: lungs clear, normal breath sounds Cardiovascular/Chest: normal rate, regular rhythm Abdomen: non tender, soft Extremities: non-tender, normal inspection Skin Exam: warm/dry, cyanotic Neurologic: alert, oriented x 3 Musculoskeletal: normal muscle bulk Procedure: MRI C Spine no Contrast Indication: Neck pain Technique: MRI examination of the cervical spine was performed in a 1.5 Natalie magnet. Sequences obtained include sagittal and axial T1 and T2 fast spin echo, and sagittal STIR. Comparison: none Findings: C1-2: Unremarkable C2-3: Unremarkable. C3-4: Disc desiccation and narrowing and concentric disc bulge are demonstrated. There is bilateral foraminal stenosis moderate to severe in degree. There is no central stenosis. C4-5: Disc desiccation and narrowing, circumferential endplate osteophytes demonstrated. There is moderate narrowing of the central canal and lateral recesses. There is moderate bilateral foraminal stenosis. C5-6: Concentric disc bulge, circumferential vertebral endplate osteophytes and uncovertebral and facet arthropathy noted. Stenosis of the central canal and moderate to severe foraminal stenosis demonstrated. C6-7: Similar findings with circumferential concentric disc bulge, narrowing and desiccation of the disc with diminished height noted. Stenosis of the central canal and mild bilateral foraminal stenosis demonstrated. C7-T1: Diminished disc height, concentric disc bulge noted. Narrowing of the central canal bilateral foraminal stenosis demonstrated. Bone marrow signal normal. There is loss of cervical lordosis with relatively straight appearing cervical spine which may be due to muscle spasm. No gross abnormalities of the spinal cord identified. Soft tissues are unremarkable. Davin Herrera Jul 11, 2019 09:07
--- NOTE | 2019-07-11 11:01 | Cardiac Electrophysiology PN ---
Assessment/Plan Assessment/Plan 1. Coronary artery disease with history of prior stent 2017. Cardiac catheterization by me last year showed no stenosis. Continue Lipitor 40 mg daily and metoprolol 50 mg b.i.d. and aspirin. Her troponins are also negative. Echocardiogram EF of 65%. 2. Hypertension. Continue amlodipine 10 mg daily, hydralazine 100 mg every 8 hours, Lopressor 50 bid and Clonidine 0.1 q 8hr. Off Lasix . DCed Labetalol as already on Lopressor The patient on p.r.n. IV Vasotec. 3. Right-sided weakness in the patient with history of prior CVA. CT of the brain showed basal ganglia infarct of indeterminate age. MRI of the brain pending by Dr. Foster. 4. Diabetes. 5. Hyperlipidemia. 6. COPD. 7. Schizoaffective disorder. 8. History of cervical spinal stenosis. ANTON RN Subjective Subjective Alert in NAD.Says has no appetite and awaiting spine surgeon to see her. Objective Last 24 Hour Vital Signs Date Time Temp Pulse Resp B/P (MAP) Pulse Ox O2 Delivery O2 Flow Rate FiO2 07/11/19 09:00 Room Air 07/11/19 08:13 69 148/90 07/11/19 08:12 69 148/90 07/11/19 08:00 97.5 69 20 148/90 (109) 100 07/11/19 06:00 107/64 07/11/19 06:00 107/64 07/11/19 04:00 98.8 90 20 107/64 (78) 98 07/11/19 00:00 97.7 74 18 129/81 (97) 99 07/10/19 22:00 131/82 07/10/19 22:00 131/82 07/10/19 21:54 67 131/82 07/10/19 21:00 Room Air 07/10/19 20:00 97.2 67 18 128/79 (95) 100 07/10/19 16:49 98.1 07/10/19 16:00 97.6 69 18 137/85 (102) 99 07/10/19 15:17 146/90 07/10/19 15:17 146/90 07/10/19 13:28 98.1 07/10/19 12:00 97.1 72 18 146/90 (108) 98 Intake and Output 07/10/19 07/11/19 19:00 07:00 Intake Total 600 ml 240 ml Balance 600 ml 240 ml Intake Oral 600 ml 240 ml # Voids 3 2 Objective HEAD AND NECK: No JVD. LUNGS: Clear. CARDIOVASCULAR: Regular S1 and S2 with no gallop or murmur. ABDOMEN: Soft. EXTREMITIES: No pitting edema. Shiva Larson MD Jul 11, 2019 11:01
[2019-07-11 12:00] VITALS: BP 150/87
--- NOTE | 2019-07-11 12:12 | NUR ---
NURSE NOTES: patient refused Insulin injection. [id number]. patient said she has not been eating properly. she would eat lunch and check at 1630. explained risks and benefits. patient refused.
[2019-07-11 14:21] VITALS: BP 151/92
[2019-07-11 14:23] VITALS: BP 151/92
[2019-07-11] MEDS ORDERED: GLYCOTROL PO (14:35)
[2019-07-11] MEDS ORDERED: METFORMIN500 MG/5 M PO (14:37)
--- NOTE | 2019-07-11 14:50 | Pulmonology Progress Note ---
Assessment/Plan Problems: (1) Lacunar infarction (2) Uncontrolled hypertension (3) COPD (chronic obstructive pulmonary disease) (4) CAD (coronary artery disease) (5) Diabetes mellitus (6) Moderate pulmonary arterial systolic hypertension (7) Morbid obesity Assessment/Plan on Clonipine on Amlodipine 10 qd Hydralazine 50 q8 HCTZ 25 Lopressor 50 BID Labetolol 200 q 12 increase Hydralazine to 100 TID sliding scale cardio and neurology to see pt/ot prescription written Subjective ROS Limited/Unobtainable: No Allergies: Coded Allergies: CEFTRIAXONE (Verified Allergy, Severe, Itching, 07/04/19) IODINE AND IODIDE CONTAINING PRODUC (Verified Allergy, Severe, Anaphylaxis , 11/21/18) OLANZAPINE (Verified Allergy, Severe, Anaphylaxis, 11/21/18) THROAT SWELLING PROCHLORPERAZINE (Unverified Allergy, Severe, Shortness of Breath, ) ASPIRIN (Verified Allergy, Intermediate, Hives, 11/21/18) BENZTROPINE (Verified Allergy, Intermediate, Hives, 11/21/18) ERYTHROMYCIN BASE (Verified Allergy, Intermediate, Hives, 11/21/18) Tolerates Azithromycin KETOROLAC (Verified Allergy, Intermediate, Hives, 11/21/18) LOSARTAN (Verified Allergy, Intermediate, 11/21/18) ANGIOEDEMA NITROGLYCERIN (Verified Allergy, Intermediate, Hives, 11/21/18) PSEUDOEPHEDRINE (Verified Allergy, Intermediate, Hives, 11/21/18) SULFA (SULFONAMIDE ANTIBIOTICS) (Verified Allergy, Intermediate, Hives, 03/02) TERFENADINE (Verified Allergy, Intermediate, Hives, 11/21/18) TRAMADOL (Verified Allergy, Intermediate, Rash, 11/21/18) Objective Last 24 Hour Vital Signs Date Time Temp Pulse Resp B/P (MAP) Pulse Ox O2 Delivery O2 Flow Rate FiO2 07/11/19 14:23 151/92 07/11/19 14:22 151/92 07/11/19 14:21 97.0 68 20 151/92 (111) 99 07/11/19 12:00 97.2 68 20 150/87 (108) 99 07/11/19 09:00 Room Air 07/11/19 08:13 69 148/90 07/11/19 08:12 69 148/90 07/11/19 08:00 97.5 69 20 148/90 (109) 100 07/11/19 06:00 107/64 07/11/19 06:00 107/64 07/11/19 04:00 98.8 90 20 107/64 (78) 98 07/11/19 00:00 97.7 74 18 129/81 (97) 99 07/10/19 22:00 131/82 07/10/19 22:00 131/82 07/10/19 21:54 67 131/82 07/10/19 21:00 Room Air 07/10/19 20:00 97.2 67 18 128/79 (95) 100 07/10/19 16:49 98.1 07/10/19 16:00 97.6 69 18 137/85 (102) 99 07/10/19 15:17 146/90 07/10/19 15:17 146/90 Intake and Output 07/10/19 07/11/19 19:00 07:00 Intake Total 600 ml 240 ml Balance 600 ml 240 ml Intake Oral 600 ml 240 ml # Voids 3 2 Objective no change Current Medications Medications (Trade) Dose Ordered Sig/Raymond Route PRN Reason Start Time Stop Time Status Last Admin Dose Admin Acetaminophen (Tylenol) 650 mg Q4H PRN ORAL FEVER 07/06/19 20:28 08/05/19 20:27 Albuterol/ Ipratropium (Albuterol/ Ipratropium) 3 ml Q4H PRN HHN Shortness of Breath 07/06/19 20:29 07/11/19 20:28 Amlodipine Besylate (Norvasc) 10 mg DAILY ORAL 07/07/19 09:00 08/03/19 08:59 07/11/19 08:13 Atorvastatin Calcium (Lipitor) 40 mg DAILY ORAL 07/07/19 09:00 08/03/19 08:59 07/11/19 08:12 Cephalexin (Keflex) 500 mg Q12HR ORAL 07/06/19 21:00 07/14/19 21:01 07/11/19 08:12 Clonidine HCl (Catapres Tab) 0.1 mg EVERY 8 HOURS ORAL 07/08/19 14:00 08/07/19 13:59 07/11/19 14:22 Dextrose (Dextrose 50%) 25 ml Q30M PRN IV Hypoglycemia 07/06/19 20:30 08/03/19 10:29 Dextrose (Dextrose 50%) 50 ml Q30M PRN IV Hypoglycemia 07/06/19 20:30 08/03/19 10:29 Diphenhydramine HCl (Benadryl) 50 mg Q4H PRN IVP Itching 07/06/19 20:29 08/05/19 20:28 07/11/19 10:45 Enalaprilat (Vasotec) 2.5 mg Q6H PRN IV sbp more than 160 07/06/19 20:55 08/05/19 20:54 Famotidine (Pepcid) 20 mg BID ORAL 07/07/19 09:00 08/03/19 10:59 07/11/19 08:13 Heparin Sodium (Porcine) (Heparin 5000 units/ml) 5,000 units EVERY 12 HOURS SUBQ 07/06/19 21:00 08/02/19 20:59 07/07/19 09:20 Hydralazine HCl (Apresoline) 100 mg EVERY 8 HOURS ORAL 07/06/19 22:00 08/02/19 21:59 07/11/19 14:23 Hydromorphone HCl (Dilaudid) 2 mg Q4H PRN IVP severe pain 07/10/19 11:30 07/13/19 11:29 07/11/19 10:45 Insulin Aspart (NovoLOG) BEFORE MEALS AND HS SUBQ 07/06/19 22:00 08/03/19 21:59 07/11/19 06:57 Metoprolol Tartrate (Lopressor) 50 mg Q12HR ORAL 07/06/19 21:00 08/02/19 20:59 07/11/19 08:12 Ondansetron HCl (Zofran) 4 mg Q6H PRN IVP Nausea & Vomiting 07/06/19 20:31 08/05/19 20:30 07/11/19 06:48 Oxycodone/ Acetaminophen (Percocet 10/325) 1 tab Q6H PRN ORAL Severe Breakthru Pain (>7) 07/10/19 09:00 07/17/19 08:59 07/11/19 08:14 Pantoprazole (Protonix) 40 mg DAILY ORAL 07/07/19 09:00 08/03/19 08:59 07/11/19 08:13 Polyethylene Glycol (Miralax) 17 gm DAILYPRN PRN ORAL Constipation 07/06/19 20:31 08/05/19 20:30 Temazepam (Restoril) 15 mg HSPRN PRN ORAL Insomnia 07/06/19 20:31 07/13/19 20:30 Jaswinder Naidu MD Jul 11, 2019 14:50
[2019-07-11] MEDS ORDERED: GLUCOTROL5 MG ORAL (15:07)
--- NOTE | 2019-07-11 16:50 | NUR ---
NURSE NOTES: patient discharged to home with fair condition via taxi. no respiratory distress noted. A&Ox4. removed IV and ID band. checked and counted belongings with patient. provided dc packet. obtained sign. skin intact. assisted patient to the lobby. left safely via taxi Addendum: 07/11/19 at 1715 by DANA CARMICHAEL RN patient brought medications from [facility] upon discharge.
--- NOTE | 2019-07-11 17:05 | NUR ---
INSURANCE REVIEW FAXED TO [facility] REF# [id number] # [phone] FAX# [phone] REVIEWS/CLINICALS
--- NOTE | 2019-07-11 18:40 | Internal Med Progress Note ---
Subjective Date of Service: Jul 11, 2019 Physician Name Peewee Logan Attending Physician Hebert Littlejohn MD Allergies: Coded Allergies: CEFTRIAXONE (Verified Allergy, Severe, Itching, 07/04/19) IODINE AND IODIDE CONTAINING PRODUC (Verified Allergy, Severe, Anaphylaxis , 11/21/18) OLANZAPINE (Verified Allergy, Severe, Anaphylaxis, 11/21/18) THROAT SWELLING PROCHLORPERAZINE (Unverified Allergy, Severe, Shortness of Breath, ) ASPIRIN (Verified Allergy, Intermediate, Hives, 11/21/18) BENZTROPINE (Verified Allergy, Intermediate, Hives, 11/21/18) ERYTHROMYCIN BASE (Verified Allergy, Intermediate, Hives, 11/21/18) Tolerates Azithromycin KETOROLAC (Verified Allergy, Intermediate, Hives, 11/21/18) LOSARTAN (Verified Allergy, Intermediate, 11/21/18) ANGIOEDEMA NITROGLYCERIN (Verified Allergy, Intermediate, Hives, 11/21/18) PSEUDOEPHEDRINE (Verified Allergy, Intermediate, Hives, 11/21/18) SULFA (SULFONAMIDE ANTIBIOTICS) (Verified Allergy, Intermediate, Hives, 03/02) TERFENADINE (Verified Allergy, Intermediate, Hives, 11/21/18) TRAMADOL (Verified Allergy, Intermediate, Rash, 11/21/18) ROS Limited/Unobtainable: No Constitutional: Reports: no symptoms HEENT: Reports: no symptoms Cardiovascular: Reports: no symptoms Respiratory: Reports: no symptoms Gastrointestinal/Abdominal: Reports: no symptoms Genitourinary: Reports: no symptoms Neurologic/Psychiatric: Reports: no symptoms Subjective 48 YO F admitted with right sided weakness. Now cerebral vascular accident. Cover for Int Med-Dr Littlejohn. Patient agreed to MRI of brain Objective Last Vital Signs Date Time Temp Pulse Resp B/P (MAP) Pulse Ox O2 Delivery O2 Flow Rate FiO2 07/11/19 14:23 151/92 07/11/19 14:21 97.0 68 20 99 07/11/19 09:00 Room Air 07/03/19 19:40 21 Intake and Output 07/10/19 07/11/19 19:00 07:00 Intake Total 600 ml 240 ml Balance 600 ml 240 ml Intake Oral 600 ml 240 ml # Voids 3 2 Objective PHYSICAL EXAMINATION: GENERAL: The patient is well-developed and well-nourished obese female, no apparent distress. HEENT: Eyes, pupils are equal and responsive to light and accommodation. Extraocular movements are intact. NECK: Supple without lymphadenopathy. CHEST: Lungs are clear to auscultation bilaterally without wheezes or rales. CARDIOVASCULAR: Regular rate. S1 and S2 are normal without murmurs, rubs, or gallops. ABDOMEN: Soft, nontender, and nondistended. Positive bowel sounds. No evidence of hepatosplenomegaly. Currently, no rebound or guarding. EXTREMITIES: Negative for clubbing, cyanosis, or edema. RECTAL/GENITAL: Not performed. NEUROLOGIC: Cranial nerves II through XII are grossly intact without focal deficits. Motor strength is 5/5 bilaterally. Deep tendon reflexes are 2+ plantar. Assessment/Plan Assessment/Plan ASSESSMENT: This is a 48-year-old female. 1. Right-sided weakness. 2. Cerebrovascular accident. 3. Diabetes type 2. 4. Hypertension. 5. Hypercholesteremia. 6. Coronary artery disease. 7. Chronic obstructive pulmonary disease. 8. Asthma. 9. Depression. 10. Schizoaffective disorder. 11. Cervical spine stenosis. 12. Cerebrovascular disease. TREATMENT: 1. Cerebrovascular accident. A CT scan of the brain revealed basal ganglia infarcts which were of indeterminate age. MRI of the brain=normal. A Neurology consultation has been obtained with Dr. Foster . We will follow recommendations of Neurology. 2. Diabetes type 2. NovoLog sliding scale has been instituted. 3. Hypertension. Continue amlodipine, clonidine, hydralazine, and hydrochlorothiazide as above. Continue metoprolol as above. 4. Hypercholesterolemia. Continue atorvastatin as above. 5. Coronary artery disease. 6. Chronic obstructive pulmonary disease. Continue Symbicort and albuterol as above. 7. Depression/schizoaffective disorder. 8. Cervical spine stenosis. 9. Cerebrovascular disease 10. Discharge planning: home 11. Prescriptions called in to [facility] Peewee Logan MD Jul 11, 2019 18:40
--- NOTE | 2019-07-12 12:56 | NUR ---
INSURANCE unable to fax discharge summary not in system yet [facility] REF# [id number] # [phone] FAX# [phone] REVIEWS/CLINICALS
--- NOTE | 2019-07-15 08:11 | Discharge Summary ---
Discharge Summary Discharge Summary _ DATE OF ADMISSION: 07/03/2019 DATE OF DISCHARGE: 07/11/2019 DISCHARGED BY: Dr. Littlejohn REASON FOR ADMISSION: 48 years old female with past medical history of diabetes mellitus, congestive heart failure, hypertension, asthma, TIA presented to ED with right upper extremity weakness and pain. Patient reported difficulties moving her right upper extremity and right shoulder. Patient was seen by home health nurse and was noted to have elevated blood pressure. She denied vomiting or diarrhea. She reported f that blood pressure overall was poorly controlled . Upon evaluation blood pressure was 191/114. Laboratory work-up revealed no leukocytosis, hemoglobin 10.9 , hematocrit 34.5 , platelet count 234. Urinalysis revealed evidence of possible UTI. Urine test was negative. Potassium 3.2. Stable renal parameters. Troponin negative, pro BNP 371 .EKG revealed normal sinus rhythm with left anterior fascicular block, no acute ischemic changes. TSH within normal limits . CT of the head revealed no acute intracranial bleeding or mass-effect. Bilateral basal ganglia lacunar infarcts, probably remote but were not evident on prior study on 05/29/2019. Patient received labetalol for elevated blood pressure , empiric antibiotic and subsequently admitted to telemetry floor for further management. CONSULTANTS: neurologist Dr. Foster pulmonary/critical care Dr. Naidu pain specialist Dr. Infante HOSPITAL COURSE: Patient admitted to telemetry floor. Carotid duplex was unremarkable. MRI of the brain was negative. MRI of the cervical spine revealed degenerative disease involving the cervical spine with multilevel disc disease, facet and vertebral arthropathy. Multilevel central stenosis and narrowing of the neural foramina. Patient was on antiplatelet therapy with Plavix. Lipid panel revealed elevated LDL 119, total cholesterol 204, stable triglyceride . Patient was educated on low-fat low-cholesterol diet. Antihypertensive regimen was optimized to bring blood pressure under control . Patient was on multiple antihypertensive medications, blood pressure stabilized. Echocardiogram revealed preserved ejection fraction of 65% with mild left ventricular hypertrophy. No evidence of pericardial effusion. No evidence of wall motion abnormality. Right ventricular systolic pressure of 36 consistent with a mild pulmonary hypertension. Supplemental oxygen provided and titrated to keep oximetry above 92%. Pulmonary toilet with bronchodilator provided as needed. Pulse oximetry was stable on room air. Daily maintenance diuretic dose was continued. Volumes were closely monitored. DVT and GI prophylaxis provided. Marketing Strategy Manager closely followed. Patient had a history of prior stent placement in 2017. Patient undergone cardiac catheterization last year , which showed no stenosis. Marketing Strategy Manager recommended continue antiplatelet therapy , beta-joey and statin. All troponin were negative. ECG with sinus rhythm, no acute ischemic changes. Echocardiogram revealed preserved ejection fraction. Clonidine was on board as needed additionally for blood pressure spikes. Hemoglobin and hematocrit were closely monitored with goal to keep hemoglobin above 7. Hemoglobin and hematocrit remained at baseline and prior to discharge hemoglobin up to 12, hematocrit 38.7. Blood sugar was managed with sliding scale of insulin. Blood sugar remained stable. Pain management was addressed as needed as per pain specialist recommendations. Supportive care provided. Patient clinically stabilized and was ready for discharge. FINAL DIAGNOSES: Cerebrovascular disease with history of TIA Bilateral basal ganglia lacunar infarct , undetermined age Right-sided weakness Cervical DDD Cervical spondylosis Cervical radiculopathy Cervical stenosis Hypertension with initial hypertensive urgency Coronary artery disease with history of stenting in 2017 COPD/asthma Diabetes mellitus Hyperlipidemia Anemia Schizoaffective disorder Moderate pulmonary hypertension Morbid obesity DISCHARGE MEDICATIONS: See Medication Reconciliation list. DISCHARGE INSTRUCTIONS: Patient was discharged home Follow-up with a primary care provider in 1 week. Ebony Solares NP Jul 15, 2019 08:11
== END 2019-07-11 16:45 | disposition home or self-care (01) | DRG 65 ==
LOC: EMR 16:14 → 2W 17:15 → EDBEDREQ 18:50 → 4E 07-06 20:53
DX: I63.9 Cerebral infarction, unspecified (principal); G81.91 Hemiplegia, unspecified affecting right dominant side; I25.10 Atherosclerotic heart disease of native coronary artery without angina pectoris; J44.9 Chronic obstructive pulmonary disease, unspecified; I10 Essential (primary) hypertension; I27.20 Pulmonary hypertension, unspecified; E11.9 Type 2 diabetes mellitus without complications; I16.0 Hypertensive urgency; E78.00 Pure hypercholesterolemia, unspecified; Z95.5 Presence of coronary angioplasty implant and graft; Z86.73 Personal history of transient ischemic attack (TIA), and cerebral infarction without residual deficits; Z88.8 Allergy status to other drugs, medicaments and biological substances; F32.9 Major depressive disorder, single episode, unspecified; F25.9 Schizoaffective disorder, unspecified; M48.02 Spinal stenosis, cervical region; Z79.02 Long term (current) use of antithrombotics/antiplatelets; Z79.4 Long term (current) use of insulin; M50.30 Other cervical disc degeneration, unspecified cervical region; E78.5 Hyperlipidemia, unspecified; D64.9 Anemia, unspecified; E66.01 Morbid (severe) obesity due to excess calories
CPT/HCPCS: 36415; 70450; 70551; 72141; 80048; 80053; 80061; 81001; 81003; 81025; 82962; 83880; 84443; 84484; 85025; 85610; 85730; 86140; 87086; 93005; 93306; 93880; 96365; 96375; 99285; J1815; J2405; J7620; J8499

== ENCOUNTER 2019-07-31 19:41 | Emergency (ER) | payer MEDICARE, OTHER ==
[~2019-07-31] VITALS: Ht 162.6 cm; Wt 97.5 kg
[~2019-07-31 19:41] MED LIST changes: +FUROSEMIDE40 MG ORAL; +GLYCOTROL PO; +KLONOPIN1 MG ORAL; +METFORMIN500 MG/5 M PO; +PLAVIX75 MG ORAL
[2019-07-31 20:08] VITALS: BP 225/114
--- NOTE | 2019-07-31 20:08 | NUR ---
ED Nurse Note: Patient walked in to ED c/o high blood pressure. Pt alert and orientedx4, verbally reponsive. Not in any distress. Pt is uncoperative and is being rude with the staff. Pt unable to provide accurate information about her medical history. BP at triage is 225/114.
--- NOTE | 2019-07-31 20:25 | NUR ---
ED Nurse Note: Patient refused IV line insertion and blood test. Explained risk and benefits, verbally understood. ERMD notified.
[2019-07-31 20:35] VITALS: BP 165/90
--- NOTE | 2019-07-31 20:35 | NUR ---
AMA: Patient left against medical advice. As per patient, she doesnt want any blood test and CT, stated that it is better for her to leave. ERMD notified. Explained risk and benefits, verbally understood. Pt refused to sign AMA form. Pt is alert and orientedx4, verbally responisve. Not in any distress. No SOB. ID band removed. Pt took all her belongings.
--- NOTE | 2019-07-31 20:38 | Emergency Room Report ---
History of Present Illness General Chief Complaint: Hypertension Source: Patient Present Illness HPI Patient is a 49-year-old female past medical history of hypertension very abrasive who presents to the ER complaining of elevated blood pressure. Patient states that she went to [employer] to speak with the social security assessor who was not there. She states they checked her blood pressure told it was high and sent her to the emergency room. Patient is now complaining of headache, blurry vision, chest pain, shortness of breath. She denies any abdominal pain, nausea, vomiting. She denies any fever or chills. She denies any cough. Patient is wearing sunglasses when I asked her to remove it she asked me why I told her that she was indoors and that there was no sign inside. Patient was very abrasive with the triage nurse and triage nurse had to have security accompany her just to check her blood pressure. Patient is a stack of medications and asked her asked her if I could see it she refused to let me or the bedside nurse see her medication list. She said that is only for her primary care physician. COVID-19 risk:Contact w/high r: No COVID-19 risk:Travel to affect: No Has patient experienced samuels: Yes Coronavirus symptoms experienc: Shortness of Breath, Cough Allergies: Coded Allergies: CEFTRIAXONE (Verified Allergy, Severe, Itching, 07/04/19) IODINE AND IODIDE CONTAINING PRODUC (Verified Allergy, Severe, Anaphylaxis , 11/21/18) OLANZAPINE (Verified Allergy, Severe, Anaphylaxis, 11/21/18) THROAT SWELLING PROCHLORPERAZINE (Unverified Allergy, Severe, Shortness of Breath, ) ASPIRIN (Verified Allergy, Intermediate, Hives, 11/21/18) BENZTROPINE (Verified Allergy, Intermediate, Hives, 11/21/18) ERYTHROMYCIN BASE (Verified Allergy, Intermediate, Hives, 11/21/18) Tolerates Azithromycin KETOROLAC (Verified Allergy, Intermediate, Hives, 11/21/18) LOSARTAN (Verified Allergy, Intermediate, 11/21/18) ANGIOEDEMA NITROGLYCERIN (Verified Allergy, Intermediate, Hives, 11/21/18) PSEUDOEPHEDRINE (Verified Allergy, Intermediate, Hives, 11/21/18) SULFA (SULFONAMIDE ANTIBIOTICS) (Verified Allergy, Intermediate, Hives, 03/02) TERFENADINE (Verified Allergy, Intermediate, Hives, 11/21/18) TRAMADOL (Verified Allergy, Intermediate, Rash, 11/21/18) Patient History Last Menstrual Period: 06/29/19 Now: No - UNWILLING TO ANSWER Reviewed Nursing Documentation: PMH: Agreed; PSxH: Agreed Nursing Documentation-PMH Hx Cardiac Problems: Yes - CHF Hx Hypertension: Yes Hx Asthma: Yes Hx COPD: No Hx Diabetes: Yes Hx Cancer: No Hx Gastrointestinal Problems: No Hx Neurological Problems: Yes Hx Transient Ischemic Attacks: Yes - x4 Hx Headaches: Yes Review of Systems All Other Systems: negative except mentioned in HPI Physical Exam Vital Signs Date Time Temp Pulse Resp B/P (MAP) Pulse Ox O2 Delivery O2 Flow Rate FiO2 07/31/19 19:53 98.1 99 18 225/114 (151) 96 Room Air Sp02 EP Interpretation: reviewed, normal General Appearance: no apparent distress, alert, GCS 15, non-toxic Head: normocephalic, atraumatic Eyes: bilateral eye normal inspection, bilateral eye PERRL ENT: hearing grossly normal, normal pharynx, no angioedema, normal voice Neck: full range of motion, supple/symm/no masses Respiratory: chest non-tender, lungs clear, normal breath sounds, speaking full sentences Cardiovascular #1: regular rate, rhythm, no edema Gastrointestinal: normal bowel sounds, non tender, soft, non-distended, no guarding, no rebound Rectal: deferred Genitourinary: normal inspection, no CVA tenderness Musculoskeletal: back normal, normal range of motion, calf tenderness, gait/ station normal, non-tender Neurologic: alert, motor strength/tone normal, oriented x3, sensory intact, responsive, speech normal Skin: no rash Lymphatic: no adenopathy Medical Decision Making Diagnostic Impression: Primary Impression: Hypertension Additional Impression: Chest pain ER Course Patient is refusing EKG in the emergency department. She is refusing any laboratory test. She is refusing any medication treatments. Patient became angry and abrasive and states that she wants to leave and will go see her primary care physician. Patient signed an AMA sheet. The patient is of adult age and has sound mind with no evidence of altered mental status suggesting metabolic or infections etiologies. I explained in layman's terms the risk of leaving against medical advise including and significant comorbidity. The patient was given reasonable options. This was explained in front of the patient and the bedside nurse RN. The AMA for was signed and witnessed by a nurse and patient. Last Vital Signs Date Time Temp Pulse Resp B/P (MAP) Pulse Ox O2 Delivery O2 Flow Rate FiO2 07/31/19 19:53 98.1 99 18 225/114 (151) 96 Room Air Disposition: AGAINST MEDICAL ADVICE Condition: Unknown Shwetha Jimenez M.D. Jul 31, 2019 20:38
== END 2019-07-31 23:40 | disposition left against medical advice (07) ==
LOC: EMR 20:18
DX: I10 Essential (primary) hypertension (principal); R07.9 Chest pain, unspecified; R51 Headache; R06.02 Shortness of breath; R45.1 Restlessness and agitation; I11.0 Hypertensive heart disease with heart failure; I50.9 Heart failure, unspecified; E11.9 Type 2 diabetes mellitus without complications; Z86.73 Personal history of transient ischemic attack (TIA), and cerebral infarction without residual deficits; Z88.6 Allergy status to analgesic agent; Z88.8 Allergy status to other drugs, medicaments and biological substances; R05 Cough
CPT/HCPCS: 99281

== ENCOUNTER 2020-01-07 14:06 | Emergency (ER) | payer MEDICARE, OTHER ==
[~2020-01-07] VITALS: Ht 162.6 cm; Wt 95.3 kg
[2020-01-07 14:30] VITALS: BP 126/80
[2020-01-07] MEDS ORDERED: Clindamycin 600mg 50 ML IVPB ONE (14:45)
--- NOTE | 2020-01-07 14:46 | Emergency Room Report ---
History of Present Illness General Chief Complaint: Headache Source: Patient Present Illness HPI Disclaimer: Please note that this report is being documented using DRAGON technology. This can lead to erroneous entry secondary to incorrect interpretation by the dictating instrument. HPI: 49-year-old female history of hypertension, hyperlipidemia, diabetes presents for evaluation multiple complaints including wound recheck, headache, elevated blood pressures, low-grade fevers, vomiting. Patient states she had a internal fixation of a right ankle injury several months ago at [facility] and suffered from a postop infection. She was sent to rehab facility with antibiotics 1 week ago but left AGAINST MEDICAL ADVICE. She states he has not been antibiotics since. She feels warmth, swelling and pressure over the surgical site but denies wound dehiscence, bleeding, purulence. She noted some numbness and tingling over the surgical site of the leg She also noted nonproductive cough, low-grade fevers and one episode of emesis today. Patient states she was tested for COVID-19 last week but left the rehab facility before the results had returned. She feels generalized fatigue but noted a headache earlier today. She felt her pressures were very high talking with a home blood pressure cuff that she states read greater than 230 mmHg. She took her antihypertensive medications prior to arrival. Headache now improved. PMH: Hypertension, hyperlipidemia, CHF, CAD, postop infection, TIA PSH: Right ankle repair Allergies: Multiple listed Social Hx: Reviewed Allergies: Coded Allergies: CEFTRIAXONE (Verified Allergy, Severe, Itching, 07/04/19) IODINE AND IODIDE CONTAINING PRODUC (Verified Allergy, Severe, Anaphylaxis , 11/21/18) OLANZAPINE (Verified Allergy, Severe, Anaphylaxis, 11/21/18) THROAT SWELLING PROCHLORPERAZINE (Unverified Allergy, Severe, Shortness of Breath, ) ASPIRIN (Verified Allergy, Intermediate, Hives, 11/21/18) BENZTROPINE (Verified Allergy, Intermediate, Hives, 11/21/18) ERYTHROMYCIN BASE (Verified Allergy, Intermediate, Hives, 11/21/18) Tolerates Azithromycin KETOROLAC (Verified Allergy, Intermediate, Hives, 11/21/18) LOSARTAN (Verified Allergy, Intermediate, 11/21/18) ANGIOEDEMA NITROGLYCERIN (Verified Allergy, Intermediate, Hives, 11/21/18) PSEUDOEPHEDRINE (Verified Allergy, Intermediate, Hives, 11/21/18) SULFA (SULFONAMIDE ANTIBIOTICS) (Verified Allergy, Intermediate, Hives, 03/02) TERFENADINE (Verified Allergy, Intermediate, Hives, 11/21/18) TRAMADOL (Verified Allergy, Intermediate, Rash, 11/21/18) COVID-19 Screening Contact w/high risk pt: No Recent Travel to affected area: No Experienced COVID-19 symptoms?: No COVID-19 symptoms experienced: Shortness of Breath, Cough COVID-19 Testing performed TECHNICAL SERVICES MANAGER: No Patient History Last Menstrual Period: unk Nursing Documentation-PMH Hx Cardiac Problems: Yes - CHF Hx Hypertension: Yes Hx Asthma: Yes Hx COPD: No Hx Diabetes: Yes Hx Cancer: No Hx Gastrointestinal Problems: No Hx Neurological Problems: Yes Hx Transient Ischemic Attacks: Yes - x4 Hx Headaches: Yes Review of Systems All Other Systems: negative except mentioned in HPI Physical Exam Vital Signs Date Time Temp Pulse Resp B/P (MAP) Pulse Ox O2 Delivery O2 Flow Rate FiO2 01/07/20 14:18 98.2 75 18 129/71 (90) 99 Room Air General: Awake and alert, no acute distress, normotensive HEENT: NC/AT. EOMI. Cardiovascular: RRR. S1 and S2 normal. No murmur appreciated Resp: Normal work of breathing. No cough, wheezing or crackles appreciated Abdomen: Abdomen is soft, nondistended. Nontender Skin: Intact. Surgical site over the right ankle clean dry and intact without significant wound breakdown, dehiscence, purulence or bleeding. There is warmth to the touch and mild edema but no crepitus. Mild erythema overlying the incision site MSK: Normal tone and bulk. Moving all extremities. No obvious deformity. Neuro: Awake and alert. Mentating appropriately. Medical Decision Making Diagnostic Impression: Primary Impression: Headache Additional Impressions: History of hypertension Cellulitis ER Course Is a 49-year-old female presenting for evaluation of possible infection on a postop site of the right ankle, nonproductive cough, low-grade fevers, headache and hypertension. She arrives with blood pressures now in acceptable range and headache is improved however given the report that her pressures were greater than 200 earlier today will obtain a head CT. Regarding the nonproductive cough must consider pneumonia, bronchitis, pneumothorax, COVID-19 infection, viral syndrome given her recent stay in rehab facility. Will obtain x-ray, EKG , labs. She will be given clindamycin given her multiple allergies for the possible cellulitis though does appear superficial without signs of deep space infection, gangrene, wound dehiscence or other significant findings. 1730: Labs are returned within normal limits. Blood pressures have been stable during entire ED visit. CT head does not show evidence of acute bleed or other significant abnormalities. Patient received IV antibiotics and will be discharged on clindamycin. Instructed to follow-up with her orthopedic surgeon and infectious disease doctor as well. Her medications were refilled. Stable for outpatient follow-up. Instructed to return to ED with new or worsening symptoms. She understands and agrees with this treatment plan. EKG Diagnostic Results EKG Time: 14:40 Rate: normal Rhythm: NSR ST Segments: no acute changes Other Impression Sinus rhythm, left axis deviation, normal intervals, no ST segment changes. Rhythm Strip Diag. Results Rhythm Strip Time: 14:40 EP Interpretation: yes Rate: 69 Rhythm: NSR, no PVC's, no ectopy Last Vital Signs Date Time Temp Pulse Resp B/P (MAP) Pulse Ox O2 Delivery O2 Flow Rate FiO2 01/07/20 14:18 98.2 75 18 129/71 (90) 99 Room Air Disposition: HOME, SELF-CARE Condition: Stable Scripts Acetaminophen (Acetaminophen) 500 Mg Tablet 500 MG ORAL Q4H for PAIN, #30 TAB Prov: Neal Batista MD 01/07/20 Clonidine Hcl (CLONIDINE HCL) 0.1 Mg Tablet 0.1 MG PO Q6HR PRN for For High Blood Pressure for 30 Days, TAB Prov: Neal Batista MD 01/07/20 Clindamycin Hcl (CLINDAMYCIN HCL) 300 Mg Capsule 300 MG ORAL THREE TIMES A DAY for 10 Days, #30 CAP Prov: Neal Batista MD 01/07/20 Neal Batista MD Jan 07, 2020 14:46
[2020-01-07 15:30] LABS: BASOPHILS % (AUTO) 1.3 % (0.0-2.0); EOSINOPHILS % (AUTO) 1.2 % (0.0-3.0); HEMOGLOBIN 12.2 G/DL (12.0-16.0); LYMPHOCYTES % (AUTO) 22.7 % (20.0-45.0); MEAN CORPUSCULAR VOLUME 81 FL (80-99); MONOCYTES % (AUTO) 5.5 % (1.0-10.0); NEUTROPHILS % (AUTO) 69.3 % (45.0-75.0); PLATELET COUNT 228 K/UL (150-450); RED BLOOD COUNT 4.81 M/UL (4.20-5.40); RED CELL DISTRIBUTION WIDTH 14.4 % (11.6-14.8); WHITE BLOOD COUNT 8.4 K/UL (4.8-10.8)
[2020-01-07 15:52] LABS: ANION GAP 11 mmol/L (5-15); BLOOD UREA NITROGEN 21 mg/dL (7-18); CALCIUM 10.4 MG/DL (8.5-10.1); CARBON DIOXIDE 26 MMOL/L (21-32); CHLORIDE 101 MMOL/L (98-107); POTASSIUM 4.8 MMOL/L (3.5-5.1); SODIUM 138 MMOL/L (136-145)
[2020-01-07 16:02] LABS: ALANINE AMINOTRANSFERASE 88 U/L (12-78); ALBUMIN 3.7 G/DL (3.4-5.0); ALBUMIN/GLOBULIN RATIO 0.9 (1.0-2.7); ALKALINE PHOSPHATASE 257 U/L (46-116); ASPARTATE AMINO TRANSFERASE 44 U/L (15-37); BILIRUBIN,TOTAL 0.2 MG/DL (0.2-1.0)
[2020-01-07] MEDS ORDERED: HYDROcodone/Acetamin 7.5/325 tab ORAL ONE (16:15)
--- NOTE | 2020-01-07 17:06 | Diagnostic Imaging Report ---
Indication: Cough Technique: One view of the chest Comparison: 05/24/2019 Findings: Lungs and pleural spaces are clear. Heart size is normal. No significant interim change Impression: No acute process
--- NOTE | 2020-01-07 17:09 | Diagnostic Imaging Report ---
Indications: Headache Technique: Spiral acquisitions obtained through the brain. Angled axial and coronal 5 x 5 mm slices were reconstructed. Total dose length product 980 mGycm. CTDI vol(s) 53 mGy. Dose reduction achieved using automated exposure control Comparison: 07/03/2019 Findings: No acute intracranial hemorrhage or edema. No mass effect nor midline shift. Normal good-white differentiation. Normal size ventricles and extra-axial CSF spaces. Intact calvarium. Visualized orbits and sinuses are unremarkable. The mastoids are clear. Findings are unchanged Impression: Negative The CT scanner at [facility] is accredited by the [employer] and the scans are performed using protocols designed to limit radiation exposure to as low as reasonably achievable to attain images of sufficient resolution adequate for diagnostic evaluation.
[2020-01-07] MEDS ORDERED: CLINDAMYCIN HC300 MG ORAL (17:13)
[2020-01-07] MEDS ORDERED: CLONIDINE HCL0.1 MG PO (17:37)
[2020-01-07] MEDS ORDERED: ACETAMINOPHEN500 M5 ORAL (17:37)
[2020-01-07 17:41] VITALS: BP 122/84
== END 2020-01-07 17:45 | disposition home or self-care (01) ==
LOC: EMR 14:25
DX: R51 Headache (principal); L03.90 Cellulitis, unspecified; E78.5 Hyperlipidemia, unspecified; I11.0 Hypertensive heart disease with heart failure; I50.9 Heart failure, unspecified; Z91.041 Radiographic dye allergy status; Z88.8 Allergy status to other drugs, medicaments and biological substances; Z88.2 Allergy status to sulfonamides; E11.9 Type 2 diabetes mellitus without complications; Z86.73 Personal history of transient ischemic attack (TIA), and cerebral infarction without residual deficits
CPT/HCPCS: 36415; 70450; 71045; 80053; 83690; 84484; 85025; 93005; 96365; 96375; 99284; J2405; S0077

== ENCOUNTER 2020-03-23 00:58 | Emergency (ER) | payer MEDICARE, OTHER ==
[~2020-03-23] VITALS: Ht 165.1 cm; Wt 81.6 kg
[~2020-03-23 00:58] MED LIST changes: +CLINDAMYCIN HC300 MG ORAL
--- NOTE | 2020-03-23 01:20 | NUR ---
ED Nurse Note: Recieved pt walk in from home, here weith c/o sob and right side pain, pt ambulates with cane, denies chest pain, mild bilat wheezes heard, pt immediately gowned and placed on montoring, denies fevers, diarrhea or any other complaints or discomforts.
--- NOTE | 2020-03-23 01:27 | Emergency Room Report ---
History of Present Illness General Chief Complaint: Headache Source: Patient, Medical Record Present Illness HPI This a 49-year-old female with history of high blood pressure, diabetes, TIA. She presents with chief plaint headache and right-sided weakness. Headaches been ongoing for 2 days. Pain is throbbing in nature. Worse with light. Has nausea but no vomiting. She complained of right-sided weakness starting today. She said the weakness involve her whole face including the forehead. No focal deficit. She is able to take an Uber here without any difficulty. No fever chills. No urinary complaint. No other focal deficit. Pain is 9 out of 10. Allergies: Coded Allergies: CEFTRIAXONE (Verified Allergy, Severe, Itching, 07/04/19) IODINE AND IODIDE CONTAINING PRODUC (Verified Allergy, Severe, Anaphylaxis, 11/21/18) OLANZAPINE (Verified Allergy, Severe, Anaphylaxis, 11/21/18) THROAT SWELLING PROCHLORPERAZINE (Unverified Allergy, Severe, Shortness of Breath, 04/09/19) ASPIRIN (Verified Allergy, Intermediate, Hives, 11/21/18) BENZTROPINE (Verified Allergy, Intermediate, Hives, 11/21/18) ERYTHROMYCIN BASE (Verified Allergy, Intermediate, Hives, 11/21/18) Tolerates Azithromycin KETOROLAC (Verified Allergy, Intermediate, Hives, 11/21/18) LOSARTAN (Verified Allergy, Intermediate, 11/21/18) ANGIOEDEMA NITROGLYCERIN (Verified Allergy, Intermediate, Hives, 11/21/18) PSEUDOEPHEDRINE (Verified Allergy, Intermediate, Hives, 11/21/18) SULFA (SULFONAMIDE ANTIBIOTICS) (Verified Allergy, Intermediate, Hives, 11/21/18) TERFENADINE (Verified Allergy, Intermediate, Hives, 11/21/18) TRAMADOL (Verified Allergy, Intermediate, Rash, 11/21/18) COVID-19 Screening Contact w/high risk pt: No Recent Travel to affected area: No Experienced COVID-19 symptoms?: No COVID-19 symptoms experienced: Shortness of Breath, Cough COVID-19 Testing performed ROVING INSPECTOR: No Patient History Past Medical History: see triage record, old chart reviewed, DM, HTN, CVA/TIA Past Surgical History: other Pertinent Family History: none Social History: Denies: smoking Now: No Immunizations: other Reviewed Nursing Documentation: PMH: Agreed; PSxH: Agreed Nursing Documentation-PMH Hx Cardiac Problems: Yes - CHF Hx Hypertension: Yes Hx Asthma: Yes Hx COPD: No Hx Diabetes: Yes Hx Cancer: No Hx Gastrointestinal Problems: No Hx Neurological Problems: Yes Hx Transient Ischemic Attacks: Yes - x4 Hx Headaches: Yes Review of Systems Eye: Denies: eye pain, blurred vision ENT: Denies: ear pain, nose congestion, throat swelling Respiratory: Denies: cough, shortness of breath Cardiovascular: Denies: chest pain, palpitations Gastrointestinal: Denies: abdominal pain, diarrhea, nausea, vomiting Musculoskeletal: Denies: back pain, joint pain Skin: Denies: rash Neurological: Reports: headache, focal weakness; Denies: numbness Endocrine: Denies: increased thirst, increased urine Hematologic/Lymphatic: Denies: easy bruising All Other Systems: negative except mentioned in HPI Physical Exam Vital Signs Date Time Temp Pulse Resp B/P (MAP) Pulse Ox O2 Delivery O2 Flow Rate FiO2 03/23/20 01:04 98.4 73 16 174/89 (117) 96 Room Air Vitals with high blood pressure Sp02 EP Interpretation: reviewed, normal General Appearance: well appearing, no apparent distress, alert, other - Patient is wearing sunglasses Head: normocephalic, atraumatic Eyes: bilateral eye PERRL, bilateral eye EOMI ENT: hearing grossly normal, normal pharynx Neck: full range of motion, supple, no meningismus Respiratory: chest non-tender, lungs clear, normal breath sounds Cardiovascular #1: regular rate, rhythm, no murmur Gastrointestinal: normal bowel sounds, non tender, no mass, no organomegaly, no bruit, non-distended Musculoskeletal: back normal, normal range of motion, gait/station normal Psychiatric: mood/affect normal Medical Decision Making Diagnostic Impression: Primary Impression: Headache Qualified Codes: R51.9 - Headache, unspecified Additional Impression: Hypertension, essential ER Course Presents with headache and high blood pressure. Right-sided weakness appear to be episodic pain. It involved the forehead so unlikely to be TIA or CVA. May be migrainous in nature. No focal deficit. Blood pressure improved. Will discharge home. No evidence of endorgan damage. Rhythm Strip Diag. Results EP Interpretation: yes Rate: 67 Rhythm: NSR, no PVC's, no ectopy CT/MRI/US Diagnostic Results CT/MRI/US Diagnostic Results : Imaging Test Ordered: CT head Impression Negative per radiologist Last Vital Signs Date Time Temp Pulse Resp B/P (MAP) Pulse Ox O2 Delivery O2 Flow Rate FiO2 03/23/20 01:04 98.4 73 16 174/89 (117) 96 Room Air Status: improved Disposition: HOME, SELF-CARE Condition: Stable Scripts Hydrocodone/Acetaminophen 5-325* (HYDROCODONE/ACETAMINOPHEN 5-325*) 1 Each Tablet 1 TAB ORAL Q6H PRN for For Pain, #10 TAB 0 Refills Prov: Milind Price MD 03/23/20 Referrals: NOT CHOSEN IPA/,REFERRING (PCP) Patient Instructions: General Headache Without Cause Additional Instructions: Follow-up with your doctor in 7 days. Take your blood pressure medication. Return if worse. Milind Price MD Mar 23, 2020 01:27
[2020-03-23] MEDS ORDERED: Labetalol 5mg/ml 20ml vial IV ONE (01:30)
[2020-03-23] MEDS ORDERED: DiphenhydrAMINE 50mg/ml Inj IVP ONE (01:30)
--- NOTE | 2020-03-23 01:35 | NUR ---
ED Nurse Note: Pt noted with elevated b/p, informed immediately, meds ordered, will administer and monitor for effectiveness, pt also medicated for pain.
[2020-03-23 01:55] LABS: EOSINOPHILS % (AUTO) 1.1 % (0.0-3.0); HEMATOCRIT 45.3 % (37.0-47.0); HEMOGLOBIN 14.2 G/DL (12.0-16.0); LYMPHOCYTES % (AUTO) 25.2 % (20.0-45.0); MEAN CORPUSCULAR VOLUME 81 FL (80-99); MONOCYTES % (AUTO) 4.2 % (1.0-10.0); NEUTROPHILS % (AUTO) 68.5 % (45.0-75.0); PLATELET COUNT 229 K/UL (150-450); RED BLOOD COUNT 5.56 M/UL (4.20-5.40); RED CELL DISTRIBUTION WIDTH 13.9 % (11.6-14.8); WHITE BLOOD COUNT 7.3 K/UL (4.8-10.8)
[2020-03-23 01:57] LABS: APPEARANCE,URINE CLEAR; BILIRUBIN, URINE NEGATIVE (NEGATIVE); COLOR,URINE PALE YELLOW; GLUCOSE, URINE (UA) 2+ (NEGATIVE); KETONES,URINE NEGATIVE (NEGATIVE); LEUKOCYTE ESTERASE ,URINE NEGATIVE (NEGATIVE); NITRITE,URINE NEGATIVE (NEGATIVE); PH,URINE 6 (4.5-8.0); UROBILINOGEN,URINE NORMAL MG/DL (0.0-1.0)
[2020-03-23 01:59] LABS: PROTEIN,URINE NEGATIVE (NEGATIVE)
[2020-03-23 02:00] VITALS: BP 175/89
[2020-03-23] MEDS ORDERED: Morphine Sulfate 4mg/ml Inj (IV USE ONLY) IVP ONE (02:00)
[2020-03-23 02:06] LABS: CALCIUM 9.7 MG/DL (8.5-10.1); CREATININE 1.3 MG/DL (0.55-1.30); POTASSIUM 3.7 MMOL/L (3.5-5.1)
[2020-03-23 02:10] LABS: ALBUMIN 3.8 G/DL (3.4-5.0); ALBUMIN/GLOBULIN RATIO 0.9 (1.0-2.7); BILIRUBIN,TOTAL 0.2 MG/DL (0.2-1.0)
--- NOTE | 2020-03-23 02:15 | NUR ---
ED Nurse Note: Meds given for pain effective, pt continues to have elevated b/p, new med orders given, denies chest pain, will continue to monitor.
[2020-03-23 02:25] VITALS: BP 161/88
[2020-03-23] MEDS ORDERED: cloNIDine 0.2mg Tab ORAL ONE (02:30)
--- NOTE | 2020-03-23 02:41 | Diagnostic Imaging Report ---
EXAM: CT Head Without Intravenous Contrast CLINICAL HISTORY: PAIN TECHNIQUE: Axial computed tomography images of the head/brain without intravenous contrast. CTDI is 53.40 mGy and DLP is 1045.50 mGy-cm. One or more of the following dose reduction techniques were used: automated exposure control, adjustment of the mA and/or kV according to patient size, use of iterative reconstruction technique. COMPARISON: 01/07/20 FINDINGS: Brain: Unremarkable. No hemorrhage. No significant white matter disease. No edema. Ventricles: Unremarkable. No ventriculomegaly. Bones/joints: Unremarkable. No acute fracture. Soft tissues: Unremarkable. Sinuses: Unremarkable as visualized. No acute sinusitis. Mastoid air cells: Unremarkable as visualized. No mastoid effusion. Other findings: Study mildly degraded by motion. IMPRESSION: No acute findings.
[2020-03-23 02:45] VITALS: BP 150/90
[2020-03-23] MEDS ORDERED: HYDROCODON-ACE1 EA15 ORAL (02:58)
[2020-03-23] MEDS ORDERED: ACETAMINOPHEN-1 EAC1 ORAL (03:26)
[2020-03-23] MEDS ORDERED: Azithromycin 250mg tab ORAL ONE (03:30)
--- NOTE | 2020-03-23 04:00 | NUR ---
ED Nurse Note: b/p wnl, meds given effective, pt is being d/c to home, will allow to stay unitl busses running, pt takes bus for transportation, states ok, pt continues to rest quietly in bed.
[2020-03-23 05:00] VITALS: BP 131/65
--- NOTE | 2020-03-23 05:10 | NUR ---
ER DISCHARGE NOTE: Patient is cleared to be discharged per ERMD, pt is aox4, on room air, with stable vital signs. pt was given dc and prescription instructions, pt was able to verbalize understanding, pt id band and iv site removed without complications. pt is able to ambulate with steady gait with cane. pt took all belongings.
[2020-03-23 05:13] VITALS: BP 131/65
== END 2020-03-23 05:14 | disposition home or self-care (01) ==
LOC: EMR 01:15
DX: R51.9 Headache, unspecified (principal); I11.0 Hypertensive heart disease with heart failure; I50.9 Heart failure, unspecified; J45.909 Unspecified asthma, uncomplicated; E11.9 Type 2 diabetes mellitus without complications; Z86.73 Personal history of transient ischemic attack (TIA), and cerebral infarction without residual deficits; Z88.2 Allergy status to sulfonamides; Z88.5 Allergy status to narcotic agent; Z88.6 Allergy status to analgesic agent; Z88.8 Allergy status to other drugs, medicaments and biological substances
CPT/HCPCS: 36415; 70450; 80053; 80307; 81001; 81025; 84484; 85025; 96374; 96375; 99284; J1200; J2270; J2405